=== PATIENT | male | born 1955 | race Caucasian/White ===

== ENCOUNTER 2020-08-26 08:53 | Inpatient (IN) | payer BC, SELFPAY ==
[2020-08-26] VITALS (11 sets, daily range): BP systolic 120–143; BP diastolic 60–92; PULSE 75–94; RESP 13–24; TEMP 36.2–37.6; O2SAT 91–94; BMI 36.7; BMI 35.9
--- NOTE | 2020-08-26 09:22 | RAD_ITS ---
STUDY: X-RAY CHEST REASON FOR EXAM: Male, 64 years old. Cough TECHNIQUE: Single AP portable view of the chest. COMPARISON: 07/11/2016 FINDINGS: EKG leads overlie the chest Lungs are expanded with diffuse interstitial and airspace opacifications in both lung reyes. This pattern of opacification is consistent with Covid pneumonia. Other possibilities include multifocal pneumonitis or drug interactions/toxicity. There is no demonstrated pleural abnormality. Normal size heart. Normal mediastinum and ayah. Normal visualized pulmonary arteries. Normal visualized aortic arch and descending thoracic aorta. Normal visualized thoracic spine. Normal visualized ribs, clavicles, and shoulders. There is no demonstrated abnormality of the visualized soft tissue structures of the upper abdomen. RAD/Chest 1 View (Portable) IMPRESSION: Diffuse interstitial and airspace opacifications in both lung reyes, differential as described above. Electronically Signed: Kti Gale MD at 10:06 EDT , Service support ,
[2020-08-26 09:32] LABS: Absolute Lymphocyte Count 0.88 X10^3/uL (0.83-4.51); Basophil# 0.02 X10^3/uL; Basophil% 0.3 % (0-1); Eosinophil# 0.03 X10^3/uL; Eosinophils% 0.4 % (0-5); Hematocrit 38.3 % (40-54); Hemoglobin 13.1 g/dL (13.0-16.5); Lymphocyte # 0.88 X10^3/ul (4.0); Lymphocyte % 11.2 % (19-41); Mean Corp Hgb Conc 34.2 g/dL (32-36); Mean Corpuscular Volume 93.4 fL (80-94); Mean Platelet Vol. 11.2 fl (6.2-12.0); Monocyte# 0.84 X10^3/uL; Monocyte% 10.7 % (0-10); NRBC Flagged by Analyzer 0 % (0-5); Neutrophil # 6.02 X10^3/uL (2.7-7.7); Neutrophil % 76.8 % (47-70); Platelet Count 164 K/mm3 (150-450); RBC Distribution Width CV 12.5 % (11.6-14.6); RBC Distribution Width SD 42.9 fl (35.1-43.9); White Blood Count 7.8 K/mm3 (4.4-11.0)
[2020-08-26 09:44] LABS: D-Dimer Quantitative (DVT/PE) 0.75 FEU/ug/m (0.27-0.49)
--- NOTE | 2020-08-26 09:44 | ED.RN ---
d dimer 0.75. dr elias
[2020-08-26 09:46] LABS: ALB/GLOB Ratio 0.6 RATIO (0.9-2.4); AST(SGOT) 43 U/L (15-37); Alanine Aminotransfer ALT/SGPT 55 U/L (16-61); Alkaline Phosphatase 65 U/L (45-117); Anion Gap 10 (5-15); BUN 15 mg/dL (7-18); Chloride 101 mmol/L (98-107); Creatinine, Serum 1.25 mg/dL (0.70-1.30); EST Glomerular Filtration Rate 62 mL/min (>60); Est Glom Filt Rate - Afr Amer 74 mL/min (>60); Globulin 4.8 g/dL (2.2-4.2); Glucose 153 mg/dL (74-106); Potassium 3.9 mmol/L (3.5-5.1); Protein, Total 7.8 g/dL (6.4-8.2); Sodium Level 136 mmol/L (136-145)
--- NOTE | 2020-08-26 09:47 | CT_ITS ---
STUDY: CTA CHEST REASON FOR EXAM: Male, 64 years old. PE RADIATION DOSAGE (If Supplied By Facility): CTDIvol = ( 13.85 ) mGy, DLP = ( 464.95 ) mGycm TECHNIQUE: The examination was performed with the intravenous administration of IV 100mL Isovue-370. Post-processing of the angiographic images was performed, with multiplanar reformation and 3D reconstruction. Individualized dose optimization techniques were used for this CT. COMPARISON: None. FINDINGS: Normal enhancement of the main pulmonary artery and right and left pulmonary arteries. Normal enhancement of the bilateral peripheral pulmonary arteries. There is no demonstrated pulmonary embolism. Normal thoracic aorta and visualized great vessels. There is no demonstrated aortic dissection. Normal heart and pericardium. There are calcifications of the coronary arteries. There are visualized mediastinal lymph nodes, which are within normal size limits, and with normal morphology. Normal hilar regions. There is peribronchial thickening. The lungs are well expanded. Diffuse patchy interstitial and airspace opacifications predominantly in the periphery of both lung reyes without evidence of effusion. This pattern of opacification is consistent with Covid pneumonia. Normal pleura. Normal chest wall structures. There are degenerative changes of thoracic spine. Normal visualized upper abdomen. CT/CTA Chest W/WO Contrast IMPRESSION: No demonstrated PE, or thoracic aortic aneurysm or dissection Diffuse interstitial and airspace opacifications in both lung reyes. Pattern consistent with Covid pneumonia Chronic bronchitis Calcified coronary vessels Electronically Signed: Kit Gale MD at 10:31 EDT , Service support ,
--- NOTE | 2020-08-26 09:53 | ED.DCSUM_ITS ---
- ER Visit Summary Date of Service: 08/26/20 Chief Complaint: Cough History of Present Illness: The patient is a [address] Mccauley. He reports that he got his first Covid vaccine on August 09 and has had a cough ever since then. Seems to worsen on August 14. He tested positive for Covid on August 17. Patient reports he has had a fever to 101 degrees at highest. He complains of chills and sweats. He denies any chest pain. Reports that he has mild shortness of breath with exertion.. Reports he has a headache is 7 out of 10 in severity and has been present since August 09 as well. Physical Examination: Vitals: Stable. Afebrile. General: Well-nourished and well-developed. Head: Normocephalic atraumatic. Neck: Supple, no lymphadenopathy. No JVD. Nontender. Cardiovascular: Regular rate and rhythm. No murmurs. Respiratory: No respiratory distress. Clear to auscultation bilaterally. Abdominal: Soft, nontender, nondistended, normal bowel sounds. No guarding, rebound, or peritoneal signs. Back: Nontender. Extremities: Nontender, no edema. Skin: Normal color, no rash. Neurologic: Alert and oriented ?3. Cranial nerves II through XII are intact. Normal strength and sensation. Psych: Normal affect. Test Results: CBC shows hematocrit of 30.3, stable neutrophils 77, lymphocytes of 11, monocytes of 11. Chem-7 shows glucose 153. LFTs show an albumin of 3.0, globulin 4.8, AST 43. D-dimer 0.75. Clinical Impression(s) from Imaging Studies Chest X-Ray 08/26/20 09:22 IMPRESSION: Diffuse interstitial and airspace opacifications in both lung reyes, differential as described above. Electronically Signed: Kit Gale MD at 10:06 EDT , Service support , Chest CTA 08/26/20 09:47 IMPRESSION: No demonstrated PE, or thoracic aortic aneurysm or dissection Diffuse interstitial and airspace opacifications in both lung reyes. Pattern consistent with Covid pneumonia Chronic bronchitis Calcified coronary vessels Electronically Signed: Kit Gale MD at 10:31 EDT , Service support , Emergency Department Course and Treatment: Patient was given dose of dexamethasone IV. Ambulatory pulse ox dropped to 87% after walking. Treatment Plan: I had a prolonged discussion with the patient about treatment options. Initially he was wanting to go home on oxygen. After discussing this with the family he does not feel comfortable this and wants to be admitted to the hospital. He will be discussed with the hospitalist for further admission. Disposition: Admitted in stable condition. Impression: 1. COVID-19 infection. 2. Hypoxia. This note was generated with [employer] dictation software. It may contain incorrect words, spelling, and punctuation that were not noted in review of the chart prior to signing ED Disposition - Plan for ED Patient: Referrals: Frantz Mccauley MD [Primary Care Provider] -
[2020-08-26] MEDS: dexAMETHasone 4 MG/ML Vial 6 MG IV (10:20)
--- NOTE | 2020-08-26 11:57 | NURSING ---
DR CHIRAG HUTCHINSON
--- NOTE | 2020-08-26 12:47 | NURSING ---
MS2 COVID INFECTION, HYPOXIA KORAM
--- NOTE | 2020-08-26 12:48 | NURSING ---
CV ICU 204
--- NOTE | 2020-08-26 12:56 | HP.PCM_ITS ---
History of Present Illness Date of Admission: 08/26/20 Chief Complaint: fever The patient is a 64 year old M with a past medical history as outlined. He was admitted through the ED on 08/26/2020 after he went to an urgent care center with a complaint of fever. Patient was diagnosed with COVID-19 infection on August 17, 2020. He did receive his first dose of the Pfizer Covid vaccine on August 09. He said for 5 days prior to presentation, he had been having fever at home with increasing sweats. He denied any shortness of breath, cough, headache, palpitations, dizziness, nausea or vomiting. He went to the urgent care because he thought he could get some antibiotics and some other medication for fever perform Tylenol as this has not been helping much with his fever at home. On review at the urgent care center, it was recommended that he come to the ED. In the ED, he was noted to be febrile with temperature of 99.6 Fahrenheit, respiratory rate was 22 and pulse rate was 94. Blood pressure was 130/82. He was initially saturating at 94% on room air but with ambulation and mild exertion, his saturation dropped to 88%. Mg was unremarkable and CBC was also unremarkable. D-dimer was elevated at 0.75 so a CTA of the chest was done which was negative for PE but showed diffuse interstitial and airspace opacifications in both lungs with a pattern consistent with Covid pneumonia. He has never been admitted to be managed for acute hypoxic respiratory insufficiency due to COVID-19 infection. [] Past Medical History Allergies No Known Allergies Allergy (Verified 07/11/16 13:32) Home Medications: Ambulatory Orders Medication Instructions Recorded Allopurinol [Zyloprim] 100 mg PO DAILYCM 08/26/20 Allopurinol [Zyloprim] 300 mg PO DAILY 08/26/20 Amlodipine [Norvasc] 5 mg PO DAILY 08/26/20 Atorvastatin Calcium [Lipitor] 10 mg PO QHS 08/26/20 Citalopram [Celexa] 20 mg PO DAILY 08/26/20 Levothyroxine [Synthroid] 137 mcg PO DAILY 08/26/20 Triamcinolone 0.025% Cream 1 applic TOPICAL TID 08/26/20 [Kenalog] buPROPion XL [Wellbutrin Xl] 150 mg PO DAILY 08/26/20 Surgical History: no surgical history Psychiatric History: No pertinent psych hx Lives: With Family Smoking Status: Never smoker Alcohol: Occasional Drugs: None - *Family History Maternal History Items: No pertinent history Review of Systems Constitutional: Reports: Fever, Night Sweats. Denies: Chills, Malaise, Weakness, Weight Change, Fatigue Eyes: Denies: Blurred vision HEENT: Denies: Head Aches, Sinus Congestion, Sinus Drainage Cardiovascular: Denies: Chest Pain, Chest Pressure, Palpitations Respiratory: Denies: Cough, Shortness of breath at rest, Sputum production Gastrointestinal: Denies: Abdominal Pain, Nausea, Vomiting Genitourinary: Denies: Dysuria Musculoskeletal: Denies: Joint Pain, Joint Tenderness Skin: Denies: Rash, Wounds Neurological: Denies: Numbness, Tingling, Focal weakness Psychiatric: Denies: Anxiety, Depression, Homicidal Ideations, Suicidal Ideations Hematologic/ Lymphatic: Denies: Easy Bruising, Easy Bleeding VTE Information - Inpt Only VTE Present on Admission: No VTE Pharm Prophylaxis ordered?: Yes - Physical Exam Vitals/I&O's: Vital Signs Temp Pulse Resp BP Pulse Ox 97.1 F L 84 22 H 127/60 H 92 08/26/20 12:18 08/26/20 12:18 08/26/20 12:18 08/26/20 12:18 08/26/20 12:18 Oxygen Delivery Method Room Air Weight: 241 lb 6.499 oz Body Mass Index (BMI) 36.7 General: Alert, Oriented x3, Cooperative, No apparent distress HEENT: Atraumatic, PERRLA, EOMI, Normocephalic Oral: Moist Mucosa Neck: Supple, No JVD, Negative Carotid Bruits Lungs: - - few crackles bibasally, no wheezes. On room air Cardiovascular: Regular rate, Regular Rhythm, Normal S1, Normal S2, No murmurs Abdomen: Bowel Sounds Present, Soft, Non Tender, Non-Distended, No Hepato- splenomegaly Extremities: No clubbing, No cyanosis, No edema, Capillary Refill Less than 3 Seconds Skin: No rashes, No breakdown Musculoskeletal: No Tenderness to Palpation of Joints or Extremities Lymphatic: No Cervical, Supraclavicular, or Inguinal Adenopathy Neurological: Cranial nerves II-XII grossly intact, Neuro grossly intact, Motor Exam 5/5 strength throughout Psych/Mental Status: Normal Affect, Appropriate, Alert and oriented to time, place, person, mood and affect Laboratory Results 08/26/20 09:14: WBC 7.8, RBC 4.10 L, Hgb 13.1, Hct 38.3 L, MCV 93.4, MCH 32.0, MCHC 34.2, RDW Std Deviation 42.9, RDW Coeff of Bella 12.5, Plt Count 164, MPV 11.2, Immature Gran % (Auto) 0.600, Neut % (Auto) 76.8 H, Lymph % (Auto) 11.2 L, [place] % (Auto) 10.7 H, Eos % (Auto) 0.4, Baso % (Auto) 0.3, Absolute Neuts (auto) 6.0, Absolute Lymphs (auto) 0.88, Nucleated RBC % 0 08/26/20 09:14: D-Dimer Quant (PE/DVT) 0.75 H* 08/26/20 09:14: Sodium 136, Potassium 3.9, Chloride 101, Carbon Dioxide 25.0, Anion Gap 10, BUN 15, Creatinine 1.25, Estim Creat Clear Calc 57.00, Est GFR (MDRD) Af Amer 74, Est GFR (MDRD) Non-Af 62, BUN/Creatinine Ratio 12.0, Glucose 153 H, Calcium 9.0, Total Bilirubin 0.50, AST 43 H, ALT 55, Alkaline Phosphatase 65, Total Protein 7.8, Albumin 3.0 L, Globulin 4.8 H, Albumin/Globulin Ratio 0.6 L Diagnostic Data Chest X-Ray 08/26/20 09:22 IMPRESSION: Diffuse interstitial and airspace opacifications in both lung reyes, differential as described above. Electronically Signed: Kit Gale MD at 10:06 EDT , Service support , Chest CTA 08/26/20 09:47 IMPRESSION: No demonstrated PE, or thoracic aortic aneurysm or dissection Diffuse interstitial and airspace opacifications in both lung reyes. Pattern consistent with Covid pneumonia Chronic bronchitis Calcified coronary vessels Electronically Signed: Kit Gale MD at 10:31 EDT , Service support , Assessment/Plan 64 y/o admitted with a complaint of fever #Acute hypoxic respiratory insufficiency due to COVID 19 infection * Admit to the Covid unit * As patient desaturated to 88% with ambulation, will start on IV remdesivir and Decadron 6 mg daily. * Breathing treatments with bronchodilators. Titrate oxygen to maintain saturation above 90%. * Consult infectious disease. * #COVID 19 infection: As above #Elevated D-dimer: * CTA of the chest done was negative for PE. * Start on Lovenox. * Will need a short course of anticoagulation for about 2 weeks as thromboprophylaxis on discharge. * # History of gout: on allopurinol #Hypertension: on amlodipine 5mg daily #Hyperlipidemia: on statin #Hypothyroidism: on synthroid #Depression: On Wellbutrin and Celexa. However he says he is not really been taking these meds. DVT prophylaxis: Lovenox CODE STATUS: Full code * Patient counseled extensively about different types of CODE STATUS including full code, DNR CCA and DNR CCA. Patient elects to be full code. Total [id number] time 16 minutes. Inpatient E&M: 61226 Init Hosp L3 Procedures: 21674 Advncd Care Plan 30 Min
[2020-08-26 15:25] LABS: Alkaline Phosphatase 65 U/L (45-117)
[2020-08-26 15:33] LABS: BNP,B-Type NATRIURETIC PEPTIDE 18.6 pg/mL (0-100)
[2020-08-26 15:42] LABS: Procalcitonin 0.21 ng/mL (0.00-0.09)
[2020-08-26] MEDS: amLODIPine 5 MG Tablet PO (15:50)
[2020-08-26] MEDS: dexAMETHasone 4 MG Tablet 6 MG PO (15:51)
[2020-08-26] MEDS: Atorvastatin Calcium 10 MG Tablet PO (22:01)
[2020-08-26] MEDS: Enoxaparin 30 MG/0.3 ML Syringe SC (22:01)
[2020-08-27] VITALS (13 sets, daily range): BP systolic 124–134; BP diastolic 81–89; PULSE 61–92; RESP 18–20; TEMP 35.9–36.6; O2SAT 88–96
--- NOTE | 2020-08-27 01:09 | NURSING ---
Pt placed on 2lpm oxygen via NC d/t p.ox. dropping below 90% while trying to sleep. Pt unable to get comfortable while wearing home CPAP unit, so he removed it and agreed to wear the NC.
[2020-08-27] MEDS: Levothyroxine 137 MCG Tablet PO (05:33)
[2020-08-27 05:51] LABS: Absolute Lymphocyte Count 0.86 X10^3/uL (0.83-4.51); Basophil# 0.01 X10^3/uL; Basophil% 0.1 % (0-1); Hematocrit 37.7 % (40-54); Hemoglobin 12.8 g/dL (13.0-16.5); Lymphocyte # 0.86 X10^3/ul (4.0); Lymphocyte % 10.5 % (19-41); Mean Corpuscular Hgb 32.2 pg (27.0-32.0); Mean Corpuscular Volume 94.7 fL (80-94); Mean Platelet Vol. 11.5 fl (6.2-12.0); Monocyte% 3.7 % (0-10); NRBC Flagged by Analyzer 0 % (0-5); Neutrophil # 6.97 X10^3/uL (2.7-7.7); Neutrophil % 85.2 % (47-70); Platelet Count 195 K/mm3 (150-450); RBC Distribution Width CV 12.4 % (11.6-14.6); RBC Distribution Width SD 43.5 fl (35.1-43.9); Red Blood Count 3.98 M/mm3 (4.6-6.2); White Blood Count 8.2 K/mm3 (4.4-11.0)
[2020-08-27 06:07] LABS: ALB/GLOB Ratio 0.6 RATIO (0.9-2.4); AST(SGOT) 59 U/L (15-37); Alanine Aminotransfer ALT/SGPT 84 U/L (16-61); Albumin, Serum 2.8 g/dL (3.2-5.0); Alkaline Phosphatase 72 U/L (45-117); Anion Gap 9 (5-15); BUN 25 mg/dL (7-18); BUN/Creat Ratio 24.3 RATIO (10-20); Chloride 104 mmol/L (98-107); Creatinine, Serum 1.03 mg/dL (0.70-1.30); EST Glomerular Filtration Rate 77 mL/min (>60); Est Glom Filt Rate - Afr Amer 93 mL/min (>60); Estimated Creatinine Clearance 69.17 ml/min; Globulin 4.9 g/dL (2.2-4.2); Glucose 200 mg/dL (74-106); Potassium 3.8 mmol/L (3.5-5.1); Protein, Total 7.7 g/dL (6.4-8.2); Sodium Level 136 mmol/L (136-145)
--- NOTE | 2020-08-27 09:57 | PN_ITS ---
Subjective: Chief complaint: Follow-up after admission for acute bilateral COVID-19 pneumonia and hypoxia. Patient seen and examined. No acute events overnight. Today, he denied any significant shortness of breath. He reported dry cough, no sputum production. He has been afebrile. He is on oxygen at 2 L, other vital signs are stable. - Physical Exam Vitals/I&O's: Vital Signs Temp Pulse Resp BP Pulse Ox 96.6 F L 82 20 H 134/88 H 94 08/27/20 08:00 08/27/20 09:29 08/27/20 08:00 08/27/20 08:00 08/27/20 08:00 Oxygen Flow Rate (L/min) 2 Oxygen Delivery Method Nasal Cannula Weight: 236 lb 4.655 oz Body Mass Index (BMI) 35.9 Intake and Output for Last 24 Hours 08/25/20 08/26/20 08/27/20 22:59 23:59 23:59 Intake Total 250 / 250 Balance 250 / 250 General: Alert, Oriented x3, Cooperative, No apparent distress HEENT: Atraumatic, PERRLA, EOMI, Normocephalic Oral: Moist Mucosa, No Gingival or Mucosal Lesions/ Ulcerations Neck: Supple, No JVD, Negative Carotid Bruits, Trachea Midline, Thyroid Normal Size and Texture Lungs: Clear to auscultation, No rhonchi, No wheeze, No rales, Diminished, - - Decreased breath sounds bilateral, otherwise clear. Cardiovascular: Regular rate, Regular Rhythm, Normal S1, Normal S2 Abdomen: Bowel Sounds Present, Soft, Non Tender, Non-Distended, No Hepato- splenomegaly Extremities: No clubbing, No cyanosis, No edema Skin: No rashes, No breakdown Lymphatic: No Cervical, Supraclavicular, or Inguinal Adenopathy Neurological: Cranial nerves II-XII grossly intact, Motor Exam 5/5 strength throughout Psych/Mental Status: Normal Affect, Appropriate, Alert and oriented to time, place, person, mood and affect Laboratory Results 08/26/20 09:14: B-Natriuretic Peptide 18.6 08/26/20 09:14: Procalcitonin 0.21 H 08/26/20 09:14: Alkaline Phosphatase 65 08/27/20 05:40: WBC 8.2, RBC 3.98 L, Hgb 12.8 L, Hct 37.7 L, MCV 94.7 H, MCH 32.2 H, MCHC 34.0, RDW Std Deviation 43.5, RDW Coeff of Bella 12.4, Plt Count 195, MPV 11.5, Immature Gran % (Auto) 0.500, Neut % (Auto) 85.2 H, Lymph % (Auto) 10.5 L, [place] % (Auto) 3.7, Eos % (Auto) 0.0, Baso % (Auto) 0.1, Absolute Neuts (auto) 7.0, Absolute Lymphs (auto) 0.86, Nucleated RBC % 0 08/27/20 05:40: Sodium 136, Potassium 3.8, Chloride 104, Carbon Dioxide 23.0, Anion Gap 9, BUN 25 H, Creatinine 1.03, Estim Creat Clear Calc 69.17, Est GFR (MDRD) Af Amer 93, Est GFR (MDRD) Non-Af 77, BUN/Creatinine Ratio 24.3 H, Glucose 200 H, Calcium 9.0, Total Bilirubin 0.40, AST 59 H, ALT 84 H, Alkaline Phosphatase 72, Total Protein 7.7, Albumin 2.8 L, Globulin 4.9 H, Albumin/Globulin Ratio 0.6 L Clinical Impression(s) from Imaging Studies Chest X-Ray 08/26/20 09:22 IMPRESSION: Diffuse interstitial and airspace opacifications in both lung reyes, differential as described above. Electronically Signed: Kit Gale MD at 10:06 EDT , Service support , Chest CTA 08/26/20 09:47 IMPRESSION: No demonstrated PE, or thoracic aortic aneurysm or dissection Diffuse interstitial and airspace opacifications in both lung reyes. Pattern consistent with Covid pneumonia Chronic bronchitis Calcified coronary vessels Electronically Signed: Kit Gale MD at 10:31 EDT , Service support , Current Medications Acetaminophen (Acetaminophen 325 Mg Tablet) 650 mg PO Q6H PRN PRN PRN Reason: Pain Score 1-10/Temp > 100.7 F Allopurinol (Allopurinol 100 Mg Tablet) 100 mg PO DAILY [facility] Allopurinol (Allopurinol 300 Mg Tablet) 300 mg PO DAILY [facility] Amlodipine Besylate (Amlodipine 5 Mg Tablet) 5 mg PO DAILY [facility] Last Admin: 08/26/20 15:50 Dose: 5 mg Documented by: Atorvastatin Calcium (Atorvastatin Calcium 10 Mg Tablet) 10 mg PO QHS [facility] Last Admin: 08/26/20 22:01 Dose: 10 mg Documented by: Dexamethasone (Dexamethasone 4 Mg Tablet) 6 mg PO DAILY [facility] Last Admin: 08/26/20 15:51 Dose: 6 mg Documented by: Enoxaparin Sodium (Enoxaparin 30 Mg/0.3 Ml Syringe) 30 mg SC BID [facility] Last Admin: 08/26/20 22:01 Dose: 30 mg Documented by: Remdesivir 100 mg/ Sodium (Chloride) 250 mls @ 125 mls/hr IV DAILY [facility] Stop: 08/30/20 11:59 Levothyroxine Sodium (Levothyroxine 137 Mcg Tablet) 137 mcg PO DAILY [facility] Last Admin: 08/27/20 05:33 Dose: 137 mcg Documented by: Nitroglycerin (Nitroglycerin (Inpatient Use) 0.4 Mg Tab.Subl) 0.4 mg SL Q5M PRN PRN Reason: CARDIAC/CHEST PAIN Ondansetron HCl (Ondansetron 4 Mg/2 Ml Vial) 4 mg IV Q8H PRN PRN PRN Reason: NAUSEA/VOMITING Sodium Chloride (0.9% Saline Lock 10 Ml Syringe) 10 - 40 ml IV UD PRN PRN Reason: SALINE FLUSH Medical Necessity - Tobacco Use Smoking Status: Never smoker Assessment/Plan All Active Problems Hypoxia (Acute) Pneumonia due to COVID-19 virus (Acute) This is a 64 years old male patient presented to the emergency room because of cough and fever, he tested positive for COVID-19 on August 17, 2020 and he was found to have diffuse interstitial and airspace opacification of both lungs consistent with COVID-19 pneumonia and he was hypoxic. #1 acute bilateral COVID-19 pneumonia/hypoxia: Patient is on IV remdesivir and p.o. Decadron as well as Lovenox twice daily. CTA chest reviewed, no PE or dissection, showed diffuse bilateral airspace disease. Currently, patient is on 2 L of oxygen, other vital signs are stable, afebrile. Blood cultures pending. Today CBC and BMP reviewed, remarkable for glucose of 200. Liver transaminases were slightly elevated on LFT. Infectious disease consulted. Plan: Continue same treatment, awaiting infectious disease recommendations, repeat CBC and CMP tomorrow morning. #2 hyperglycemia: Without history of diabetes. Plan to check hemoglobin A1c. Patient is already on p.o. Decadron.. #3 hypertension: Stable, continue Norvasc. #4 hypothyroidism: Continue levothyroxine. #5 gout: Stable, continue allopurinol. #6 depression: Stable, continue Celexa and Wellbutrin. #7 DVT prophylaxis: Subcu Lovenox twice daily. This note was generated with [employer] dictation software. It may contain incorrect words, spelling, and punctuation that were not noted in checking the note before signing. Inpatient E&M: 26098 Subs Hosp L2
[2020-08-27 10:35] LABS: Hemoglobin A1c 6.4 % (3.8-5.6)
[2020-08-27] MEDS: amLODIPine 5 MG Tablet PO (11:00)
[2020-08-27] MEDS: Enoxaparin 30 MG/0.3 ML Syringe SC ×2 (11:00→21:15)
[2020-08-27] MEDS: Allopurinol 300 MG Tablet PO (11:00)
[2020-08-27] MEDS: Allopurinol 100 MG Tablet PO (11:00)
[2020-08-27] MEDS: dexAMETHasone 4 MG Tablet 6 MG PO (11:00)
[2020-08-27] MEDS: 0.9% Saline Lock 10 ML Syringe IV ×2 (11:01→21:19)
--- NOTE | 2020-08-27 12:54 | PCM.HP.ID ---
Problem List (1) Pneumonia due to COVID-19 virus Status: Acute Reason for Consult: covid Consulted by: Dr. Uribe History of Present Illness: The patient is a 64 year old M with first dose Pfizer covid vaccine 08/09/20. Had a few days of increased cough, tested (+) 3. Also with change/loss in taste and smell. Cough got better, had some progressive dyspnea and drenching night sweats, went to urgent care, sent to ED. at home feeling fine, got 1st vaccine dose 08/23. He was admitted, started on remdesivir and dex, no night sweats last night, feeling fine today, still on O2. Full ROS performed and neg except as noted above. - Medical History Past Medical History (Chronic Problems): Chronic Problems Hypothyroidism (Chronic) Hypertension (Chronic) Hyperlipidemia (Chronic) Depression (Chronic) Allergies/Adverse Reactions: Allergies No Known Allergies Allergy (Verified 07/11/16 13:32) Home Medications: Ambulatory Orders Medication Instructions Recorded Allopurinol [Zyloprim] 100 mg PO DAILYCM 08/26/20 Allopurinol [Zyloprim] 300 mg PO DAILY 08/26/20 Amlodipine [Norvasc] 5 mg PO DAILY 08/26/20 Atorvastatin Calcium [Lipitor] 10 mg PO QHS 08/26/20 Citalopram [Celexa] 20 mg PO DAILY 08/26/20 Levothyroxine [Synthroid] 137 mcg PO DAILY 08/26/20 Triamcinolone 0.025% Cream 1 applic TOPICAL TID 08/26/20 [Kenalog] buPROPion XL [Wellbutrin Xl] 150 mg PO DAILY 08/26/20 - Social History Tobacco Use: non-smoker Vital Signs Temp Pulse Resp BP Pulse Ox 96.6 F L 77 20 H 134/88 H 90 08/27/20 08:00 08/27/20 11:42 08/27/20 08:00 08/27/20 08:00 08/27/20 10:02 Oxygen Flow Rate (L/min) 2 Oxygen Delivery Method Nasal Cannula Weight: 107.18 kg Body Mass Index (BMI) 35.9 Laboratory Tests Past 24 Hrs 08/26/20 08/26/20 08/26/20 09:14 09:14 09:14 WBC RBC Hgb Hct MCV MCH MCHC RDW Std Deviation RDW Coeff of Bella Plt Count MPV Immature Gran % (Auto) Neut % (Auto) Lymph % (Auto) [place] % (Auto) Eos % (Auto) Baso % (Auto) Absolute Neuts (auto) Absolute Lymphs (auto) Nucleated RBC % Sodium Potassium Chloride Carbon Dioxide Anion Gap BUN Creatinine Estim Creat Clear Calc Est GFR (MDRD) Af Amer Est GFR (MDRD) Non-Af BUN/Creatinine Ratio Glucose Hemoglobin A1c Calcium Total Bilirubin AST ALT Alkaline Phosphatase 65 B-Natriuretic Peptide 18.6 Total Protein Albumin Globulin Albumin/Globulin Ratio Procalcitonin 0.21 H 08/27/20 08/27/20 08/27/20 05:40 05:40 05:40 WBC 8.2 RBC 3.98 L Hgb 12.8 L Hct 37.7 L MCV 94.7 H MCH 32.2 H MCHC 34.0 RDW Std Deviation 43.5 RDW Coeff of Bella 12.4 Plt Count 195 MPV 11.5 Immature Gran % (Auto) 0.500 Neut % (Auto) 85.2 H Lymph % (Auto) 10.5 L [place] % (Auto) 3.7 Eos % (Auto) 0.0 Baso % (Auto) 0.1 Absolute Neuts (auto) 7.0 Absolute Lymphs (auto) 0.86 Nucleated RBC % 0 Sodium 136 Potassium 3.8 Chloride 104 Carbon Dioxide 23.0 Anion Gap 9 BUN 25 H Creatinine 1.03 Estim Creat Clear Calc 69.17 Est GFR (MDRD) Af Amer 93 Est GFR (MDRD) Non-Af 77 BUN/Creatinine Ratio 24.3 H Glucose 200 H Hemoglobin A1c 6.4 H Calcium 9.0 Total Bilirubin 0.40 AST 59 H ALT 84 H Alkaline Phosphatase 72 B-Natriuretic Peptide Total Protein 7.7 Albumin 2.8 L Globulin 4.9 H Albumin/Globulin Ratio 0.6 L Procalcitonin - Other Studies Radiology: [] reviewed Other Studies: [] Route of nutrition/ use of supplements: [] Nutritional Intake: [] IV Site: [] Balderas Catheter: [] - Physical Exam General: Alert, Oriented x3, Cooperative, No apparent distress HEENT: Atraumatic, PERRLA, EOMI Neck: Supple, No Nodes Lungs: Clear to auscultation, Diminished Cardiovascular: Regular rate, Regular Rhythm Abdomen: Soft, Non Tender, Non-Distended Extremities: No edema Skin: No rashes IV Site: Peripheral, without redness Musculoskeletal: No Tenderness to Palpation of Joints or Extremities Neurological: Cranial nerves II-XII grossly intact - Assessment/Plan Antibiotics: [] Assessment/Plan: [] covid with hypoxia - 1st dose vaccine (Pfizer) on 08/09/20. (+) covid on 08/17/20. Sx started in the few days in between those. Feeling better, still some hypoxia. Cont dex for 10 day total course, on remdesivir while inpatient. On lovenox 30mg bid. Quarantine until 09/03/20. 2nd dose of vaccine will need to be delayed 1-2 weeks. Ok for home on dex once home O2 is arranged. Will follow, thank you
--- NOTE | 2020-08-27 13:43 | CASEMGMT ---
Addendum entered by Pedro Hendricks 08/27/20 14:19: List of DME providers given to patient by nurse. Neena RICHARDS Original Note: RN CM Assessment Note Introduced role of CM to patient via phone to room. Patient states he is independent, no ambulatory DME, anticipates home on discharge. - had first vaccine, does not have COVID symptoms. Is able to assist on dc if needed. -Patient has family to bring groceries, supplies and has area in his home to quarantine. COVID Testing: [facility] day clinic Diagnosis: COVID 19 pneumonia PCP: Dr. Mccauley Insurance: [place] Preferred Pharmacy: [facility], [email or web address] Prescription Benefit: yes LNOK: Living Arrangements: pt lives independently @ home with . Denies care needs. Tranportation: drives, family can assist DME: cpap -Discussed possible need for home oxygen with patient. Reviewed [facility] providers for [place] in the geographic area, which included: [place], [facility], [facility] and [facility] [place]. Patient has worked with [facility] and prefers on dc. Patient DC Goals: Home DC Plan: Home on discharge. Recommend home oxygen testing prior to discharge. CM available for discharge planning coordination. Contact CM for any concerns/needs that may arise. Neena RICHARDS
[2020-08-27] MEDS: Atorvastatin Calcium 10 MG Tablet PO (21:15)
[2020-08-28] VITALS (8 sets, daily range): BP systolic 115–122; BP diastolic 73–84; PULSE 55–77; RESP 16–20; TEMP 35.9–36.4; O2SAT 85–93
[2020-08-28 04:57] LABS: Absolute Lymphocyte Count 0.97 X10^3/uL (0.83-4.51); Basophil# 0.02 X10^3/uL; Basophil% 0.2 % (0-1); Hematocrit 36.2 % (40-54); Hemoglobin 12.1 g/dL (13.0-16.5); Lymphocyte # 0.97 X10^3/ul (4.0); Lymphocyte % 7.6 % (19-41); Mean Corp Hgb Conc 33.4 g/dL (32-36); Mean Corpuscular Hgb 31.5 pg (27.0-32.0); Mean Corpuscular Volume 94.3 fL (80-94); Mean Platelet Vol. 11.7 fl (6.2-12.0); Monocyte# 0.63 X10^3/uL; Monocyte% 4.9 % (0-10); NRBC Flagged by Analyzer 0 % (0-5); Neutrophil # 11.02 X10^3/uL (2.7-7.7); Neutrophil % 86.5 % (47-70); Platelet Count 237 K/mm3 (150-450); RBC Distribution Width CV 12.6 % (11.6-14.6); RBC Distribution Width SD 43.5 fl (35.1-43.9); Red Blood Count 3.84 M/mm3 (4.6-6.2); White Blood Count 12.7 K/mm3 (4.4-11.0)
[2020-08-28 05:13] LABS: ALB/GLOB Ratio 0.6 RATIO (0.9-2.4); AST(SGOT) 41 U/L (15-37); Alanine Aminotransfer ALT/SGPT 96 U/L (16-61); Albumin, Serum 2.6 g/dL (3.2-5.0); Alkaline Phosphatase 69 U/L (45-117); Anion Gap 6 (5-15); BUN 26 mg/dL (7-18); BUN/Creat Ratio 26.3 RATIO (10-20); Calcium,Total 8.9 mg/dL (8.5-10.1); Chloride 106 mmol/L (98-107); Creatinine, Serum 0.99 mg/dL (0.70-1.30); EST Glomerular Filtration Rate 81 mL/min (>60); Est Glom Filt Rate - Afr Amer 98 mL/min (>60); Estimated Creatinine Clearance 71.97 ml/min; Globulin 4.5 g/dL (2.2-4.2); Glucose 231 mg/dL (74-106); Potassium 4.2 mmol/L (3.5-5.1); Protein, Total 7.1 g/dL (6.4-8.2); Sodium Level 137 mmol/L (136-145)
[2020-08-28] MEDS: Levothyroxine 137 MCG Tablet PO (05:35)
[2020-08-28] MEDS: amLODIPine 5 MG Tablet PO (09:00)
[2020-08-28] MEDS: Allopurinol 300 MG Tablet PO (09:00)
[2020-08-28] MEDS: buPROPion (XL) 150 MG TABLET.XL PO (09:00)
[2020-08-28] MEDS: Citalopram 20 MG Tablet PO (09:00)
[2020-08-28] MEDS: dexAMETHasone 4 MG Tablet 6 MG PO (09:00)
[2020-08-28] MEDS: Allopurinol 100 MG Tablet PO (09:00)
[2020-08-28] MEDS: Enoxaparin 30 MG/0.3 ML Syringe SC (09:00)
--- NOTE | 2020-08-28 10:17 | DCINST_ITS ---
- Discharge Diagnoses Current Active Problems: Current Active and Chronic Problems Pneumonia due to COVID-19 virus (Acute) You will use the following diet at home:: Cardiac Discharge Activity: Return to Normal Activity Weight Bearing Status: Weight bearing as tolerated Call your doctor if you observe: Fever of 101 or Higher, Shortness of breath, Dizziness, Fainting spells, Chest pain, Increased palpitations (irregular heartbeat), Uncontrolled pain Instructions: Preventing the Spread of Infection Understanding Isolation Procedures, Coronavirus Disease 2019 (COVID-19): Caring for Yourself or Others, Using Oxygen at Home Allergies/Adverse Reactions: Allergies No Known Allergies Allergy (Verified 07/11/16 13:32) Medications to take at Discharge Allopurinol [Zyloprim] 100 mg PO DAILYCM 08/26/20 Allopurinol [Zyloprim] 300 mg PO DAILY 08/26/20 Amlodipine [Norvasc] 5 mg PO DAILY 08/26/20 Atorvastatin Calcium [Lipitor] 10 mg PO QHS 08/26/20 Citalopram [Celexa] 20 mg PO DAILY 08/26/20 Levothyroxine [Synthroid] 137 mcg PO DAILY 08/26/20 Triamcinolone 0.025% Cream [Kenalog] 1 applic TOPICAL TID 08/26/20 buPROPion XL [Wellbutrin Xl] 150 mg PO DAILY 08/26/20 Dexamethasone [Decadron] 6 mg PO DAILY 7 Days tab 08/28/20 The following prescriptions were given: Dexamethasone [Decadron] 6 mg PO DAILY 7 Days tab Prescription Printed Primary Care Physician: Frantz Mccauley MD [Primary Care Provider] - Please follow up with your Primary Care Physician in: 1 week. Test Results: Test results from this visit will be discussed in further detail at your follow- up appointment, if applicable.
--- NOTE | 2020-08-28 10:27 | CASEMGMT ---
Discussed O2 with pt via phone. Pt plans to go to [place] after quarantine. Pt agreeable to using [facility] since this is a [place]. Pt aware of 2L at rest and 6L on exertion. Denies questions. Discussed where pt could obtain pulse ox. Referral faxed to [facility]. FU tc for receipt of referral made.
--- NOTE | 2020-08-28 11:46 | PCM.DC.SUM ---
Discharge Date and Diagnosis - Problem List Patient Problems: Active and Suspected Problems Pneumonia due to COVID-19 virus (Acute) Date of Admission: 08/26/20 Date of Discharge: 08/28/20 - Primary Discharge Diagnosis Acute Problems: Active Problems #1 acute bilateral COVID-19 pneumonia. #2 acute hypoxic respiratory failure. - Secondary Discharge Diagnosis Chronic Problems: Chronic Problems Hypothyroidism (Chronic) Hypertension (Chronic) Hyperlipidemia (Chronic) Depression (Chronic) Hospital Course and Treatment Imaging Results: Clinical Impression(s) from Imaging Studies Chest X-Ray 08/26/20 09:22 IMPRESSION: Diffuse interstitial and airspace opacifications in both lung reyes, differential as described above. Electronically Signed: Kit Gale MD at 10:06 EDT , Service support , Chest CTA 08/26/20 09:47 IMPRESSION: No demonstrated PE, or thoracic aortic aneurysm or dissection Diffuse interstitial and airspace opacifications in both lung reyes. Pattern consistent with Covid pneumonia Chronic bronchitis Calcified coronary vessels Electronically Signed: Kit Gale MD at 10:31 EDT , Service support , Dr. Ochoa, infectious disease. Operations: None Procedures: None Summary of Care Provided: Patient seen and examined on day of discharge and appeared to be stable to be discharged home. He remained stable, no worsening shortness of breath but he remained on oxygen. Ambulatory pulse ox was done and his pulse ox was 95% on ambulation, required 2 L of oxygen at rest and up to 6 L with ambulation. He was not very short of breath though. Other vital signs were stable. The patient is a 64 year old M presented to the emergency room because of cough, fever, tested positive for COVID-19 on August 17, 2020 and he was found to have diffuse interstitial airspace opacification of both lungs consistent with COVID-19 pneumonia. CTA of the chest showed no PE or dissection, revealed diffuse interstitial and airspace opacification in both lung reyes. His routine blood work was unremarkable apart from leukocytosis due to steroids. LFT was normal. Procalcitonin was slightly elevated. BNP was normal. He was treated with IV remdesivir, p.o. Decadron and subcu Levaquin twice daily. Symptom dietrich, patient remained stable throughout admission without worsening shortness of breath. He remained on 2 L. Ambulatory pulse ox was done and his pulse ox went down to 85% with ambulation and he required up to 6 L to bring it up with ambulation. At rest, he required 2 L. Throughout the hospital stay, patient was not very short of breath, was not tachypneic or dyspneic although he required oxygen. Actually his symptoms improved and he felt better. Patient discharged home in a stable medical condition, discharged on Decadron p.o. to complete total of 10 days of treatment, discharged on oxygen at 2 L at rest and goes up to 6 L ambulation, instructed to continue COVID-19 quarantine requirements until September 03, 2020, wear facemask at all times, wash hands frequently, recommended from PCP in 1 week. Patient Problems: Active and Suspected Problems Pneumonia due to COVID-19 virus (Acute) - Physical Exam Vitals/I&O's: Vital Signs Temp Pulse Resp BP Pulse Ox 97.6 F L 72 20 H 115/84 H 92 08/28/20 11:23 08/28/20 11:23 08/28/20 11:23 08/28/20 11:23 08/28/20 11:23 Oxygen Flow Rate (L/min) [ 6 AMBULATING with Oxygen #3] Oxygen Flow Rate (L/min) [ 4 AMBULATING with Oxygen #2] Oxygen Flow Rate (L/min) [ 2 AMBULATING with Oxygen #1] Oxygen Flow Rate (L/min) [At 2 REST with Oxygen] Oxygen Flow Rate (L/min) 2 Oxygen Delivery Method Nasal Cannula Weight: 236 lb 4.655 oz Body Mass Index (BMI) 35.9 Intake and Output for Last 24 Hours 08/26/20 08/27/20 08/28/20 23:59 23:59 23:59 Intake Total 2800 / 2800 Balance 2800 / 2800 General: Alert, Oriented x3, Cooperative, No apparent distress HEENT: Atraumatic, PERRLA, EOMI, Normocephalic Oral: Moist Mucosa, No Gingival or Mucosal Lesions/ Ulcerations Neck: Supple, No JVD, Negative Carotid Bruits, Trachea Midline, Thyroid Normal Size and Texture Lungs: Clear to auscultation, No rhonchi, No wheeze, No rales, Diminished Cardiovascular: Regular rate, Regular Rhythm, Normal S1, Normal S2, PMI Normal Abdomen: Bowel Sounds Present, Soft, Non Tender, Non-Distended, No Hepato-splenomegaly Extremities: No clubbing, No cyanosis, No edema Skin: No rashes, No breakdown Lymphatic: No Cervical, Supraclavicular, or Inguinal Adenopathy Neurological: Cranial nerves II-XII grossly intact, Neuro grossly intact Psych/Mental Status: Normal Affect, Appropriate Microbiology Past 72 Hours 08/26/20 09:35 Blood Culture (Wb) - Left Hand Blood Culture - Preliminary No growth in 48 hours. 08/26/20 09:30 Blood Culture (Wb) - Anticubital Left Blood Culture - Preliminary No growth in 48 hours. Laboratory Results 08/28/20 04:50: WBC 12.7 H, RBC 3.84 L, Hgb 12.1 L, Hct 36.2 L, MCV 94.3 H, MCH 31.5, MCHC 33.4, RDW Std Deviation 43.5, RDW Coeff of [place] 12.6, Plt Count 237, MPV 11.7, Immature Gran % (Auto) 0.800, Neut % (Auto) 86.5 H, Lymph % (Auto) 7.6 L, [place] % (Auto) 4.9, Eos % (Auto) 0.0, Baso % (Auto) 0.2, Absolute Neuts (auto) 11.0 H, Absolute Lymphs (auto) 0.97, Nucleated RBC % 0 08/28/20 04:50: Sodium 137, Potassium 4.2, Chloride 106, Carbon Dioxide 25.0, Anion Gap 6, BUN 26 H, Creatinine 0.99, Estim Creat Clear Calc 71.97, Est GFR (MDRD) Af Amer 98, Est GFR (MDRD) Non-Af 81, BUN/Creatinine Ratio 26.3 H, Glucose 231 H, Calcium 8.9, Total Bilirubin 0.40, AST 41 H, ALT 96 H, Alkaline Phosphatase 69, Total Protein 7.1, Albumin 2.6 L, Globulin 4.5 H, Albumin/Globulin Ratio 0.6 L Current Medications Acetaminophen (Acetaminophen 325 Mg Tablet) 650 mg PO Q6H PRN PRN PRN Reason: Pain Score 1-10/Temp > 100.7 F Allopurinol (Allopurinol 100 Mg Tablet) 100 mg PO DAILY [facility] Last Admin: 08/28/20 09:00 Dose: 100 mg Documented by: Allopurinol (Allopurinol 300 Mg Tablet) 300 mg PO DAILY [facility] Last Admin: 08/28/20 09:00 Dose: 300 mg Documented by: Amlodipine Besylate (Amlodipine 5 Mg Tablet) 5 mg PO DAILY [facility] Last Admin: 08/28/20 09:00 Dose: 5 mg Documented by: Atorvastatin Calcium (Atorvastatin Calcium 10 Mg Tablet) 10 mg PO QHS [facility] Last Admin: 08/27/20 21:15 Dose: 10 mg Documented by: Bupropion HCl (Bupropion (Xl) 150 Mg Tablet.Xl) 150 mg PO DAILY [facility] Last Admin: 08/28/20 09:00 Dose: 150 mg Documented by: Citalopram Hydrobromide (Citalopram 20 Mg Tablet) 20 mg PO DAILY [facility] Last Admin: 08/28/20 09:00 Dose: 20 mg Documented by: Dexamethasone (Dexamethasone 4 Mg Tablet) 6 mg PO DAILY [facility] Stop: 09/04/20 10:01 Last Admin: 08/28/20 09:00 Dose: 6 mg Documented by: Enoxaparin Sodium (Enoxaparin 30 Mg/0.3 Ml Syringe) 30 mg SC BID [facility] Last Admin: 08/28/20 09:00 Dose: 30 mg Documented by: Remdesivir 100 mg/ Sodium (Chloride) 250 mls @ 125 mls/hr IV DAILY [facility] Stop: 08/30/20 11:59 Last Admin: 08/28/20 11:07 Dose: 125 mls/hr Documented by: Levothyroxine Sodium (Levothyroxine 137 Mcg Tablet) 137 mcg PO DAILY [facility] Last Admin: 08/28/20 05:35 Dose: 137 mcg Documented by: Ondansetron HCl (Ondansetron 4 Mg/2 Ml Vial) 4 mg IV Q8H PRN PRN PRN Reason: NAUSEA/VOMITING Sodium Chloride (0.9% Saline Lock 10 Ml Syringe) 10 - 40 ml IV UD PRN PRN Reason: SALINE FLUSH Last Admin: 08/27/20 21:19 Dose: 10 ml Documented by: Discharge Activity: Return to Normal Activity Weight Bearing Status: Weight bearing as tolerated Call your doctor if you observe: Fever of 101 or Higher, Shortness of breath, Dizziness, Fainting spells, Chest pain, Increased palpitations (irregular heartbeat), Uncontrolled pain Home Medications: Medications to take at Discharge Allopurinol [Zyloprim] 100 mg PO DAILYCM 08/26/20 Allopurinol [Zyloprim] 300 mg PO DAILY 08/26/20 Amlodipine [Norvasc] 5 mg PO DAILY 08/26/20 Atorvastatin Calcium [Lipitor] 10 mg PO QHS 08/26/20 Citalopram [Celexa] 20 mg PO DAILY 08/26/20 Levothyroxine [Synthroid] 137 mcg PO DAILY 08/26/20 Triamcinolone 0.025% Cream [Kenalog] 1 applic TOPICAL TID 08/26/20 buPROPion XL [Wellbutrin Xl] 150 mg PO DAILY 08/26/20 Dexamethasone [Decadron] 6 mg PO DAILY 7 Days tab 08/28/20 Following Prescriptions Were Given to Patient: Dexamethasone [Decadron] 6 mg PO DAILY 7 Days tab Prescription Printed Primary Care Physician: Frantz Mccauley MD [Primary Care Provider] - Please follow up with your Primary Care Physician in: 1 week. Patient Instructions: Coronavirus Disease 2019 (COVID-19): Caring for Yourself or Others, Using Oxygen at Home, Preventing the Spread of Infection Understanding Isolation Procedures Disposition: Home Minutes spent on discharge:: 32 Patient Condition:: Stable Medical Necessity - Tobacco Use Smoking Status: Never smoker Meaningful Use Info Meaningful Use Diagnoses (Choose all that apply): None applicable Inpatient E&M: 46804 Disch Hosp
--- NOTE | 2020-08-29 11:44 | NURSING ---
Addendum entered and electronically signed by Nahed Moses 08/29/20 12:22: Return call from patient, confirmed picked up DC medication- steroid and has been taking. Denies any issues, concerns or questions with medications, aftercare instructions, or f/u. Will call PCP and schedule a F/u appointment. Did receive home O2- states concentrator noisy and informed can call [facility] to switch unit when available or inquire if normal. States pulse ox is arriving today and will check O2 saturation, discussed maintaining goal level above 93% and indication of an accurate reading on pulse ox. Denies any further questions or issues, thanked patient for choosing [facility] for care and ended conversation. JOSELUIS Palmer Original Note: RNEVENS DC F/u call note: Discharge Date: 08.28.2020 Discharge Diagnosis: Pneumonia due to COVID-19 virus (Acute) Discharge Disposition: Home with Home O2-[facility] Lace/Strata: 10/13 Attempted to call patient listed cell phone number, no answer. HERNANDO did verify correct identity, VM left to return call to this proposal manager writer. JOSELUIS Palmer
== END 2020-08-28 15:10 | disposition home or self-care (01) | DRG 177 ==
LOC: ED 09:42 → ICU 12:30
PROVIDERS: Admitting Provider Student in an Organized Health Care Education/Training Program; Emergency Provider Emergency Medicine; PCP Internal Medicine; Visit Provider Hospitalist
DX: U07.1 COVID-19 (principal); J12.82 Pneumonia due to coronavirus disease 2019; J96.01 Acute respiratory failure with hypoxia; M10.9 Gout, unspecified; I10 Essential (primary) hypertension; E78.5 Hyperlipidemia, unspecified; E03.9 Hypothyroidism, unspecified; F32.9 Major depressive disorder, single episode, unspecified; Z79.899 Other long term (current) drug therapy; R73.9 Hyperglycemia, unspecified
CPT/HCPCS: 36415; 71045; 71275; 80053; 83036; 83880; 84075; 84145; 85025; 85379; 87040; 99285; J7050; Q9967; A4216

== ENCOUNTER 2022-03-28 15:28 | Emergency (ER) | payer BC, SELFPAY ==
[2022-03-28 15:31] VITALS: BP 127/86; PULSE 66; RESP 18; TEMP 36.8; O2SAT 100; BMI 38.3
--- NOTE | 2022-03-28 15:45 | EKG12_ITS ---
Test Reason : Blood Pressure : / mmHG Vent. Rate : 066 BPM Atrial Rate : 066 BPM P-R Int : 162 ms QRS Dur : 104 ms QT Int : 448 ms P-R-T Axes : 042 003 021 degrees QTc Int : 469 ms Normal sinus rhythm Normal ECG Confirmed by AUGUSTO BRAND, DICK ([id number]), editor publications CLAY ADWSON ([id number]) on 03/31/2022 9:57:56 A M Referred By: Confirmed By:LESLIE CASAS MD
--- NOTE | 2022-03-28 15:57 | ED.VIS.CHEST ---
HPI <NELLY Gillis - Last Filed: 03/28/22 18:56> History of Present Illness Chief Complaint: Chest Pain Narrative Narrative: 66-year-old male with PMH of HTN, HLD, DM2, hypothyroidism presents with chest pressure. He was in a business meeting this afternoon and was very stressed and around 2:30 PM he developed midsternal chest pressure. He went out to lunch with his coworkers and still felt stressed and was taking deep breaths to try to relax. He went to the bathroom and had a bowel movement and then felt lightheaded and sweaty. He walked back out to a bench where a coworker witnessed this and called EMS. Patient continues to have mild chest pressure but no other symptoms at this time. He states has had history of bad anxiety before but not frequent chest pains. He reports having multiple negative stress tests before but its been several years. He has no history of DVT/PE or risk factors. He smokes an occasional cigar. Denies drug use. No family history of [place]. PFSH <NELLY Gillis - Last Filed: 03/28/22 18:56> PFSH Home Medications allopurinol 100 mg tablet 100 mg PO DAILYCM 08/26/20 [History Last Taken Unknown] allopurinol 300 mg tablet 300 mg PO DAILY 08/26/20 [History Last Taken Unknown] amlodipine 5 mg tablet 5 mg PO DAILY 08/26/20 [History Last Taken Unknown] atorvastatin 10 mg tablet 10 mg PO QHS 08/26/20 [History Last Taken Unknown] bupropion HCl 150 mg 24 hr tablet, extended release 150 mg PO DAILY 08/26/20 [History Last Taken Unknown] citalopram 20 mg tablet 20 mg PO DAILY 08/26/20 [History Last Taken Unknown] levothyroxine 137 mcg tablet 100 mcg PO DAILY 08/26/20 [History Last Taken Unknown] empagliflozin 10 mg tablet (Jardiance) 10 mg PO DAILY 03/28/22 [History Last Taken Unknown] losartan 25 mg tablet 25 mg PO 1XD 03/28/22 [History Last Taken Unknown] Allergy/AdvReac Type Severity Reaction Status Date / Time No Known Allergies Allergy Verified 03/28/22 15:31 Social History Smoking Status: Never smoker ROS <NELLY Gillis - Last Filed: 03/28/22 18:56> ROS ED ROS Narrative Constitutional: Negative for fever, chills, malaise. Eyes: Negative for visual change. ENT: Negative for sore throat, ear pain, rhinorrhea. CVS: Positive for chest pain. Negative for palpitations, syncope. Respiratory: Negative for shortness of breath, cough, orthopnea. GI: Negative for abdominal pain, nausea, vomiting, diarrhea, constipation, melena, hematochezia. : Negative for dysuria, hematuria or frequency. Neuro: Negative for headache, motor/sensory dysfunction. Skin: Negative for rash, abscess, or wound. Musc: Negative for joint pain, swelling, trauma. Heme: Negative for easy bruising, bleeding, lymphadenopathy. EXAM <NELLY Gilils Last Filed: 03/28/22 18:56> Physical Exam Const Vital Signs: 03/28/22 15:31 03/28/22 19:00 Temperature 98.2 F Temperature Source Temporal Pulse Rate 66 70 Respiratory Rate 18 17 Blood Pressure 127/86 H 138/72 H Blood Pressure Mean 99 94 Pulse Ox 100 98 Oxygen Delivery Method Room Air Room Air <Dr. Marcial Wallace DO - Last Filed: 03/28/22 22:42> Physical Exam Const Vital Signs: 03/28/22 15:31 03/28/22 19:00 Temperature 98.2 F Temperature Source Temporal Pulse Rate 66 70 Respiratory Rate 18 17 Blood Pressure 127/86 H 138/72 H Blood Pressure Mean 99 94 Pulse Ox 100 98 Oxygen Delivery Method Room Air Room Air <Dr. Marcial Wallace DO - Last Filed: 03/28/22 22:42> Heart Score History: Slightly/Non-Suspicious ECG: Normal Age: >/= 65 years Risk Factors: 1 or 2 Risk Factors Troponin: </= Normal Limit Score: 3 MDM <NELLY Gillis - Last Filed: 03/28/22 18:56> [facility] Narrative Medical decision making narrative: Patient was stressed at work and developed chest pressure and diaphoresis. He appears well and nontoxic. Vital signs within normal limits. His medical exam is unremarkable. EKG is sinus rhythm with no acute ischemia. Troponin is 5, delta 5. The rest of his labs including D-dimer are unremarkable. CXR shows no acute process. Patient has been symptom-free here and is stable for outpatient follow-up. He has an appointment with his PCP next week. I recommended getting an outpatient stress test but to return to the ER if he has new or worsening symptoms. He was discharged in stable condition. Attending note: Patient seen and evaluated with carpenter mine. I perform my own [id number] evaluation. I agree with the plan of work-up. Epigastric substernal chest pressure after leaving intense meeting 2:30 PM. Was sweaty while he went to work. No radicular symptoms. No cough. Had COVID last year therefore still recovering with chronic dyspnea at times. Smokes a cigar at times. No family history of MIs at young age. History hypertension, diabetes, hyperlipidemia. Stress test 4 years ago, no history of heart caths. Currently symptoms subsided status post aspirin by EMS. No nitro given. EKG nonspecific T wave version leads III. Low risk Wells criteria for PE with dyspnea along with multiple recent travels for work. No leg swelling. D-dimer negative. Chest x-ray 1 view reviewed by myself and read by radiology shows no acute process. Initial labs are stable initial troponin at 5. 2-hour troponin pending. Lab Data Labs: Laboratory Results - last 24 hr 03/28/22 03/28/22 03/28/22 15:54 15:54 15:54 WBC 9.2 RBC 4.51 L Hgb 14.8 Hct 42.8 MCV 94.9 H MCH 32.8 H MCHC 34.6 RDW Std Deviation 46.4 H RDW Coeff of Bella 13.3 Plt Count 146 L MPV 11.4 Immature Gran % (Auto) 0.700 Neut % (Auto) 56.0 Lymph % (Auto) 29.4 Dougherty % (Auto) 9.6 Eos % (Auto) 3.3 Baso % (Auto) 1.0 Absolute Neuts (auto) 5.1 Absolute Lymphs (auto) 2.69 Nucleated RBC % 0 D-Dimer Quant (PE/DVT) 0.28 Sodium 141 Potassium 3.5 Chloride 109 H Carbon Dioxide 23.0 Anion Gap 9 BUN 21 H Creatinine 1.28 Estim Creat Clear Calc 52.36 Est GFR (MDRD) Af Amer 72 Est GFR (MDRD) Non-Af 60 BUN/Creatinine Ratio 16.4 Glucose 105 Calcium 9.3 Troponin I High Sens 5 03/28/22 18:13 WBC RBC Hgb Hct MCV MCH MCHC RDW Std Deviation RDW Coeff of Bella Plt Count MPV Immature Gran % (Auto) Neut % (Auto) Lymph % (Auto) Dougherty % (Auto) Eos % (Auto) Baso % (Auto) Absolute Neuts (auto) Absolute Lymphs (auto) Nucleated RBC % D-Dimer Quant (PE/DVT) Sodium Potassium Chloride Carbon Dioxide Anion Gap BUN Creatinine Estim Creat Clear Calc Est GFR (MDRD) Af Amer Est GFR (MDRD) Non-Af BUN/Creatinine Ratio Glucose Calcium Troponin I High Sens 5 Radiography Diagnostic Testing: Clinical Impression(s) from Imaging Studies Chest X-Ray 03/28/22 16:00 IMPRESSION: There are no acute findings. Electronically Signed: Herbie Wells MD at 16:10 EDT , ED attending interpretation shows normal heart size, no acute infiltrate, edema, or effusion. <Dr. Marcial Wallace, DO - Last Filed: 03/28/22 22:42> [facility] MDM Narrative Medical decision making narrative: Patient was stressed at work and developed chest pressure and diaphoresis. He appears well and nontoxic. Vital signs within normal limits. His medical exam is unremarkable. EKG is sinus rhythm with no acute ischemia. Troponin is 5, delta 5. The rest of his labs including D-dimer are unremarkable. CXR shows no acute process. Patient has been symptom-free here and is stable for outpatient follow-up. He has an appointment with his PCP next week. I recommended getting an outpatient stress test but to return to the ER if he has new or worsening symptoms. He was discharged in stable condition. Attending note: Patient seen and evaluated with carpenter mine. I perform my own [id number] evaluation. I agree with the plan of work-up. Epigastric substernal chest pressure after leaving intense meeting 2:30 PM. Was sweaty while he went to work. No radicular symptoms. No cough. Had COVID last year therefore still recovering with chronic dyspnea at times. Smokes a cigar at times. No family history of MIs at young age. History hypertension, diabetes, hyperlipidemia. Stress test 4 years ago, no history of heart caths. Currently symptoms subsided status post aspirin by EMS. No nitro given. EKG nonspecific T wave version leads III. Low risk Wells criteria for PE with dyspnea along with multiple recent travels for work. No leg swelling. D-dimer negative. Chest x-ray 1 view reviewed by myself and read by radiology shows no acute process. Initial labs are stable initial troponin at 5. 2-hour troponin pending. Repeat troponin negative. Discharged with outpatient follow-up. Return precautions. Lab Data Attestation: I reviewed the patient's lab results. Labs: Laboratory Results - last 24 hr 03/28/22 03/28/22 03/28/22 15:54 15:54 15:54 WBC 9.2 RBC 4.51 L Hgb 14.8 Hct 42.8 MCV 94.9 H MCH 32.8 H MCHC 34.6 RDW Std Deviation 46.4 H RDW Coeff of Bella 13.3 Plt Count 146 L MPV 11.4 Immature Gran % (Auto) 0.700 Neut % (Auto) 56.0 Lymph % (Auto) 29.4 Dougherty % (Auto) 9.6 Eos % (Auto) 3.3 Baso % (Auto) 1.0 Absolute Neuts (auto) 5.1 Absolute Lymphs (auto) 2.69 Nucleated RBC % 0 D-Dimer Quant (PE/DVT) 0.28 Sodium 141 Potassium 3.5 Chloride 109 H Carbon Dioxide 23.0 Anion Gap 9 BUN 21 H Creatinine 1.28 Estim Creat Clear Calc 52.36 Est GFR (MDRD) Af Amer 72 Est GFR (MDRD) Non-Af 60 BUN/Creatinine Ratio 16.4 Glucose 105 Calcium 9.3 Troponin I High Sens 5 03/28/22 18:13 WBC RBC Hgb Hct MCV MCH MCHC RDW Std Deviation RDW Coeff of Bella Plt Count MPV Immature Gran % (Auto) Neut % (Auto) Lymph % (Auto) Dougherty % (Auto) Eos % (Auto) Baso % (Auto) Absolute Neuts (auto) Absolute Lymphs (auto) Nucleated RBC % D-Dimer Quant (PE/DVT) Sodium Potassium Chloride Carbon Dioxide Anion Gap BUN Creatinine Estim Creat Clear Calc Est GFR (MDRD) Af Amer Est GFR (MDRD) Non-Af BUN/Creatinine Ratio Glucose Calcium Troponin I High Sens 5 Radiography Diagnostic Testing: Clinical Impression(s) from Imaging Studies Chest X-Ray 03/28/22 16:00 IMPRESSION: There are no acute findings. Electronically Signed: Herbie Wells MD at 16:10 EDT , EKG Initial EKG: Attestation: I personally reviewed and interpreted this EKG as follows: Comments: Sinus rate of [address] changes isolated T wave version lead III. Nonspecific. Discharge Plan Triage Chief Complaint: Chest Pain ED Midlevel Provider: Dianne Kramer ED Provider: Marcial Wallace Dx/Rx/DC Orders Clinical Impression: Chest pain, Hypertension, Hyperlipidemia Instructions: Chest Pain [facility] Ch Prescriptions: No Action levothyroxine 137 MCG tablet 100 mcg PO DAILY atorvastatin 10 MG tablet 10 mg PO QHS amlodipine 5 MG tablet 5 mg PO DAILY allopurinol 100 MG tablet 100 mg PO DAILYCM citalopram 20 MG tablet 20 mg PO DAILY allopurinol 300 MG tablet 300 mg PO DAILY bupropion HCl 150 MG tablet extended release 24 hr 150 mg PO DAILY losartan 25 mg Tablet 25 mg PO 1XD Jardiance 10 mg Tablet 10 mg PO DAILY Primary Care Provider: Frantz Mccauley Referrals: Frantz Mccauley MD [Primary Care Provider] - Activity Restrictions/Additional Instructions: Today your blood work all look normal with no signs of heart attack or blood clots. Follow-up with your doctor as scheduled for your physical and I recommend you get an outpatient stress test done. If you have chest pain or pressure recur before then come back to the ER. Disposition Disposition: Home, Self Care Discharge Date/Time: 03/28/22 19:01
--- NOTE | 2022-03-28 16:00 | RAD_ITS ---
STUDY: XR Chest 1 View 03/28/2022 4:03 PM REASON FOR EXAM: Male, 66 years old. CHEST PAIN chest pain COMPARISON: 08/26/2020 TECHNIQUE: XR Chest 1 View FINDINGS: There is no demonstrated pleural abnormality. Normal heart size. Normal mediastinum. Normal ayah. Prominent appearing increased interstitial lung markings. Normal visualized pulmonary arteries. There is atherosclerotic calcification of the aortic arch with tortuosity. There are diffuse degenerative changes of the visualized thoracic spine. There is degenerative osteoarthritis of the bilateral shoulders. There is no demonstrated abnormality of the visualized soft tissue structures of the upper abdomen. RAD/Chest 1 View (Portable) IMPRESSION: There are no acute findings. Electronically Signed: Herbie Wells MD at 16:10 EDT ,
[2022-03-28 16:12] LABS: Absolute Lymphocyte Count 2.69 X10^3/uL (0.83-4.51); Absolute Neutrophil Count 5.1 X10^3/uL (2.0-7.7); Basophil# 0.09 X10^3/uL; Eosinophils% 3.3 % (0-5); Hematocrit 42.8 % (40-54); Hemoglobin 14.8 g/dL (13.0-16.5); Lymphocyte # 2.69 X10^3/ul (0.83-4.51); Lymphocyte % 29.4 % (19-41); Mean Corp Hgb Conc 34.6 g/dL (32-36); Mean Corpuscular Hgb 32.8 pg (27.0-32.0); Mean Corpuscular Volume 94.9 fL (80-94); Mean Platelet Vol. 11.4 fl (6.2-12.0); Monocyte# 0.88 X10^3/uL; Monocyte% 9.6 % (0-10); NRBC Flagged by Analyzer 0 % (0-5); Neutrophil # 5.14 X10^3/uL (2.7-7.7); Platelet Count 146 K/mm3 (150-450); RBC Distribution Width CV 13.3 % (11.6-14.6); RBC Distribution Width SD 46.4 fl (35.1-43.9); Red Blood Count 4.51 M/mm3 (4.6-6.2); White Blood Count 9.2 K/mm3 (4.4-11.0)
[2022-03-28 16:25] LABS: D-Dimer Quantitative (DVT/PE) 0.28 FEU/ug/m (0.27-0.49)
[2022-03-28 16:31] LABS: Anion Gap 9 (5-15); BUN 21 mg/dL (7-18); BUN/Creat Ratio 16.4 RATIO (10-20); Calcium,Total 9.3 mg/dL (8.5-10.1); Chloride 109 mmol/L (98-107); Creatinine, Serum 1.28 mg/dL (0.70-1.30); EST Glomerular Filtration Rate 60 mL/min (>60); Est Glom Filt Rate - Afr Amer 72 mL/min (>60); Estimated Creatinine Clearance 52.36 ml/min; Glucose 105 mg/dL (74-106); Potassium 3.5 mmol/L (3.5-5.1); Sodium Level 141 mmol/L (136-145); Troponin-I HS (w/2H Reflex) 5 pg/mL (3.0-78.0)
[2022-03-28 18:03] LABS: Reflex Troponin-HS? (from REC) Y
[2022-03-28 18:40] LABS: Troponin-I HS 5 pg/mL (3.0-78.0)
[2022-03-28 19:00] VITALS: BP 138/72; PULSE 70; RESP 17; O2SAT 98
== END 2022-03-28 19:01 | disposition home or self-care (01) ==
PROVIDERS: Physician Assistant; Emergency Provider Emergency Medicine; PCP Internal Medicine; Visit Provider Emergency Medicine
DX: R07.89 Other chest pain (principal); E11.9 Type 2 diabetes mellitus without complications; I10 Essential (primary) hypertension; E78.5 Hyperlipidemia, unspecified; E03.9 Hypothyroidism, unspecified; F17.290 Nicotine dependence, other tobacco product, uncomplicated; Z79.84 Long term (current) use of oral hypoglycemic drugs; Z79.899 Other long term (current) drug therapy; Z86.16 Personal history of COVID-19
CPT/HCPCS: 71045; 80048; 84484; 85025; 85379; 93005; 99285; A4216

== ENCOUNTER → 2024-01-21 | Outpatient (CLI) | payer BC, SELFPAY ==
--- NOTE | 2024-01-21 15:47 | RAD_ITS ---
HISTORY: CAD. TECHNIQUE: XR Chest 2 Views. COMPARISON: 03/28/2022. FINDINGS: CARDIOMEDIASTINAL BORDERS: Cardiac silhouette within normal limits in size. Mediastinal contour unchanged mild tortuosity of the aorta and calcification of the aortic knob. LUNGS: Very mild linear scarring in the mid lungs. PLEURA: No pleural effusion or pneumothorax seen. OSSEOUS STRUCTURES: Spinal osteophytes seen. RAD/Chest PA and Lateral IMPRESSION: No acute cardiopulmonary process identified. Electronically Signed: Venus Goetz MD at 12:04 EDT ,
== END | disposition home or self-care (01) ==
LOC: RAD 15:44
PROVIDERS: PCP Internal Medicine; Referring Provider Internal Medicine Cardiovascular Disease; Visit Provider Internal Medicine Cardiovascular Disease
DX: R07.9 Chest pain, unspecified (principal)
CPT/HCPCS: 71046

== ENCOUNTER 2024-02-25 07:35 | Day surgery (SDC) | payer BC, SELFPAY ==
--- NOTE | 2024-02-19 08:58 | PCM.HP.BLA ---
History and Physical Date of Admission: 02/25/24 Pleasant 68-year-old man who presents today for a cardiac catheterization. He has no previous documented cardiac history but a history of obesity, hypertension, hyperlipidemia, prediabetes, low HDL who [place] He was concerned about this he thought it was heartburn he was given some antacid and went to the emergency room and blood work was done which was apparently unremarkable with no troponin elevation. You do remember that he has complained of chest discomfort in the past and has undergone stress testing the last of which was in March 2022 where he exercised 9 minutes and 15 seconds with a Ríos treadmill score of 9.2 rate-pressure product of 26,000 and no evidence of ischemia. He has had some discomfort in the past has not taken any nitroglycerin. He previously used to be on antidepressant therapy and this was discontinued. He has had no dizziness or diaphoresis no near-syncope or syncope. He has been trying to get on a better diet program. He does have a previous history of vasovagal syncope. His physical exam today demonstrates clear lung reyes regular rate and rhythm no pedal edema his last lipid profile demonstrated total cholesterol 129 HDL of 37 LDL of 66. A CT scan of his chest in August 2020 demonstrated calcification of his coronary arteries. Intake Vital Signs See EMR Allergies See EMR Medications See EMR [facility] Medical History PVCs (premature ventricular contractions) Orthostatic hypotension RADHA (obstructive sleep apnea) Obesity Gout Goiter Dysmetabolic syndrome X Diverticulosis of colon Abnormal tilt table test Syncope Bradycardia Chest pain Anxiety Depression Hyperlipidemia Hypertension Hypoxia Social History Smoking Status: Never smoker ROS Const Const: Positive for difficulty sleeping (has CPAP); Negative for fatigue, weakness, headache(s) or daytime sleepiness ENT ENT: Negative for headache(s), dizziness or Nosebleed/epistaxis Cardio Chest Pain: Yes Frequency: other (while in [place]) Character: tightness Onset: other (with anxiety and stress) Location: epigastric and mid sternal Exacerbation: other (stress) Relieving: rest Palpitations: No Edema: None Resp Respiratory: Negative for SOB with activity, SOB at rest, SOB orthopnea\SOB lying down or Cough GI GI: Negative nausea, vomiting or heartburn Neuro Neuro: Negative for dizziness, lightheadedness, near syncope, headache(s) or weakness Endo Endo: Negative for fatigue Cardiology Exam Const Appearance: cooperative, healthy appearing, no acute distress, well developed and well groomed Nutritional Appearance: average body habitus and well nourished Orientation: alert, awake and oriented x3 Head Head: normal to inspection, normocephalic and atraumatic Ears: hearing grossly normal bilaterally and external ears normal Nose: external nose normal, nares normal, nasal mucous membranes and turbinates normal, septum normal and no nasal discharge Face and Sinus: face symmetric Mouth: oral mucosae normal, tongue normal, oropharynx normal and moist mucous membranes Teeth and gingiva: dentition normal Throat: posterior oropharynx normal, tonsils normal and uvula midline Eyes General: appearance normal, both eyes and all related structures Eyelids: eyelids normal Conjunctivae: conjunctivae normal Pupils: PERRL, normal by confrontation and accommodation normal EOM: EOM intact bilaterally Neck Neck: normal visual inspection, trachea midline and no JVD JVD: +5 Carotids: normal carotid upstroke and bounding pulses Chest Chest inspection: normal inspection of the chest, symmetric chest movement and normal respiratory effort Auscultation: Bilateral: Clear to Auscultation Cardio Palpation: normal PMI Rate: regular rate Rhythm: regular rhythm Heart sounds: S1 normal, S2 normal and normal, physiologic split S2; Negative rub, gallop or murmur GI GI: normal to inspection, soft, no hepatosplenomegaly and bowel sounds present Neuro General: patient alert, patient awake, patient oriented x3, gait normal, moves all extremities and no focal sensory deficit Skin Skin: no rashes or lesions noted Extremities Pulses: Normal: Right Femoral Pulse, Left Femoral Pulse, Right Dorsalis Pedis Pulse, Left Dorsalis Pedis Pulse, Right Posterior Tibial Pulse, Left Posterior Tibial Pulse, Right Radial Pulse and Left Radial Pulse Lower Extremity Edema: None: Bilateral Musculoskel Musculoskeletal: No joint tenderness Psych Psychological: normal affect Supplemental Info Supplemental Information Chest CTA 08/26/20 FINDINGS: Normal enhancement of the main pulmonary artery and right and left pulmonary arteries. Normal enhancement of the bilateral peripheral pulmonary arteries. There is no demonstrated pulmonary embolism. Normal thoracic aorta and visualized great vessels. There is no demonstrated aortic dissection. Normal heart and pericardium. There are calcifications of the coronary arteries. Assessment and Plan Assessment and Plan (1) Chest pain: Status: Acute Plan: He does have chest discomfort history which is concerning with his risk factors. He has had previous stress test which have been normal. My concern is that this may be an anginal equivalent as it has been recurring. I would therefore recommend that with his coronary calcification noted on the CT and his risk factors we will proceed with a left heart catheterization. The risk benefits alternatives of been explained to him he understands and agrees to proceed. I would recommend aggressive weight loss after this.
[2024-02-25 07:47] VITALS: BMI 37.7
--- NOTE | 2024-02-29 08:38 | CL.D_ITS ---
Patient Name: LAW MAST Study Date: 02/25/2024 Performing: Seb Rodriguez MD Ht: 67 inches 170.18 cm : 1955 Wt: 241.01 lbs 109.32 kg Age: 68 Gender: male BSA: 2.19 PROCEDURE(S) PERFORMED DC01-(22940)LHC/COR/LV CLINICAL PROFILE AND INDICATIONS Indications: Suspected CAD Heart Failure: None Stress/Imaging Stress/Image Study Performed: No CAD Presentations: Stable angina. CONCLUSIONS Moderate coronary artery disease with atherosclerotic plaquing noted in the left anterior descending artery with no areas greater than 50%. RECOMMENDATIONS Medical therapy. Consider GLP-1 agonist. May also consider trial of precedent D enrollment DESCRIPTION OF PROCEDURE The patient arrived to the procedure lab. The risks and benefits of the procedure as well as a full description of our services here and current unavailability of surgical backup were fully explained to the patient and/or their significant other prior to the catheterization. The Timeout was completed, verifying the correct patient and procedure. The patient's procedural site was prepped and draped in the usual fashion. Local anesthetic was given subcutaneously to right radial region with Lidocaine 2%. Using a modified Seldinger technique, arterial access was obtained via the right radial artery, a 6Fr sheath was inserted. Right Coronary Artery selective angiography was performed in multiple views using a 5 Fr. 4.0 Lovely catheter. Left Coronary Artery selective angiography was performed in multiple views using a 5 Fr. JL3.5 catheter. Left Ventriculography was performed in UZÑIGA projection using a 5 Fr. Pigtail catheter. LV to AO pullback pressures were then recorded.The arterial sheath was pulled and a TR Band was applied for hemostasis, 10cc of air was placed in the band. Hemostasis was obtained and site is good. CORONARY ANGIOGRAPHY DOMINANCE: Left Dominant LEFT HEART ASSESSMENT Left Ventricular Ejection Fraction: by LV Gram 60 % Normal LV wall motion Normal Left Ventricular systolic function LEFT MAIN: Mild calcification, No significant disease noted LEFT ANTERIOR DESCENDING ARTERY: Moderate luminal irregularities up to 50% CIRCUMFLEX ARTERY: The left circumflex artery is a dominant vessel. The first obtuse marginal branch has mild to moderate luminal irregularities. The second obtuse marginal branch is small with no significant disease in the third AV groove branch and posterior descending artery has no significant atherosclerotic plaquing present. RIGHT CORONARY ARTERY: Angiographically normal COMPLICATIONS No Complications PROCEDURE MEDICATIONS Versed 1 mg IV Fentanyl 50 mcg IV Versed 1 mg IV Oxygen: 2 L/min via nasal cannula Heparin diluted in 23cc Heparinized saline. Patient given 10cc IA of this solution. 02/25/2024 10:25:44 Verapamil 2.5mg, Ntg 100mcgs, 2000 units of Heparin diluted in 23cc Heparinized saline. Patient given 10cc IA of this solution. 02/25/2024 10:25:44 SUMMARY OF HEMODYNAMIC DATA Time AIR REST ECG 08:05:00 AO 116/66 (89) SA 10:46:54 LV 114/-3, 2 10:59:24 LV 103/-1, 6 10:59:59 LVp 106/-2, 3 11:00:11 AOp 116/62 (87) 11:00:18 Signed By Seb Rodriguez MD On 02/29/2024 08:37:46 Seb Rodriguez MD
== END 2024-02-25 12:50 | disposition home or self-care (01) ==
PROVIDERS: PCP Internal Medicine; Referring Provider Internal Medicine Cardiovascular Disease; Visit Provider Internal Medicine Cardiovascular Disease
DX: I25.118 Atherosclerotic heart disease of native coronary artery with other forms of angina pectoris (principal); I10 Essential (primary) hypertension; E78.5 Hyperlipidemia, unspecified; Z79.899 Other long term (current) drug therapy
CPT/HCPCS: 93005; 93458; 99152; 99153; J7040; Q9967; C1769; C1894

== ENCOUNTER 2024-08-01 13:13 | Emergency (ER) | payer BC, SELFPAY ==
[2024-08-01] VITALS (7 sets, daily range): BP systolic 128–146; BP diastolic 78–90; PULSE 67–78; RESP 16–18; TEMP 35.6–36.8; O2SAT 96–100; BMI 38.4
--- NOTE | 2024-08-01 13:43 | EDS_ITS ---
HPI History of Present Illness Chief Complaint: Dizziness Informant: patient, family and EMS Narrative Narrative: 68-year-old male was at work during the meeting started gradually feeling lightheaded, and a progressively became worse without any other focal symptoms such as chest discomfort, dyspnea, sudden onset severe headache, focal neurologic symptoms such as weakness or numbness, abdominal pain, nausea. He has had no recent vomiting or diarrhea. He is a type II diabetic, he is on Jardiance and Ozempic, he does not have anything to check his blood sugar with but denies any polyuria polydipsia recently. He states he does not drink a lot of water. This occurred somewhere around noon, and he had a couple sips from a bottle of water the entire morning before this and nothing else. He states after feeling this way he drank a bottle of water and ate some cookies, and EMS was called. They checked his blood sugar it was 100 he was starting to feel better as he is now but still little more lightheaded. He developed a mild headache and all of this but states he is very anxious and always considers the worst possible scenarios. No other prodromal symptoms. He felt fine yesterday. [facility] Medical History Atherosclerosis of [place] coronary artery of [place] heart without angina pectoris PVCs (premature ventricular contractions) Orthostatic hypotension RADHA (obstructive sleep apnea) Obesity Gout Goiter Dysmetabolic syndrome X Diverticulosis of colon Abnormal tilt table test Syncope Bradycardia Chest pain Anxiety Depression Hyperlipidemia Hypertension Hypoxia Home Medications ?Medication ?Instructions ?Recorded ?Last Taken ?Type amlodipine 5 mg tablet 5 mg PO DAILY 08/26/20 Unkno wn History empagliflozin 10 mg tablet 10 mg PO DAILY 03/28/22 Unk nown History (Jardiance) allopurinol 100 mg tablet 100 mg PO DAILYCM 05/26/24 U nknown History allopurinol 300 mg tablet 300 mg PO DAILY 05/26/24 Unk nown History atorvastatin 40 mg tablet 40 mg PO QDAY 05/26/24 Unkno wn History levothyroxine 100 mcg tablet 100 mcg PO QDAY 05/26/24 Unknown History losartan 25 mg tablet 25 mg PO QDAY 05/26/24 Unkno wn History semaglutide 0.25 mg or 0.5 mg (2 0.5 mg subcut QWEEK 1 07/27/23 Unknown History mg/3 mL) subcutaneous pen injector (Ozempic) Allergy/AdvReac Type Severity Reaction Status Date / Time No Known Allergies Allergy Verified 05/26/24 08:35 Family History Father Non-Hodgkin lymphoma CVA (cerebral vascular accident) Social History household members: spouse housing: house Smoking Status: Never smoker alcohol intake: current alcohol intake frequency: a few times a week Alcohol type: wine substance use type: does not use caffeine: No ROS ROS ED Constitutional Constitutional ED: Denies chills or fever(s) Eyes Eyes: Denies change in vision or diplopia ENT ENT ED: Denies rhinorrhea or sore throat Cardiovascular Cardiovascular: Reports lightheadedness; Denies chest pain, palpitations or syncope Respiratory/Chest Respiratory/Chest: Denies cough or dyspnea Gastrointestinal Gastrointestinal: Denies abdominal pain, diarrhea, nausea or vomiting Genitourinary Genitourinary ED: Denies dysuria or hematuria Musculoskeletal Musculoskeletal: Denies back pain or neck pain Integumentary Denies abscess or rash Neurologic Neurologic: Reports headache(s); Denies paresthesias or weakness Psychiatric Psychiatric: Reports anxiety; Denies suicidal thoughts EXAM Physical Exam Const Vital Signs: 08/01/24 13:14 08/01/24 13:44 08/01/24 13:51 Temperature 96.1 F L Temperature Source Temporal Pulse Rate 70 Pulse Rate [Lying] 67 Pulse Rate [Sitting (for 1 minute prior to obtaining)] 67 Pulse Rate [Standing (for 1 minute prior to obtaining)] 71 Respiratory Rate 18 Blood Pressure 146/89 H Blood Pressure [Lying] 135/82 H Blood Pressure [Sitting (for 1 minute prior to obtaining)] 134/82 H Blood Pressure [Standing (for 1 minute prior to obtaining)] 141/90 H Blood Pressure Mean 108 Blood Pressure Mean [Lying] 99 Blood Pressure Mean [Sitting (for 1 minute prior to obtaining)] 99 Blood Pressure Mean [Standing (for 1 minute prior to obtaining)] 107 Pulse Ox 100 100 Oxygen Delivery Method Room Air Room Air 08/01/24 14:13 08/01/24 15:00 08/01/24 16:00 Temperature Temperature Source Pulse Rate 67 78 74 Pulse Rate [Lying] Pulse Rate [Sitting (for 1 minute prior to obtaining)] Pulse Rate [Standing (for 1 minute prior to obtaining)] Respiratory Rate Blood Pressure 134/78 H 128/85 H 138/78 H Blood Pressure [Lying] Blood Pressure [Sitting (for 1 minute prior to obtaining)] Blood Pressure [Standing (for 1 minute prior to obtaining)] Blood Pressure Mean 96 99 98 Blood Pressure Mean [Lying] Blood Pressure Mean [Sitting (for 1 minute prior to obtaining)] Blood Pressure Mean [Standing (for 1 minute prior to obtaining)] Pulse Ox 96 98 98 Oxygen Delivery Method Positive well nourished and well developed Constitutional Narrative: Well-appearing no distress General Appearance ED: well developed and NAD HEENT Reports moist mucous membranes normocephalic and atraumatic Eyes PERRL and EOMs intact bilaterally Neck full ROM and supple Resp normal respiratory effort and clear to auscultation bilaterally Cardio regular rate, regular rhythm and no murmurs Rate: Negative for bradycardia or tachycardic GI non-tender and non-distended Auscultation: normoactive bowel sounds Palpation: soft Back/Spine no CVA tenderness General Back: other FROM Extremity normal to inspection General Extremety ED: Negative for edema, pulses abnormal or tenderness General Extremity: Negative for edema or pulses abnormal Neuro oriented x3, CN's II-XII intact bilaterally and no sensory deficits noted Neuro Narrative: Normal speech, no aphasia or dysarthria, conversive without confusion. Normal peripheral neurologic exam and cranial nerve exam. No dysmetria arms or legs. Sensorium / Orientation: awake and alert Motor Exam: strength 5/5 throughout Psych mental status grossly normal Skin no rashes or lesions noted and no wounds MDM MDM MDM Narrative Medical decision making narrative: It is noted that in his old records he has had a positive tilt table test which may make it easier for him to have near-syncope or syncope in context of mild dehydration, which she admittedly has, the latter. Therefore I am doing orthostatics in addition to giving him IV fluids while ruling out anemia, metabolic dysfunction, acute coronary syndrome. I do not think he needs a CT of the head, he did not have a thunderclap or acute onset of a headache and his headache is not severe, he attributes it to his anxiety which all started after the onset of the symptoms. Patient's workup is unremarkable he is not anemic, he has 2 sequential negative troponin measurements in context of normal EKG, his orthostatics are negative and he is feeling better with time and IV fluids, and his vital signs are normal. Stable for discharge, patient is noting that he is quite anxious and thinks of the worst things, and notes that as I am answering his questions about his health issues, he is getting more anxious. Lab Data Attestation: I reviewed the patient's lab results. Labs: Laboratory Results - last 24 hr 08/01/24 08/01/24 08/01/24 13:33 13:36 15:56 WBC 7.7 RBC 4.67 Hgb 15.2 Hct 43.9 MCV 94.0 MCH 32.5 H MCHC 34.6 RDW Std Deviation 44.6 H RDW Coeff of [place] 13.0 Plt Count 122 L MPV 11.3 Immature Gran % (Auto) 0.800 Neut % (Auto) 59.2 Lymph % (Auto) 27.2 [place] % (Auto) 6.9 Eos % (Auto) 5.0 Baso % (Auto) 0.9 Absolute Neuts (auto) 4.5 Absolute Lymphs (auto) 2.08 Nucleated RBC % 0 Sodium 139 Potassium 3.7 Chloride 106 Carbon Dioxide 25.0 Anion Gap 8 BUN 16 Creatinine 1.03 Estim Creat Clear Calc 79.20 Est GFR (MDRD) Af Amer 92 Est GFR (MDRD) Non-Af 76 BUN/Creatinine Ratio 15.5 Glucose 119 H Calcium 9.5 Troponin I High Sens 4 < 3 L POC Glucose 126 H Rhythm Strip Rhythm Strip: Sinus Rhythm Rate: 70 Ectopy: None EKG Initial EKG: Attestation: I personally reviewed and interpreted this EKG as follows: Interpretation: Sinus Rhythm and No Acute Injury Pattern Comments: Nml axis & intervals; nml EKG Discharge Plan Triage Chief Complaint: Dizziness ED Provider: Arnel Feliciano Dx/Rx/DC Orders Clinical Impression: Lightheadedness Instructions: ED Near-Fainting, Uncertain Cause Prescriptions: No Action atorvastatin 40 mg tablet 40 mg PO QDAY levothyroxine 100 mcg tablet 100 mcg PO QDAY Ozempic 0.25 mg or 0.5 mg (2 mg/3 mL) pen injector 0.5 mg subcut QWEEK amlodipine 5 MG tablet 5 mg PO DAILY allopurinol 100 mg tablet 100 mg PO DAILYCM Rx Instructions: Take with 300 mg tab to = 400 mg daily allopurinol 300 mg tablet 300 mg PO DAILY Rx Instructions: Take with 100 mg tab to = 400 mg daily Jardiance 10 mg Tablet 10 mg PO DAILY losartan 25 mg tablet 25 mg PO QDAY Primary Care Provider: Frantz Mccauley Referrals: Frantz Mccauley MD [Primary Care Provider] - 3-5 Days if not improving Activity Restrictions/Additional Instructions: Drink plenty of fluids. Print Language: Bhutanese Disposition Disposition: Home, Self Care
[2024-08-01] MEDS: 0.9% Normal Saline (1000mL) 1,000 ML 999 ML IV (13:46)
[2024-08-01 13:54] LABS: Bedside Glucose 126 mg/dL (74-106)
[2024-08-01 13:59] LABS: Absolute Lymphocyte Count 2.08 X10^3/uL (0.83-4.51); Absolute Neutrophil Count 4.5 X10^3/uL (2.0-7.7); Basophil# 0.07 X10^3/uL; Basophil% 0.9 % (0-1); Eosinophil# 0.38 X10^3/uL; Hematocrit 43.9 % (40-54); Hemoglobin 15.2 g/dL (13.0-16.5); Lymphocyte # 2.08 X10^3/ul (0.83-4.51); Lymphocyte % 27.2 % (19-41); Mean Corp Hgb Conc 34.6 g/dL (32-36); Mean Corpuscular Hgb 32.5 pg (27.0-32.0); Mean Platelet Vol. 11.3 fl (6.2-12.0); Monocyte# 0.53 X10^3/uL; Monocyte% 6.9 % (0-10); NRBC Flagged by Analyzer 0 % (0-5); Neutrophil # 4.53 X10^3/uL (2.7-7.7); Neutrophil % 59.2 % (47-70); Platelet Count 122 K/mm3 (150-450); RBC Distribution Width SD 44.6 fl (35.1-43.9); Red Blood Count 4.67 M/mm3 (4.6-6.2); White Blood Count 7.7 K/mm3 (4.4-11.0)
[2024-08-01 14:18] LABS: Anion Gap 8 (5-15); BUN 16 mg/dL (7-18); BUN/Creat Ratio 15.5 RATIO (10-20); Calcium,Total 9.5 mg/dL (8.5-10.1); Chloride 106 mmol/L (98-107); Creatinine, Serum 1.03 mg/dL (0.70-1.30); EST Glomerular Filtration Rate 76 mL/min (>60); Est Glom Filt Rate - Afr Amer 92 mL/min (>60); Glucose 119 mg/dL (74-106); Potassium 3.7 mmol/L (3.5-5.1); Sodium Level 139 mmol/L (136-145); Troponin-I HS (w/2H Reflex) 4 pg/mL (3.0-78.0)
[2024-08-01 15:51] LABS: Reflex Troponin-HS? (from REC) Y
[2024-08-01 16:28] LABS: Troponin-I HS < 3 pg/mL (3.0-78.0)
== END 2024-08-01 16:45 | disposition home or self-care (01) ==
PROVIDERS: Emergency Provider Emergency Medicine; PCP Internal Medicine; Referring Provider Emergency Medicine; Visit Provider Emergency Medicine
DX: R42 Dizziness and giddiness (principal); E11.9 Type 2 diabetes mellitus without complications; I25.10 Atherosclerotic heart disease of native coronary artery without angina pectoris; I10 Essential (primary) hypertension; E78.5 Hyperlipidemia, unspecified; Z79.84 Long term (current) use of oral hypoglycemic drugs; Z79.85 Long-term (current) use of injectable non-insulin antidiabetic drugs; Z79.899 Other long term (current) drug therapy
CPT/HCPCS: 80048; 82962; 84484; 85025; 93005; 96360; 99285; A4216

== ENCOUNTER → 2025-03-02 | Outpatient (CLI) | payer BC, SELFPAY ==
--- OUTSIDE RECORDS SUMMARY | 2025-03-02 06:50 | XMS RPT_ITS | CCD ---
Author Organization [facility] Care Team Providers Care Customs Import Specialist Name Role Phone PAUL, DEVON E Unavailable Unavailable PAUL, DEVON E Unavailable Unavailable PAUL, DEVON E Unavailable Unavailable PAUL, DEVON Unavailable Unavailable PAUL, DEVON Unavailable Unavailable [facility] Unavailable Unavailable PAUL, DEVON Unavailable Unavailable PAUL, DEVON Unavailable Unavailable [facility] Unavailable Unavailable PAUL DEVON Unavailable Unavailable [facility] Unavailable Unavailable Frantz Mccauley MD Primary Care Provider Frantz Mccauley MD Primary Care Provider [phone] FRANTZ MCCAULEY Referring Unavailable FRANTZ MCCAULEY Primary Care Unavailable FRANTZ MCCAULEY Referring Unavailable FRANTZ MCCAULEY Primary Care Unavailable Frantz Mccauley MD Primary Care Provider Dr. Fidel Dobbins Attending Unavail able Dr. Fidel Dobbins Referring Unavail able UNKNOWN, PCP Primary Care Unavailable Frantz Mccauley MD Primary Care Provider Rodrigo REFRACTORY SPECIALIST.Fatou PRATHER Unavailable [phone] FIDEL DOBBINS Attending Unavailable GENERIC PROVIDER, NO ASSIGNED PCP Primary Care Unavailable FATOU DELUCA Attending Unavailable FRANTZ MCCAULEY Primary Care Unavailable FRANTZ MCCAULEY Primary Care Unavailable FATOU DELUCA Attending Unavailable FRANTZ MCCAULEY Primary Care Unavailable FRANTZ MCCAULEY Referring Unavailable FRANTZ MCCAULEY Primary Care Unavailable FATOU DELUAC Attending Unavailable FRANTZ MCCAULEY Primary Care Unavailable FRANTZ MCCAULEY Attending Unavailable FRANTZ MCCAULEY Primary Care Unavailable MCCAULEY, JORDAN Attending Unavailable MCCAULEY, JORDAN Primary Care Unavailable FATOU DELUCA M Referring Unavailable MCCAULEY, JORDAN Primary Care Unavailable MCCAULEY, JORDAN Referring Unavailable MCCAULEY, JORDAN Primary Care Unavailable MCCAULEY, JORDAN Attending Unavailable MCCAULEY, JORDAN Primary Care Unavailable MCCAULEY, JORDAN Referring Unavailable MCCAULEY, JORDAN Primary Care Unavailable MCCAULEY, JORDAN Referring Unavailable MCCAULEY, JORDAN Primary Care Unavailable FATOU DELUCA Attending Unavailable MCCAULEY, JORDAN Primary Care Unavailable Roof 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, Holland Ledezma Referring Unavailable Roof 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, Holland Ledezma Attending Unavailable Garrick, Frantz Primary Care Unavailable Arnel Feliciano Attending Unavailable Mccauley, Frantz Primary Care Unavailable Arnel Feliciano Referring Unavailable Roof 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, Holland Ledezma Attending Unavailable Mccauley, Frantz Referring Unavailable Mccauley, Frantz Primary Care Unavailable Allergies Allergy Classification Reported Allergen(s) Allergy Type Date of Onset Reaction(s) Facility (19 sources) allopurinol; Translations: [ALLOPURINOL] Drug Allergy 2 Intolerance [facility] Repository (1 source) ALLERGIES NOT ON FILE; Translations: [ALLERGIES NOT ON FILE] Propensity to adverse reactions (disorder) [facility] 3 Repository Medications Current Medications Medication Drug Class(es) Dates Sig (Normalized) Sig (Original) acetaminophen 500 mg oral tablet (2 sources) Start: 08-26-2023 End: 08-29-2023 take 1 tablet by mouth every eight hours as needed for pain acetaminophen (TYLENOL) 500 mg tablet Take one tablet by mouth every 8 hours as needed for pain 50 tablet 1 08/26/2023 08/29/2023 Active Comment on above: Take one tablet by m outh every 8 hours as needed for pain [id number] actuat albuterol 0.09 mg/actuat metered dose inhaler (3 sources) beta2-Adrenergic Agonist Start: 08-26-2023 End: 11-27-2023 take 2 puff(s) by mouth every four hours as needed albuterol HFA (PROVENTIL HFA, VENTOLIN HFA) 90 mcg/actuation inhaler Inhale two puffs by mouth every 4 hours as needed 8 g 1 08/26/2023 11/27/2023 Discontinued (Course of therapy completed) Comment on above: Inhale two puffs by mouth every 4 hours as needed allopurinol 300 mg oral tablet (20 sources) Xanthine Oxidase Inhibitor Start: 08-26-2020 End: 08-08-2024 take 1 tablet by mouth once daily allopurinol (ZYLOPRIM) 300 mg tablet Indications: Idiopathic chronic gout of multiple sites without tophus Take 1 tablet by mouth once daily. 90 tablet 3 08/08/2024 Active Start: 08-26-2020 End: 07-29-2024 take 1 tablet by mouth once daily allopurinol (ZYLOPRIM) 100 mg tablet Indications: Idiopathic chronic gout of multiple sites without tophus Take 1 tablet by mouth once daily. In addition to 300 mg daily for gout. 90 tablet 3 04/25/2023 07/29/2024 Discontinued (Discontinued by Patient) Comment on above: Take 1 tablet by geovanna th once daily. Take 1 tablet by geovanna th once daily. In addition to 300 mg daily for gout. amLODIPine 5 mg oral tablet (20 sources) Dihydropyridine Calcium Channel Jeniffer Start: 2019 End: 2023 take 1 tablet by mouth once daily amLODIPine (NORVASC) 5 mg tablet Take 1 tablet by mouth once daily. 90 tablet 3 02/02/2024 Active Comment on above: Take 1 tablet by geovanna th once daily. amoxicillin 875 mg / clavulanate 125 mg oral tablet (2 sources) Penicillin-class Antibacterial Start: 2023 End: 2023 take 1 tablet by mouth twice daily amoxicillin-clavulan ate potassium (AUGMENTIN) 875-125 mg per tablet Take one tablet by mouth twice daily as directed for infection 20 tablet 1 08/26/2023 08/29/2023 Active Comment on above: Take one tablet by m out twice daily as directed for infection aspirin 325 mg oral tablet (3 sources) Platelet Aggregation Inhibitor, Nonsteroidal Anti-inflammatory Drug Start: 2023 End: 2023 take 1-2 tablets by mouth every eight hours as needed for pain aspirin 325 mg tablet Take one to two tablets by mouth every 8 hours as needed for pain 10 tablet 1 08/26/2023 11/27/2023 Discontinued (Course of therapy completed) Comment on above: Take one to two tabl ets by mouth every 8 hours as needed for pain atorvastatin 40 mg oral tablet (20 sources) HMG-CoA Reductase Inhibitor Start: 2023 take 1 tablet by mouth once daily at bedtime for hyperlipidemia atorvastatin (LIPITOR) 40 mg tablet Indications: Mixed hyperlipidemia Take 1 tablet by mouth daily at bedtime. For cholesterol. 90 tablet 3 03/23/2024 Active Start: 04-04-2022 End: 03-23-2024 take 1 tablet by mouth once daily at bedtime for hyperlipidemia atorvastatin (LIPITOR) 20 mg tablet Indications: Mixed hyperlipidemia Take 1 tablet by mouth daily at bedtime. For cholesterol. 90 tablet 3 06/04/2023 03/23/2024 Discontinued (Dosage adjustment) Start: 08-26-2020 End: 10-28-2021 take 1 tablet by mouth once daily atorvastatin (LIPITO R) 10 mg tablet Indications: Mixed hyperlipidemia Take 1 tablet by mouth once daily. 90 tablet 3 10/28/2021 Active Comment on above: Take 1 tablet by geovanna th once daily. Take 1 tablet by geovanna th daily at bedtime. For cholesterol. azithromycin 250 mg oral tablet (2 sources) Macrolide Antimicrobial Start: 08-26-19 End: 08-29-19 azithromycin (ZITHROMAX) 250 mg tablet Take two tablets by mouth on Day 1, then take one tablet by mouth daily for 4 days. 6 tablet 1 08/26/2023 08/29/2023 Active Comment on above: Take two tablets by mouth on Day 1, then take one tablet by mouth daily for 4 days. bacitracin 0.5 unt/mg topical ointment (2 sources) Start: 08-26-19 End: 08-29-19 bacitracin 500 unit/gram ointment Apply to affected area every 8 hours as directed 14 g 1 08/26/2023 08/29/2023 Active Comment on above: Apply to affected ar ea every 8 hours as directed benzocaine 15 mg / menthol 3.6 mg oral lozenge (2 sources) Standardized Chemical Allergen Start: 08-26-19 End: 08-29-19 benzocaine-menthol (CEPACOL) 15-3.6 mg lozg Allow one lozenge to dissolve slowly in the mouth. May be repeated every 2 hours as directed. 12 Lozenge 1 08/26/2023 08/29/2023 Active Comment on above: Allow one lozenge to dissolve slowly in the mouth. May be repeated every 2 hours as directed. benzonatate 100 mg oral capsule (2 sources) Non-narcotic Antitussive Start: 08-26-19 End: 08-29-19 take 1 capsule by mouth every eight hours as needed benzonatate (TESSALON PERLE) 100 mg capsule Take one to two capsules by mouth every 8 hours as needed for cough 12 capsule 1 08/26/2023 08/29/2023 Active Comment on above: Take one to two caps ules by mouth every 8 hours as needed for cough bisacodyl 5 mg delayed release oral tablet (1 source) Stimulant Laxative Start: 12-16-19 End: 12-17-19 Bisacodyl (DULCOLAX) 5 mg tab Use as directed for Miralax / Gatorade Bowel Prep Kit 4 tablet 0 12/15/2022 12/16/2022 Active Comment on above: Use as directed for Miralax / Gatorade Bowel Prep Kit bismuth subsalicylate 262 mg oral tablet (2 sources) Bismuth Start: 08-26-19 End: 08-29-19 take 2 tablets by mouth every six hours as needed for diarrhea Bismuth Subsalicylate 262 mg tab Chew two tablets by mouth every 6 hours as needed for diarrhea 20 tablet 1 08/26/2023 08/29/2023 Active Comment on above: Chew two tablets by mouth every 6 hours as needed for diarrhea Blood-Glucose Meter monitoring kit (6 sources) Start: 08-08-19 Blood-Glucose Meter monitoring kit Indications: Controlled type 2 diabetes mellitus without complication, without long-term current use of insulin ([facility]) Glucose Meter of Choice - Kit - Dx: Type 2 DM - Controlled E11.9 1 Each 08/08/2024 Active Start: 08-08-2024 End: 08-09-2024 Blood-Glucose Meter monitori ng kit Indications: Controlled type 2 diabetes mellitus without complication, without long-term current use of insulin (HCC) Glucose Meter of Choice - Kit - Dx: Type 2 DM - Controlled E11.9 1 Each 08/08/2024 08/09/2024 Active calcium carbonate 750 mg chewable tablet (3 sources) Start: 08-26-2023 End: 11-27-2023 take 1 tablet by mouth every four hours as needed calcium Carbonate 300 mg, 750mg, (TUMS) 300 mg (750 mg) chewable tablet Chew one tablet by mouth every 4 hours as needed for indigestion 20 tablet 1 08/26/2023 11/27/2023 Discontinued (Course of therapy completed) Comment on above: Chew one tablet by m outh every 4 hours as needed for indigestion clotrimazole 10 mg/ml topical cream (2 sources) Azole Antifungal Start: 08-26-2023 End: 08-29-2023 clotrimazole (LOTRIMIN) 1 % cream Apply to affected area every 8 hours as directed 28 g 1 08/26/2023 08/29/2023 Active Comment on above: Apply to affected ar ea every 8 hours as directed 12 hr dextromethorphan hydrobromide 30 mg / guaiFENesin 600 mg extended release oral tablet (2 sources) Uncompetitive I-aqvmjn-F-aspart ate Receptor Antagonist, Sigma-1 Agonist Start: 08-26-2023 End: 08-29-2023 take 1-2 tablets by mouth every twelve hours as needed for cough dextromethorphan-g uaiFENesin (MUCINEX DM) 30-600 mg per tablet Take one to two tablets by mouth every 12 hours as needed for cough as directed 10 tablet 1 08/26/2023 08/29/2023 Active Comment on above: Take one to two tabl ets by mouth every 12 hours as needed for cough as directed diphenhydrAMINE hydrochloride 25 mg oral capsule (2 sources) Histamine-1 Receptor Antagonist Start: 08-26-2023 End: 08-29-2023 take 1-2 tablets by mouth every six hours as needed diphenhydrAMINE (BENADRYL) 25 mg capsule Take one to two tablets by mouth every 6 hours as needed for allergy symptoms 30 capsule 1 08/26/2023 08/29/2023 Active Comment on above: Take one to two tabl ets by mouth every 6 hours as needed for allergy symptoms docusate sodium 100 mg oral capsule (2 sources) Start: 08-26-2023 End: 08-29-2023 take 1-2 capsules by mouth every twelve hours as needed for constipation docusate sodium (COLACE) 100 mg capsule Take one to two capsules by mouth every 12 hours as needed for constipation 10 capsule 1 08/26/2023 08/29/2023 Active Comment on above: Take one to two caps ules by mouth every 12 hours as needed for constipation doxycycline hyclate 100 mg oral capsule (4 sources) Tetracycline-clas s Drug Start: 08-26-2023 End: 08-29-2023 take 1 capsule by mouth every twelve hours doxycycline hyclate (VIBRAMYCIN) 100 mg capsule Take one capsule by mouth every 12 hours for 10 days or as directed. 20 capsule 1 08/26/2023 08/29/2023 Active Start: 04-23-2023 End: 04-30-2023 take 1 tablet by mouth twice daily doxycycline (VIBRA-TABS) 100 mg tablet Take 1 tablet by mouth two times a day for 7 days. 14 tablet 04/23/2023 04/30/2023 Comment on above: Take 1 tablet by geovanna two times a day for 7 days. Take one capsule by mouth every 12 hours for 10 days or as directed. empagliflozin 10 mg oral tablet (20 sources) Sodium-Glucose Cotransporter 2 Inhibitor Start: 12-18-19 take 1 tablet by mouth once daily, then take 1 tablet by mouth once daily in the morning empagliflozin (JARDIANCE) 10 mg tablet Indications: Controlled type 2 diabetes mellitus without complication, without long-term current use of insulin (HCC) Take 1 tablet by mouth once daily. Take 1 tablet once daily in the morning 90 tablet 3 12/17/2024 Active Start: 12-30-2022 End: 12-14-2024 take 1 tablet by mouth once daily, then take 1 tablet by mouth once daily in the morning empagliflozin (JARDIANCE) 10 mg tablet Indications: Controlled type 2 diabetes mellitus without complication, without long-term current use of insulin (HCC) Take 1 tablet by mouth once daily. Take 1 tablet once daily in the morning 90 tablet 3 01/08/2024 12/14/2024 Discontinued Start: 06-24-2021 End: 12-28-2022 take 1 tablet by mouth once daily, then take 1 tablet by mouth once daily in the morning empagliflozin (JARDIANCE) 10 mg tablet Indications: Controlled type 2 diabetes mellitus without complication, without long-term current use of insulin (HCC) Take 1 tablet by mouth once daily. Take 1 tablet once daily in the morning 90 tablet 3 11/08/2021 12/28/2022 Discontinued Comment on above: Take 1 tablet by geovanna th once daily. Take 1 tablet once daily in the morning erythromycin 0.005 mg/mg ophthalmic ointment (2 sources) Macrolide, Macrolide Antimicrobial Start: 2023 End: 2023 erythromycin (ROMYCIN) 5 mg/gram (0.5 %) ophthalmic ointment Apply approximately 1 cm of ointment in affected eye(s) up to six times daily as directed 3.5 g 1 08/26/2023 08/29/2023 Active Comment on above: Apply approximately 1 cm of ointment in affected eye(s) up to six times daily as directed famotidine 20 mg oral tablet (2 sources) Histamine-2 Receptor Antagonist Start: 2023 End: 2023 take 1 tablet by mouth twice daily as needed for gastroesophageal reflux disease famotidine (PEPCID) 20 mg tablet Take one tablet by mouth twice daily as needed for heartburn 20 tablet 1 08/26/2023 08/29/2023 Active Comment on above: Take one tablet by m outh twice daily as needed for heartburn fluconazole 150 mg oral tablet (2 sources) Azole Antifungal Start: 2023 End: 2023 fluconazole (DIFLUCAN) 150 mg tablet Take one tablet by mouth now; may repeat dose in three days if symptoms persist 2 tablet 1 08/26/2023 08/29/2023 Active Comment on above: Take one tablet by m outh now; may repeat dose in three days if symptoms persist Gatorade Sports Drink (1 source) Start: 2022 End: 2022 Gatorade Sports Drink Use as directed for Miralax / Gatorade Bowel Prep Kit 0 12/15/2022 12/16/2022 Active Comment on above: Use as directed for Miralax / Gatorade Bowel Prep Kit glycerin 2 mg/ml / hypromellose 2 mg/ml / polyethylene glycol 400 10 mg/ml ophthalmic solution (3 sources) Non-Standardized Chemical Allergen Start: 2023 End: 2023 PEG 928-Hyeapwxwdljb-Yr ycerin (DRY EYE RELIEF) 1-0.2-0.2 % drop Shake well before using. Instill 1 or 2 drops in the affected eye(s) as needed for burning or irritation 15 mL 1 08/26/2023 11/27/2023 Discontinued (Course of therapy completed) Comment on above: Shake well before us ing. Instill 1 or 2 drops in the affected eye(s) as needed for burning or irritation glycerin 144 mg/ml / petrolatum 150 mg/ml / phenylephrine hydrochloride 2.5 mg/ml / pramoxine hydrochloride 10 mg/ml rectal cream (3 sources) Non-Standardized Chemical Allergen, alpha-1 Adrenergic Agonist Start: 2023 End: 2023 phenyleph-pramoxine -glycerin-white petrolatum (PREPARATION H) 0.25-1 % crea Apply externally to affected area up to 4 times daily, especially at night, in the morning, or after each bowel movement 26 g 1 08/26/2023 11/27/2023 Discontinued (Course of therapy completed) Comment on above: Apply externally to affected area up to 4 times daily, especially at night, in the morning, or after each bowel movement ibuprofen 600 mg oral tablet (2 sources) Nonsteroidal Anti-inflammatory Drug Start: 2023 End: 2023 take 1 tablet by mouth every eight hours at mealtime as needed for pain ibuprofen (MOTRIN) 600 mg tablet Take one tablet by mouth every 8 hours with food or milk as needed for pain 20 tablet 1 08/26/2023 08/29/2023 Active Comment on above: Take one tablet by m outh every 8 hours with food or milk as needed for pain levoFLOXacin 500 mg oral tablet (2 sources) Quinolone Antimicrobial Start: 2023 End: 2023 take 1 tablet by mouth once daily levoFLOXacin (LEVAQUIN) 500 mg tablet Take one tablet by mouth daily as directed for infection 14 tablet 1 08/26/2023 08/29/2023 Active Comment on above: Take one tablet by m outh daily as directed for infection levothyroxine sodium 0.1 mg oral tablet (20 sources) l-Thyroxine Start: 2021 End: 2024 take 1 tablet by mouth once daily levothyroxine (SYNTHROID) 100 mcg tablet Indications: Hypothyroidism, unspecified type Take 1 tablet by mouth once daily. Take on empty stomach 90 tablet 3 08/08/2024 Active Start: 08-26-2020 take 100 ug by mouth once daily Levothyroxine Active 100 MCG PO DAILY August 26, 2020 1:00am Comment on above: Take 1 tablet by geovanna th once daily. Take on empty stomach loperamide hydrochloride 2 mg oral capsule (3 sources) Opioid Agonist Start: 08-26-19 End: 11-27-19 take 1-2 capsules by mouth every eight hours as needed for diarrhea loperamide (IMODIUM) 2 mg cap(s) Take one to two capsules by mouth every 8 hours as needed for diarrhea 16 capsule 1 08/26/2023 11/27/2023 Discontinued (Course of therapy completed) Comment on above: Take one to two caps ules by mouth every 8 hours as needed for diarrhea loratadine 10 mg oral tablet (2 sources) Start: 08-26-19 End: 08-29-19 take 1 tablet by mouth once daily as needed loratadine (CLARITIN) 10 mg tablet Take one tablet by mouth daily as needed for allergy symptoms 10 tablet 1 08/26/2023 08/29/2023 Active Comment on above: Take one tablet by m outh daily as needed for allergy symptoms losartan potassium 25 mg oral tablet (20 sources) Angiotensin 2 Receptor Jeniffer Start: 08-09-19 End: 04-25-20 take 1 tablet by mouth once daily losartan (COZAAR) 25 mg tablet Indications: Essential hypertension Take 1 tablet by mouth once daily. 90 tablet 3 04/25/2024 Active Start: 10-28-2021 End: 08-07-2022 take 1 tablet by mouth once daily losartan (COZAAR) 25 mg tablet Indications: Essential hypertension Take 1 tablet by mouth once daily. 90 tablet 1 10/28/2021 08/07/2022 Discontinued Comment on above: Take 1 tablet by geovanna th once daily. meclizine hydrochloride 25 mg oral tablet (2 sources) Antiemetic Start: 2023 End: 2023 take 1 tablet by mouth every eight hours as needed meclizine (ANTIVERT) 25 mg tab Take one tablet by mouth every 8 hours as needed for vertigo or motion sickness 10 tablet 1 08/26/2023 08/29/2023 Active Comment on above: Take one tablet by m outh every 8 hours as needed for vertigo or motion sickness melatonin 5 mg oral tablet (3 sources) Start: 2023 End: 2023 take 1 tablet by mouth 1 hour(s) before bedtime as needed for sleep melatonin 5 mg tablet Take one tablet by mouth one hour before bedtime as needed for sleep 20 tablet 1 08/26/2023 11/27/2023 Discontinued (Course of therapy completed) Comment on above: Take one tablet by m outh one hour before bedtime as needed for sleep metroNIDAZOLE 500 mg oral tablet (2 sources) Nitroimidazole Antimicrobial Start: 2023 End: 2023 take 1 tablet by mouth every twelve hours metroNIDAZOLE (FLAGYL) 500 mg tablet Take one tablet by mouth every 12 hours for infection 14 tablet 1 08/26/2023 08/29/2023 Active Comment on above: Take one tablet by m outh every 12 hours for infection ondansetron 4 mg disintegrating oral tablet (2 sources) Serotonin-3 Receptor Antagonist Start: 2023 End: 2023 take 1 tablet by mouth every six hours as needed for nausea ondansetron orally disintegrating (ZOFRAN ODT) 4 mg disintegrating tablet Dissolve one tablet on tongue and swallow every 6 hours as needed for nausea 10 tablet 1 08/26/2023 08/29/2023 Active Comment on above: Dissolve one tablet on tongue and swallow every 6 hours as needed for nausea oxymetazoline hydrochloride 0.5 mg/ml nasal spray (2 sources) Start: 2023 End: 2023 take 1 spray(s) nasal route every twelve hours as needed for congestion Oxymetazoline HCl 0.05 % mist Instill one spray in each nostril every 12 hours as needed for congestion 30 mL 1 08/26/2023 08/29/2023 Active Comment on above: Instill one spray in each nostril every 12 hours as needed for congestion phenazopyridine hydrochloride 95 mg oral tablet (2 sources) Start: 2023 End: 2023 take 2 tablets by mouth every eight hours Phenazopyridine HCl 95 mg tab Take two tablets by mouth every 8 hours as directed for burning urination 12 tablet 1 08/26/2023 08/29/2023 Active Comment on above: Take two tablets by mouth every 8 hours as directed for burning urination phenylephrine hydrochloride 10 mg oral tablet (2 sources) alpha-1 Adrenergic Agonist Start: 2023 End: 2023 take 1 tablet by mouth every four hours as needed for congestion PHENYLephrine (SUDAFED PE) 10 mg tablet Take one tablet by mouth every 4 hours as needed for sinus congestion & pressure as directed 18 tablet 1 08/26/2023 08/29/2023 Active Comment on above: Take one tablet by m outh every 4 hours as needed for sinus congestion & pressure as directed polyethylene glycol 3350 07029 mg powder for oral solution (1 source) Osmotic Laxative Start: 2022 End: 2022 polyethylene glycol 3350 17 gram/dose powder Use as directed for Miralax / Gatorade Bowel Prep Kit 238 g 0 12/15/2022 12/16/2022 Active Comment on above: Use as directed for Miralax / Gatorade Bowel Prep Kit predniSONE 20 mg oral tablet (5 sources) Start: 2023 End: 2023 predniSONE (DELTASONE) 20 mg tablet Take one to two tablets by mouth as directed for allergic reactions 15 tablet 1 08/26/2023 08/29/2023 Active Start: 04-23-2023 End: 06-04-2023 predniSONE (DELTASONE) 10 mg tablet Take 4 tabs daily for 3 days, then 2 tabs daily for 3 days, then 1 tab daily for 3 days with food. 21 tablet 04/23/2023 06/04/2023 Discontinued Comment on above: Take 4 tabs daily fo r 3 days, then 2 tabs daily for 3 days, then 1 tab daily for 3 days with food. Take one to two tabl ets by mouth as directed for allergic reactions semaglutide (OZEMPIC) 0.25 mg or 0.5 mg (2 mg/3 mL) pen (6 sources) Start: 05-11-20 End: 07-29-19 inject 0.5 mg by subcutaneous injection every week semaglutide (OZEMPIC) 0.25 mg or 0.5 mg (2 mg/3 mL) pen Indications: Controlled type 2 diabetes mellitus without complication, without long-term current use of insulin (HCC) , Atherosclerosis of [place] coronary artery of [place] heart without angina pectoris Inject 0.5 mg subcutaneously one time a week. 3 mL 5 05/11/2024 07/29/2024 Discontinued Start: 05-11-2024 inject 0.5 mg by sub cutaneous injection every week semaglutide (OZEMPIC) 0.25 mg or 0.5 mg (2 mg/3 mL) pen Indications: Controlled type 2 diabetes mellitus without complication, without long-term current use of insulin (HCC) , Atherosclerosis of [place] coronary artery of [place] heart without angina pectoris Inject 0.5 mg subcutaneously one time a week. 3 mL 5 05/11/2024 Active Start: 03-23-2024 End: 05-11-2024 semaglutide (OZEMPIC) 0.25 m g or 0.5 mg (2 mg/3 mL) pen Indications: Controlled type 2 diabetes mellitus without complication, without long-term current use of insulin (HCC) , Atherosclerosis of [place] coronary artery of [place] heart without angina pectoris Inject 0.25 mg subcutaneously one time a week. 3 mL 03/23/2024 05/11/2024 Discontinued Start: 03-23-2024 End: 05-18-2024 semaglutide (OZEMPIC) 0.25 m g or 0.5 mg (2 mg/3 mL) pen Indications: Controlled type 2 diabetes mellitus without complication, without long-term current use of insulin (HCC) , Atherosclerosis of [place] coronary artery of [place] heart without angina pectoris Inject 0.25 mg subcutaneously one time a week. 3 mL 03/23/2024 05/18/2024 Active semaglutide (OZEMPIC) 1 mg/dose (4 mg/3 mL) pen (11 sources) Start: 10-27-2024 inject 1 mg by subcutaneous injection every week semaglutide (OZEMPIC) 1 mg/dose (4 mg/3 mL) pen Indications: Controlled type 2 diabetes mellitus without complication, without long-term current use of insulin (HCC) , Atherosclerosis of [place] coronary artery of [place] heart without angina pectoris Inject 1 mg subcutaneously one time a week. 3 mL 5 10/27/2024 Active Start: 07-29-2024 End: 10-27-2024 inject 1 mg by subcutaneous injection every week semaglutide (OZEMPIC) 1 mg/dose (4 mg/3 mL) pen Indications: Controlled type 2 diabetes mellitus without complication, without long-term current use of insulin (HCC) , Atherosclerosis of [place] coronary artery of [place] heart without angina pectoris Inject 1 mg subcutaneously one time a week. 3 mL 5 07/29/2024 10/27/2024 Discontinued Start: 07-29-2024 inject 1 mg by subcu taneous injection every week semaglutide (OZEMPIC) 1 mg/dose (4 mg/3 mL) pen Indications: Controlled type 2 diabetes mellitus without complication, without long-term current use of insulin (HCC) , Atherosclerosis of [place] coronary artery of [place] heart without angina pectoris Inject 1 mg subcutaneously one time a week. 3 mL 5 07/29/2024 Active sulfamethoxazole 800 mg / trimethoprim 160 mg oral tablet (2 sources) Dihydrofolate Reductase Inhibitor Antibacterial, Sulfonamide Antimicrobial Start: 08-26-2023 End: 08-29-2023 take 1 tablet by mouth every twelve hours sulfamethoxazole-trimethoprim (BACTRIM DS) 800-160 mg per tablet Take one tablet by mouth every 12 hours as directed for infection 20 tablet 1 08/26/2023 08/29/2023 Active Comment on above: Take one tablet by m outh every 12 hours as directed for infection triamcinolone acetonide 1 mg/ml topical cream (2 sources) Corticosteroid Start: 08-26-2023 End: 08-29-2023 triamcinolone acetonide (KENALOG) 0.1 % cream Apply to affected area every 8 hours as directed 15 g 1 08/26/2023 08/29/2023 Active Comment on above: Apply to affected ar ea every 8 hours as directed [employer] Kit - Standard Kit (3 sources) End: 11-27-2023 [employer] Kit - Standard Kit This patient has been prescribed a [employer] Medical Kit for upcoming travel. This order is an informational entry for interaction checking and does NOT constitute a valid prescription order. 1 Kit 1 11/27/2023 Discontinued (Course of therapy completed) End: 08-25-2024 [employer] Kit - Standard Kit This patient has been prescribed a [employer] Kit for upcoming travel. This order is an informational entry for interaction checking and does NOT constitute a valid prescription order. 1 Kit 1 08/25/2024 Active Comment on above: This patient has bee n prescribed a [employer] Kit for upcoming travel. This order is an informational entry for interaction checking and does NOT constitute a valid prescription order. Completed/Discontinued Medications Medication Drug Class(es) Dates Sig (Normalized) Sig (Original) 24 hr buPROPion hydrochloride 150 mg extended release oral tablet (20 sources) Aminoketone Start: 08-26-2020 End: 06-04-2023 take 1 tablet by mouth once daily buPROPion XL (WELLBUTRIN XL) 150 mg 24 hr tablet Indications: Adjustment disorder with mixed anxiety and depressed mood Take 1 tablet by mouth once daily. 90 tablet 3 04/25/2023 06/04/2023 Discontinued (Course of therapy completed) Start: 08-01-2019 End: 08-26-2023 take 1 tablet by mouth every twenty-four hours buPROPion XL (WELLBUTRIN XL) 150 mg 24 hr tablet Take 150 mg by mouth. 0 08/01/2019 08/26/2023 Discontinued (Course of therapy completed) Comment on above: Take 1 tablet by geovanna th once daily. Take 150 mg by mouth . citalopram 20 mg oral tablet (20 sources) Serotonin Reuptake Inhibitor Start: 08-01-19 End: 08-26-19 take 1 tablet by mouth once daily citalopram (CELEXA) 20 mg tablet Indications: Adjustment disorder with mixed anxiety and depressed mood Take 1 tablet by mouth once daily. 90 tablet 3 01/18/2023 06/04/2023 Discontinued (Course of therapy completed) Comment on above: Take 1 tablet by geovanna th once daily. Take 20 mg by mouth. dexamethasone 6 mg oral tablet (1 source) Corticosteroid Start: 08-29-19 End: 09-05-19 take 6 mg by mouth once daily Dexamethasone Discontinued 6 MG PO DAILY August 28, 2020 12:00am September 04, 2020 12:03am LORazepam 1 mg oral tablet (10 sources) Benzodiazepine Start: 02-02-20 End: 07-31-19 take 1 tablet by mouth once daily as needed for anxiety LORazepam (ATIVAN) 1 mg tablet Indications: Adjustment disorder with mixed anxiety and depressed mood Take 1 tablet by mouth once daily as needed (anxiety attack) for up to 180 days. 15 tablet 02/02/2024 03/23/2024 Discontinued Start: 04-04-2022 End: 10-01-2022 take 1 tablet by mouth once daily as needed for anxiety LORazepam (ATIVAN) 1 mg tablet Indications: Adjustment disorder with mixed anxiety and depressed mood Take 1 tablet by mouth once daily as needed (anxiety attack) for up to 180 days. 15 tablet 0 04/04/2022 10/01/2022 Active Comment on above: Take 1 tablet by geovanna th once daily as needed (anxiety attack) for up to 180 days. tirzepatide (MOUNJARO) 2.5 mg/0.5 mL pen injector (5 sources) Start: 11-27-19 End: 02-02-20 inject 2.5 mg by subcutaneous injection every week tirzepatide (MOUNJARO) 2.5 mg/0.5 mL pen injector Indications: Controlled type 2 diabetes mellitus without complication, without long-term current use of insulin (HCC) Inject 2.5 mg subcutaneously one time a week. 2 mL 2 11/27/2023 02/02/2024 Discontinued (Not on Formulary) Start: 11-27-2023 inject 2.5 mg by sub cutaneous injection every week tirzepatide (MOUNJARO) 2.5 mg/0.5 mL pen injector Indications: Controlled type 2 diabetes mellitus without complication, without long-term current use of insulin (HCC) Inject 2.5 mg subcutaneously one time a week. 2 mL 2 11/27/2023 Active Problems Active Problems Problem Classification Problem Date Documented Date Episodic/Chronic Adjustment disorders (20 sources) Adjustment disorder with mixed anxiety and depressed mood; Translations: [Adjustment disorder with mixed anxiety and depressed mood] Onset: 03-07-2013 03-07-2013 Chronic Anxiety disorders (1 source) Anxiety; Translations: [Other specified anxiety disorders] 02-02-2024 Chronic Cardiac dysrhythmias (1 source) Ventricular premature depolarization; Translations: [Ventricular premature depolarization] Onset: 02-28-2025 Chronic Coagulation and hemorrhagic disorders (18 sources) Thrombocytopenic disorder; Translations: [Thrombocytopenia, unspecified] Onset: 03-23-2024 08-27-2023 Chronic Coronary atherosclerosis and other heart disease (20 sources) Coronary atherosclerosis; Translations: [Atherosclerotic heart disease of [place] coronary artery without angina pectoris] Onset: 02-25-2024 03-11-2024 Chronic Diabetes mellitus without complication (20 sources) Type 2 diabetes mellitus without complication; Translations: [Type 2 diabetes mellitus without complications] Onset: 05-15-2008 11-26-2020 Chronic Disorders of lipid metabolism (20 sources) Mixed hyperlipidemia; Translations: [Mixed hyperlipidemia] Onset: 11-11-2005 10-02-2015 Chronic Essential hypertension (20 sources) Essential (primary) hypertension; Translations: [Essential hypertension] Onset: 08-03-2017 Chronic Gout and other crystal arthropathies (20 sources) Gout; Translations: [Gout, unspecified] Onset: 11-11-2005 Resolved: 08-08-2024 11-13-2009 Chronic Immunizations and screening for infectious disease (4 sources) Vaccination needed; Translations: [Encounter for immunization] Episodic Nonspecific chest pain (3 sources) Chest pain; Translations: [Chest pain, unspecified] Onset: 05-01-2022 Episodic Other inflammatory condition of skin (20 sources) Psoriasis; Translations: [Psoriasis, unspecified] Onset: 10-02-2015 09-21-2017 Chronic Other lower respiratory disease (1 source) Hypoxia; Translations: [Hypoxemia] Episodic Other nutritional; endocrine; and metabolic disorders (20 sources) Body mass index 30+ - obesity; Translations: [Obesity, unspecified] Onset: 07-25-2016 07-25-2016 Chronic Other nutritional; endocrine; and metabolic disorders (2 sources) Obesity, unspecified; Translations: [Obesity (BMI 35.0-39.9 without comorbidity)] Onset: 07-25-2016 Chronic Other screening for suspected conditions (not mental disorders or infectious disease) (7 sources) Patient encounter status; Translations: [Encounter for screening for malignant neoplasm of prostate] Episodic Other skin disorders (1 source) Skin tag; Translations: [Other hypertrophic disorders of the skin] 08-24-2024 Episodic Other upper respiratory infections (1 source) Chronic sinusitis, unspecified; Translations: [Unspecified sinusitis (chronic)] 04-23-2023 Chronic Other upper respiratory infections (1 source) Acute upper respiratory infection; Translations: [Acute upper respiratory infection, unspecified] 01-25-2024 Episodic Residual codes; unclassified (20 sources) Obstructive sleep apnea syndrome; Translations: [Obstructive sleep apnea (adult) (pediatric)] Onset: 07-29-2010 09-21-2017 Chronic Spondylosis; intervertebral disc disorders; other back problems (1 source) Neck pain; Translations: [Cervicalgia] 06-25-2023 Episodic Thyroid disorders (20 sources) Hypothyroidism; Translations: [Hypothyroidism, unspecified] Onset: 02-11-2006 Resolved: 09-22-2017 07-29-2010 Chronic Unclassified (1 source) Unknown / UNK(Unknown) Onset: 08-03-2017 Past or Other Problems Problem Classification Problem Date Documented Da te Episodic/Chronic Abdominal pain (20 sources) Abdominal discomfort; Translations: [Right lower quadrant pain] Onset: 07-29-2010 Resolved: 09-18-2014 11-27-2023 Episodic Administrative/social admission (20 sources) Marital conflict; Translations: [Problems in relationship with spouse or partner] Onset: 03-07-2013 Resolved: 09-21-2017 09-21-2017 Episodic Cardiac dysrhythmias (20 sources) Palpitations; Translations: [Palpitations] Onset: 08-07-2011 Resolved: 09-21-2017 11-02-2019 Episodic Conditions associated with dizziness or vertigo (20 sources) Dizziness and giddiness; Translations: [Dizziness and giddiness] Onset: 07-29-2010 Resolved: 09-18-2014 09-18-2014 Episodic Diabetes mellitus without complication (20 sources) Prediabetes; Translations: [Prediabetes] Onset: 07-29-2010 Resolved: 02-02-2019 02-02-2019 Episodic Mood disorders (20 sources) Depressive disorder; Translations: [Depression] Onset: 11-11-2005 Resolved: 09-21-2017 09-21-2017 Chronic Other connective tissue disease (20 sources) Pain in limb; Translations: [Pain in unspecified limb] Onset: 10-26-2006 Resolved: 12-18-2006 12-18-2006 Episodic Other lower respiratory disease (20 sources) Cough; Translations: [Acute cough] Onset: 07-29-2010 Resolved: 09-18-2014 04-23-2023 Episodic Other male genital disorders (20 sources) Secondary erectile dysfunction; Translations: [Male erectile dysfunction, unspecified] Onset: 03-14-2005 Resolved: 04-04-2022 03-14-2005 Chronic Other male genital disorders (20 sources) Male erectile dysfunction, unspecified; Translations: [Impotence of organic origin] Onset: 07-29-2010 Resolved: 09-21-2017 09-21-2017 Chronic Other non-traumatic joint disorders (20 sources) Pain in unspecified knee; Translations: [Pain in joint, lower leg] Onset: 02-27-2009 Resolved: 09-18-2014 09-18-2014 Episodic Other nutritional; endocrine; and metabolic disorders (20 sources) Metabolic syndrome X; Translations: [Metabolic syndrome] Onset: 02-13-2007 Resolved: 10-28-2021 11-06-2009 Chronic Respiratory failure; insufficiency; arrest (adult) (20 sources) Acute respiratory failure; Translations: [Acute respiratory failure with hypoxia] Onset: 08-26-2020 Resolved: 11-26-2020 11-26-2020 Episodic Skin and subcutaneous tissue infections (20 sources) Cellulitis and abscess of lower limb; Translations: [Cellulitis of unspecified part of limb] Onset: 10-26-2006 Resolved: 12-18-2006 12-18-2006 Episodic Syncope (1 source) Syncope and collapse; Translations: [Syncope and collapse] Onset: 08-03-2017 Episodic Viral infection (3 sources) COVID-19; Translations: [Pneumonia due to COVID-19 virus] Onset: 11-27-2023 11-27-2023 Episodic Results Test Name Value Interpretation Reference Range Facility Basic metabolic 2000 panelon 10-05-2024 Anion gap [Moles/Vol] 12 mmol/L Normal 8-15 [facility] Comment on above: Order Comment: Speci men Type: BLOOD SPECIMENOrdering Facility: [facility] Address: [address] [place] [address] Performed By: #### 2 4321-2, 3084-1, 3016-3 ####[facility] [id number] [place] [address] [place] Calcium [Mass/Vol] 9.2 mg/dL Normal 8.5-10.2 [facility] Comment on above: Order Comment: Speci men Type: BLOOD SPECIMENOrdering Facility: [facility] Address: [address] [place] [address] Performed By: #### 2 4321-2, 3084-1, 3016-3 ####[facility] [id number] [address] [address] [place] Chloride [Moles/Vol] 107 mmol/L Normal 98-107 [facility] Comment on above: Order Comment: Speci men Type: BLOOD SPECIMENOrdering Facility: [facility] Address: [address] [place] [address] Performed By: #### 2 4321-2, 3084-1, 3016-3 ####[facility] [id number] [place] [id number] [place] CO2 [Moles/Vol] 21 mmol/L Low 22-30 [facility] Comment on above: Order Comment: Speci men Type: BLOOD SPECIMENOrdering Facility: [facility] Address: [address] [place] [address] Performed By: #### 2 4321-2, 3084-1, 3016-3 ####[facility] [id number] [place] [id number] [place] Creatinine [Mass/Vol] 0.98 mg/dL Normal 0.73-1.22 [facility] Comment on above: Order Comment: Speci men Type: BLOOD SPECIMENOrdering Facility: [facility] Address: [address] [place], [place] [id number] Performed By: #### 2 4321-2, 3084-1, 3016-3 ####[facility] [id number] [address] [address] [place] Creatinine and Glomerular filtration rate.predicted panel (S/P/Bld) 83 mL/min/1.73m??? Normal >=60 [facility] Comment on above: Order Comment: Speci men Type: BLOOD SPECIMENOrdering Facility: [facility] Address: [address] [place], [place] [id number] Result Comment: Yesica mated Glomerular Filtration Rate (eGFR) is calculated using the 2020 CKD-EPI creatinine equation. This equation utilizes serum creatinine, sex, and age as parameters. The creatinine assay has traceable calibration to isotope dilution-mass spectrometry. Refer to KDIGO guidelines for clinical interpretation. In patients with unstable renal function, e.g. those with acute kidney injury, the eGFR may not accurately reflect actual GFR. Performed By: #### 2 4321-2, 3084-1, 3015-3 ####[facility] [id number] [address] [address] [place] Glucose [Mass/Vol] 98 mg/dL Normal 74-99 [facility] Comment on above: Order Comment: Vito cheema Type: BLOOD SPECIMENOrdering Facility: [facility] Address: [address] [place], [place] [id number] Result Comment: The [place] [employer] (ADA) provides guidance for cutoff values for fasting glucose and random glucose. The ADA defines fasting as no caloric intake for at least 8 hours. Fasting plasma glucose results between 100 to 125 mg/dL indicate increased risk for diabetes (prediabetes). Fasting plasma glucose results greater than or equal to 126 mg/dL meet the criteria for diagnosis of diabetes. In the absence of unequivocal hyperglycemia, results should be confirmed by repeat testing. In a patient with classic symptoms of hyperglycemia or hyperglycemic crisis, random plasma glucose results greater than or equal to 200 mg/dL meet the criteria for diagnosis of diabetes. Reference: Standards of Medical Care in Diabetes 2016, [place] [employer]. Diabetes Care. 2016.39(Suppl 1). Performed By: #### 2 4321-2, 3083-, 3015-3 ####[facility] [id number] [address] [address] [place] Potassium [Moles/Vol] 4.2 mmol/L Normal 3.7-5.1 [facility] Comment on above: Order Comment: Vito cheema Type: BLOOD SPECIMENOrdering Facility: [facility] Address: [address] [place] [address] Performed By: #### 2 4321-2, 308-1, 3015-3 ####[facility] [id number] [place] [id number] [place] Sodium [Moles/Vol] 140 mmol/L Normal 136-144 [facility] Comment on above: Order Comment: Speci men Type: BLOOD SPECIMENOrdering Facility: [facility] Address: [address] [place] [address] Performed By: #### 2 4321-2, 3084-1, 3016-3 ####[facility] [id number] [place] [id number] [place] Urea nitrogen [Mass/Vol] 15 mg/dL Normal 9-24 [facility] Comment on above: Order Comment: Speci men Type: BLOOD SPECIMENOrdering Facility: [facility] Address: [address] [place] [address] Performed By: #### 2 4321-2, 3084-1, 3016-3 ####[facility] [id number] [place] [id number] [place] CNOVon 10-05-2024 CNOV Office Visit (INTMWS ) LAW OLIVO ([id number]) 1955 Norm Date Time Provider Department 10/05/24 7:40 AM FATOU DELUCA INTMWS During your visit today, we recorded the following information about you: Pulse Respiration Blood pressure Weight 74/minute 14/minute 120/78 104.2 kg Fatou Deluca, REFRACTORY SPECIALIST.ASSEMBLER [employer]ED [employer] 10/05/2024 8:42 AM Signed CC: Patient presents with: Follow Up HPI Recording using Scint-X software for draft documentation of the visit was discussed with the patient/authorized outbound sales representative; all questions welcomed and answered. 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 TSH was elevated in July he was asymptotic and taking levothyroxine consistently on an empty stomach therefore no medication changes were made. 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 He denies experiencing fatigue or weight gain. Law is also taking Ozempic 1 mg for diabetes management and reports a decreased appetite since starting the medication. He notes that he has not experienced significant weight loss and maintains a weight of 229 lbs. He has reduced his alcohol consumption and reports feeling better as a result. His last HbA1c was 5.5% in July. He has no complications associated with diabetes. Review of Systems See HPI PAST MEDICAL HISTORY Diagnosis Date Abnormal tilt table test 08/07/2011 Acute respiratory failure with hypoxia (HCC) 08/26/2020 Adjustment disorder with mixed anxiety and depressed mood 03/07/2013 Bradycardia CAD (coronary atherosclerotic disease) 02/25/2024 elective cardiac cath Depression 07/29/2010 Diverticulosis of colon (without mention of hemorrhage) Dysmetabolic syndrome X 02/13/2007 Goiter 07/29/2010 Gout 11/13/2009 Hypertension Hypothyroid 07/29/2010 Impotence of organic origin 03/14/2005 Irritability and anger 07/05/2014 Mixed hyperlipidemia 11/11/2005 MRSA (methicillin resistant staph aureus) culture positive 06/18/2010 Myalgia 10/13/2006 Obesity (BMI 35.0-39.9 without comorbidity) 07/25/2016 Orthostatic hypotension 06/21/2010 RADHA on CPAP 07/29/2010 Pneumonia due to COVID-19 virus 08/26/2020 Predi[address] P[address] Seeing Dr. Dc PVC's (premature ventricular contractions) Seeing Dr. Green Syncope 06/18/2010 Thrombocytopenia 05/13/2012 Vagal autonomic bradycardia 08/07/2011 PAST SURGICAL HISTORY Procedure Laterality Date COLONOSCOPY 02/11/2023 repeat in 10 years COLONOSCOPY FLX DX W/COLLJ SPEC WHEN PFRMD 05/12/2005 Colonoscopy COLONOSCOPY FLX DX W/COLLJ SPEC WHEN PFRMD 02/09/2013 Colonoscopy FINE NEEDLE ASP DEEP 04/23/2005 U/S FNA right lobe thyroid LEFT HEART CATH,PERCUTANEOUS 02/25/2024 LAD disease, medical management ALLERGIES Patient has no known allergies. MEDICATIONS levothyroxine (SYNTHROID) 100 mcg tablet Take 1 tablet by mouth once daily. Take on empty stomach allopurinol (ZYLOPRIM) 300 mg tablet Take 1 tablet by mouth once daily. blood sugar diagnostic (BLOOD GLUCOSE TEST) test strip Use with blood glucose test once daily semaglutide (OZEMPIC) 1 mg/dose (4 mg/3 mL) pen Inject 1 mg subcutaneously one time a week. losartan (COZAAR) 25 mg tablet Take 1 tablet by mouth once daily. atorvastatin (LIPITOR) 40 mg tablet Take 1 tablet by mouth daily at bedtime. For cholesterol. amLODIPine (NORVASC) 5 mg tablet Take 1 tablet by mouth once daily. empagliflozin (JARDIANCE) 10 mg tablet Take 1 tablet by mouth once daily. Take 1 tablet once daily in the morning Blood-Glucose Meter monitoring kit Glucose Meter of Choice - Kit - Dx: Type 2 DM - Controlled E11.9 FAMILY HISTORY Problem Relation Age of Onset Osteoporosis Mother other (thyroid problems) Mother Dementia Mother Cancer Father 50 non hodgkins Stroke Father Heart disease Father valvular heart disease. None Brother Cancer Maternal Grandmother Cancer Maternal Grandfather Social History Tobacco Use Smoking status: Never Smokeless tobacco: Never Vaping Use Vaping status: Never Used Substance Use Topics Alcohol use: Yes Alcohol/week: 2.0 standard drinks of alcohol Types: 2 Standard drinks or equivalent per week Comment: 2-4x per month Drug use: No BP 120/78 Pulse 74 Resp 14 Wt 104.2 kg (229 lb 11.5 oz) SpO2 98% BMI 35.71 kg/m? Physical Exam Vitals reviewed. Constitutional: Appearance: Normal appearance. Neurological: Mental Status: He is alert. DATA REVIEWED: Most recent labs Latest Ref Rng 07/27/2024 Hemoglobin A1C 4.3 - 5.6 % 5.5 Estimated Average Glucose mg/dL 111 TSH 0.270 - 4.200 mIU/L 9.340 (H) Legend: (H) High Asse (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 Normal [facility] TSH SerPl-aCncon 10-05-2024 TSH Qn 3.770 m[IU]/L Normal 0.270-4.20 0 [facility] Comment on above: Order Comment: Speci men Type: BLOOD SPECIMENOrdering Facility: [facility] Address: [address] [place] [address] Performed By: #### 2 4321-2, 3084-1, 3016-3 ####[facility] [id number] [address] [place] Urate SerPl-mCncon Urate [Mass/Vol] 4.7 mg/dL Normal 4.0-8.1 [facility] Comment on above: Order Comment: Speci deni Type: BLOOD SPECIMENOrdering Facility: [facility] Address: [address] [place] [id number] Performed By: #### 2 4321-2, 3084-1, 3016-3 ####[facility] [id number] [address] OF [facility] 09-29-2024 US CAROTID [facility]ER[facility] Non-Invasive Vascular [facility] Carotid Duplex Bilateral/Complete Date of service/time: 09/29/2024 9:04:54 AM Name: MR. LAW OLIVO Date of : 1955 Age: 68 years Gender: M Medical History Coronary disease: Yes Hypertension: Yes Diabetes: Yes Clinical Indication Dizziness. TECHNIQUE -------- A carotid duplex ultrasound examination was performed, including grayscale imaging and color Doppler and spectral Doppler examination of the below mentioned arteries. FINDINGS -------- RIGHT SIDE Common carotid artery: Origin: PSV: 72 cm/s. EDV: 13 cm/s. Proximal: PSV: 80 cm/s. EDV: 18 cm/s. Mid: PSV: 76 cm/s. EDV: 19 cm/s. Distal: PSV: 51 cm/s. EDV: 17 cm/s. Internal carotid artery: Origin: PSV: 42 cm/s. EDV: 13 cm/s. Proximal: PSV: 43 cm/s. EDV: 17 cm/s. Mid: PSV: 44 cm/s. EDV: 17 cm/s. Distal: PSV: 42 cm/s. EDV: 17 cm/s. ICA/CCA Ratio: 0.8 External carotid artery: Proximal: PSV: 58 cm/s. EDV: 11 cm/s. Subclavian artery: Proximal: PSV: 77 cm/s. EDV: 0 cm/s. Vertebral artery: PSV: 28 cm/s. EDV: 11 cm/s. LEFT SIDE Common carotid artery: Proximal: PSV: 88 cm/s. EDV: 23 cm/s. Mid: PSV: 92 cm/s. EDV: 25 cm/s. Distal: PSV: 73 cm/s. EDV: 21 cm/s. Mild heterogeneous plaque at distal. Internal carotid artery: Origin: PSV: 58 cm/s. EDV: 16 cm/s. Proximal: PSV: 41 cm/s. EDV: 17 cm/s. Mid: PSV: 43 cm/s. EDV: 17 cm/s. Distal: PSV: 50 cm/s. EDV: 22 cm/s. ICA/CCA Ratio: 0.8 External carotid artery: Proximal: PSV: 67 cm/s. EDV: 10 cm/s. Subclavian artery: Proximal: PSV: 155 cm/s. EDV: 0 cm/s. Vertebral artery: PSV: 32 cm/s. EDV: 12 cm/s. IMPRESSION Please note: the new carotid interpretation criteria are used as recommended by [employer]. RIGHT SIDE Common carotid artery: Patent. Internal carotid artery: Normal study. External carotid artery: Patent. Vertebral artery: Patent and antegrade flow noted. Innominate artery: Patent. Subclavian artery: Patent. LEFT SIDE Common carotid artery: Plaque visualized without evidence of hemodynamically significant stenosis. Internal carotid artery: Normal study. External carotid artery: Patent. Vertebral artery: Patent and antegrade flow noted. Subclavian artery: Patent. Technologist: Meera Irvin [facility] Ordering physician: JORDAN MCCAULEY Interpreting physician: Horace Mcclain MD, RPVI Final CC 1SDK Medical Image : [id number] [id number] See Link below for Image Normal [facility] 08-29-2024 CNPN Telephone (4CQ) LAW OLIVO ([id number]) 1955 M Date Time Provider Department 08/29/24 FRANTZ MCCAULEY 4CQ During your visit today, we recorded the following information about you: Rama Nuñez 08/29/2024 4:49 PM Signed Patient was scheduled in Radiology for Carotid US. [facility] does not perform Carotids. Please place Vascular Carotid Order. Patient is rescheduled to [place] because [facility] is out to October. Please advise MELANIE Lazo Victor H, MD 08/29/2024 5:54 PM Signed ASSESSMENT/PLAN: 1. Dizziness - ICD9: 780.4, ICD10: R42 - US [facility]OTID [facility] Frantz Mccauley MD Allergies As of Date: 08/29/2024 (No Known Allergies) Date Reviewed: 08/24/2024 Reviewed by: Libby Santizo LPN - Fully Assessed Primary Visit Diagnosis:Dizziness [R42] Order(s):US CAROTID [facility] [[id number]] Order #: [id number] FUTURE Prescriptions as of 08/30/2024 - levothyroxine (SYNTHROID) 100 mcg tablet Take 1 tablet by mouth once daily. Take on empty stomach - allopurinol (ZYLOPRIM) 300 mg tablet Take 1 tablet by mouth once daily. - Blood-Glucose Meter monitoring kit Glucose Meter of Choice - Kit - Dx: Type 2 DM - Controlled E11.9 - blood sugar diagnostic (BLOOD GLUCOSE TEST) test strip Use with blood glucose test once daily - semaglutide (OZEMPIC) 1 mg/dose (4 mg/3 mL) pen Inject 1 mg subcutaneously one time a week. - losartan (COZAAR) 25 mg tablet Take 1 tablet by mouth once daily. - atorvastatin (LIPITOR) 40 mg tablet Take 1 tablet by mouth daily at bedtime. For cholesterol. - amLODIPine (NORVASC) 5 mg tablet Take 1 tablet by mouth once daily. - empagliflozin (JARDIANCE) 10 mg tablet Take 1 tablet by mouth once daily. Take 1 tablet once daily in the morning Problem List As Of Date 08/29/2024 Noted Resolved Impotence of organic origin [N52.9] 03/14/2005 04/04/2022 Depressive disorder, not elsewhere classified [*11/11/2005 09/21/2017 Mixed hyperlipidemia [E78.2] 11/11/2005 Gouty Arthropathy [274.0] 11/11/2005 11/13/2009 HYPOTHYROIDISM NOS [E03.9] 02/11/2006 09/18/2014 PAIN IN LIMB [M79.609] 10/26/2006 12/18/2006 CELLULITIS OF LEG [L03.119, L02.419] 10/26/2006 12/18/2006 Knee pain [M25.569] 02/27/2009 09/18/2014 Dysmetabolic syndrome X [E88.810] 02/13/2007 10/28/2021 Controlled type 2 diabetes mellitus without com*05/15/2008 Gouty arthropathy [M10.9] 11/13/2009 09/21/2017 Gout [M10.9] 11/13/2009 08/08/2024 Cough [R05.9] 07/29/2010 09/18/2014 Groin pain [R10.30] 07/29/2010 09/18/2014 Dizziness and giddiness [R42] 07/29/2010 09/18/2014 Pre-diabetes [R73.03] 07/29/2010 02/02/2019 Hypothyroid [E03.9] 07/29/2010 Impotence [N52.9] 07/29/2010 09/21/2017 Goiter [E04.9] 07/29/2010 09/22/2017 RADHA on CPAP [G47.33] 07/29/2010 Vagal autonomic bradycardia [R00.1] 08/07/2011 09/21/2017 Adjustment disorder with mixed anxiety and depr*03/07/2013 Marital conflict [Z63.0] 03/07/2013 09/21/2017 Psoriasis [L40.9] 10/02/2015 Obesity (BMI 35.0-39.9 without comorbidity) [E6*07/25/2016 Essential hypertension [I10] 11/02/2019 Palpitations [R00.2] 11/02/2019 Acute respiratory failure with hypoxia (HCC) [J*08/26/2020 11/26/2020 Idiopathic chronic gout of multiple sites witho*12/09/2022 CAD (coronary atherosclerotic disease) [I25.10] 02/25/2024 Thrombocytopenia (HCC) [D69.6] 03/23/2024 Encounter Status:Closed by RUTH HERNADEZ on 08/30/24 [facility] (INTMWS ) LAW OLIVO ([id number]) 1955 M Date Time Provider Department 08/24/24 8:40 AM FRANTZ MCCAULEY INTMWS During your visit today, we recorded the following information about you: Temperature Pulse Blood pressure [facility] Office [facility] (INTMWS ) LAW OLIVO ([id number]) 1955 M Date Time Provider Department 08/08/24 6:40 PM FRANTZ MCCAULEY INTMWS During your visit today, we recorded the following information about you: Temperature Weight 98.4 degrees 105.6 kg Frantz Mccauley MD 08/08/2024 7:21 PM Signed This note was created using FlyCastriter. Subjective Patient presents with: ER F/U Law Olivo is a 68 year old male. He was in the ER 08/01/24 with acute dizziness, lightheadedness. Prior to EMS, he was at work, feeling vaguely ill and tried hydrating, and eating a cookie. He was not checking his glucose. When EMS arrived, his glucose was around 100. He was evaluated in the ER with unremarkable labs including troponins, and EKG. He was assessed to be dehydrated, and he did feel better after IV fluids. He was better but had residual lightheadedness. Review of Systems Constitutional: Negative for appetite change, chills, diaphoresis and fever. HENT: Negative for congestion. Eyes: Negative for visual disturbance. Respiratory: Negative for chest tightness and shortness of breath. Cardiovascular: Negative for chest pain, palpitations and leg swelling. Gastrointestinal: Negative for diarrhea, nausea and vomiting. Genitourinary: Negative for difficulty urinating. Neurological: Negative for syncope, facial asymmetry, speech difficulty, weakness and numbness. ACTIVE PROBLEM LIST Mixed Hyperlipidemia Controlled Type 2 Diabetes Mellitus Without Complication, Without Long-Term Current Use of Insulin (Hcc) Gout Hypothyroid Radha On Cpap Adjustment Disorder With Mixed Anxiety and Depressed Mood Psoriasis Obesity (Bmi 35.0-39.9 Without Comorbidity) Essential Hypertension Palpitations Idiopathic Chronic Gout of Multiple Sites Without Tophus Cad (Coronary Atherosclerotic Disease) Thrombocytopenia (Hcc) Social History Tobacco Use Smoking status: Never Smokeless tobacco: Never Vaping Use Vaping status: Never Used Substance Use Topics Alcohol use: Yes Drug use: No Current Outpatient Medications Medication Sig semaglutide (OZEMPIC) 1 mg/dose (4 mg/3 mL) pen Inject 1 mg subcutaneously one time a week. losartan (COZAAR) 25 mg tablet Take 1 tablet by mouth once daily. atorvastatin (LIPITOR) 40 mg tablet Take 1 tablet by mouth daily at bedtime. For cholesterol. amLODIPine (NORVASC) 5 mg tablet Take 1 tablet by mouth once daily. empagliflozin (JARDIANCE) 10 mg tablet Take 1 tablet by mouth once daily. Take 1 tablet once daily in the morning levothyroxine (SYNTHROID) 100 mcg tablet Take 1 tablet by mouth once daily. Take on empty stomach allopurinol (ZYLOPRIM) 300 mg tablet Take 1 tablet by mouth once daily. No current facility-administered medications for this visit. Objective BP 114/76 (BP Site: Left Arm, BP Position: Sitting, BP Cuff Size: Large Adult) Pulse 72 Temp 36.9 ?C (98.4 ?F) (Temporal) Wt 105.6 kg (232 lb 12.9 oz) BMI 36.46 kg/m? Physical Exam Constitutional: General: He is not in acute distress. Appearance: He is not ill-appearing or diaphoretic. HENT: Head: Normocephalic. Eyes: Extraocular Movements: Extraocular movements intact. Conjunctiva/sclera: Conjunctivae normal. Cardiovascular: Rate and Rhythm: Normal rate and regular rhythm. Heart sounds: No murmur heard. No gallop. Pulmonary: Breath sounds: Normal breath sounds. Musculoskeletal: Right lower leg: No edema. Left lower leg: No edema. Neurological: General: No focal deficit present. Mental Status: He is alert. Cranial Nerves: No cranial nerve deficit. Motor: No weakness. Coordination: Coordination normal. Gait: Gait normal. 08/08/24 1821 08/08/24 1848 08/08/24 1849 08/08/24 1850 Temp: 36.9 ?C (98.4 ?F) TempSrc: Temporal Weight: 105.6 kg (232 lb 12.9 oz) Orthostatic BP: 114/76 118/80 128/85 112/73 BP Position: Sitting Sitting Standing Supine Orthostatic Pulse: 72 6 74 66 Assessment and Plan 1. Dizziness - ICD9: 780.4, ICD10: R42 (primary diagnosis) - Consistent with metabolic cause, particularly hypoglycemia. 2. Hypothyroidism, unspecified type - ICD9: 244.9, ICD10: E03.9 - continue current dose of Synthroid - LEVOTHYROXINE 100 MCG TABLET - Repeat TSH ordered for October. 3. Idiopathic chronic gout of multiple sites without tophus - ICD9: 274.02, ICD10: M1A.09X0 He reduced his dose due to concerns about low platelets found on the internet. - ALLOPURINOL 300 MG TABLET - URIC ACID 4. Thrombocytopenia (HCC) - ICD9: 287.5, ICD10: D69.6 - Chronic, stable. 5. Controlled type 2 diabetes mellitus without complication, without long-term current use of insulin (HCC) - ICD9: 250.00, ICD10: E11.9 Concern for hypoglycemia. - Blood glucose monitoring on a PRN basis for symptoms of concern. - BLOOD-GLUCOSE METER KIT - BLOOD SUGAR DIAGNOSTIC STRIPS (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 Normal [facility] CNCOon 08-02-2024 CNCO Letter Text Normal [facility] Basic Metabolic Profile (BMP )on 08-01-2024 BUN/CRE 15.5 RATIO Normal 10-20 [facility] Comment on above: Performed By: #### L 500.2500, L100.0100, L501.5425 #### [facility] [address] [place], [address] CA,Total 9.5 mg/dL Normal 8.5-10.1 [facility] Comment on above: Performed By: #### L 500.2500, L100.0100, L501.5425 #### [facility] [address] [place], [address] Chloride [Moles/Vol] 106 mmol/L Normal 98-107 [facility] Comment on above: Performed By: #### L 500.2500, L100.0100, L501.5425 #### [facility] [address] [place], [address] CO2 [Moles/Vol] 25.0 mmol/L Normal 21.0-32.0 [facility] Comment on above: Performed By: #### L 500.2500, L100.0100, L501.5425 #### [facility] [address] [place], [address] Creatinine [Mass/Vol] 1.03 mg/dL Normal 0.70-1.30 [facility] Comment on above: Result Comment: The validity of the calculated GFR GFRAA in patients over 70 years has not been determined. Clinical correlation is essential. Performed By: #### L 500.2500, L100.0100, L501.5425 #### [facility] [address] [place], [address] ECRCL 79.20 ml/min Normal [facility] Comment on above: Performed By: #### L 500.2500, L100.0100, L501.5425 #### [facility] [address] [place], [address] EST GFR - AA 92 mL/min Normal >60 [facility] Comment on above: Result Comment: Afri can Albanian GFR Calc Performed By: #### L 500.2500, L100.0100, L501.5425 #### [facility] [address] [place], [address] GAP 8 Normal 5-15 [facility] Comment on above: Performed By: #### L 500.2500, L100.0100, L501.5425 #### [facility] [address] [place], [address] GFR/1.73 sq M.predicted among non-blacks MDRD (S/P/Bld) [Vol rate/Area] 76 mL/min/{1.73_m2} Normal >60 [facility] Comment on above: Result Comment: Non- GFR Calc Performed By: #### L 500.2500, L100.0100, L501.5425 #### [facility] [address] [place], [address] Glucose [Mass/Vol] 119 mg/dL High 74-106 [facility] Comment on above: Result Comment: Fast ing Glucose result from 100 to 125 mg/dL suggests IMPAIRED HOMEOSTASIS per A.D.A. criteria. Performed By: #### L 500.2500, L100.0100, L501.5425 #### [facility] [address] [place], [address] Potassium [Moles/Vol] 3.7 mmol/L Normal 3.5-5.1 [facility] Comment on above: Performed By: #### L 500.2500, L100.0100, L501.5425 #### [facility] [address] [place], [address] Sodium [Moles/Vol] 139 mmol/L Normal 136-145 [facility] Comment on above: Performed By: #### L 500.2500, L100.0100, L501.5425 #### [facility] [address] [place], [address] Urea nitrogen [Mass/Vol] 16 mg/dL Normal 7-18 [facility] Comment on above: Performed By: #### L 500.2500, L100.0100, L501.5425 #### [facility] [address] [place], [address] Bedside Glucoseon 08-01-2024 FINGERSTICK GLU 126 mg/dL High 74-106 [facility] Comment on above: Result Comment: RAUL VILLALOBOS OF PATIENT CARE PER NURSING PROTOCOL Performed By: #### L 501.080 #### [facility] [address] [place], [address] CBC W/Diff, Automatedon - Absolute Lymph 2.08 X10 3/uL Normal 0.83-4.51 [facility] Comment on above: Performed By: #### L 500.2500, L100.0100, L501.5425 #### [facility] [address] [place], [address] Absolute Neut 4.5 X10 3/uL Normal 2.0-7.7 [facility] Comment on above: Performed By: #### L 500.2500, L100.0100, L501.5425 #### [facility] [address] [place], [address] Basophils/100 WBC (Bld) 0.9 % Normal 0-1 [facility] Comment on above: Performed By: #### L 500.2500, L100.0100, L501.5425 #### [facility] [address] [place], [address] Eosinophils/100 WBC (Bld) 5.0 % Normal 0-5 [facility] Comment on above: Performed By: #### L 500.2500, L100.0100, L501.5425 #### [facility] [address] [place], [address] Erythrocyte distribution width (RBC) [Ratio] 13.0 % Normal 11.6-14.6 [facility] Comment on above: Performed By: #### L 500.2500, L100.0100, L501.5425 #### [facility] [address] [place], [address] Hematocrit (Bld) [Volume fraction] 43.9 % Normal 40-54 [facility] Comment on above: Performed By: #### L 500.2500, L100.0100, L501.5425 #### [facility] [address] [place], [address] Hemoglobin (Bld) [Mass/Vol] 15.2 g/dL Normal 13.0-16.5 [facility] Comment on above: Performed By: #### L 500.2500, L100.0100, L501.5425 #### [facility] [address] [place], [address] IG% 0.800 Normal 0.0-0.9 [facility] Comment on above: Result Comment: IG% - Immature Granulocytes (promyelocytes, myelocytes and metamyelocytes) > 1% indicates that a LEFT SHIFT is Present. Performed By: #### L 500.2500, L100.0100, L501.5425 #### [facility] [address] [place], [address] Lymphocytes/100 WBC (Bld) 27.2 % Normal 19-41 [facility] Comment on above: Performed By: #### L 500.2500, L100.0100, L501.5425 #### [facility] [address] [place], [address] MCH (RBC) [Entitic mass] 32.5 pg High 27.0-32.0 [facility] Comment on above: Performed By: #### L 500.2500, L100.0100, L501.5425 #### [facility] [address] [place], [address] MCHC (RBC) [Mass/Vol] 34.6 g/dL Normal 32-36 [facility] Comment on above: Performed By: #### L 500.2500, L100.0100, L501.5425 #### [facility] [address] [place], [address] MCV (RBC) [Entitic vol] 94.0 fL Normal 80-94 [facility] Comment on above: Performed By: #### L 500.2500, L100.0100, L501.5425 #### [facility] [address] [place], [address] Monocytes/100 WBC (Bld) 6.9 % Normal 0-10 [facility] Comment on above: Performed By: #### L 500.2500, L100.0100, L501.5425 #### [facility] [address] [place], [address] Neutrophils/100 WBC (Bld) 59.2 % Normal 47-70 [facility] Comment on above: Performed By: #### L 500.2500, L100.0100, L501.5425 #### [facility] [address] [place], [address] Nucleated RBC (Bld) [#/Vol] 0 10*3/uL Normal 0-5 [facility] Comment on above: Performed By: #### L 500.2500, L100.0100, L501.5425 #### [facility] [address] [place], [address] Platelet mean volume (Bld) [Entitic vol] 11.3 fL Normal 6.2-12.0 [facility] Comment on above: Performed By: #### L 500.2500, L100.0100, L501.5425 #### [facility] [address] [place], [address] Platelets (Bld) [#/Vol] 122 10*3/uL Low 150-450 [facility] Comment on above: Performed By: #### L 500.2500, L100.0100, L501.5425 #### [facility] [address] [place], [address] RBC (Bld) [#/Vol] 4.67 10*6/uL Normal 4.6-6.2 [facility] Comment on above: Performed By: #### L 500.2500, L100.0100, L501.5425 #### [facility] [address] [place], [address] RDW SD 44.6 fl High 35.1-43.9 [facility] Comment on above: Performed By: #### L 500.2500, L100.0100, L501.5425 #### [facility] [address] [place], [address] WBC (Bld) [#/Vol] 7.7 10*3/uL Normal 4.4-11.0 [facility] Comment on above: Performed By: #### L 500.2500, L100.0100, L501.5425 #### [facility] [address] [place], [address] Emergency Department Summary on 08-01-2024 Emergency Department Summary [facility] Medical Records Department [address] [place] [address] Emergency Department Summary 08/01/24 MR#: [id number] Acct: [id number] Name: LAW OLIVO Rep #: [id number] : 1955 68 From: Arnel Feliciano MD PCP: Dr. Frantz Mccauley MD Status:REG ER Location: ED HPI History of Present Illness Chief Complaint: Dizziness Informant: patient, family and EMS Narrative Narrative: 68-year-old male was at work during the meeting started gradually feeling lightheaded, and a progressively became worse without any other focal symptoms such as chest discomfort, dyspnea, sudden onset severe headache, focal neurologic symptoms such as weakness or numbness, abdominal pain, nausea. He has had no recent vomiting or diarrhea. He is a type II diabetic, he is on Jardiance and Ozempic, he does not have anything to check his blood sugar with but denies any polyuria polydipsia recently. He states he does not drink a lot of water. This occurred somewhere around noon, and he had a couple sips from a bottle of water the entire morning before this and nothing else. He states after feeling this way he drank a bottle of water and ate some cookies, and EMS was called. They checked his blood sugar it was 100 he was starting to feel better as he is now but still little more lightheaded. He developed a mild headache and all of this but states he is very anxious and always considers the worst possible scenarios. No other prodromal symptoms. He felt fine yesterday. [facility] Medical History Atherosclerosis of [place] coronary artery of [place] heart without angina pectoris PVCs (premature ventricular contractions) Orthostatic hypotension RADHA (obstructive sleep apnea) Obesity Gout Goiter Dysmetabolic syndrome X Diverticulosis of colon Abnormal tilt table test Syncope Bradycardia Chest pain Anxiety Depression Hyperlipidemia Hypertension Hypoxia Home Medications ???Medication ???Instructions ???Recorded ???Last Taken ???Type amlodipine 5 mg tablet 5 mg PO DAILY 08/26/20 Unknown His tory empagliflozin 10 mg tablet 10 mg PO DAILY 03/28/22 Unknown Hi story (Jardiance) allopurinol 100 mg tablet 100 mg PO DAILYCM 05/26/24 Unknown History allopurinol 300 mg tablet 300 mg PO DAILY 05/26/24 Unknown H istory atorvastatin 40 mg tablet 40 mg PO QDAY 05/26/24 Unknown His tory levothyroxine 100 mcg tablet 100 mcg PO QDAY 05/26/24 Unknown H istory losartan 25 mg tablet 25 mg PO QDAY 05/26/24 Unknown His tory semaglutide 0.25 mg or 0.5 mg (2 0.5 mg subcut QWEEK 05/26/24 Unkno wn History mg/3 mL) subcutaneous pen injector (Ozempic) Allergy/AdvReac Type Severity Reaction Status Date / Time No Known Allergies Allergy Verified 05/26/24 08:35 Family History Father Non-Hodgkin lymphoma CVA (cerebral vascular accident) Social History household members: spouse housing: house Smoking Status: Never smoker alcohol intake: current alcohol intake frequency: a few times a week Alcohol type: wine substance use type: does not use caffeine: No ROS ROS ED Constitutional Constitutional ED: Denies chills or fever(s) Eyes Eyes: Denies change in vision or diplopia ENT ENT ED: Denies rhinorrhea or sore throat Cardiovascular Cardiovascular: Reports lightheadedness; Denies chest pain, palpitations or syncope Respiratory/Chest Respiratory/Chest: Denies cough or dyspnea Gastrointestinal Gastrointestinal: Denies abdominal pain, diarrhea, nausea or vomiting Genitourinary Genitourinary ED: Denies dysuria or hematuria Musculoskeletal Musculoskeletal: Denies back pain or neck pain Integumentary Denies abscess or rash Neurologic Neurologic: Reports headache(s); Denies paresthesias or weakness Psychiatric Psychiatric: Reports anxiety; Denies suicidal thoughts EXAM Physical Exam Const Vital Signs: 08/01/24 13:14 08/01/24 13:44 08/01/24 13:51 Temperature 96.1 F L Temperature Source Temporal Pulse Rate 70 Pulse Rate [Lying] 67 Pulse Rate [Sitting (for 1 minute prior to obtaining)] 67 Pulse Rate [Standing (for 1 minute prior to obtaining)] 71 Respiratory Rate 18 Blood Pressure 146/89 H Blood Pressure [Lying] 135/82 H Blood Pressure [Sitting (for 1 minute prior to obtaining)] 134/82 H Blood Pressure [Standing (for 1 minute prior to obtaining)] 141/90 H Blood Pressure Mean 108 Blood Pressure Mean [Lying] 99 Blood Pressure Mean [Sitting (for 1 minute prior to obtaining)] 99 Blood Pressure Mean [Standing (for 1 minute prior to obtaining)] 107 Pulse Ox 100 100 Oxygen Delivery Method Room Air Room Air (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 Normal [facility] L501.4020on 08-01-2024 TROPONIN-I HS < 3 Low 3.0-78.0 [facility] Comment on above: Result Comment: Brianne lozada Note: New Test Units and Gender Specific Reference Ranges. For more information see Policy Stat Procedure [employer] High Sensitivity Troponin (TNIH) and attachments. Performed By: #### L 501.4020 #### [facility] [address] [place], [place], [address] L501.5425on 08-01-2024 TROPONIN-I HS 4 pg/mL Normal 3.0-78.0 [facility] Comment on above: Order Comment: 1 Y Result Comment: Brianne lozada Note: New Test Units and Gender Specific Reference Ranges. For more information see Policy Stat Procedure [employer] High Sensitivity Troponin (TNIH) and attachments. Performed By: #### L 500.2500, L100.0100, L501.5425 #### [facility] [address] [place], [address] CNOVon 07-29-2024 CNOV Office Visit (INTMWS ) LAW OLIVO ([id number]) 1955 Date Time Provider Department 07/29/24 7:20 AM FATOU DELUCA INTMWS During your visit today, we recorded the following information about you: Pulse Respiration Blood pressure Weight 71/minute 16/minute 132/74 106 kg Fatou Deluca, REFRACTORY SPECIALIST.[employer] 07/29/2024 7:55 AM Signed CC: Patient presents with: Recheck: Lab work questions HPI Law Olivo is a 68 year old male who presents today for above. Hypothyroidism-taking levothyroxine daily on an empty stomach: Yes Denies: malaise, constipation, weight gain, dry skin, cold intolerance, trouble swallowing, and neck pain/pressure. TSH Date Value 07/27/2024 9.340 mIU/L 08/22/2023 2.460 mIU/L 06/18/2021 0.866 uU/mL 05/03/2021 0.226 uU/mL Diabetes: Hypoglycemia: No He is compliant with medication(s) and is tolerating med(s) without any side effects. Increased thirst: No Urinary frequency: No Nocturia: No Fatigue: No Unintentional weight loss: No Blurred vision: No Numbness, tingling or pain in extremities: No Ulcers or sores on feet: No Last Ophthalmology exam: within the past 12 months Patient's last HgA1C : Hemoglobin A1C (%) Date Value 07/27/2024 5.5 11/21/2023 5.9 05/03/2021 6.5 11/23/2020 5.9 Review of Systems See HPI PAST MEDICAL HISTORY Diagnosis Date Abnormal tilt table test 08/07/2011 Acute respiratory failure with hypoxia (HCC) 08/26/2020 Adjustment disorder with mixed anxiety and depressed mood 03/07/2013 Bradycardia CAD (coronary atherosclerotic disease) 02/25/2024 elective cardiac cath Depression 07/29/2010 Diverticulosis of colon (without mention of hemorrhage) Dysmetabolic syndrome X 02/13/2007 Goiter 07/29/2010 Gout 11/13/2009 Hypertension Hypothyroid 07/29/2010 Impotence of organic origin 03/14/2005 Irritability and anger 07/05/2014 Mixed hyperlipidemia 11/11/2005 MRSA (methicillin resistant staph aureus) culture positive 06/18/2010 Myalgia 10/13/2006 Obesity (BMI 35.0-39.9 without comorbidity) 07/25/2016 Orthostatic hypotension 06/21/2010 RADHA on CPAP 07/29/2010 Pneumonia due to COVID-19 virus 08/26/2020 Prediabetes Psoriasis Seeing Dr. Dc PVC's (premature ventricular contractions) Seeing Dr. Green Syncope 06/18/2010 Thrombocytopenia (HCC) 05/13/2012 Vagal autonomic bradycardia 08/07/2011 PAST SURGICAL HISTORY Procedure Laterality Date COLONOSCOPY 02/11/2023 repeat in 10 years COLONOSCOPY FLX DX W/COLLJ SPEC WHEN PFRMD 05/12/2005 Colonoscopy COLONOSCOPY FLX DX W/COLLJ SPEC WHEN PFRMD 02/09/2013 Colonoscopy FINE NEEDLE ASP DEEP 04/23/2005 U/S FNA right lobe thyroid LEFT HEART CATH,PERCUTANEOUS 02/25/2024 LAD disease, medical management ALLERGIES Patient has no known allergies. MEDICATIONS semaglutide (OZEMPIC) 0.25 mg or 0.5 mg (2 mg/3 mL) pen Inject 0.5 mg subcutaneously one time a week. losartan (COZAAR) 25 mg tablet Take 1 tablet by mouth once daily. atorvastatin (LIPITOR) 40 mg tablet Take 1 tablet by mouth daily at bedtime. For cholesterol. amLODIPine (NORVASC) 5 mg tablet Take 1 tablet by mouth once daily. empagliflozin (JARDIANCE) 10 mg tablet Take 1 tablet by mouth once daily. Take 1 tablet once daily in the morning levothyroxine (SYNTHROID) 100 mcg tablet Take 1 tablet by mouth once daily. Take on empty stomach allopurinol (ZYLOPRIM) 300 mg tablet Take 1 tablet by mouth once daily. allopurinol (ZYLOPRIM) 100 mg tablet Take 1 tablet by mouth once daily. In addition to 300 mg daily for gout. FAMILY HISTORY Problem Relation Age of Onset Osteoporosis Mother other (thyroid problems) Mother Dementia Mother Cancer Father 50 non hodgkins Stroke Father Heart disease Father valvular heart disease. None Brother Cancer Maternal Grandmother Cancer Maternal Grandfather Social History Tobacco Use Smoking status: Never Smokeless tobacco: Never Vaping Use Vaping status: Never Used Substance Use Topics Alcohol use: Yes Drug use: No BP 132/74 Pulse 71 Resp 16 Wt 106 kg (233 lb 11 oz) SpO2 98% BMI 36.60 kg/m? Physical Exam Vitals reviewed. Constitutional: Appearance: Normal appearance. Neurological: Mental Status: He is alert. Psychiatric: Mood and Affect: Mood normal. DATA REVIEWED: Most recent labs Latest Ref Rng 07/27/2024 Protein, Total 6.3 - 8.0 g/dL 7.1 Albumin 3.9 - 4.9 g/dL 4.3 Calcium 8.5 - 10.2 mg/dL 9.1 Bilirubin, Total 0.2 - 1.3 mg/dL 0.6 Alkaline Phosphatase 38 - 113 U/L 86 AST 14 - 40 U/L 29 ALT 10 - 54 U/L 44 Glucose 74 - 99 mg/dL 105 (H) BUN 9 - 24 mg/dL 20 Creatinine 0.73 - 1.22 mg/dL 1.02 Sodium 136 - 144 mmol/L 140 Potassium 3.7 - 5.1 mmol/L 4.7 Chloride 98 - 107 mmol/L 103 CO2 22 - 30 mmol/L 23 Anion Gap 8 - 15 mmol/L 14 eGFR >=60 mL/min/1.73m? 80 WBC 3.70 - 11.00 k/uL 7.37 RB (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 Normal [facility] ALBUMIN/CREATININE RATIO, UR INEon 07-27-2024 Albumin Unsp time DL <= 20 mg/L (U) [Mass/Time] 13.6 mg/L Normal [facility] Comment on above: Order Comment: Speci men Type: URINE SPECIMENOrdering Facility: [facility] Address: [address] [place] [address] Performed By: #### U ACR ####[facility] LABORATORYCLIA [id number] [place] [address] [place] [facility] Albumin/Creatinin e (U) [Mass ratio] 16 mg/g Normal <30 [facility] Comment on above: Order Comment: Speci men Type: URINE SPECIMENOrdering Facility: [facility] Address: [address] [place] [address] Result Comment: Adul t Male and Female Nephrotic Criteria: <30 mg/g is considered normal to mildly increased 30-300 mg/g is considered moderately increased >300 mg/g is considered severely increased KDIGO. (2013). KDIGO 2012 Clinical Practice Guideline for the Evaluation and Management of Chronic Kidney Disease. Official Journal of the International Society of Nephrology, 3(1), 1-150. Performed By: #### U ACR ####[facility] LABORATORYCLIA [id number] [place] [address] [place] Creatinine (U) [Mass/Vol] 85.9 mg/dL Normal 46.8-314.5 [facility] Comment on above: Order Comment: Speci men Type: URINE SPECIMENOrdering Facility: [facility] Address: [address] [place] [address] Performed By: #### U ACR ####[facility] LABORATORYCLIA [id number] [place] [id number] [place] CBC panel Auto (Bld)on 07-27 Erythrocyte distribution width (RBC) [Ratio] 12.9 % Normal 11.5-15.0 [facility] Comment on above: Order Comment: Speci men Type: BLOOD SPECIMENOrdering Facility: [facility] Address: [address] [place] [address] Performed By: #### 5 8410-2 ####[facility] LABCLIA [id number] [address] [place] Hematocrit (Bld) [Volume fraction] 42.6 % Normal 39.0-51.0 [facility] Comment on above: Order Comment: Speci men Type: BLOOD SPECIMENOrdering Facility: [facility] Address: [address] [place] [address] Performed By: #### 5 8410-2 ####[facility] LABCLIA [id number] [place] [address] [place] Hemoglobin (Bld) [Mass/Vol] 14.1 g/dL Normal 13.0-17.0 [facility] Comment on above: Order Comment: Speci men Type: BLOOD SPECIMENOrdering Facility: [facility] Address: [address] [place] [address] Performed By: #### 5 8410-2 ####[facility] LABCLIA [id number] [place] [address] [place] MCH (RBC) [Entitic mass] 31.8 pg Normal 26.0-34.0 [facility] Comment on above: Order Comment: Speci men Type: BLOOD SPECIMENOrdering Facility: [facility] Address: [address] [place] [address] Performed By: #### 5 8410-2 ####[facility] LABIA [id number] [place] [address] [place] MCHC (RBC) [Mass/Vol] 33.1 g/dL Normal 30.5-36.0 [facility] Comment on above: Order Comment: Speci men Type: BLOOD SPECIMENOrdering Facility: [facility] Address: [address] [place] [address] Performed By: #### 5 8410-2 ####[facility] LABIA [id number] [place] [address] [place] MCV (RBC) [Entitic vol] 95.9 fL Normal 80.0-100.0 [facility] Comment on above: Order Comment: Speci men Type: BLOOD SPECIMENOrdering Facility: [facility] Address: [address] [place] [address] Performed By: #### 5 8410-2 ####[facility] LABIA [id number] [place] [address] [place] Nucleated RBC (Bld) [#/Vol] 10*3/uL Normal <0.01 [facility] Comment on above: Order Comment: Speci men Type: BLOOD SPECIMENOrdering Facility: [facility] Address: [address] [place] [address] Performed By: #### 5 8410-2 ####[facility] LABIA [id number] [place] [address] [place] Platelet mean volume (Bld) [Entitic vol] 11.4 fL Normal 9.0-12.7 [facility] Comment on above: Order Comment: Speci men Type: BLOOD SPECIMENOrdering Facility: [facility] Address: [address] [place] [address] Performed By: #### 5 8410-2 ####[facility] LABCLIA [id number] [place] [address] [place] Platelets (Bld) [#/Vol] 121 10*3/uL Low 150-400 [facility] Comment on above: Order Comment: Speci men Type: BLOOD SPECIMENOrdering Facility: [facility] Address: [address] [place] [address] Performed By: #### 5 8410-2 ####[facility] LABIA [id number] [address] STATES OF [facility] RBC (Bld) [#/Vol] 4.44 10*6/uL Normal 4.20-6.00 [facility] Comment on above: Order Comment: Speci men Type: BLOOD SPECIMENOrdering Facility: [facility] Address: [address] [place] [address] Performed By: #### 5 8410-2 ####[facility] LABIA [id number] [address] [place] WBC (Bld) [#/Vol] 7.37 10*3/uL Normal 3.70-11.00 [facility] Comment on above: Order Comment: Speci men Type: BLOOD SPECIMENOrdering Facility: [facility] Address: [address] [place] [address] Performed By: #### 5 8410-2 ####[facility] LABIA [id number] [place] [address] [place] [facility] [place] Comprehensive metabolic 2000 panelon 07-27-2024 Albumin [Mass/Vol] 4.3 g/dL Normal 3.9-4.9 [facility] Comment on above: Order Comment: Speci men Type: BLOOD SPECIMENOrdering Facility: [facility] Address: [address] [place] [address] Performed By: #### 2 4331-1 ####[facility]ATORYCLIA [id number] [address] LABCLIA [id number] [place] [address] [place]#### 3016-3, 12101-4 ####[facility]ORATORYCLIA [id number] [place] [address] [place] ALP [Catalytic activity/Vol] 86 U/L Normal 38-113 [facility] Comment on above: Order Comment: Speci men Type: BLOOD SPECIMENOrdering Facility: [facility] Address: [address] [place] [address] Performed By: #### 2 4331-1 ####[facility]ORATORYCLIA [id number] [address] LABCLIA [id number] [place] [address] [place]#### 3016-3, 34979-4 ####[facility]ORATORYCLIA [id number] [place] [address] [place] ALT [Catalytic activity/Vol] 44 U/L Normal 10-54 [facility] Comment on above: Order Comment: Speci men Type: BLOOD SPECIMENOrdering Facility: [facility] Address: [address] [place] [address] Performed By: #### 2 4331-1 ####[facility]ORATORYCLIA [id number] [place] [id number] [facility] LABCLIA [id number] [place] [address] [place]#### 3016-3, 36989-2 ####[facility]ORATORYCLIA [id number] [place] [address] [place] Anion gap [Moles/Vol] 14 mmol/L Normal 8-15 [facility] Comment on above: Order Comment: Speci men Type: BLOOD SPECIMENOrdering Facility: [facility] Address: [address] [place] [address] Performed By: #### 2 4331-1 ####[facility]ORATORYCLIA [id number] [address] LABCLIA [id number] [place] [address] [place]#### 3016-3, 93399-8 ####[facility]ORATORYCLIA [id number] [place] [address] [place] AST [Catalytic activity/Vol] 29 U/L Normal 14-40 [facility] Comment on above: Order Comment: Speci men Type: BLOOD SPECIMENOrdering Facility: [facility] Address: [address] [place] [address] Performed By: #### 2 4331-1 ####[facility]ORATORYCLIA [id number] [address] LABCLIA [id number] [place] [address] [place]#### 3016-3, 78793-4 ####[facility]ATORYCLIA [id number] [place] [address] [place] Bilirubin [Mass/Vol] 0.6 mg/dL Normal 0.2-1.3 [facility] Comment on above: Order Comment: Speci men Type: BLOOD SPECIMENOrdering Facility: [facility] Address: [address] [place] [address] Performed By: #### 2 4331-1 ####[facility]ORATORYCLIA [id number] [place] [address] [facility] LABCLIA [id number] [place] [address] [place]#### 3016-3, 31597-2 ####[facility]ORATORYCLIA [id number] [place] [address] [place] Calcium [Mass/Vol] 9.1 mg/dL Normal 8.5-10.2 [facility] Comment on above: Order Comment: Speci men Type: BLOOD SPECIMENOrdering Facility: [facility] Address: [address] [place] [address] Performed By: #### 2 4331-1 ####[facility]ORATORYCLIA [id number] [address] LABCLIA [id number] [place] [address] [place]#### 3016-3, 96310-1 ####[facility]ATORYCLIA [id number] [place] [address] [place] Chloride [Moles/Vol] 103 mmol/L Normal 98-107 [facility] Comment on above: Order Comment: Speci men Type: BLOOD SPECIMENOrdering Facility: [facility] Address: [address] [place] [address] Performed By: #### 2 4331-1 ####[facility]ATORYCLIA [id number] [address] LABCLIA [id number] [place] [address] [place]#### 3016-3, 99775-8 ####[facility]ORATORYCLIA [id number] [place] [address] [place] CO2 [Moles/Vol] 23 mmol/L Normal 22-30 [facility] Comment on above: Order Comment: Speci men Type: BLOOD SPECIMENOrdering Facility: [facility] Address: [address] [place] [id number] Performed By: #### 2 4331-1 ####[facility]ATORYCLIA [id number] [address] LABCLIA [id number] [place] [address] [place]#### 3016-3, 71794-4 ####[facility]ORATORYCLIA [id number] [place] [address] [place] Creatinine [Mass/Vol] 1.02 mg/dL Normal 0.73-1.22 [facility] Comment on above: Order Comment: Speci men Type: BLOOD SPECIMENOrdering Facility: [facility] Address: [address] [place] [address] Performed By: #### 2 4331-1 ####[facility]ATORYCLIA [id number] [address] LABCLIA [id number] [address] [place]#### 3016-3, 31158-4 ####[facility]ORATORYCLIA [id number] [address] Creatinine and Glomerular filtration rate.predicted panel (S/P/Bld) 80 mL/min/1.73m??? Normal >=60 [facility] Comment on above: Order Comment: Speci men Type: BLOOD SPECIMENOrdering Facility: [facility] Address: [address] [place] [address] Result Comment: Yesica mated Glomerular Filtration Rate (eGFR) is calculated using the 2020 CKD-EPI creatinine equation. This equation utilizes serum creatinine, sex, and age as parameters. The creatinine assay has traceable calibration to isotope dilution-mass spectrometry. Refer to KDIGO guidelines for clinical interpretation. In patients with unstable renal function, e.g. those with acute kidney injury, the eGFR may not accurately reflect actual GFR. Performed By: #### 2 4331-1 ####[facility]ATORYCLIA [id number] [address] LABCLIA [id number] [address] [place]#### 3016-3, 95649-2 ####[facility]ORATORYCLIA [id number] [place] [address] [place] Glucose [Mass/Vol] 105 mg/dL High 74-99 [facility] Comment on above: Order Comment: Vito cheema Type: BLOOD SPECIMENOrdering Facility: [facility] Address: [address] [place] [address] Result Comment: The [place] Diabetes Association (ADA) provides guidance for cutoff values for fasting glucose and random glucose. The ADA defines fasting as no caloric intake for at least 8 hours. Fasting plasma glucose results between 100 to 125 mg/dL indicate increased risk for diabetes (prediabetes). Fasting plasma glucose results greater than or equal to 126 mg/dL meet the criteria for diagnosis of diabetes. In the absence of unequivocal hyperglycemia, results should be confirmed by repeat testing. In a patient with classic symptoms of hyperglycemia or hyperglycemic crisis, random plasma glucose results greater than or equal to 200 mg/dL meet the criteria for diagnosis of diabetes. Reference: Standards of Medical Care in Diabetes 2016, [place] Diabetes Association. Diabetes Care. 2016.39(Suppl 1). Performed By: #### 2 4331-1 ####[facility]ATORYCLIA [id number] [address] LABCLIA [id number] [place] [address] [place]#### 3016-3, 27043-1 ####[facility] LABORATORYCLIA [id number] [place] [address] [place] Potassium [Moles/Vol] 4.7 mmol/L Normal 3.7-5.1 [facility] Comment on above: Order Comment: Vito cheema Type: BLOOD SPECIMENOrdering Facility: [facility] Address: [address] [place] [address] Performed By: #### 2 4331-1 ####[facility]ATORYCLIA [id number] [address] LABCLIA [id number] [place] [address] [place]#### 3016-3, 62763-3 ####[facility]ORATORYCLIA [id number] [place] [address] [place] Protein [Mass/Vol] 7.1 g/dL Normal 6.3-8.0 [facility] Comment on above: Order Comment: Speci men Type: BLOOD SPECIMENOrdering Facility: [facility] Address: [address] [place] [address] Performed By: #### 2 4331-1 ####[facility]ATORYCLIA [id number] [address] LABCLIA [id number] [place] [address] [place]#### 3016-3, 38593-9 ####[facility]ORATORYCLIA [id number] [place] [address] [place] Sodium [Moles/Vol] 140 mmol/L Normal 136-144 [facility] Comment on above: Order Comment: Speci men Type: BLOOD SPECIMENOrdering Facility: [facility] Address: [address] [place] [address] Performed By: #### 2 4331-1 ####[facility]ATORYCLIA [id number] [address] LABCLIA [id number] [place] [address] [place]#### 3016-3, 73292-3 ####[facility]ATORYCLIA [id number] [place] [address] [place] Urea nitrogen [Mass/Vol] 20 mg/dL Normal 9-24 [facility] Comment on above: Order Comment: Speci men Type: BLOOD SPECIMENOrdering Facility: [facility] Address: [address] [place] [address] Performed By: #### 2 4331-1 ####[facility]ATORYCLIA [id number] [address] LABCLIA [id number] [place] [address] [place]#### 3016-3, 48101-1 ####[facility]ATORYCLIA [id number] [address] [place] HbA1c (Bld)on 07-27-2024 Average glucose Estimated from glycated hemoglobin (Bld) [Mass/Vol] 111 mg/dL Normal [facility] Comment on above: Order Comment: Vito cheema Type: BLOOD SPECIMENOrdering Facility: [facility] Address: [address] [place] [address] Result Comment: eAG: (Estimated average glucose) is a calculated value from HgbA1c and is outbound sales representative of the average blood glucose level in the last 2-3 month period. Performed By: #### 5 5454-3 ####[facility] LABCLIA [id number] [address] HbA1c (Bld) [Mass fraction] 5.5 % Normal 4.3-5.6 [facility] Comment on above: Order Comment: Vito cheema Type: BLOOD SPECIMENOrdering Facility: [facility] Address: [address] [place] [address] Result Comment: [place] Diabetes Association guidelines indicate that patients with HgbA1c in the range 5.7-6.4% are at increased risk for development of diabetes, and intervention by lifestyle modification may be beneficial. HgbA1c greater or equal to 6.5% is considered diagnostic of diabetes. Performed By: #### 5 5454-3 ####[facility] LABCLIA [id number] [place] [address] [place] Lipid 1996 panelon 5 Cholesterol [Mass/Vol] 137 mg/dL Normal <200 [facility] Comment on above: Order Comment: Vito cheema Type: BLOOD SPECIMENOrdering Facility: [facility] Address: [address] [place] [address] Result Comment: <200 mg/dL, Desirable 200-239 mg/dL, Borderline high >239 mg/dL, High Performed By: #### 2 4331-1 ####[facility]ORATORYCLIA [id number] [place] [address] [facility] LABCLIA [id number] [place] [address] [place]#### 3016-3, 11315-3 ####[facility]ATORYCLIA [id number] [address] [place] Cholesterol in HDL [Mass/Vol] 40 mg/dL Normal >39 [facility] Comment on above: Order Comment: Speci men Type: BLOOD SPECIMENOrdering Facility: [facility] Address: [address] [place] [address] Result Comment: 40-5 9 mg/dL, Acceptable >59 mg/dL, High: Negative risk factor for coronary heart disease <40 mg/dL, Low: Positive risk factor for coronary heart disease Performed By: #### 2 4331-1 ####[facility]ORYCLIA [id number] [address] LABCLIA [id number] [place] [address] [place]#### 3016-3, 52176-4 ####[facility]ORYCLIA [id number] [address] [place] Cholesterol in LDL [Mass/Vol] 67 mg/dL Normal <100 [facility] Comment on above: Order Comment: Speci men Type: BLOOD SPECIMENOrdering Facility: [facility] Address: [address] [place] [address] Result Comment: <100 mg/dL, Optimal 100-129 mg/dL, Near optimal/above optimal 130-159 mg/dL, Borderline high 160-189 mg/dL, High >189 mg/dL, Very high Secondary prevention optimal LDL Cholesterol levels are recommended to be < 70 mg/dL Performed By: #### 2 4331-1 ####[facility]ORYCLIA [id number] [address] LABCLIA [id number] [place] [address] [place]#### 3016-3, 95712-2 ####[facility]ORYCLIA [id number] [place] [address] [place] Cholesterol in LDL/Cholesterol in HDL [Mass ratio] 1.68 {ratio} Normal <2.54 [facility] Comment on above: Order Comment: Speci men Type: BLOOD SPECIMENOrdering Facility: [facility] Address: [address] [place] [address] Result Comment: Umberto johnson: 1. National Cholesterol Education Program ATP III Guideline At-A-Glance Quick Desk Reference: National Heart, Lung, and Blood [place]. National Institutes of Health. 2001: NIH Publication No. 01-3305. 2. An International Atherosclerosis Society position paper: global recommendations for the management of dyslipidemia: executive summary, Atherosclerosis. 2014: 232(2):410-413. Performed By: #### 2 4331-1 ####[facility]ORYCLIA [id number] [address] LABCLIA [id number] [address] [place]#### 3016-3, 63264-8 ####[facility]ORYCLIA [id number] [place] [address] [place] Cholesterol in VLDL [Mass/Vol] 30 mg/dL High <30 [facility] Comment on above: Order Comment: Speci men Type: BLOOD SPECIMENOrdering Facility: [facility] Address: [address] [place] [address] Performed By: #### 2 4331-1 ####[facility]ORYCLIA [id number] [place] [address] [facility] LABCLIA [id number] [place] [address] [place]#### 3016-3, 87644-6 ####[facility]ORYCLIA [id number] [place] [id number] [place] Cholesterol non HDL [Mass/Vol] 97 mg/dL Normal <130 [facility] Comment on above: Order Comment: Speci men Type: BLOOD SPECIMENOrdering Facility: [facility] Address: [address] [place] [address] Result Comment: <130 mg/dL, Optimal 130-159 mg/dL, Near optimal/above optimal 160-189 mg/dL, Borderline high 190-219 mg/dL, High >219 mg/dL, Very high Secondary prevention optimal non HDL Cholesterol levels are recommended to be <100 mg/dL Performed By: #### 2 4331-1 ####[facility]ORYCLIA [id number] [address] LABCLIA [id number] [place] [address] [place]#### 3016-3, 25964-4 ####[facility]ORYCLIA [id number] [place] [address] [place] Cholesterol.total /Cholesterol in HDL [Mass ratio] 3.43 {ratio} Normal <5.10 [facility] Comment on above: Order Comment: Speci men Type: BLOOD SPECIMENOrdering Facility: [facility] Address: [address] [place] [address] Performed By: #### 2 4331-1 ####[facility]ATORYCLIA [id number] [address] [address] LABCLIA [id number] [place] [address] [place]#### 3016-3, 59334-7 ####JESUS LABORATORYCLIA [id number] [place] [id number] [place] FASTING TIME 12 hrs Normal [facility] Comment on above: Order Comment: Speci men Type: BLOOD SPECIMENOrdering Facility: [facility] Address: [address] [place] [address] Performed By: #### 2 4331-1 ####[facility] LABORATORYCLIA [id number] [address] STATES [facility] LABCLIA [id number] [place] [address] [place]#### 3016-3, 47857-0 ####JESUS LABORATORYCLIA [id number] [place] [address] [place] Triglyceride [Mass/Vol] 152 mg/dL High <150 [facility] Comment on above: Order Comment: Speci men Type: BLOOD SPECIMENOrdering Facility: [facility] Address: [address] [place] [address] Result Comment: <150 mg/dL, Normal 150-199 mg/dL, Borderline high 200-499 mg/dL, High >499 mg/dL, Very high Performed By: #### 2 4331-1 ####JESUS LABORATORYCLIA [id number] [place] [address] [place] [facility] LABCLIA [id number] [place] [address] [place]#### 3016-3, 08693-8 ####JESUS LABORATORYCLIA [id number] [place] [address] [place] TSH SerPl-aCncon 07-27-2024 TSH Qn 9.340 m[IU]/L High 0.270-4.20 0 [facility] Comment on above: Order Comment: Speci men Type: BLOOD SPECIMENOrdering Facility: [facility] Address: [address] [place] [address] Performed By: #### 2 4331-1 ####JESUS LABORATORYCLIA [id number] [place] [address] [place] [facility] LABCLIA [id number] [place] [address] [place]#### 3016-3, 30141-8 ####JESUS LABORATORYCLIA [id number] [place] [address] [place] Cardiology Visit Reporton Cardiology Visit Report [facility] [address] [place] [address] OFFICE VISIT Date of Service: 05/26/24 MR#: [id number] Acct: [id number] Name: LAW OLIVO Rep #: [id number] : 1955 Provider: JS jones Age/Sex: 68/M [place] [facility] Status: Signed HPI HPI History of Present Illness Details: Pleasant 68-year-old man with no previous documented cardiac history but a history of obesity, hypertension, hyperlipidemia, prediabetes, low HDL who [place] chest [place]. He was concerned about this he thought it was heartburn he was given some antacid and went to the emergency room and blood work was done which was apparently unremarkable with no troponin elevation. You do remember that he has complained of chest discomfort in the past and has undergone stress testing the last of which was in March 2022 where he exercised 9 minutes and 15 seconds with a Ríos treadmill score of 9.2 rate-pressure product of 26,000 and no evidence of ischemia. He proceeded with a heart catheterization 02/29/2024 that showed ejection fraction of 60% and moderate coronary artery disease of the LAD with no areas greater than 50% stenosis. Medication optimization was recommended. He denies chest, arm, jaw, or neck discomfort. He denies palpitations. He denies bilateral lower extremity edema. He denies claudication. He denies shortness of breath with activity, shortness of breath at rest, orthopnea, or PND. He denies chronic cough. He denies significant, sudden weight gain. He denies lightheadedness, dizziness, near-syncope, or syncope. He denies blood in urine, blood in stool, or epistaxis. He denies fever with chills. He denies myalgia. He denies fatigue. His exercise level has remained stable. 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 Is patient in pain?: No Allergies No Known Allergies Allergy (Verified 05/26/24 08:35) Medications ???Medication ???Instructions ???Recorded ???Confirmed ???Type amlodipine 5 mg tablet 5 mg PO DAILY 08/26/20 05/26/24 History empagliflozin 10 mg tablet 10 mg PO DAILY 03/28/22 05/26/24 History (Jardiance) allopurinol 100 mg tablet 100 mg PO DAILYCM 05/26/24 05/26/24 History allopurinol 300 mg tablet 300 mg PO DAILY 05/26/24 05/26/24 History atorvastatin 40 mg tablet 40 mg PO QDAY 05/26/24 05/26/24 History levothyroxine 100 mcg tablet 100 mcg PO QDAY 05/26/24 05/26/24 History losartan 25 mg tablet 25 mg PO QDAY 05/26/24 05/26/24 History semaglutide 0.25 mg or 0.5 mg (2 0.5 mg subcut QWEEK 05/26/24 05/26/24 History mg/3 mL) subcutaneous pen injector ([employer]) Have you fallen in the past year?: No PFSH Medical History (Updated 05/26/24 @ 09:14 by Holland Figueroa 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, 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) Atherosclerosis of [place] coronary artery of [place] heart without angina pectoris PVCs (premature ventricular contractions) Orthostatic hypotension RADHA (obstructive sleep apnea) Obesity Gout Goiter Dysmetabolic syndrome X Diverticulosis of colon Abnormal tilt table test Syncope Bradycardia Chest pain Anxiety Depression Hyperlipidemia Hypertension Hypoxia Family History (Updated 05/26/24 @ 08:42 by Bambi Boyce) Father Non-Hodgkin lymphoma CVA (cerebral vascular accident) Social History (Updated 05/26/24 @ 08:42 by Bambi Boyce) Smoking Status: Never smoker alcohol intake: current alcohol intake frequency: a few times a week Alcohol type: wine substance use type: does not use caffeine: No ROS Const Const: Negative for fatigue or weakness Eyes Eyes: Negative for change in vision ENT ENT: Negative for dizziness or balance problems Cardio Chest Pain: No Palpitations: No Edema: None Muscle aches with walking: None Resp Respiratory: Negative for SOB with activity, SOB at rest or SOB orthopnea SOB lying down GI GI: Negative nausea or heartburn : Negative for hematuria or frequent nighttime urination/ nocturia Musc Musc: Negative for balance problems Skin Skin: Negative non-healing lesions or rash Neuro Neuro: Negative for dizziness, lightheadedness, near syncope, syncope or weakness Endo Endo: Negative for fatigue Allergy Allergy/Immunology: Negative for rash Cardiology Exam Const Appearance: cooperative, healthy appearing, comfortable and no acute distress Nutritional Appearance: well nourished and obese Orientation: alert, awake and oriented x3 Head Head: normal to inspection Ears: hearing grossly normal bilaterally 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 Normal [facility] 03-28-2024 [facility] Telephone (INTMWS) LAW OLIVO ([id number]) 1955 M Date Time Provider Department 03/28/24 FRANTZ MCCAULEY INTWS During your visit today, we recorded the following information about you: Gladis Chan LPN 03/28/2024 3:47 PM Signed Prior authorization approved Payer: Raquel Note from payer: NELLY Case: [id number], Status: Approved, Coverage Starts on: 03/28/2024 12:00:00 AM, Coverage Ends on: 03/28/2025 12:00:00 AM. Approval Details Authorization number: [id number] Authorized from March 28, 2024 to March 28, 2025 Electronic appeal: Not supported Prior auth initiated by: seven- [id number] [place] [address] - 1956 [facility] - [phone] [facility] [phone] View History Notes Time User Attachment Attachment received from payer. 03/28/2024 3:44 PM Cchs, Rx Priorauth In Document Allergies As of Date: 03/28/2024 (No Known Allergies) Date Reviewed: 03/23/2024 Reviewed by: Libby Santizo LPN - Fully Assessed Reason for Visit: Insurance Authorization [[id number]] Prescriptions as of 03/28/2024 - atorvastatin (LIPITOR) 40 mg tablet Take 1 tablet by mouth daily at bedtime. For cholesterol. - semaglutide (OZEMPIC) 0.25 mg or 0.5 mg (2 mg/3 mL) pen Inject 0.25 mg subcutaneously one time a week. - amLODIPine (NORVASC) 5 mg tablet Take 1 tablet by mouth once daily. - empagliflozin (JARDIANCE) 10 mg tablet Take 1 tablet by mouth once daily. Take 1 tablet once daily in the morning - levothyroxine (SYNTHROID) 100 mcg tablet Take 1 tablet by mouth once daily. Take on empty stomach - allopurinol (ZYLOPRIM) 300 mg tablet Take 1 tablet by mouth once daily. - allopurinol (ZYLOPRIM) 100 mg tablet Take 1 tablet by mouth once daily. In addition to 300 mg daily for gout. - losartan (COZAAR) 25 mg tablet Take 1 tablet by mouth once daily. Problem List As Of Date 03/28/2024 Noted Resolved Impotence of organic origin [N52.9] 03/14/2005 04/04/2022 Depressive disorder, not elsewhere classified [*11/11/2005 09/21/2017 Mixed hyperlipidemia [E78.2] 11/11/2005 Gouty Arthropathy [274.0] 11/11/2005 11/13/2009 HYPOTHYROIDISM NOS [E03.9] 02/11/2006 09/18/2014 PAIN IN LIMB [M79.609] 10/26/2006 12/18/2006 CELLULITIS OF LEG [L03.119, L02.419] 10/26/2006 12/18/2006 Knee pain [M25.569] 02/27/2009 09/18/2014 Dysmetabolic syndrome X [E88.810] 02/13/2007 10/28/2021 Controlled type 2 diabetes mellitus without com*05/15/2008 Gouty arthropathy [M10.9] 11/13/2009 09/21/2017 Gout [M10.9] 11/13/2009 Cough [R05.9] 07/29/2010 09/18/2014 Groin pain [R10.30] 07/29/2010 09/18/2014 Dizziness and giddiness [R42] 07/29/2010 09/18/2014 Pre-diabetes [R73.03] 07/29/2010 02/02/2019 Hypothyroid [E03.9] 07/29/2010 Impotence [N52.9] 07/29/2010 09/21/2017 Goiter [E04.9] 07/29/2010 09/22/2017 RADHA on CPAP [G47.33] 07/29/2010 Vagal autonomic bradycardia [R00.1] 08/07/2011 09/21/2017 Adjustment disorder with mixed anxiety and depr*03/07/2013 Marital conflict [Z63.0] 03/07/2013 09/21/2017 Psoriasis [L40.9] 10/02/2015 Obesity (BMI 35.0-39.9 without comorbidity) [E6*07/25/2016 Essential hypertension [I10] 11/02/2019 Palpitations [R00.2] 11/02/2019 Acute respiratory failure with hypoxia (HCC) [J*08/26/2020 11/26/2020 Idiopathic chronic gout of multiple sites witho*12/09/2022 CAD (coronary atherosclerotic disease) [I25.10] 02/25/2024 Thrombocytopenia (HCC) [D69.6] 03/23/2024 Encounter Status:Closed by GLADIS CHAN on 03/28/24 [facility] CNOVon 03-23-2024 CNOV Office Visit (INTMWS ) KEZIAORI ([id number]) 1955 M Date Time Provider Department 03/23/24 9:40 AM FRANTZ MCCAULEY INTMWS During your visit today, we recorded the following information about you: Temperature Pulse Respiration Blood pressure 98 degrees 64/minute 16/minute 120/76 Weight 107.5 kg Frantz Mccauley MD 03/23/2024 12:15 PM Signed This note was created using NoteWriter. Subjective Law Olivo is a 68 year old male. He had an episode of chest pain while travelling. He saw Dr. Rodriguez and had a heart cath showing 50% LAD disease. Medical management was recommended. Wegovy was prescribed but denied by plan. His glucose was elevating. He recovered from Covid recently, treated with Paxlovid. His depression and anxiety was well controlled on medication. 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 Review of Systems Constitutional: Negative for fatigue and fever. Respiratory: Negative for cough and shortness of breath. Cardiovascular: Negative for chest pain, palpitations and leg swelling. Gastrointestinal: Negative for diarrhea, nausea and vomiting. Neurological: Negative for dizziness and headaches. Psychiatric/Behavioral: Negative for dysphoric mood, sleep disturbance and suicidal ideas. The patient is not nervous/anxious. 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 amLODIPine (NORVASC) 5 mg tablet Take 1 tablet by mouth once daily. empagliflozin (JARDIANCE) 10 mg tablet Take 1 tablet by mouth once daily. Take 1 tablet once daily in the morning levothyroxine (SYNTHROID) 100 mcg tablet Take 1 tablet by mouth once daily. Take on empty stomach atorvastatin (LIPITOR) 20 mg tablet Take 1 tablet by mouth daily at bedtime. For cholesterol. allopurinol (ZYLOPRIM) 300 mg tablet Take 1 tablet by mouth once daily. allopurinol (ZYLOPRIM) 100 mg tablet Take 1 tablet by mouth once daily. In addition to 300 mg daily for gout. losartan (COZAAR) 25 mg tablet Take 1 tablet by mouth once daily. No current facility-administered medications for this visit. Objective BP 120/76 (BP Site: Left Arm, BP Position: Sitting, BP Cuff Size: Large Adult) Pulse 64 Temp 36.7 ?C (98 ?F) (Temporal) Resp 16 Wt 107.5 kg (236 lb 15.9 oz) BMI 37.12 kg/m? Physical Exam Constitutional: Appearance: Normal appearance. HENT: Nose: Nose normal. Eyes: Conjunctiva/sclera: Conjunctivae normal. Cardiovascular: Rate and Rhythm: Normal rate and regular rhythm. Heart sounds: No murmur heard. No gallop. Pulmonary: Breath sounds: Normal breath sounds. Musculoskeletal: Right lower leg: No edema. Left lower leg: No edema. Neurological: General: No focal deficit present. Mental Status: He is alert. Latest Ref Rng 03/21/2024 WBC 3.70 - 11.00 k/uL 6.72 RBC 4.20 - 6.00 m/uL 4.42 Hemoglobin 13.0 - 17.0 g/dL 14.1 Hematocrit 39.0 - 51.0 % 40.8 MCV 80.0 - 100.0 fL 92.3 MCH 26.0 - 34.0 pg 31.9 MCHC 30.5 - 36.0 g/dL 34.6 RDW-CV 11.5 - 15.0 % 13.4 Platelet Count 150 - 400 k/uL 128 (L) MPV 9.0 - 12.7 fL 11.2 Absolute nRBC <0.01 k/uL <0.01 Glucose 74 - 99 mg/dL 137 (H) BUN 9 - 24 mg/dL 22 Creatinine 0.73 - 1.22 mg/dL 1.02 Sodium 136 - 144 mmol/L 138 Potassium 3.7 - 5.1 mmol/L 3.9 Chloride 98 - 107 mmol/L 104 CO2 22 - 30 mmol/L 22 Anion Gap 8 - 15 mmol/L 12 Calcium 8.5 - 10.2 mg/dL 9.3 eGFR >=60 mL/min/1.73m? 80 Legend: (L) Low (H) High Assessment and Plan 1. Atherosclerosis of [place] coronary artery of [place] heart without angina pectoris - ICD9: 414.01, ICD10: I25.10 (primary diagnosis) - Medical management. GLP1a recommended to reduce risk of CV events. - SEMAGLUTIDE 0.25 MG OR 0.5 MG (2 MG/3 ML) SUBCUTANEOUS PEN INJECTOR 2. Adjustment disorder with mixed anxiety and depressed mood - ICD9: 309.28, ICD10: F43.23 - Stable, well controlled off regular medication. - Letter sent via My Chart. 3. Controlled type 2 diabetes mellitus without complication, without long-term current use of insulin (HCC) - ICD9: 250.00, ICD10: E11.9 - Worsening control - Continue current medications - Start semaglutide (Ozempic) - (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 Normal [facility] Basic metabolic 2000 panelon 03-21-2024 Anion gap [Moles/Vol] 12 mmol/L Normal 8-15 [facility] Comment on above: Order Comment: Speci men Type: BLOOD SPECIMENOrdering Facility: [facility] Address: [address] [place] [address] Performed By: #### 2 4321-2 ####[facility] HOSPITALPETE [id number] [place] [address] [place] Calcium [Mass/Vol] 9.3 mg/dL Normal 8.5-10.2 [facility] Comment on above: Order Comment: Speci men Type: BLOOD SPECIMENOrdering Facility: [facility] Address: [address] [place] [address] Performed By: #### 2 4321-2 ####[facility]ITALPET[facility] [id number] [place] [address] [place] Chloride [Moles/Vol] 104 mmol/L Normal 98-107 [facility] Comment on above: Order Comment: Speci men Type: BLOOD SPECIMENOrdering Facility: [facility] Address: [address] [place] [address] Performed By: #### 2 4321-2 ####[facility] HOSPITALNCLIA [id number] [place] [address] [place] CO2 [Moles/Vol] 22 mmol/L Normal 22-30 [facility] Comment on above: Order Comment: Speci men Type: BLOOD SPECIMENOrdering Facility: [facility] Address: [address] [place] [address] Performed By: #### 2 4321-2 ####[facility]PITALNCLIA [id number] [place] [address] [place] Creatinine [Mass/Vol] 1.02 mg/dL Normal 0.73-1.22 [facility] Comment on above: Order Comment: Vito cheema Type: BLOOD SPECIMENOrdering Facility: [facility] Address: [address] [place] [address] Performed By: #### 2 4321-2 ####[facility] [id number] [address] [place] Creatinine and Glomerular filtration rate.predicted panel (S/P/Bld) 80 mL/min/1.73m??? Normal >=60 [facility] Comment on above: Order Comment: Vito cheema Type: BLOOD SPECIMENOrdering Facility: [facility] Address: [address] [place] [address] Result Comment: Yesica mated Glomerular Filtration Rate (eGFR) is calculated using the 2020 CKD-EPI creatinine equation. This equation utilizes serum creatinine, sex, and age as parameters. The creatinine assay has traceable calibration to isotope dilution-mass spectrometry. Refer to KDIGO guidelines for clinical interpretation. In patients with unstable renal function, e.g. those with acute kidney injury, the eGFR may not accurately reflect actual GFR. Performed By: #### 2 4321-2 ####[facility] HOSPITALLIA [id number] [place] [address] [place] Glucose [Mass/Vol] 137 mg/dL High 74-99 [facility] Comment on above: Order Comment: Vito cheema Type: BLOOD SPECIMENOrdering Facility: [facility] Address: [address] [place] [address] Result Comment: The [place] Diabetes Association (ADA) provides guidance for cutoff values for fasting glucose and random glucose. The ADA defines fasting as no caloric intake for at least 8 hours. Fasting plasma glucose results between 100 to 125 mg/dL indicate increased risk for diabetes (prediabetes). Fasting plasma glucose results greater than or equal to 126 mg/dL meet the criteria for diagnosis of diabetes. In the absence of unequivocal hyperglycemia, results should be confirmed by repeat testing. In a patient with classic symptoms of hyperglycemia or hyperglycemic crisis, random plasma glucose results greater than or equal to 200 mg/dL meet the criteria for diagnosis of diabetes. Reference: Standards of Medical Care in Diabetes 2016, [place] Diabetes Association. Diabetes Care. 2016.39(Suppl 1). Performed By: #### 2 4321-2 ####[facility]ITALEPTE [id number] [place] [address] [place] Potassium [Moles/Vol] 3.9 mmol/L Normal 3.7-5.1 [facility] Comment on above: Order Comment: Vito cheema Type: BLOOD SPECIMENOrdering Facility: [facility] Address: [address] [place] [address] Performed By: #### 2 4321-2 ####[facility] HOSPITALCarol [id number] [place] [address] [place] Sodium [Moles/Vol] 138 mmol/L Normal 136-144 [facility] Comment on above: Order Comment: Vito cheema Type: BLOOD SPECIMENOrdering Facility: [facility] Address: [address] [place] [address] Performed By: #### 2 4321-2 ####[facility] [id number] [place] [address] [place] Urea nitrogen [Mass/Vol] 22 mg/dL Normal 9-24 [facility] Comment on above: Order Comment: Vito cheema Type: BLOOD SPECIMENOrdering Facility: [facility] Address: [address] [place] [address] Performed By: #### 2 4321-2 ####[facility] [id number] [place] [address] [place] CBC panel Auto (Bld)on 03-21 Erythrocyte distribution width (RBC) [Ratio] 13.4 % Normal 11.5-15.0 [facility] Comment on above: Order Comment: Speci men Type: BLOOD SPECIMENOrdering Facility: [facility] Address: [address] [place] [address] Performed By: #### 5 8410-2 ####[facility] TORYSTILLWATERNCLIA [id number] [place] [address] [place] Hematocrit (Bld) [Volume fraction] 40.8 % Normal 39.0-51.0 [facility] Comment on above: Order Comment: Speci men Type: BLOOD SPECIMENOrdering Facility: [facility] Address: [address] [place] [address] Performed By: #### 5 8410-2 ####[facility]PITALNCLIA [id number] [place] [address] [place] Hemoglobin (Bld) [Mass/Vol] 14.1 g/dL Normal 13.0-17.0 [facility] Comment on above: Order Comment: Speci men Type: BLOOD SPECIMENOrdering Facility: [facility] Address: [address] [place] [address] Performed By: #### 5 8410-2 ####[facility]ITALNCLIA [id number] [address] [place] MCH (RBC) [Entitic mass] 31.9 pg Normal 26.0-34.0 [facility] Comment on above: Order Comment: Speci men Type: BLOOD SPECIMENOrdering Facility: [facility] Address: [address] [place] [address] Performed By: #### 5 8410-2 ####[facility]ITALNCLIA [id number] [place] [address] [place] MCHC (RBC) [Mass/Vol] 34.6 g/dL Normal 30.5-36.0 [facility] Comment on above: Order Comment: Speci men Type: BLOOD SPECIMENOrdering Facility: [facility] Address: [address] [place] [address] Performed By: #### 5 8410-2 ####[facility] TORYCHRISSIE [id number] [address] MCV (RBC) [Entitic vol] 92.3 fL Normal 80.0-100.0 [facility] Comment on above: Order Comment: Speci men Type: BLOOD SPECIMENOrdering Facility: [facility] Address: [address] [place] [address] Performed By: #### 5 8410-2 ####[facility]ITALNCOGD[facility] [id number] [place] [address] [place] Nucleated RBC (Bld) [#/Vol] 10*3/uL Normal <0.01 [facility] Comment on above: Order Comment: Speci men Type: BLOOD SPECIMENOrdering Facility: [facility] Address: [address] [place] [address] Performed By: #### 5 8410-2 ####[facility]OSPITALA [id number] [place] [address] [place] Platelet mean volume (Bld) [Entitic vol] 11.2 fL Normal 9.0-12.7 [facility] Comment on above: Order Comment: Speci men Type: BLOOD SPECIMENOrdering Facility: [facility] Address: [address] [place] [address] Performed By: #### 5 8410-2 ####[facility]ITALNCLIA [id number] [place] [address] [place] Platelets (Bld) [#/Vol] 128 10*3/uL Low 150-400 [facility] Comment on above: Order Comment: Speci men Type: BLOOD SPECIMENOrdering Facility: [facility] Address: [address] [place] [address] Result Comment: No c lot detected. Performed By: #### 5 8410-2 ####[facility] SEBRINGWNCLIA [id number] [place] [address] [place] RBC (Bld) [#/Vol] 4.42 10*6/uL Normal 4.20-6.00 [facility] Comment on above: Order Comment: Speci men Type: BLOOD SPECIMENOrdering Facility: [facility] Address: [address] [place] [address] Performed By: #### 5 8410-2 ####[facility]ITALNCLIA [id number] [place] [address] [place] WBC (Bld) [#/Vol] 6.72 10*3/uL Normal 3.70-11.00 [facility] Comment on above: Order Comment: Speci men Type: BLOOD SPECIMENOrdering Facility: [facility] Address: [address] [place] [address] Performed By: #### 5 8410-2 ####[facility]ITALNCLIA [id number] [place] [address] [facility] [place] CNOVon 02-02-2024 CNOV Office Visit (INTMWS ) LAW OLIVO ([id number]) 1955 Norm Date Time Provider Department 02/02/24 8:00 AM FATOU DELUCA INTMWS During your visit today, we recorded the following information about you: Pulse Respiration Blood pressure Weight 67/minute 14/minute 125/83 106.3 kg Fatou Deluca, REFRACTORY SPECIALIST.ASSEMBLER MOLDED FRAMES 02/03/2024 4:44 PM Addendum CC: Patient presents with: Follow Up: Discuss medication for upcoming flight HPI Law Olivo is a 68 year old male who presents today for above. Patient reports increasing anxiety with recent travels out of the country. He has an old prescription for Ativan prescribed a couple years ago for this and would like to refill it before his next trip. He was on Celexa for anxiety and irritability but weaned off last year. Stress levels are increasing making him more anxious and short tempered and he is considering going back on this but wants to hold off for now. Denies depressed mood. Review of Systems See HPI PAST MEDICAL HISTORY 08/07/2011: Abnormal tilt table test 08/26/2020: Acute respiratory failure with hypoxia (HCC) 03/07/2013: Adjustment disorder with mixed anxiety and depressed mood No date: Bradycardia 07/29/2010: Depression No date: Diverticulosis of colon (without mention of hemorrhage) 02/13/2007: Dysmetabolic syndrome X 07/29/2010: Goiter 11/13/2009: Gout No date: Hypertension 07/29/2010: Hypothyroid 03/14/2005: Impotence of organic origin 07/05/2014: Irritability and anger 11/11/2005: Mixed hyperlipidemia 06/18/2010: MRSA (methicillin resistant staph aureus) culture positive 10/13/2006: Myalgia 07/25/2016: Obesity (BMI 35.0-39.9 without comorbidity) 06/21/2010: Orthostatic hypotension 07/29/2010: RADHA on CPAP 08/26/2020: Pneumonia due to COVID-19 virus No date: Prediabetes No date: Psoriasis Comment: Seeing Dr. Dc No date: PVC's (premature ventricular contractions) Comment: Seeing Dr. Green 06/18/2010: Syncope 05/13/2012: Thrombocytopenia (HCC) 08/07/2011: Vagal autonomic bradycardia PAST SURGICAL HISTORY 02/11/2023: COLONOSCOPY Comment: repeat in 10 years 05/12/2005: COLONOSCOPY FLX DX W/COLLJ SPEC WHEN PFRMD Comment: Colonoscopy 02/09/2013: COLONOSCOPY FLX DX W/COLLJ SPEC WHEN PFRMD Comment: Colonoscopy 04/23/2005: FINE NEEDLE ASP DEEP Comment: U/S FNA right lobe thyroid ALLERGIES Patient has no known allergies. MEDICATIONS empagliflozin (JARDIANCE) 10 mg tablet Take 1 tablet by mouth once daily. Take 1 tablet once daily in the morning levothyroxine (SYNTHROID) 100 mcg tablet Take 1 tablet by mouth once daily. Take on empty stomach atorvastatin (LIPITOR) 20 mg tablet Take 1 tablet by mouth daily at bedtime. For cholesterol. allopurinol (ZYLOPRIM) 300 mg tablet Take 1 tablet by mouth once daily. allopurinol (ZYLOPRIM) 100 mg tablet Take 1 tablet by mouth once daily. In addition to 300 mg daily for gout. losartan (COZAAR) 25 mg tablet Take 1 tablet by mouth once daily. amLODIPine (NORVASC) 5 mg tablet Take 1 tablet by mouth once daily. FAMILY HISTORY Problem Relation Age of Onset Osteoporosis Mother other (thyroid problems) Mother Dementia Mother Cancer Father 50 non hodgkins Stroke Father Heart disease Father valvular heart disease. None Brother Cancer Maternal Grandmother Cancer Maternal Grandfather Social History Tobacco Use Smoking status: Never Smokeless tobacco: Never Vaping Use Vaping status: Never Used Substance Use Topics Alcohol use: Yes Drug use: No BP 125/83 Pulse 67 Resp 14 Wt 106.3 kg (234 lb 5.6 oz) BMI 36.70 kg/m? Physical Exam Vitals reviewed. Constitutional: Appearance: Normal appearance. Neurological: Mental Status: He is alert. Psychiatric: Attention and Perception: Attention and perception normal. Mood and Affect: Mood and affect normal. Speech: Speech normal. Behavior: Behavior normal. Behavior is cooperative. Thought Content: Thought content normal. Judgment: Judgment normal. ASSESSMENT/PLAN: 1. Situational anxiety - ICD9: 300.09, ICD10: F41.8 (primary diagnosis) Will refill Ativan 1 mg for as needed use during travels. Limited refills, use sparingly. 2. Adjustment disorder with mixed anxiety and depressed mood - ICD9: 309.28, ICD10: F43.23 Worsening anxiety and irritability, encouraged patient to go back on Celexa. He would like to hold off for now and discuss at follow-up in February. He will let me know if he wants to restart sooner and I will send in the prescription. - LORAZEPAM 1 MG TABLET 3. Screening for depression - ICD9: V79.0, ICD10: Z13.31 - DEPRESSION SCREENING 4. Encounter for screening examination for other mental health and behavioral disorders - ICD9: V79.8, ICD10: Z13.39 - ANXIETY SCREENING Prescription instructions reviewed with patient as applicable. Potential red flag sympt (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 [facility]INTMWS[facility] NIDALAW Medina ([id number]) 1955 M Date Time Provider Department 02/02/24 FRANTZ MCCAULEY INTMWS During your visit today, we recorded the following information about you: Aubrey Ledezma MA 02/02/2024 8:28 AM Signed Patient scheduled for follow up with PCP 03/21. Asking if there are any lab orders he should have placed to be completed prior to this. Please advise. Frantz Mccauley MD 02/03/2024 1:06 PM Signed I will do a fingerstick A1C, so no lab draws needed at this time Encourage completion of diabetic eye exam. Cynthia Aldridge LPN 02/03/2024 1:17 PM Signed Phoned patient and went over notes below from Dr Mccauley with understanding. He will try to get his diabetic eye exam done and have report sent to PCP office. Allergies As of Date: 02/02/2024 (No Known Allergies) Date Reviewed: 02/02/2024 Reviewed by: Fatou Deluca, REFRACTORY SPECIALIST.[facility] - Fully Assessed Reason for Visit: Orders [681] Prescriptions as of 02/03/2024 - LORazepam (ATIVAN) 1 mg tablet Take 1 tablet by mouth once daily as needed (anxiety attack) for up to 180 days. - amLODIPine (NORVASC) 5 mg tablet Take 1 tablet by mouth once daily. - empagliflozin (JARDIANCE) 10 mg tablet Take 1 tablet by mouth once daily. Take 1 tablet once daily in the morning - levothyroxine (SYNTHROID) 100 mcg tablet Take 1 tablet by mouth once daily. Take on empty stomach - atorvastatin (LIPITOR) 20 mg tablet Take 1 tablet by mouth daily at bedtime. For cholesterol. - allopurinol (ZYLOPRIM) 300 mg tablet Take 1 tablet by mouth once daily. - allopurinol (ZYLOPRIM) 100 mg tablet Take 1 tablet by mouth once daily. In addition to 300 mg daily for gout. - losartan (COZAAR) 25 mg tablet Take 1 tablet by mouth once daily. Problem List As Of Date 02/02/2024 Noted Resolved Impotence of organic origin [N52.9] 03/14/2005 04/04/2022 Depressive disorder, not elsewhere classified [*11/11/2005 09/21/2017 Mixed hyperlipidemia [E78.2] 11/11/2005 Gouty Arthropathy [274.0] 11/11/2005 11/13/2009 HYPOTHYROIDISM NOS [E03.9] 02/11/2006 09/18/2014 PAIN IN LIMB [M79.609] 10/26/2006 12/18/2006 CELLULITIS OF LEG [L03.119, L02.419] 10/26/2006 12/18/2006 Knee pain [M25.569] 02/27/2009 09/18/2014 Dysmetabolic syndrome X [E88.810] 02/13/2007 10/28/2021 Controlled type 2 diabetes mellitus without com*05/15/2008 Gouty arthropathy [M10.9] 11/13/2009 09/21/2017 Gout [M10.9] 11/13/2009 Cough [R05.9] 07/29/2010 09/18/2014 Groin pain [R10.30] 07/29/2010 09/18/2014 Dizziness and giddiness [R42] 07/29/2010 09/18/2014 Pre-diabetes [R73.03] 07/29/2010 02/02/2019 Hypothyroid [E03.9] 07/29/2010 Impotence [N52.9] 07/29/2010 09/21/2017 Goiter [E04.9] 07/29/2010 09/22/2017 RADHA on CPAP [G47.33] 07/29/2010 Vagal autonomic bradycardia [R00.1] 08/07/2011 09/21/2017 Adjustment disorder with mixed anxiety and depr*03/07/2013 Marital conflict [Z63.0] 03/07/2013 09/21/2017 Psoriasis [L40.9] 10/02/2015 Obesity (BMI 35.0-39.9 without comorbidity) [E6*07/25/2016 Essential hypertension [I10] 11/02/2019 Palpitations [R00.2] 11/02/2019 Acute respiratory failure with hypoxia (HCC) [J*08/26/2020 11/26/2020 Idiopathic chronic gout of multiple sites witho*12/09/2022 Encounter Status:Closed by AUBREY LEDEZMA on 02/02/24 Normal [facility] CNOVon 01-25-2024 CNOV Office Visit (UCWSTR ) KEZIALAWORI ([id number]) 1955 M Date Time Provider Department 01/25/24 6:30 PM [facility]LE [facility] During your visit today, we recorded the following information about you: Temperature Pulse Respiration Blood pressure 98.1 degrees 92/minute 16/minute 142/80 Weight 109.2 kg Nicole Smith APRN.[employer] 01/25/2024 6:44 PM Signed Subjective The history is provided by the patient. No english language learner teacher was used. HPI Law Olivo is a 68 year old male who presents today for CC of cough and congestion since Thursday. He has used dayquil/nyquil with short term relief. He was traveling recently and at a convention. He is scheduled tomorrow for a heart cath at [facility], was instructed to have a covid test done. BP 142/80 Pulse 92 Temp 36.7 ?C (98.1 ?F) Resp 16 Wt 109.2 kg (240 lb 11.9 oz) SpO2 96% BMI 37.71 kg/m? Social History Tobacco Use Smoking status: Never Smokeless tobacco: Never Vaping Use Vaping Use: Never used Substance Use Topics Alcohol use: Yes Drug use: No PAST MEDICAL HISTORY 08/07/2011: Abnormal tilt table test 08/26/2020: Acute respiratory failure with hypoxia (HCC) 03/07/2013: Adjustment disorder with mixed anxiety and depressed mood No date: Bradycardia 07/29/2010: Depression No date: Diverticulosis of colon (without mention of hemorrhage) 02/13/2007: Dysmetabolic syndrome X 07/29/2010: Goiter 11/13/2009: Gout No date: Hypertension 07/29/2010: Hypothyroid 03/14/2005: Impotence of organic origin 07/05/2014: Irritability and anger 11/11/2005: Mixed hyperlipidemia 06/18/2010: MRSA (methicillin resistant staph aureus) culture positive 10/13/2006: Myalgia 07/25/2016: Obesity (BMI 35.0-39.9 without comorbidity) 06/21/2010: Orthostatic hypotension 07/29/2010: RADHA on CPAP 08/26/2020: Pneumonia due to COVID-19 virus No date: Prediabetes No date: Psoriasis Comment: Seeing Dr. Dc No date: PVC's (premature ventricular contractions) Comment: Seeing Dr. Green 06/18/2010: Syncope 05/13/2012: Thrombocytopenia (HCC) 08/07/2011: Vagal autonomic bradycardia I have confirmed and edited as necessary, the [facility] Review of Systems Constitutional: Negative for chills and fever. HENT: Positive for congestion. Negative for ear pain, sinus pain and sore throat. Respiratory: Positive for cough. Negative for sputum production, shortness of breath and wheezing. Cardiovascular: Negative for chest pain. Musculoskeletal: Negative for myalgias. Neurological: Negative for headaches. Objective Physical Exam Vitals and nursing note reviewed. Constitutional: Appearance: He is not toxic-appearing. HENT: Head: Normocephalic and atraumatic. Right Ear: Tympanic membrane, ear canal and external ear normal. Left Ear: Tympanic membrane, ear canal and external ear normal. Nose: Mucosal edema, congestion and rhinorrhea present. Right Sinus: No maxillary sinus tenderness or frontal sinus tenderness. Left Sinus: No maxillary sinus tenderness or frontal sinus tenderness. Mouth/Throat: Pharynx: Uvula midline. No oropharyngeal exudate or posterior oropharyngeal erythema. Tonsils: No tonsillar abscesses. Cardiovascular: Rate and Rhythm: Normal rate and regular rhythm. Heart sounds: Normal heart sounds. Pulmonary: Effort: Pulmonary effort is normal. Breath sounds: Normal breath sounds. No decreased breath sounds, wheezing, rhonchi or rales. Lymphadenopathy: Head: Right side of head: No submental, submandibular, tonsillar or preauricular adenopathy. Left side of head: No submental, submandibular, tonsillar or preauricular adenopathy. Cervical: No cervical adenopathy. Right cervical: No superficial cervical adenopathy. Left cervical: No superficial cervical adenopathy. Neurological: Mental Status: He is alert. ASSESSMENT/PLAN: 1. URI, acute - ICD9: 465.9, ICD10: J06.9 - Discussed viral etiology and rationale for treatment. - Symptomatic treatment with prn analgesia - Supportive care with fluids and rest Testing ordered Comfort measures discussed - see patient instructions. When to seek higher level of care Notified in 12-24 hours with results, available on [employer]- COVID NAAT, UPPER RESPIRATORY, ROUTINE Diagnosis and treatment plan were discussed and questions were answered to the patient's satisfaction. Pt acknowledged understanding of concepts and follow up plan. Specific signs and symptoms that would indicate the need for higher level of care were discussed in detail warranting prompt ER evaluation. Nicole Smith APRN.Nicole Salazar APRN.CNP 01/25/2024 6:44 PM Signed covid test ordered You will be notified in 12-24 hours, results available on [employer] Rest, increase water intake Motrin or Tylenol as needed for fever or pain. Salt water gargles, chloraseptic spray or l (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 Normal [facility] SARS-CoV-2 RNA Resp Ql JU+p robeon 01-25-2024 SARS-CoV-2 (COVID-19) RNA JU+probe Ql (Resp) COVID 19 RESULT: Detected The method used is RT-PCR or an equivalent NAAT method. Reference Range (the expected result in uninfected individuals): Not detected Normal [facility] Comment on above: Performed By: #### 9 4500-6 ####[facility] LABCLIA [id number] [place] [address] [place] CNOVon 11-27-2023 CNOV Office Visit (INTMWS ) LAW OLIVO ([id number]) 1955 M Date Time Provider Department 11/27/23 7:00 AM FATOU DELUCA INTMWS During your visit today, we recorded the following information about you: Pulse Respiration Blood pressure Weight 67/minute 16/minute 124/82 108 kg Fatou Deluca, REFRACTORY SPECIALIST.[employer] 11/27/2023 8:29 AM Signed CC: Patient presents with: F/U 3 Month HPI Law Olivo is a 67 year old male who presents today for above. He has been eating healthier and losing weight. Diabetes control improving and he feels much better. He would like to discuss starting Mounjaro to help promote further weight loss. Denies personal or family history of thyroid cancer. He has a wart on the right index finger he would like frozen off. Since [place] from [place] vacation he has been experiencing intermittent lower abdominal discomfort that feels like gas pain. Denies fever, chills, nausea, vomiting, diarrhea, constipation, black/bloody stools, poor appetite, heartburn/reflux symptoms, dysuria, urgency or frequency. Review of Systems See HPI PAST MEDICAL HISTORY Diagnosis Date Abnormal tilt table test 08/07/2011 Acute respiratory failure with hypoxia (HCC) 08/26/2020 Adjustment disorder with mixed anxiety and depressed mood 03/07/2013 Bradycardia Depression 07/29/2010 Diverticulosis of colon (without mention of hemorrhage) Dysmetabolic syndrome X 02/13/2007 Goiter 07/29/2010 Gout 11/13/2009 Hypertension Hypothyroid 07/29/2010 Impotence of organic origin 03/14/2005 Irritability and anger 07/05/2014 Mixed hyperlipidemia 11/11/2005 MRSA (methicillin resistant staph aureus) culture positive 06/18/2010 Myalgia 10/13/2006 Obesity (BMI 35.0-39.9 without comorbidity) 07/25/2016 Orthostatic hypotension 06/21/2010 RADHA on CPAP 07/29/2010 Pneumonia due to COVID-19 virus 08/26/[address] Dc PVC's (premature ventricular contractions) Seeing Dr. Green Syncope 06/18/2010 Thrombocytopenia (HCC) 05/13/2012 Vagal autonomic bradycardia 08/07/2011 PAST SURGICAL HISTORY Procedure Laterality Date COLONOSCOPY 02/11/2023 repeat in 10 years COLONOSCOPY FLX DX W/COLLJ SPEC WHEN PFRMD 05/12/2005 Colonoscopy COLONOSCOPY FLX DX W/COLLJ SPEC WHEN PFRMD 02/09/2013 Colonoscopy FINE NEEDLE ASP DEEP 04/23/2005 U/S FNA right lobe thyroid ALLERGIES Patient has no known allergies. MEDICATIONS levothyroxine (SYNTHROID) 100 mcg tablet Take 1 tablet by mouth once daily. Take on empty stomach atorvastatin (LIPITOR) 20 mg tablet Take 1 tablet by mouth daily at bedtime. For cholesterol. allopurinol (ZYLOPRIM) 300 mg tablet Take 1 tablet by mouth once daily. allopurinol (ZYLOPRIM) 100 mg tablet Take 1 tablet by mouth once daily. In addition to 300 mg daily for gout. losartan (COZAAR) 25 mg tablet Take 1 tablet by mouth once daily. empagliflozin (JARDIANCE) 10 mg tablet Take 1 tablet by mouth once daily. Take 1 tablet once daily in the morning amLODIPine (NORVASC) 5 mg tablet Take 1 tablet by mouth once daily. [employer] Medical Kit - Standard Kit This patient has been prescribed a [employer] Medical Kit for upcoming travel. This order is an informational entry for interaction checking and does NOT constitute a valid prescription order. aspirin 325 mg tablet Take one to two tablets by mouth every 8 hours as needed for pain calcium Carbonate 300 mg, 750mg, (TUMS) 300 mg (750 mg) chewable tablet Chew one tablet by mouth every 4 hours as needed for indigestion PEG 800-Obkpgvhuavlz-Maixoeka (DRY EYE RELIEF) 1-0.2-0.2 % drop Shake well before using. Instill 1 or 2 drops in the affected eye(s) as needed for burning or irritation loperamide (IMODIUM) 2 mg cap(s) Take one to two capsules by mouth every 8 hours as needed for diarrhea melatonin 5 mg tablet Take one tablet by mouth one hour before bedtime as needed for sleep bclmaffuc-ejdvgicru-vrdfenbz-whit e petrolatum (PREPARATION H) 0.25-1 % crea Apply externally to affected area up to 4 times daily, especially at night, in the morning, or after each bowel movement albuterol HFA (PROVENTIL HFA, VENTOLIN HFA) 90 mcg/actuation inhaler Inhale two puffs by mouth every 4 hours as needed FAMILY HISTORY Problem Relation Age of Onset Osteoporosis Mother other (thyroid problems) Mother Dementia Mother Cancer Father 50 non hodgkins Stroke Father Heart disease Father valvular heart disease. None Brother Cancer Maternal Grandmother Cancer Maternal Grandfather Social History Tobacco Use Smoking status: Never Smokeless tobacco: Never Vaping Use Vaping Use: Never used Substance Use Topics Alcohol use: Yes Drug use: No BP 124/82 Pulse 67 Resp 16 Wt 108 kg (238 lb) SpO2 96% BMI 37.28 kg/m? Physical Exam Vitals reviewed. Constitutional: Appeara (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 Normal [facility] 11-27-2023 [facility] Telephone (INTMWS) LAW OLIVO ([id number]) 1955 M Date Time Provider Department 11/27/23 FRANTZ MCCAULEY INTWS During your visit today, we recorded the following information about you: Gladis Chan LPN 11/27/2023 8:37 AM Signed Electronic PA rec'd and completed for leroy. Gladis Chan LPN 2023 11:58 AM Signed Called the pharmacy and they note PA is still needed. This is pending on our end from 11/27/23. I have called [facility]quel multiple times and unable to get a person on the line to check with status. Have been disconnected 4 times. Pt can contact his insurance to check with status. My chart message to pt. Kim Grady MA 12/03/2023 9:00 AM Signed PA for Leroy denied insurance will only pay if A1C is a 6.5 or higher. Patient aware of denial. Kim Grady MA Allergies As of Date: 11/27/2023 (No Known Allergies) Date Reviewed: 11/27/2023 Reviewed by: Fatou Deluca APRN.[employer] - Fully Assessed Reason for Visit: Insurance Authorization [[id number]] Prescriptions as of 12/03/2023 - tirzepatide (MOUNJARO) 2.5 mg/0.5 mL pen injector Inject 2.5 mg subcutaneously one time a week. - levothyroxine (SYNTHROID) 100 mcg tablet Take 1 tablet by mouth once daily. Take on empty stomach - atorvastatin (LIPITOR) 20 mg tablet Take 1 tablet by mouth daily at bedtime. For cholesterol. - allopurinol (ZYLOPRIM) 300 mg tablet Take 1 tablet by mouth once daily. - allopurinol (ZYLOPRIM) 100 mg tablet Take 1 tablet by mouth once daily. In addition to 300 mg daily for gout. - losartan (COZAAR) 25 mg tablet Take 1 tablet by mouth once daily. - empagliflozin (JARDIANCE) 10 mg tablet Take 1 tablet by mouth once daily. Take 1 tablet once daily in the morning - amLODIPine (NORVASC) 5 mg tablet Take 1 tablet by mouth once daily. Problem List As Of Date 11/27/2023 Noted Resolved Impotence of organic origin [N52.9] 03/14/2005 04/04/2022 Depressive disorder, not elsewhere classified [*11/11/2005 09/21/2017 Mixed hyperlipidemia [E78.2] 11/11/2005 Gouty Arthropathy [274.0] 11/11/2005 11/13/2009 HYPOTHYROIDISM NOS [E03.9] 02/11/2006 09/18/2014 PAIN IN LIMB [M79.609] 10/26/2006 12/18/2006 CELLULITIS OF LEG [L03.119, L02.419] 10/26/2006 12/18/2006 Knee pain [M25.569] 02/27/2009 09/18/2014 Dysmetabolic syndrome X [E88.810] 02/13/2007 10/28/2021 Controlled type 2 diabetes mellitus without com*05/15/2008 Gouty arthropathy [M10.9] 11/13/2009 09/21/2017 Gout [M10.9] 11/13/2009 Cough [R05.9] 07/29/2010 09/18/2014 Groin pain [R10.30] 07/29/2010 09/18/2014 Dizziness and giddiness [R42] 07/29/2010 09/18/2014 Pre-diabetes [R73.03] 07/29/2010 02/02/2019 Hypothyroid [E03.9] 07/29/2010 Impotence [N52.9] 07/29/2010 09/21/2017 Goiter [E04.9] 07/29/2010 09/22/2017 RADHA on CPAP [G47.33] 07/29/2010 Vagal autonomic bradycardia [R00.1] 08/07/2011 09/21/2017 Adjustment disorder with mixed anxiety and depr*03/07/2013 Marital conflict [Z63.0] 03/07/2013 09/21/2017 Psoriasis [L40.9] 10/02/2015 Obesity (BMI 35.0-39.9 without comorbidity) [E6*07/25/2016 Essential hypertension [I10] 11/02/2019 Palpitations [R00.2] 11/02/2019 Acute respiratory failure with hypoxia (HCC) [J*08/26/2020 11/26/2020 Idiopathic chronic gout of multiple sites witho*12/09/2022 Encounter Status:Closed by KIM GRADY on 12/03/23 Normal [facility] Basic metabolic 2000 panelon 11-21-2023 Anion gap [Moles/Vol] 11 mmol/L Normal 8-15 [facility] Comment on above: Order Comment: Speci men Type: BLOOD SPECIMENOrdering Facility: [facility] Address: [address] [place] [address] Performed By: #### 3 084-1, 22434-3 ####[facility] LABCLIA [id number] [place] [address] [place] Calcium [Mass/Vol] 9.4 mg/dL Normal 8.5-10.2 [facility] Comment on above: Order Comment: Speci men Type: BLOOD SPECIMENOrdering Facility: [facility] Address: [address] [place] [address] Performed By: #### 3 084-1, 18007-2 ####[facility] LABCLIA [id number] [place] [address] [place] Chloride [Moles/Vol] 108 mmol/L High 98-107 [facility] Comment on above: Order Comment: Speci men Type: BLOOD SPECIMENOrdering Facility: [facility] Address: [address] [place] [address] Performed By: #### 3 084-1, 17556-8 ####[facility] LABCLIA [id number] [place] [address] [place] CO2 [Moles/Vol] 20 mmol/L Low 22-30 [facility] Comment on above: Order Comment: Speci men Type: BLOOD SPECIMENOrdering Facility: [facility] Address: [address] [place] [address] Performed By: #### 3 084-1, 84835-1 ####[facility] LABCLIA [id number] [place] [address] [place] Creatinine [Mass/Vol] 0.92 mg/dL Normal 0.73-1.22 [facility] Comment on above: Order Comment: Speci men Type: BLOOD SPECIMENOrdering Facility: [facility] Address: [address] [place] [address] Performed By: #### 3 084-1, 70581-6 ####[facility] LABCLIA [id number] [place] [address] [place] Creatinine and Glomerular filtration rate.predicted panel (S/P/Bld) 91 mL/min/1.73m??? Normal >=60 [facility] Comment on above: Order Comment: Speci men Type: BLOOD SPECIMENOrdering Facility: [facility] Address: [address] [place] [address] Result Comment: Yesica mated Glomerular Filtration Rate (eGFR) is calculated using the 2020 CKD-EPI creatinine equation. This equation utilizes serum creatinine, sex, and age as parameters. The creatinine assay has traceable calibration to isotope dilution-mass spectrometry. Refer to KDIGO guidelines for clinical interpretation. In patients with unstable renal function, e.g. those with acute kidney injury, the eGFR may not accurately reflect actual GFR. Performed By: #### 3 084-1, 41091-5 ####[facility] LABIA [id number] [place] [address] [place] Glucose [Mass/Vol] 111 mg/dL High 74-99 [facility] Comment on above: Order Comment: Vito cehema Type: BLOOD SPECIMENOrdering Facility: [facility] Address: [address] [place] [address] Result Comment: The [place] Diabetes Association (ADA) provides guidance for cutoff values for fasting glucose and random glucose. The ADA defines fasting as no caloric intake for at least 8 hours. Fasting plasma glucose results between 100 to 125 mg/dL indicate increased risk for diabetes (prediabetes). Fasting plasma glucose results greater than or equal to 126 mg/dL meet the criteria for diagnosis of diabetes. In the absence of unequivocal hyperglycemia, results should be confirmed by repeat testing. In a patient with classic symptoms of hyperglycemia or hyperglycemic crisis, random plasma glucose results greater than or equal to 200 mg/dL meet the criteria for diagnosis of diabetes. Reference: Standards of Medical Care in Diabetes 2016, [place] [employer] Association. Diabetes Care. 2016.39(Suppl 1). Performed By: #### 3 084-1, 88420-3 ####[facility] LABIA [id number] [place] [address] [place] Potassium [Moles/Vol] 4.6 mmol/L Normal 3.7-5.1 [facility] Comment on above: Order Comment: Vito cheema Type: BLOOD SPECIMENOrdering Facility: [facility] Address: [address] [place] [address] Performed By: #### 3 084-1, 66137-1 ####[facility]IA [id number] [place] [address] [place] Sodium [Moles/Vol] 139 mmol/L Normal 136-144 [facility] Comment on above: Order Comment: Speci men Type: BLOOD SPECIMENOrdering Facility: [facility] Address: [address] [place] [address] Performed By: #### 3 084-1, 20231-3 ####[facility] LABCLIA [id number] [place] [address] [place] Urea nitrogen [Mass/Vol] 26 mg/dL High 9-24 [facility] Comment on above: Order Comment: Speci men Type: BLOOD SPECIMENOrdering Facility: [facility] Address: [address] [place] [address] Performed By: #### 3 084-1, 71964-7 ####[facility] LABCLIA [id number] [place] [address] [place] CBC panel Auto (Bld)on 11-20 Erythrocyte distribution width (RBC) [Ratio] 13.0 % Normal 11.5-15.0 [facility] Comment on above: Order Comment: Speci men Type: BLOOD SPECIMENOrdering Facility: [facility] Address: [address] [place] [address] Performed By: #### 5 8410-2 ####[facility] LABCLIA [id number] [place] [address] [place] Hematocrit (Bld) [Volume fraction] 44.0 % Normal 39.0-51.0 [facility] Comment on above: Order Comment: Speci men Type: BLOOD SPECIMENOrdering Facility: [facility] Address: [address] [place] [address] Performed By: #### 5 8410-2 ####[facility] LABCLIA [id number] [place] [address] [place] Hemoglobin (Bld) [Mass/Vol] 14.7 g/dL Normal 13.0-17.0 [facility] Comment on above: Order Comment: Speci men Type: BLOOD SPECIMENOrdering Facility: [facility] Address: [address] [place] [address] Performed By: #### 5 8410-2 ####[facility] [id number] [place] [address] [place] MCH (RBC) [Entitic mass] 32.2 pg Normal 26.0-34.0 [facility] Comment on above: Order Comment: Speci men Type: BLOOD SPECIMENOrdering Facility: [facility] Address: [address] [place] [address] Performed By: #### 5 8410-2 ####[facility] [id number] [place] [address] [place] MCHC (RBC) [Mass/Vol] 33.4 g/dL Normal 30.5-36.0 [facility] Comment on above: Order Comment: Speci men Type: BLOOD SPECIMENOrdering Facility: [facility] Address: [address] [place] [address] Performed By: #### 5 8410-2 ####[facility] [id number] [place] [address] [place] MCV (RBC) [Entitic vol] 96.3 fL Normal 80.0-100.0 [facility] Comment on above: Order Comment: Speci men Type: BLOOD SPECIMENOrdering Facility: [facility] Address: [address] [place] [address] Performed By: #### 5 8410-2 ####[facility]IA [id number] [place] [address] [place] Nucleated RBC (Bld) [#/Vol] 10*3/uL Normal <0.01 [facility] Comment on above: Order Comment: Speci men Type: BLOOD SPECIMENOrdering Facility: [facility] Address: [address] [place] [address] Performed By: #### 5 8410-2 ####[facility] LABCLIA [id number] [place] [address] [place] Platelet mean volume (Bld) [Entitic vol] 12.4 fL Normal 9.0-12.7 [facility] Comment on above: Order Comment: Speci men Type: BLOOD SPECIMENOrdering Facility: [facility] Address: [address] [place] [address] Performed By: #### 5 8410-2 ####[facility] LABCLIA [id number] [place] [address] [place] Platelets (Bld) [#/Vol] 115 10*3/uL Low 150-400 [facility] Comment on above: Order Comment: Speci men Type: BLOOD SPECIMENOrdering Facility: [facility] Address: [address] [place] [address] Performed By: #### 5 8410-2 ####[facility]IA [id number] [place] [address] [place] RBC (Bld) [#/Vol] 4.57 10*6/uL Normal 4.20-6.00 [facility] Comment on above: Order Comment: Speci men Type: BLOOD SPECIMENOrdering Facility: [facility] Address: [address] [place] [address] Performed By: #### 5 8410-2 ####[facility]IA [id number] [place] [id number] [place] WBC (Bld) [#/Vol] 6.13 10*3/uL Normal 3.70-11.00 [facility] Comment on above: Order Comment: Speci men Type: BLOOD SPECIMENOrdering Facility: [facility] Address: [address] [place] [address] Performed By: #### 5 8410-2 ####[facility] LABCLIA [id number] [place] [address] [place] HbA1c (Bld)on 11-21-2023 Average glucose Estimated from glycated hemoglobin (Bld) [Mass/Vol] 123 mg/dL Normal [facility] Comment on above: Order Comment: Vito cheema Type: BLOOD SPECIMENOrdering Facility: [facility] Address: [address] [place] [address] Result Comment: eAG: (Estimated average glucose) is a calculated value from HgbA1c and is outbound sales representative of the average blood glucose level in the last 2-3 month period. Performed By: #### 5 5454-3 ####[facility] LABCLIA [id number] [place] [address] [place] HbA1c (Bld) [Mass fraction] 5.9 % High 4.3-5.6 [facility] Comment on above: Order Comment: Vito cheema Type: BLOOD SPECIMENOrdering Facility: [facility] Address: [address] [place] [address] Result Comment: [place] Diabetes Association guidelines indicate that patients with HgbA1c in the range 5.7-6.4% are at increased risk for development of diabetes, and intervention by lifestyle modification may be beneficial. HgbA1c greater or equal to 6.5% is considered diagnostic of diabetes. Performed By: #### 5 5454-3 ####[facility] LABCLIA [id number] [place] [address] [place] Urate SerPl-mCncon 4 Urate [Mass/Vol] 5.5 mg/dL Normal 4.0-8.1 [facility] Comment on above: Order Comment: Vito men Type: BLOOD SPECIMENOrdering Facility: [facility] Address: [address] [place] [address] Performed By: #### 3 084-1, 78809-3 ####[facility] LABCLIA [id number] [place] [address] [place] XR Cervical spine AP and Lat eral and Odontoidon 06-25-2023 IMPRESSION: Cervical spine mild degenerative changes. Clinical Case Manager: CAMILLE Transcribe Date/Time: Jun 25 2023 11:05A Dictated by : RIMA RAMON MD This examination was interpreted and the report reviewed and electronically signed by: RIMA RAMON MD on Jun 25 2023 11:07AM [facility] DIVISION OF RADIOLOGY * * *Final Report* * * DATE OF EXAM: Jun 25 2023 11:05AM WOX 5309 - XR CERVICAL 3V AP/LAT/ODON / PROCEDURE REASON: Neck pain * * * * Physician Interpretation * * * * EXAM TITLE: XR CERVICAL 3V AP/LAT/ODON EXAM DATE/TIME: 06/25/2023 11:05 AM COMPARISON: None. CLINICAL INDICATION/HISTORY: Neck pain. TECHNIQUE: AP, lateral and odontoid views of the cervical spine are presented. FINDINGS: No fractures or subluxations are noted. The disc spaces are well preserved. There is mild osteophyte formation, with focal ossification of the anterior longitudinal ligament. The prevertebral soft tissues are normal. DIVISION OF RADIOLOGY Provider, [facility] - 06/25/2023 * * *Final Report* * * DATE OF EXAM: Jun 25 2023 11:05AM WOX 5309 - XR CERVICAL 3V AP/LAT/ODON / PROCEDURE REASON: Neck pain * * * * Physician Interpretation * * * * EXAM TITLE: XR CERVICAL 3V AP/LAT/ODON EXAM DATE/TIME: 06/25/2023 11:05 AM COMPARISON: None. CLINICAL INDICATION/HISTORY: Neck pain. TECHNIQUE: AP, lateral and odontoid views of the cervical spine are presented. FINDINGS: No fractures or subluxations are noted. The disc spaces are well preserved. There is mild osteophyte formation, with focal ossification of the anterior longitudinal ligament. The prevertebral soft tissues are normal. IMPRESSION IMPRESSION: Cervical spine mild degenerative changes. Clinical Case Manager: CAMILLE Transcribe Date/Time: Jun 25 2023 11:05A Dictated by : IRMA RAMON MD This examination was interpreted and the report reviewed and electronically signed by: RIMA RAMON MD on Jun 25 2023 11:07AM [facility] Radiology Study observation (narrative) [facility] XR Cervical spine AP and Lat eral and OdontoidOrdered By: Ccf Provider on 06-25-2023 [facility] XR CHEST 2V FRONTAL/LATon [facility] XR Chest PA and Lateralon IMPRESSION: No acute radiographic abnormality. Clinical Case Manager: CAMILLE Transcribe Date/Time: Apr 23 2023 2:01P Dictated by : MAUREEN AVILES MD This examination was interpreted and the report reviewed and electronically signed by: MAUREEN AVILES MD on Apr 23 2023 2:03PM [facility] DIVISION OF RADIOLOGY * * *Final Report* * * DATE OF EXAM: Apr 23 2023 2:01PM WOX 5291 - XR CHEST 2V FRONTAL/LAT / PROCEDURE REASON: Acute cough * * * * Physician Interpretation * * * * EXAMINATION: CHEST RADIOGRAPH (2 VIEW FRONTAL & LATERAL) CLINICAL HISTORY: Acute cough MQ: XC2_6 EXAM DATE/TIME: 04/23/2023 2:01 PM COMPARISON: Chest radiograph 06/26/2008 RESULT: Lines, tubes, and devices: None. Lungs and pleura: No consolidation. No lung mass. No pleural effusion. No pneumothorax. Cardiomediastinal silhouette: Normal cardiomediastinal silhouette. Aortic calcifications. Bones and soft tissues: Unremarkable. DIVISION OF RADIOLOGY Provider, [facility] - 04/23/2023 * * *Final Report* * * DATE OF EXAM: Apr 23 2023 2:01PM WOX 5291 - XR CHEST 2V FRONTAL/LAT / PROCEDURE REASON: Acute cough * * * * Physician Interpretation * * * * EXAMINATION: CHEST RADIOGRAPH (2 VIEW FRONTAL & LATERAL) CLINICAL HISTORY: Acute cough MQ: XC2_6 EXAM DATE/TIME: 04/23/2023 2:01 PM COMPARISON: Chest radiograph 06/26/2008 RESULT: Lines, tubes, and devices: None. Lungs and pleura: No consolidation. No lung mass. No pleural effusion. No pneumothorax. Cardiomediastinal silhouette: Normal cardiomediastinal silhouette. Aortic calcifications. Bones and soft tissues: Unremarkable. IMPRESSION IMPRESSION: No acute radiographic abnormality. Clinical Case Manager: CAMILLE Transcribe Date/Time: Apr 23 2023 2:01P Dictated by : MAUREEN AVILES MD This examination was interpreted and the report reviewed and electronically signed by: MAUREEN AVILES MD on Apr 23 2023 2:03PM EST [facility] Radiology Study observation (narrative) [facility] XR Chest PA and LateralOrder ed By: Ccf Provider on 04-23-2023 [facility] COLONOSCOPY SCREENINGon 08-3 [facility] NM CARDIAC PERF STRESS/EXERC ISEon 05-01-2022 NM CARDIAC PERF STRESS/EXERCISE * * *Final Report* * * DATE OF EXAM: May 01 2022 10:40AM ANDREAS 0004 - NM CARDIAC PERF STRESS/EXERCISE / PROCEDURE REASON: R07.9-Chest pain, unspecified type * * * * Physician Interpretation * * * * NM CTAC Report: [facility] Date of service: 05/01/2022 9:20:07 AM CTAC interpreting physician: Kaleb Borden MD PATIENT: Name: MR. LAW OLIVO Age: 66 years Gender: M 1. Incidental Findings from limited non-diagnostic CTAC: - Coronary calcifications visualized. Final PATIENT: Name: MR. LAW OLIVO Age: 66 years Gender: M CONCLUSIONS: 1. SPECT Perfusion Study: Normal. 2. There is no scintigraphic evidence for inducible ischemia. 3. No evidence of scarred myocardium. 4. Left ventricle is normal in size. The left ventricle systolic function is normal. 5. This is a low risk scan. LVEF % 61 Prior Study Comparison Prior nuclear cardiology exam was performed on 07/22/2016. Nuclear Med Report:1-Day [id number] Exercise Stress Gated SPECT: Myocardial perfusion imaging was performed at rest 30 to 60 minutes following the IV injection of Tc-99m tetrofosmin. One minute prior to peak exercise, the patient was injected IV with Tc-99m tetrofosmin. Gated post stress tomographic imaging was performed 10 to 20 minutes later. See administered doses below. [facility] Date of service: 05/01/2022 9:20:07 AM Ordering Physician: FRANTZ MCCAULEY. Requesting Physician: Indication: Chest pain/anginal equiv, high CAD risk, treadmill candidate Interpreting physician: Henok Victoria MD Height: 170.18 cm BSA: 2.29 m? Weight: 111.13 kg BMI: 38.4 kg/m? CT Dose-Length Product(DLP): 81.5 mGy*cm. CT Dose Reduction Employed: Yes. Exam Type: Rest Stress Radiopharm: Tc-99m Tetrofosmin Tc-99m Tetrofosmin Dosage(mCi): 14.9 50.5 Atten Correction: performed performed Stress Agent: Treadmill Resting Blood Press: 142/84 mmHg Image Quality The overall study imaging quality was deemed to be good. FINDINGS: LVEF: 61 % LEFT VENTRICLE The left ventricle is normal in size. Left ventricular systolic function is normal. Stress Test Findings: There is no scintigraphic evidence for inducible ischemia. There is no evidence of scarring. Final Stress ECG Report: [facility] Date of service: 05/01/2022 9:20:07 AM Ordering physician: FRANTZ MCCAULEY commissioning specialist: Julia Adler Interpreting physician: Magnus Avila DO Patient name: MR. LAW OLIVO Age: 66 years Gender: M Height: 170.18 cm BSA: 2.29 m? Weight: 111.13 kg BMI: 38.4 kg/m? Indication: Chest pressure / Chest tightness Stress ECG Conclusion: Conclusion: Normal Stress ECG Summary: The patient's resting heart rate was 62 bpm and blood pressure was 142/84 mmHg. The patient exercised according to the Akira protocol. The estimated end-exercise MET level achieved using the FRIEND equation was 8.5, which is within the 50th to 75th percentile for age and sex. The estimated end-exercise MET level achieved using the previous ACSM equation was 10.4. The test was terminated due to end of protocol and the total exercise time was 9 minutes and 15 seconds. Other symptoms during the test included SOB and leg fatigue. The maximum heart rate was 137 bpm, which is 90% of the predicted heart rate for age. Peak blood pressure was 194/92 mmHg. The double product achieved was [address]. Medications: Last Used LIPITOR SYNTHROID JARDIANCE WELLBUTRIN CELEXA COZAAR NORVASC Resting ECG: Normal Sinus Rhythm Symptoms at rest: No symptoms Exercise Protocol: Akira Stress Exercise Table: +-----+ +--------+----- -----+---+---+---+----+----+ Stage Speed (MPH) Grade(%) Time (min) HR SYS MUKUND RPE METS +-----+ +--------+----- -----+---+---+---+----+----+ 1 1.7 10.0 3.0 104 166 84 12.0 4.2 +-----+ +--------+----- -----+---+---+---+----+----+ 2 2.5 12.0 6.0 118 192 90 13.0 6.1 +-----+ +--------+----- -----+---+---+---+----+----+ +-----+ +---------+---- ------+---+---+---+----+----+ Speed (MPH) Grade (%) Time (min) HR SYS MUKUND RPE METS +-----+ +---------+---- ------+---+---+---+----+----+ Final 3.4 14.0 9.25 137 194 92 15.0 8.5 +-----+ +---------+---- ------+---+---+---+----+----+ Recovery Table: +------+ +---+---+---+ Stage Time (min) HR SYS MUKUND +------+ +---+---+---+ 1 1.0 123 196 86 +------+ +---+---+---+ 2 3.0 87 170 82 +------+-------- (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 [facility] 04-30-2022 [facility] Telephone (CDLBME) LAW OLIVO ([id number]) 1955 M Date Time Provider Department 04/30/22 PAOLA SINGLETARYSeven During your visit today, we recorded the following information about you: Paola Singletary RN 04/30/2022 10:47 AM Signed Spoke with patient regarding reminder for stress test tomorrow and given instructions. Allergies As of Date: 04/30/2022 Noted Allergy Reaction ALLOPURINOL 07/21/2011 5 - Intolerance Comments: ineffective rise in ua on allo Date Reviewed: 04/04/2022 Reviewed by: Mary Pope Ma - Fully Assessed Reason for Visit: Reminder Call [[id number]] Prescriptions as of 04/30/2022 - atorvastatin (LIPITOR) 20 mg tablet Take 1 tablet by mouth daily at bedtime. For cholesterol. - LORazepam (ATIVAN) 1 mg tablet Take 1 tablet by mouth once daily as needed (anxiety attack) for up to 180 days. - levothyroxine (SYNTHROID) 100 mcg tablet Take 1 tablet by mouth once daily. Take on empty stomach - empagliflozin (JARDIANCE) 10 mg tablet Take 1 tablet by mouth once daily. Take 1 tablet once daily in the morning - allopurinol (ZYLOPRIM) 300 mg tablet Take 1 tablet by mouth once daily. - citalopram (CELEXA) 20 mg tablet Take 1 tablet by mouth once daily. - buPROPion XL (WELLBUTRIN XL) 150 mg 24 hr tablet Take 1 tablet by mouth once daily. - allopurinol (ZYLOPRIM) 100 mg tablet Take 1 tablet by mouth once daily. In addition to 300 mg daily for gout. - losartan (COZAAR) 25 mg tablet Take 1 tablet by mouth once daily. - amLODIPine (NORVASC) 5 mg tablet Take 1 tablet by mouth once daily. Problem List As Of Date 04/30/2022 Noted Resolved Impotence of organic origin [N52.9] 03/14/2005 04/04/2022 Depressive disorder, not elsewhere classified [*11/11/2005 09/21/2017 Mixed hyperlipidemia [E78.2] 11/11/2005 Gouty Arthropathy [274.0] 11/11/2005 11/13/2009 HYPOTHYROIDISM NOS [E03.9] 02/11/2006 09/18/2014 PAIN IN LIMB [M79.609] 10/26/2006 12/18/2006 CELLULITIS OF LEG [L03.119, L02.419] 10/26/2006 12/18/2006 Knee pain [M25.569] 02/27/2009 09/18/2014 Dysmetabolic syndrome X [E88.81] 02/13/2007 10/28/2021 Controlled type 2 diabetes mellitus without com*05/15/2008 Gouty arthropathy [M10.9] 11/13/2009 09/21/2017 Gout [M10.9] 11/13/2009 Cough [R05.9] 07/29/2010 09/18/2014 Groin pain [R10.30] 07/29/2010 09/18/2014 Dizziness and giddiness [R42] 07/29/2010 09/18/2014 Pre-diabetes [R73.03] 07/29/2010 02/02/2019 Hypothyroid [E03.9] 07/29/2010 Impotence [N52.9] 07/29/2010 09/21/2017 Goiter [E04.9] 07/29/2010 09/22/2017 RADHA on CPAP [G47.33, Z99.89] 07/29/2010 Vagal autonomic bradycardia [R00.1] 08/07/2011 09/21/2017 Adjustment disorder with mixed anxiety and depr*03/07/2013 Marital conflict [Z63.0] 03/07/2013 09/21/2017 Psoriasis [L40.9] 10/02/2015 Obesity (BMI 35.0-39.9 without comorbidity) [E6*07/25/2016 Essential hypertension [I10] 11/02/2019 Palpitations [R00.2] 11/02/2019 Acute respiratory failure with hypoxia (HCC) [J*08/26/2020 11/26/2020 Encounter Status:Closed by PAOLA SINGLETARY on 04[facility] Absolute lymphocyte counton 03-28-2022 Lymphocytes Auto (Unsp spec) [#/Vol] 2.69 10*3/uL 0.83-4.51 [facility] Work Phone: Basophil percentageon 2021 Basophils/100 WBC (Bld) 1.0 % 0-1 [facility] Work Phone: [phone] Chloride [Moles/Vol] 109 mmol/L 98-107 [facility] Work Phone: Eosinophils/100 WBC (Bld) 3.3 % 0-5 [facility] Work Phone: [phone] Glucose [Mass/Vol] 105 mg/dL 74-106 [facility] Work Phone: [phone] Comment on above: Fasting Glucose resu lt from 100 to 125 mg/dL suggests IMPAIRED HOMEOSTASIS per A.D.A. criteria. Neutrophils (Bld) [#/Vol] 5.1 10*3/uL 2.0-7.7 [facility] Work Phone: Neutrophils/100 WBC (Bld) 56.0 % 47-70 [facility] Work Phone: Potassium [Moles/Vol] 3.5 mmol/L 3.5-5.1 [facility] Work Phone: Sodium [Moles/Vol] 141 mmol/L 136-145 [facility] Work Phone: WBC (Bld) [#/Vol] 9.2 10*3/uL 4.4-11.0 [facility] Work Phone: Blood erythrocytes count (nu mber/volume)on 03-28-2022 RBC (Bld) [#/Vol] 4.51 10*6/uL 4.6-6.2 [facility] Work Phone: Blood hemoglobin measurement (mass/volume)on 03-28-2022 Hemoglobin (Bld) [Mass/Vol] 14.8 g/dL 13.0-16.5 [facility] Work Phone: Blood lymphocytes/100 leukoc yteson 03-28-2022 Lymphocytes/100 WBC (Bld) 29.4 % 19-41 [facility] Work Phone: Blood monocytes/100 leukocyt eson 03-28-2022 Monocytes/100 WBC (Bld) 9.6 % 0-10 [facility] Work Phone: Blood platelet mean volumeon 03-28-2022 Platelet mean volume (Bld) [Entitic vol] 11.4 fL 6.2-12.0 [facility] Work Phone: [phone] Determination of erythrocyte mean corpuscular volume (MCV)on 03-28-2022 MCV (RBC) [Entitic vol] 94.9 fL 80-94 [facility] Work Phone: Hematocrit Auto (Bld) [Volum e fraction]on 03-28-2022 Hematocrit (Bld) [Volume fraction] 42.8 % 40-54 [facility] Work Phone: Laboratory - Chemistry and C hemistry - challengeon 03-28-2022 CO2 [Moles/Vol] 23.0 mmol/L 21.0-32.0 [facility] Work Phone: Urea nitrogen/Creatini ne [Mass ratio] 16.4 mg/mg 10- [facility] Work Phone: Laboratory - Hematology and Cell countson 03-28-2022 Erythrocyte distribution width (RBC) [Entitic vol] 46.4 fL 35.1-43.9 [facility] Work Phone: Erythrocyte distribution width (RBC) [Ratio] 13.3 % 11.6-14.6 [facility] Work Phone: Immature granulocytes/100 WBC (Bld) 0.700 % 0.0-0.9 [facility] Work Phone: Comment on above: IG% - Immature Granu locytes (promyelocytes, myelocytes and metamyelocytes) > 1% indicates that a LEFT SHIFT is Present. MCH (RBC) [Entitic mass] 32.8 pg 27.0-32.0 [facility] Work Phone: Nucleated RBC/100 WBC (Bld) [Ratio] 0 % 0-5 [facility] Work Phone: MCHC Auto (RBC) [Mass/Vol]on 03-28-2022 MCHC (RBC) [Mass/Vol] 34.6 g/dL 32-36 [facility] Work Phone: No Panel Informationon 03-28 Troponin I High Sensitivity 5 pg/mL 3.0-78.0 [facility] Work Phone: Comment on above: Please Note: [place] t Units and Gender Specific Reference Ranges. For more information see Policy Stat Procedure [employer] High Sensitivity Troponin (TNIH) and attachments. D-Dimer Quantitative (PE/DVT) 0.28 FEU/ug/m 0.27-0.49 [facility] Work Phone: Comment on above: NORMAL D-Dimer level (<0.50) indicates no DVT or PE. Estimated Creatinine Clearance Calc 52.36 ml/min [facility] Work Phone: Estimated GFR (MDRD) Amer 72 mL/min >60 [facility] Work Phone: Comment on above: GFR Calc Estimated GFR (MDRD) Non-Af Amer 60 mL/min >60 [facility] Work Phone: Comment on above: Non- GFR Calc Platelets bldon 03-28-2022 Platelets (Bld) [#/Vol] 146 10*3/uL 150-450 [facility] Work Phone: Serum or plasma calcium jessica urement (mass/volume)on 03-28-2022 Calcium [Mass/Vol] 9.3 mg/dL 8.5-10.1 [facility] Work Phone: Serum or plasma creatinine m easurement (mass/volume)on 03-28-2022 Creatinine [Mass/Vol] 1.28 mg/dL 0.70-1.30 [facility] Work Phone: Comment on above: The validity of the calculated GFR & GFRAA in patients over 70 years has not been determined. Clinical correlation is essential. Serum or plasma urea nitroge n measurement (mass/volume)on 03-28-2022 Urea nitrogen [Mass/Vol] 21 mg/dL 7-18 [facility] Work Phone: Thin prep Papanicolaou smear with manual screeningon 03-28-2022 Thin prep Papanicolaou smear with manual screening 9 5-15 [facility] Work Phone: CNNURSEon 08-03-2017 CNNURSE Nurse Visit (AGCARDWST) LAW OLIVO ([id number]) 1955 MDate Time Provider Department08/03/17 2:30 PM NURSE CARD FAUSTO RADHAMES AGCARDWST During your visit today, we recorded the following information about you:Fela Bills MA 08/03/2017 3:28 PM Eyuhdf10 day lifewatch monitor applied and instructions given.Patient verbalized understanding.Zita Mayberry Provider: DEVON MILLER [[id number]]Allergies As of Date: 08/03/2017 Noted Allergy ReactionALLOPURINOL 07/21/2011 5 - Intolerance Comments: ineffective rise in ua on alloDate Reviewed: 08/03/2017Reviewed by: Fela Bills - Fully AssessedReason for Visit: Nurse Visit [792]Primary Visit Diagnosis:Palpitations [R00.2]Prescriptions as of 08/03/2017 Sig: LEVOTHYROXINE 100 MCG TABLET Take 1 tablet by mouth once d* ATORVASTATIN 10 MG TABLET Take 1 tablet by mouth once d* FEBUXOSTAT 80 MG TABLET Take 1 tablet by mouth once d* CITALOPRAM 20 MG TABLET Take 1 tablet by mouth once d* BUPROPION XL 150 MG TAB Take 1 tablet by mouth once d* APREMILAST 30 MG TABLET Take 1 tablet weekly per * COMPOUNDED PRESCRIPTION Absorbica per Dr. Dc. Take*Problem List As Of Date 08/03/2017 Noted Resolved IMPOTENCE, ORGANIC ORIGN [N52.9] INVALID FOR* DEPRESSIVE DISORDER NEC [F32.9] INVALID FOR* Mixed hyperlipidemia [E78.2] INVALID FOR* Gouty Arthropathy [274.0] INVALID FOR*11/13/2009 HYPOTHYROIDISM NOS [E03.9] INVALID FOR*09/18/2014 PAIN IN LIMB [M79.609] INVALID FOR*12/18/2006 CELLULITIS OF LEG [L03.119, L02.419] INVALID FOR*12/18/2006 Knee pain [M25.569] INVALID FOR*09/18/2014 Dysmetabolic Syndrome X [E88.81] INVALID FOR* Diabetes mellitus type II, controlled, with no *INVALID FOR*10/15/2010 Gouty Arthropathy [M10.9] INVALID FOR* Gout [M10.9] INVALID FOR* More... Cough [R05] INVALID FOR*09/18/2014 Groin pain [R10.30] INVALID FOR*09/18/2014 Dizziness and giddiness [R42] INVALID FOR*09/18/2014 Pre-diabetes [R73.03] INVALID FOR* Hypothyroid [E03.9] INVALID FOR* Impotence [N52.9] INVALID FOR* Goiter [E04.9] INVALID FOR* Sleep apnea [G47.30] INVALID FOR* Vagal autonomic bradycardia [I49.9] INVALID FOR* Adjustment disorder with mixed anxiety and depr*INVALID FOR* Marital conflict [Z63.0] INVALID FOR* Psoriasis [L40.9] INVALID FOR* Obesity (BMI 35.0-39.9 without comorbidity) [E6*INVALID FOR* Status:Closed by FELA BILLS MA on 08/03/17 [facility] CNOVon 08-03-2017 [facility] Office Visit (AGCARDWST) [facility]IV[facility] ([id number]) 1955 [facility] Department08/03/17 2:00 PM DEVON MILLERARDWSHenrique During your visit today, we recorded the following information about you: Pulse Blood pressure Weight Height 79/minute 126/80 113.8 kg 1.727 Suyapa Miller MD 08/03/2017 5:13 PM SignedPERTINENT CARDIAC HISTORYPalpitations - VPDs?HTNHLOSA - CPAPSyncope - vasovagalObesityADHERENCE TO GUIDELINESACE-I or ARB for HF with prior LVEFANDlt;40 (NQF 0081) - N/AASA or Plavix for ASHD (NQF 0067) - N/ABeta jeniffer for ASHD with prior MA or prior LVEFANDlt;40 (NQF 0070) - N/ABeta jeniffer for HF with prior LVEFANDlt;40 (NQF 0083) - N/AACE-I or ARB for ASHD with DM or prior LVEFANDlt;40 (NQF 0066) - N/AStatin therapy for ASHD or FHL or DM - N/ABMI documented and plan if ANDgt;25 (NQF 0421) - lifestyle recommendation formTobacco use screening and referral (NQ 0028) - lifestyle recommendation formRecommendation for whole food, plant based diet - lifestyle recommendation formCLINICAL IMPRESSION/PLAN:Law Olivo has palpitations of uncertain etiology. Most likely theseare ventricular ectopics, but we have never correlated them to symptoms. Hewill have a 24-hour Holter with event monitor to follow if necessary.Exercise tolerance is stable. There is no evidence of progressive coronarydisease. Stress test showed no ischemia.He will have TSH and magnesium level.I will see him in 6 months or as needed. He's been advised to try to minimizealcohol intake, decrease caffeine and minimize his stress.Written and verbal health teaching given to patient, patient verbalizesunderstanding and agrees with treatment plan.This note was generated using Corindus voice recognition system, and there may besome incorrect words, spellings, and punctuation that were not noted inchecking the note before saving.DIAGNOSIS FOR VISIT:PalpitationsHISTORY OF PRESENT ILLNESSLaw Olivo is a 61-year-old gentleman with prior history ofpalpitations and vasovagal syncope, who is seen in follow-up. He was previouslya patient of Dr. Green.He reports that over the last few weeks he has been having more palpitations.This is described as a sensation of pounding but not necessarily rapid heartrate. He has been drinking more alcohol and has been under more stress.He's had no chest discomfort. He reports no change in exercise tolerance. He'shad no orthopnea, edema, syncope. He's had no TIAs, amaurosis or claudication.ALLERGIES:ALLERGIESA llergen Reactions- Allopurinol Intolerance ineffective rise in ua on alloCURRENT OUTPATIENT MEDICATIONS:levothyroxine (SYNTHROID) 100 mcg tablet Take 1 tablet by mouth once daily.Take extra tab once a weekatorvastatin (LIPITOR) 10 mg tablet Take 1 tablet by mouth once daily.febuxostat (ULORIC) 80 mg tab Take 1 tablet by mouth once daily.citalopram (CELEXA) 20 mg tablet Take 1 tablet by mouth once daily.buPROPion XL (WELLBUTRIN XL) 150 mg 24 hr tablet Take 1 tablet by mouth oncedaily.apremilast (OTEZLA) 30 mg tablet Take [address] DcCOMPOUNDED PRESCRIPTION Absorbica per Dr. Dc. Take 1 capsule twice weekly.PAST MEDICAL HISTORYDiagnosis Date- Abnormal tilt table test 08/07/2011- Bradycardia- Depression 07/29/2010- Diverticulosis of colon (without mention of hemorrhage)- Goiter, unspecified 03/14/2005- Gout, unspecified- Hypothyroidism- Irritability and anger 07/05/2014- MRSA (methicillin resistant staph aureus) culture positive 06/18/2010- Myalgia 10/13/2006- Obesity- Orthostatic hypotension 06/21/2010- Other and unspecified hyperlipidemia- Other diseases of pharynx, not elsewhere classified(478.29)- Prediabetes- Psoriasis Seeing Dr. Dc- PVC's (premature ventricular contractions) Seeing Dr. Green- Sleep apnea uses CPAP nightly- Syncope 06/18/2010- Thrombocytopenia (HCC) 05/13/2012PAST SURGICAL HISTORYProcedure Laterality Date- COLONOSCOP W/ OR W/O [facility] SPEC Colonoscopy- COLONOSCOP W/ OR W/O [facility] SPEC 02/09/13 Colonoscopy- FINE NEEDLE ASP DEEP 04/23/05 U/S FNA right lobe thyroidFAMILY HISTORYProblem Relation Age of Onset- Cancer Father 50 non hodgkins- Stroke Father- Osteoporosis Mother- thyroid problems [OTHER] Mother- None Brother- Cancer Maternal Grandmother- Cancer Maternal GrandfatherSocial History Marital status: Spouse name: Years of education: Number of children: 0Occupational 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 Cardiac: As noted above. GI: No melena.: No dysuria. Musculoskeletal: No myalgias.PHYSICAL EXAMINATION: S/he is alert and in no distress.VITAL SIGNS: BP 126/80 Pulse 79 Ht 5' 8ANDquot; (1.73m) Wt 250 lb 14.4 oz(113.8kg) BMI 38.16 kg/(m2).SHEENT: Skin is warm and dry. No xanthelasmas appreciated. Pharynx isbenign. There is no oral cyanosis. Neck: supple. No adenopathy or thyroidenlargement. Chest: Clear to percussion and auscultation. Trachea is midline. Air entry is equal. There is no chest wall tenderness. Cardiac: Regularrhythm. S1 and S2 are normal. PMI is nondisplaced. There are no murmurs,rubs or gallops. No click is heard. Carotids are brisk without bruits. JVPis less than 10 cm. Abdomen: Soft and nontender. Obesity limits theexamination. There are no pulsatile masses or bruits. No liver enlargement.Bowel sounds are active. Extremities: No edema. Pulses are intact andsymmetrical. No clubbing or cyanosis. No femoral bruits. Neurologic: Grosslynormal motor and sensory. S/he is alert and oriented x4.Prior records were reviewed. He has not had Holter monitoring. Occasionalventricular ectopy was reportedly seen on EKGs.Tilt study was consistent with vasovagal response.Echocardiogram shows normal ejection fraction. There is no evidence of previousinfarct.Stress test demonstrated no evidence of ischemia or infarct.EKG shows sinus rhythm. There are inferior Q waves, unchanged.Recent labs were reviewed. LDL was 79. TSH is slightly elevated, but dose hasbeen adjustedElectronically Signed:Devon Miller MDFebruary 2017 2:29 [facility]:Reina Francisco MD 08/03/2017 2:29 PM SignedLIFESTYLE CHANGEA healthy lifestyle is the most important component of your overall treatmentplan. Please give serious thought to the following areas and commit to makinglong term changes.EAT A WHOLE FOOD, PLANT BASED DIETThe nutrition your body gets is more important than the medicine you take.What matters most is the overall way you eat. We encourage you to minimize theuse of animal products (which include dairy and all meats except fatty fish)and use whole, unprocessed plant foods to provide your protein, vitamins andother nutrients. We have a lot of information to share with you on this topic. We also hold Shared Medical Appointments, where you can come visit with in the company of other patients and spend over an hour talking aboutthe challenges of changing the way you eat. This is not a ANDquot;dietANDquot;.It is a way of life that you will keep with you.EXERCISE REGULARLYIt is not important to spend hours in the gym, lifting weights and perspiringheavily. A total of 2-3 hours per week of aerobic (causing you to bemoderately short of breath) exercise is sufficient to improve your health.Talk to us before you begin a new exercise program, if you have heart diseaseor experience shortness of breath or chest pain.REDUCE STRESSChronic emotional and physical stress leads to disease. Ways of reducingstress include meditation, visualization, prayer, yoga and other forms ofrelaxation therapy. Consistency is the mercado. Find a technique that works foryou and do it every day.CULTIVATE RELATIONSHIPSLoneliness and isolation have a major negative impact on health. Seek outothers who can love, care for and nurture you. Avoid hurtful relationships.MAINTAIN IDEAL BODY WEIGHTThe best way to do this is to do all the things above. Our bodies naturallyfind the right weight if we keep moving and feed ourselves the right food. Ifyour BMI is greater than 25, we strongly recommend a referral to a weightmanagement program. Please speak to us or your family physician aboutavailable programs.AVOID NICOTINE IN ALL FORMSThis includes all tobacco products, whether chewed, smoked, vaped, or rubbed onthe skin. Smoking cessation programs, which can make use of tobaccosubstitutes, medications to suppress cravings and behavior management, areavailable. Please contact your family physician about programs in your area.Referring Provider: DEVON MILLER [[id number]]Allergies As of Date: 08/03/2017 Noted Allergy ReactionALLOPURINOL 07/21/2011 5 - Intolerance Comments: ineffective rise in ua on alloDate Reviewed: 08/03/2017Reviewed by: Fela Bills - Fully AssessedReason for Visit: Follow Up [171]Primary Visit Diagnosis:Palpitations [R00.2] Other Visit Diagnoses:Hypertension, essential [I10] Cardiac syncope [R55]Order(s):ECG B/O W INTERP (MED OFFICE) [ECG06] Order #: [id number] TSH BLD [SQTSH] Order #: [id number] FUTURE MAGNESIUM BLD [SQMG1] Order #: [id number] FUTURE EVENT MONITOR [8682223] Order #: [id number]: 1Prescriptions as of 08/03/2017 Sig: LEVOTHYROXINE 100 MCG TABLET Take 1 tablet by mouth once d* ATORVASTATIN 10 MG TABLET Take 1 tablet by mouth once d* FEBUXOSTAT 80 MG TABLET Take 1 tablet by mouth once d* CITALOPRAM 20 MG TABLET Take 1 tablet by mouth once d* BUPROPION XL 150 MG TAB Take 1 tablet by mouth once d* APREMILAST 30 MG TABLET Take 1 tablet weekly per * COMPOUNDED PRESCRIPTION Absorbica per Dr. Dc. Take*Problem List As Of Date 08/03/2017 Noted Resolved IMPOTENCE, ORGANIC ORIGN [N52.9] INVALID FOR* DEPRESSIVE DISORDER NEC [F32.9] INVALID FOR* Mixed hyperlipidemia [E78.2] INVALID FOR* Gouty Arthropathy [274.0] INVALID FOR*11/13/2009 HYPOTHYROIDISM NOS [E03.9] INVALID FOR*09/18/2014 PAIN IN LIMB [M79.609] INVALID FOR*12/18/2006 CELLULITIS OF LEG [L03.119, L02.419] INVALID FOR*12/18/2006 Knee pain [M25.569] INVALID FOR*09/18/2014 Dysmetabolic Syndrome X [E88.81] INVALID FOR* Diabetes mellitus type II, controlled, with no *INVALID FOR*10/15/2010 Gouty Arthropathy [M10.9] INVALID FOR* Gout [M10.9] INVALID FOR* More... 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 Please give serious thought to the following areas and commit to making chcf changes. EAT A WHOLE FOOD, PLANT BASED DIET The nutrition your body gets is more important than the medicine you take. What matters most is the overall way you eat. We encourage you to minimize the use of animal products (which include dairy and all meats except fatty fish) and use whole, unprocessed plant foods to provide your protein, vitamins and other nutrients. We have a lot of information to share with you on this topic. We also hold Shared Medical Appointments, where you can come visit with Dr. Miller in the company of other patients and spend over an hour talking about the challenges of changing the way you eat. This is not a diet. It is a way of life that you will keep with you. EXERCISE REGULARLY It is not important to spend hours in the gym, lifting weights and perspiring heavily. A total of 2-3 hours per week of aerobic (causing you to be moderately short of breath) exercise is sufficient to improve your health. Talk to us before you begin a new exercise program, if you have heart disease or experience shortness of breath or chest pain. REDUCE STRESS Chronic emotional and physical stress leads to disease. Ways of reducing stress include meditation, visualization, prayer, yoga and other forms of relaxation therapy. Consistency is the mercado. Find a technique that works for you and do it every day. CULTIVATE RELATIONSHIPS Loneliness and isolation have a major negative impact on health. Seek out others who can love, care for and nurture you. Avoid hurtful relationships. MAINTAIN IDEAL BODY WEIGHT The best way to do this is to do all the things above. Our bodies naturally find the right weight if we keep moving and feed ourselves the right food. If your BMI is greater than 25, we strongly recommend a referral to a weight management program. Please speak to us or your family physician about available programs. AVOID NICOTINE IN ALL FORMS This includes all tobacco products, whether chewed, smoked, vaped, or rubbed on the skin. Smoking cessation programs, which can make use of tobacco substitutes, medications to suppress cravings and behavior management, are available. Please contact your family physician about programs in your area. Status:Closed by DEVON MILLER MD on 08/03/17 [facility] PROGRESSon 08-03-2017 PROGRESS HNO ID: [id number] thor: Fela Gates) TerrykeyService: (none)Author Type: Medical AssistantType: Progress NotesFiled: 08/03/2017 3:28 PMNote Text:30 day lifewatch monitor applied and instructions given.Patient verbalized understanding.Fela Bills MA [facility] PROGRESS HNO ID: [id number] thor: Devon Wei: (none)Author Type: PhysicianType: Progress NotesFiled: 08/03/2017 5:13 PMNote Text:PERTINENT CARDIAC HISTORYPalpitations - VPDs?HTNHLOSA - CPAPSyncope - vasovagalObesityADHERENCE TO GUIDELINESACE-I or ARB for HF with prior LVEF<40 (NQF 0081) - N/AASA or Plavix for ASHD (NQF 0067) - N/ABeta jeniffer for ASHD with prior MA or prior LVEF<40 (NQF 0070) - N/ABeta jeniffer for HF with prior LVEF<40 (NQF 0083) - N/AACE-I or ARB for ASHD with DM or prior LVEF<40 (NQF 0066) - N/AStatin therapy for ASHD or FHL or DM - N/ABMI documented and plan if >25 (NQF 0421) - lifestyle recommendation formTobacco use screening and referral (NQF 0028) - lifestyle recommendationformRecommendation for whole food, plant based diet - lifestyle recommendationformCLINICAL IMPRESSION/PLAN:Law Olivo has palpitations of uncertain etiology. Most likelythese are ventricular ectopics, but we have never correlated them tosymptoms. He will have a 24-hour Holter with event monitor to follow ifnecessary.Exercise tolerance is stable. There is no evidence of progressive coronarydisease. Stress test showed no ischemia.He will have TSH and magnesium level.I will see him in 6 months or as needed. He's been advised to try tominimize alcohol intake, decrease caffeine and minimize his stress.Written and verbal health teaching given to patient, patient verbalizesunderstanding and agrees with treatment plan.This note was generated using Corind[employer] voice recognition system, and theremay be some incorrect words, spellings, and punctuation that were notnoted in checking the note before saving.DIAGNOSIS FOR VISIT:PalpitationsHISTORY OF PRESENT ILLNESSLaw Olivo is a 61-year-old gentleman with prior history ofpalpitations and vasovagal syncope, who is seen in follow-up. He waspreviously a patient of Dr. Green.He reports that over the last few weeks he has been having morepalpitations. This is described as a sensation of pounding but notnecessarily rapid heart rate. He has been drinking more alcohol and hasbeen under more stress.He's had no chest discomfort. He reports no change in exercise tolerance.He's had no orthopnea, edema, syncope. He's had no TIAs, amaurosis orclaudication.ALLERGIES:ALLERGIE SAllergen Reactions- Allopurinol Intolerance ineffective rise in ua on alloCURRENT OUTPATIENT MEDICATIONS:levothyroxine (SYNTHROID) 100 mcg tablet Take 1 tablet by mouth oncedaily. Take extra tab once a weekatorvastatin (LIPITOR) 10 mg tablet Take 1 tablet by mouth once daily.febuxostat (ULORIC) 80 mg tab Take 1 tablet by mouth once daily.citalopram (CELEXA) 20 mg tablet Take 1 tablet by mouth once daily.buPROPion XL (WELLBUTRIN XL) 150 mg 24 hr tablet Take 1 tablet by mouthonce daily.apremilast (OTEZLA) 30 mg tablet Take [address] DcCOMPOUNDED PRESCRIPTION Absorbica per Dr. Dc. Take 1 capsule twiceweekly.PAST MEDICAL HISTORYDiagnosis Date- Abnormal tilt table test 08/07/2011- Bradycardia- Depression 07/29/2010- Diverticulosis of colon (without mention of hemorrhage)- Goiter, unspecified 03/14/2005- Gout, unspecified- Hypothyroidism- Irritability and anger 07/05/2014- MRSA (methicillin resistant staph aureus) culture positive 06/18/2010- Myalgia 10/13/2006- Obesity- Orthostatic hypotension 06/21/2010- Other and unspecified hyperlipidemia- Other diseases of pharynx, not elsewhere classified(478.29)- Prediabetes- Psoriasis Seeing Dr. Dc- PVC's (premature ventricular contractions) Seeing Dr. Green- Sleep apnea uses CPAP nightly- Syncope 06/18/2010- Thrombocytopenia (HCC) 05/13/2012PAST SURGICAL HISTORYProcedure Laterality Date- COLONOSCOP W/ OR W/O [facility] SPEC Colonoscopy- COLONOSCOP W/ OR W/O [facility] SPEC 02/09/13 Colonoscopy- FINE NEEDLE ASP DEEP 04/23/05 U/S FNA right lobe thyroidFAMILY HISTORYProblem Relation Age of Onset- Cancer Father 50 non hodgkins- Stroke Father- Osteoporosis Mother- thyroid problems [OTHER] Mother- None Brother- Cancer Maternal Grandmother- Cancer Maternal GrandfatherSocial History Marital status: Spouse name: Years of education: Number of children: 0Occupational 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 Respiratory: No productive cough. Cardiac: As noted above. GI: Nomelena. : No dysuria. Musculoskeletal: No myalgias.PHYSICAL EXAMINATION: S/he is alert and in no distress.VITAL SIGNS: BP 126/80 Pulse 79 Ht 5' 8 (1.73m) Wt 250 lb 14.4 oz(113.8kg) BMI 38.16 kg/(m2).SHEENT: Skin is warm and dry. No xanthelasmas appreciated. Pharynx isbenign. There is no oral cyanosis. Neck: supple. No adenopathy orthyroid enlargement. Chest: Clear to percussion and auscultation.Trachea is midline. Air entry is equal. There is no chest walltenderness. Cardiac: Regular rhythm. S1 and S2 are normal. PMI isnondisplaced. There are no murmurs, rubs or gallops. No click is heard.Carotids are brisk without bruits. JVP is less than 10 cm. Abdomen: Softand nontender. Obesity limits the examination. There are no pulsatilemasses or bruits. No liver enlargement. Bowel sounds are active.Extremities: No edema. Pulses are intact and symmetrical. No clubbing orcyanosis. No femoral bruits. Neurologic: Grossly normal motor andsensory. S/he is alert and oriented x4.Prior records were reviewed. He has not had Holter monitoring. Occasionalventricular ectopy was reportedly seen on EKGs.Tilt study was consistent with vasovagal response.Echocardiogram shows normal ejection fraction. There is no evidence ofprevious infarct.Stress test demonstrated no evidence of ischemia or infarct.EKG shows sinus rhythm. There are inferior Q waves, unchanged.Recent labs were reviewed. LDL was 79. TSH is slightly elevated, but dosehas been adjustedElectronically Signed:Devon Miller MDFebruary 2017 2:29 PMCC:Fatou Orozco CNP Normal [facility] Vital Signs Date Time Vital Sign Value Performing Clinician Jesus alejandro 10-05-2024 07:29-0400 Body mass index (BMI) [Ratio] 35.71 kg/m2 Fatou Deluca APRN.CNP Work Phone: [facility] 10-05-2024 07:29-0400 Body weight 104.2 kg Fatou Deluca APRN.CNP Work Phone: [facility] 10-05-2024 07:29-0400 Diastolic blood pressure 78 mm[Hg] Fatou Deluca APRN.CNP Work Phone: [facility] 10-05-2024 07:29-0400 Heart rate 74 /min Fatou Deluca APRN.CNP Work Phone: [facility] 10-05-2024 07:29-0400 Respiratory rate 14 /min Fatou Deluca APRN.CNP Work Phone: [facility] 10-05-2024 07:29-0400 SaO2% (BldA) [Mass fraction] 98 % Fatou Deluca APRN.ASSEMBLER [employer] Work Phone: [facility] 10-05-2024 07:29-0400 Systolic blood pressure 120 mm[Hg] Fatou Deluca APRN.CNP Work Phone: [facility] 08-24-2024 08:33-0400 Body height 170.8 cm Frantz Mccauley MD Work Phone: [facility] 08-24-2024 08:33-0400 Body mass index (BMI) [Ratio] 35.61 kg/m2 Frantz Mccauley MD Work Phone: [facility] 08-24-2024 08:33-0400 Body temperature 97 [degF] Frantz Mccauley MD Work Phone: [facility] 08-24-2024 08:33-0400 Body weight 103.9 kg Frantz Mccauley MD Work Phone: [facility] 08-24-2024 08:33-0400 Diastolic blood pressure 68 mm[Hg] Frantz Mccauley MD Work Phone: [facility] 08-24-2024 08:33-0400 Heart rate 60 /min Frantz Mccauley MD Work Phone: [facility] 08-24-2024 08:33-0400 Systolic blood pressure 116 mm[Hg] Frantz Mccauley MD Work Phone: [facility] 08-08-2024 18:21-0500 Body mass index (BMI) [Ratio] 36.46 kg/m2 Frantz Mccauley MD Work Phone: [facility] 08-08-2024 18:21-0500 Body temperature 98.4 [degF] Frantz Mccauley MD Work Phone: [facility] 08-08-2024 18:21-0500 Body weight 105.6 kg Frantz Mccauley MD Work Phone: [facility] 07-29-2024 07:13-0500 Body mass index (BMI) [Ratio] 36.6 kg/m2 Fatou Rodrigo REFRACTORY SPECIALIST.[employer] Work Phone: [facility] 07-29-2024 07:13-0500 Body weight 106 kg Fatou Deluca REFRACTORY SPECIALIST.ASSEM[employer] Work Phone: [facility] 07-29-2024 07:13-0500 Diastolic blood pressure 74 mm[Hg] Fatou CalderaRodrigo REFRACTORY SPECIALIST.[employer] Work Phone: [facility] 07-29-2024 07:13-0500 Heart rate 71 /min Fatou Rodrigo REFRACTORY SPECIALIST.[employer]SEM[employer] Work Phone: [facility] 07-29-2024 07:13-0500 Respiratory rate 16 /min Fatou Rodrigo REFRACTORY SPECIALIST.ASSEM[employer] Work Phone: [facility] 07-29-2024 07:13-0500 SaO2% (BldA) [Mass fraction] 98 % Fatou Deluca REFRACTORY SPECIALIST.ASSEM[employer]ER [employer] Work Phone: [facility] 07-29-2024 07:13-0500 Systolic blood pressure 132 mm[Hg] Fatou CalderaRodrigo REFRACTORY SPECIALIST.ASSEMBLER MOLDED FRAMES Work Phone: [facility] 03-23-2024 09:44-0400 Body mass index (BMI) [Ratio] 37.12 kg/m2 Frantz Mccauley MD Work Phone: [facility] 03-23-2024 09:44-0400 Body temperature 98.01 [degF] Frantz Mccauley MD Work Phone: [facility] 03-23-2024 09:44-0400 Body weight 107.5 kg Frantz Mccauley MD Work Phone: [facility] 03-23-2024 09:44-0400 Diastolic blood pressure 76 mm[Hg] Frantz Mccauley MD Work Phone: [facility] 03-23-2024 09:44-0400 Heart rate 64 /min Frantz Mccauley MD Work Phone: [facility] 03-23-2024 09:44-0400 Respiratory rate 16 /min Frantz Mccauley MD Work Phone: [facility] 03-23-2024 09:44-0400 Systolic blood pressure 120 mm[Hg] Frantz Mccauley MD Work Phone: [facility] 02-02-2024 07:53-0400 Body mass index (BMI) [Ratio] 36.7 kg/m2 Fatou Rodrigo REFRACTORY SPECIALIST.ASSEMBLER MOLD[employer] FRAMES Work Phone: [facility] 02-02-2024 07:53-0400 Body weight 106.3 kg Fatou Rodrigo REFRACTORY SPECIALIST.ASSEMBLER M[employer]AMES Work Phone: [facility] 02-02-2024 07:53-0400 Diastolic blood pressure 83 mm[Hg] Fatou Rodrigo REFRACTORY SPECIALIST.ASSEMBLER M[employer]AMES Work Phone: [facility] 02-02-2024 07:53-0400 Heart rate 67 /min Fatou Rodrigo REFRACTORY SPECIALIST.ASSEMBLER M[employer]AMES Work Phone: [facility] 02-02-2024 07:53-0400 Respiratory rate 14 /min Fatou Rodrigo REFRACTORY SPECIALIST.ASSEMBLER M[employer]AMES Work Phone: [facility] 02-02-2024 07:53-0400 Systolic blood pressure 125 mm[Hg] Fatou Rodrigo REFRACTORY SPECIALIST.ASSEMBLER MOLD[employer]AMES Work Phone: [facility] 01-25-2024 18:27-0400 Body mass index (BMI) [Ratio] 37.71 kg/m2 Nicole Luis REFRACTORY SPECIALIST.ASSEMBLER M[employer] FRAMES Work Phone: [facility] 01-25-2024 18:27-0400 Body temperature 98.1 [degF] Nicole Luis REFRACTORY SPECIALIST.ASSEMBLER MOLD[employer]AMES Work Phone: [facility] 01-25-2024 18:27-0400 Body weight 109.2 kg Nicole Luis REFRACTORY SPECIALIST.ASSEMBLER MOLD[employer]AMES Work Phone: [facility] 01-25-2024 18:27-0400 Diastolic blood pressure 80 mm[Hg] Nicole Luis REFRACTORY SPECIALIST.ASSEMBLER M[employer]AMES Work Phone: [facility] 01-25-2024 18:27-0400 Heart rate 92 /min Nicole Luis REFRACTORY SPECIALIST.ASSEMBLER M[employer]AMES Work Phone: [facility] 01-25-2024 18:27-0400 Respiratory rate 16 /min Nicole Luis REFRACTORY SPECIALIST.ASSEMBLER M[employer] FRAMES Work Phone: [facility] 01-25-2024 18:27-0400 SaO2% (BldA) [Mass fraction] 96 % Nicole Luis REFRACTORY SPECIALIST.ASSEMBLER MOLD[employer] FRAMES Work Phone: [facility] 01-25-2024 18:27-0400 Systolic blood pressure 142 mm[Hg] Nicole Luis REFRACTORY SPECIALIST.ASSEMBLER M[employer]AMES Work Phone: [facility] 11-27-2023 07:06-0400 Body mass index (BMI) [Ratio] 37.28 kg/m2 Fatou CalderaRodrigo REFRACTORY SPECIALIST.ASSEMBLER [employer]AMES Work Phone: [facility] 11-27-2023 07:06-0400 Body weight 107.96 kg Fatou Deluca REFRACTORY SPECIALIST.ASSEMBLER [employer]AMES Work Phone: [facility] 11-27-2023 07:06-0400 Diastolic blood pressure 82 mm[Hg] Fatou CalderaRodrigo REFRACTORY SPECIALIST.ASSEMBLER [employer]AMES Work Phone: [facility] 11-27-2023 07:06-0400 Heart rate 67 /min Fatou CalderaRodrigo REFRACTORY SPECIALIST.ASSEMBLER [employer]AMES Work Phone: [facility] 11-27-2023 07:06-0400 Respiratory rate 16 /min Fatou NinaRodrigo REFRACTORY SPECIALIST.ASSEMBLER M[employer]AMES Work Phone: [facility] 11-27-2023 07:06-0400 SaO2% (BldA) [Mass fraction] 96 % Fatou CalderaRodrigo REFRACTORY SPECIALIST.ASSEMBLER [employer]AMES Work Phone: [facility] 11-27-2023 07:06-0400 Systolic blood pressure 124 mm[Hg] Fatou NinaRodrigo REFRACTORY SPECIALIST.ASSEMBLER [employer]AMES Work Phone: [facility] 08-27-2023 08:12-0400 Body height 170.2 cm Frantz Mccauley MD Work Phone: [facility] 08-27-2023 08:12-0400 Body temperature 98.2 [degF] Frantz Mccauley MD Work Phone: [facility] 08-27-2023 08:12-0400 Body weight 111.04 kg Frantz Mccauley MD Work Phone: [facility] 08-27-2023 08:12-0400 Diastolic blood pressure 78 mm[Hg] Frantz Mccauley MD Work Phone: [facility] 08-27-2023 08:12-0400 Heart rate 65 /min Frantz Mccauley MD Work Phone: [facility] 08-27-2023 08:12-0400 Respiratory rate 16 /min Frantz Mccauley MD Work Phone: [facility] 08-27-2023 08:12-0400 Systolic blood pressure 128 mm[Hg] Frantz Mccauley MD Work Phone: [facility] 06-04-2023 08:48-0500 Body temperature 97.59 [degF] Frantz Mccauley MD Work Phone: [facility] 06-04-2023 08:48-0500 Body weight 114.76 kg Frantz Mccauley MD Work Phone: [facility] 06-04-2023 08:48-0500 Diastolic blood pressure 82 mm[Hg] Frantz Mccauley MD Work Phone: [facility] 06-04-2023 08:48-0500 Heart rate 84 /min Frantz Mccauley MD Work Phone: [facility] 06-04-2023 08:48-0500 Respiratory rate 16 /min Frantz Mccauley MD Work Phone: [facility] 06-04-2023 08:48-0500 Systolic blood pressure 130 mm[Hg] Frantz Mccauley MD Work Phone: [facility] 04-23-2023 13:39-0500 Body temperature 98.2 [degF] Rama Mondragon REFRACTORY SPECIALIST.ASSEMBLER M[employer]ED [employer]AMES Work Phone: [facility] 04-23-2023 13:39-0500 Body weight 114.03 kg Raam Mondragon REFRACTORY SPECIALIST.ASSEMBLER MOLD[employer]AMES Work Phone: [facility] 04-23-2023 13:39-0500 Diastolic blood pressure 78 mm[Hg] Rama Mondragon REFRACTORY SPECIALIST.ASSEMBLER M[employer]AMES Work Phone: [facility] 04-23-2023 13:39-0500 Heart rate 66 /min Rama Mondragon REFRACTORY SPECIALIST.ASSEMBLER M[employer]AMES Work Phone: [facility] 04-23-2023 13:39-0500 Respiratory rate 16 /min Rama Mondragon REFRACTORY SPECIALIST.ASSEMBLER MOLDED FRAMES Work Phone: [facility] 04-23-2023 13:39-0500 SaO2% (BldA) [Mass fraction] 97 % Rama Mondragon REFRACTORY SPECIALIST.ASSEMBLER M[employer]AMES Work Phone: [facility] 04-23-2023 13:39-0500 Systolic blood pressure 136 mm[Hg] Rama Mondragon REFRACTORY SPECIALIST.ASSEMBLER M[employer]AMES Work Phone: [facility] 02-11-2023 08:41-0400 Diastolic blood pressure 65 mm[Hg] Criss Hoff MD Work Phone: [facility] 02-11-2023 08:41-0400 Heart rate 74 /min Criss Hoff MD Work Phone: [facility] 02-11-2023 08:41-0400 Respiratory rate 16 /min Criss Hoff MD Work Phone: [facility] 02-11-2023 08:41-0400 SaO2% (BldA) [Mass fraction] 98 % Criss Hoff MD Work Phone: [facility] 02-11-2023 08:41-0400 Systolic blood pressure 96 mm[Hg] Criss Hoff MD Work Phone: [facility] 02-11-2023 07:11-0400 Body temperature 97.81 [degF] Criss Hoff MD Work Phone: [facility] 02-11-2023 07:11-0400 Body weight 112.5 kg Criss Hoff MD Work Phone: [facility] 12-15-2022 08:14-0400 Body weight 112.49 kg Fatou Older REFRACTORY SPECIALIST.ASSEMBLER M[employer]AMES Work Phone: [facility] 12-15-2022 08:14-0400 Diastolic blood pressure 72 mm[Hg] Fatou Older REFRACTORY SPECIALIST.ASSEMBLER [employer]AMES Work Phone: [facility] 12-15-2022 08:14-0400 Heart rate 76 /min Fatou Older REFRACTORY SPECIALIST.ASSEMBLER [employer]AMES Work Phone: [facility] 12-15-2022 08:14-0400 Respiratory rate 16 /min Fatou Older REFRACTORY SPECIALIST.ASSEMBLER [employer]AMES Work Phone: [facility] 12-15-2022 08:14-0400 Systolic blood pressure 124 mm[Hg] Fatou Older REFRACTORY SPECIALIST.ASSEMBLER [employer]AMES Work Phone: [facility] 03-28-2022 19:00-0400 Diastolic blood pressure 72 mm[Hg] [facility] Work Phone: 03-28-2022 19:00-0400 Heart rate 70 /min [facility] Work Phone: 03-28-2022 19:00-0400 Respiratory rate 17 /min [facility] Work Phone: 03-28-2022 19:00-0400 SaO2% (BldA) [Mass fraction] 98 % [facility] Work Phone: 03-28-2022 19:00-0400 Systolic blood pressure 138 mm[Hg] [facility] Work Phone: 03-28-2022 15:31-0400 Body height 170.18 cm [facility] Work Phone: 03-28-2022 15:31-0400 Body mass index (BMI) [Ratio] 38.3 kg/m2 [facility] Work Phone: 03-28-2022 15:31-0400 Body temperature 98.2 [degF] [facility] Work Phone: 03-28-2022 15:31-0400 Body weight 111.13 kg [facility] Work Phone: 12-05-2021 11:37-0400 Diastolic blood pressure 78 mm[Hg] Mi Nurse Work Phone: [facility] 12-05-2021 11:37-0400 Heart rate 69 /min Mi Nurse Work Phone: [facility] 12-05-2021 11:37-0400 Systolic blood pressure 125 mm[Hg] Mi Nurse Work Phone: [facility] 10-28-2021 16:37-0400 Body temperature 97.7 [degF] Frantz Mccauley MD Work Phone: [facility] 10-28-2021 16:37-0400 Body weight 109.32 kg Frantz Mccauley MD Work Phone: [facility] 10-28-2021 16:37-0400 Diastolic blood pressure 82 mm[Hg] Frantz Mccauley MD Work Phone: [facility] 10-28-2021 16:37-0400 Heart rate 72 /min Frantz Mccauley MD Work Phone: [facility] 10-28-2021 16:37-0400 Respiratory rate 16 /min Frantz Mccauley MD Work Phone: [facility] 10-28-2021 16:37-0400 Systolic blood pressure 136 mm[Hg] Frantz Mccauley MD Work Phone: [facility] Encounters Encounter Date Encounter Type Care Provider Facility Start: 03-02-2025 ambulatory Holland Figueroa NP Facility :[facility] Start: 12-14-2024 End: 12-17-2024 Refill Frantz Mccauley MD Work Phone: [address] [place] [address] Comment on above: Refill Request Start: 10-07-2024 End: 10-27-2024 Follow-up encounter Fatou Deluca APRN.ASSEMBLER [employer]AMES Work Phone: [facility] Start: 10-05-2024 End: 10-05-2024 Office outpatient visit 15 minutes Fatou Deluca APRN.ASSEMBLER [employer]AMES Work Phone: [facility] Comment on above: Controlled type 2 di abetes mellitus without complication, without long-term current use of insulin (HCC) (Primary Dx); Hypothyroidism, unspecified type; Obesity (BMI 35.0-39.9 without comorbidity) Start: 10-05-2024 End: 10-05-2024 ambulatory FATOU DELUCA Facility:[facility] Start: 10-04-2024 End: 10-05-2024 ambulatory Fatou Deluca APRN.ASSEMBLER [employer] Work Phone: [facility] Comment on above: Labs Start: 09-30-2024 End: 09-30-2024 Follow-up encounter Frantz Mccauley MD Work Phone: [facility] Start: 09-29-2024 End: 09-29-2024 ambulatory FRANTZ MCCAULEY Facility:[facility] Start: 08-29-2024 End: 08-30-2024 Telephone encounter Frantz Mccauley MD Work Phone: [address] [place] [address] Start: 08-24-2024 End: 08-24-2024 ambulatory FRANTZ MCCAULEY Facility:[facility] Start: 08-24-2024 End: 08-24-2024 Patient encounter procedure Frantz Mccauley MD Work Phone: [facility] Comment on above: Routine medical exam (Primary Dx); Dizziness; Controlled type 2 diabetes mellitus without complication, without long-term current use of insulin (HCC); Mixed hyperlipidemia; Hypothyroidism, unspecified type; Essential hypertension; Adjustment disorder with mixed anxiety and depressed mood; RADHA on CPAP; Skin tag, acquired Start: 08-24-2024 End: 08-24-2024 Patient encounter status Frantz Mccauley MD Work Phone: [facility] Start: 08-08-2024 End: 08-08-2024 ambulatory FRANTZ MCCAULEY Facility:[facility] Start: 08-08-2024 End: 08-08-2024 Office outpatient visit 25 minutes Frantz Mccauley MD Work Phone: [facility] Comment on above: Dizziness (Primary D x); Hypothyroidism, unspecified type; Idiopathic chronic gout of multiple sites without tophus; Thrombocytopenia (HCC); Controlled type 2 diabetes mellitus without complication, without long-term current use of insulin (HCC); Essential hypertension Start: 08-01-2024 End: 08-01-2024 Emergency department patient visit Arneljulius Feliciano Facility:[facility] Start: 07-29-2024 End: 09-28-2024 Follow-up encounter Frantz Mccauley MD Work Phone: [facility] Start: 07-29-2024 End: 07-29-2024 ambulatory FATOU DELUCA Facility:[facility] Start: 07-29-2024 End: 07-29-2024 Patient encounter procedure Ftaou Deluca REFRACTORY SPECIALIST.ASSEMBLER M[employer]AMES Work Phone: [facility] Comment on above: Hypothyroidism, unsp ecified type (Primary Dx); Controlled type 2 diabetes mellitus without complication, without long-term current use of insulin (HCC); Atherosclerosis of [place] coronary artery of [place] heart without angina pectoris; Mixed hyperlipidemia Start: 07-27-2024 End: 07-27-2024 ambulatory FRANTZ MCCAULEY Facility:[facility] Start: 05-26-2024 End: 05-26-2024 ambulatory Holland Figueroa NP [place] Start: 05-11-2024 End: 05-11-2024 Refill Frantz Mccauley MD Work Phone: [facility] Comment on above: Refill Request Start: 04-25-2024 End: 04-25-2024 Refill Frantz Mccauley MD Work Phone: [facility] Comment on above: Refill Request Start: 03-28-2024 End: 03-28-2024 Telephone encounter Frantz Mccauley MD Work Phone: [facility] Comment on above: Insurance Authorizat ion Start: 03-23-2024 End: 03-23-2024 ambulatory FRANTZ MCCAULEY Facility:[facility] Start: 03-23-2024 End: 03-23-2024 Patient encounter procedure Frantz Mccauley MD Work Phone: [facility] Comment on above: Atherosclerosis of n ative coronary artery of [place] heart without angina pectoris (Primary Dx); Adjustment disorder with mixed anxiety and depressed mood; Controlled type 2 diabetes mellitus without complication, without long-term current use of insulin (HCC); Mixed hyperlipidemia; Need for influenza vaccination; Essential hypertension; Hypothyroidism, unspecified type; Thrombocytopenia (HCC) Start: 03-21-2024 ambulatory FRANTZ MCCAULEY Faci lity:[facility] Start: 03-10-2024 End: 03-11-2024 ambulatory Frantz Mccauley MD Work Phone: [facility] Comment on above: blood work Start: 02-02-2024 End: 02-02-2024 Telephone encounter Frantz Mccauley MD Work Phone: [facility] Comment on above: Orders Start: 02-02-2024 End: 02-02-2024 ambulatory FATOU DELUCA Facility:[facility] Start: 02-02-2024 End: 02-02-2024 Patient encounter procedure Fatou Deluca REFRACTORY SPECIALIST.ASSEMBLER M[employer]AMES Work Phone: [facility] Comment on above: Situational anxiety (Primary Dx); Adjustment disorder with mixed anxiety and depressed mood; Screening for depression; Encounter for screening examination for other mental health and behavioral disorders Start: 01-25-2024 End: 01-25-2024 ambulatory FRANTZ MCCAULEY Facility:[facility] Start: 01-25-2024 End: 01-25-2024 Patient encounter procedure Nicole Smith REFRACTORY SPECIALIST.ASSEMBLER MOLDED FRAMES Work Phone: [facility] Comment on above: URI, acute (Primary Dx) Start: 01-08-2024 Refill Fatou bronson REFRACTORY SPECIALIST.ASSEMBLER M[employer]AMES Work Phone: [facility] Comment on above: Refill Request Start: 11-27-2023 Telephone encounter Frantz van MD Work Phone: [facility] Comment on above: Insurance Authorizat ion Start: 11-27-2023 End: 11-27-2023 Patient encounter procedure Fatou Norm Rodrigo REFRACTORY SPECIALIST.ASSEMBLER M[employer]AMES Work Phone: [facility] Comment on above: Obesity (BMI 35.0-39 .9 without comorbidity) (Primary Dx); Wart common; Controlled type 2 diabetes mellitus without complication, without long-term current use of insulin (HCC); Bilateral lower abdominal discomfort Start: 11-27-2023 End: 11-27-2023 ambulatory FATOU DELUCA Facility:[facility] Start: 11-21-2023 End: 11-21-2023 ambulatory FRANTZ MCCAULEY Facility:[facility] Start: 08-27-2023 End: 08-27-2023 Patient encounter procedure Frantz Mccauley MD Work Phone: [facility] Comment on above: Routine medical exam (Primary Dx); Essential hypertension; Controlled type 2 diabetes mellitus without complication, without long-term current use of insulin (HCC); Hypothyroidism, unspecified type; Mixed hyperlipidemia; RADHA on CPAP; Idiopathic chronic gout of multiple sites without tophus; Adjustment disorder with mixed anxiety and depressed mood; Need for vaccination; Thrombocytopenia (HCC) Start: 08-27-2023 End: 08-27-2023 Patient encounter status Frantz Mccauley MD Work Phone: [facility] Work Phone: Start: 08-18-2023 End: 08-18-2023 Patient encounter procedure Maico Keller MD Work Phone: [facility] Comment on above: Counseling about tra dougie (Primary Dx) Start: 06-25-2023 End: 06-25-2023 Subsequent hospital visit by physician Yvonne [facility] Work Phone: Radiology Comment on above: Neck pain [M54.2] Start: 06-04-2023 End: 06-04-2023 Patient encounter procedure Frantz Mccauley MD Work Phone: [facility] Comment on above: Adjustment disorder with mixed anxiety and depressed mood (Primary Dx); Hypothyroidism, unspecified type; Mixed hyperlipidemia; Need for influenza vaccination; Controlled type 2 diabetes mellitus without complication, without long-term current use of insulin (HCC); Essential hypertension; RADHA on CPAP Start: 04-23-2023 End: 04-23-2023 Patient encounter procedure Rama Mondragon HUBERT.ASSEMBLER MOLDED FRAMES Work Phone: [facility] Comment on above: Acute cough (Primary Dx); Rhinosinusitis Start: 04-23-2023 End: 04-23-2023 Subsequent hospital visit by physician Yvonne [facility] Work Phone: Radiology Comment on above: Acute cough [R05.1] Start: 04-02-2023 ambulatory Frantz ferreira MD Work Phone: [facility] Comment on above: Citalopram / Bupropi on Start: 02-11-2023 End: 02-11-2023 Subsequent hospital visit by physician Criss Hoff MD Work Phone: [facility] Comment on above: Special screening fo r malignant neoplasms, colon [Z12.11] Start: 01-16-2023 Refill Frantz ferreira MD Work Phone: [facility] Comment on above: Refill Request Start: 12-28-2022 Refill Fatou Orozco APRN .[employer]SEM[employer] Work Phone: [facility] Comment on above: Refill Request Start: 12-15-2022 End: 12-15-2022 Patient encounter procedure Fatou Orozco APRN.ASSEMBLER [employer]AMES Work Phone: [facility] Comment on above: Essential hypertensi on (Primary Dx); Controlled type 2 diabetes mellitus without complication, without long-term current use of insulin (HCC); Hypothyroidism, unspecified type; Mixed hyperlipidemia; Idiopathic chronic gout of multiple sites without tophus; RADHA on CPAP; Obesity (BMI 35.0-39.9 without comorbidity); Special screening for malignant neoplasms, colon Start: 12-09-2022 ambulatory Fatou Older REFRACTORY SPECIALIST .ASSEMBLER [employer] Work Phone: [facility] Comment on above: Labs Start: 08-07-2022 Refill Frantz ferreira MD Work Phone: [facility] Comment on above: Refill Request Start: 07-17-2022 ambulatory Fatou Older REFRACTORY SPECIALIST .ASSEM[employer] Work Phone: [facility] Comment on above: Otr Truck Driver 3rd class [facility] questions Start: 07-03-[address] Fidel Dobbins Facility:[id number] Start: 06-29-2022 Refill Fatou Older REFRACTORY SPECIALIST .ASSEMBLER [employer]AMES Work Phone: [facility] Comment on above: Refill Request Start: 05-01-2022 ambulatory FRANTZ MCCAULEY Faci lity:[facility] Start: 05-01-2022 End: 05-01-2022 Subsequent hospital visit by physician [facility] Work Phone: Cardiology Lab Comment on above: Chest pain, unspecif ied type [R07.9] Start: 04-30-2022 Telephone encounter Paola graves service technician Lab Comment on above: Reminder Call Start: 03-28-2022 End: 03-28-2022 Emergency department patient visit [facility] Start: 12-20-2021 Refill Frantz ferreira MD Work Phone: [facility] Comment on above: Refill Request Start: 12-05-2021 Telephone encounter Frantz van MD Work Phone: [facility] Comment on above: Blood Pressure Check Start: 12-05-2021 End: 12-05-2021 Nursing evaluation of patient and report Mi Nurse Work Phone: [facility] Comment on above: Essential hypertensi on (Primary Dx) Start: 11-08-2021 Refill Frantz ferreira MD Work Phone: [facility] Comment on above: Refill Request Start: 10-28-2021 End: 10-28-2021 Patient encounter procedure Frantz Mccauley MD Work Phone: [facility] Comment on above: Essential hypertensi on (Primary Dx); Idiopathic chronic gout of multiple sites without tophus; Mixed hyperlipidemia; Adjustment disorder with mixed anxiety and depressed mood; Controlled type 2 diabetes mellitus without complication, without long-term current use of insulin (HCC); Screening for prostate cancer; Need for COVID-19 vaccine Start: 10-22-2021 Refill Fatou Older REFRACTORY SPECIALIST .[employer]SEMBLER [employer] Work Phone: [facility] Comment on above: Refill Request Start: 02-05-2018 Ambulatory DEVON FRANKFER Facility :[facility] Start: 08-03-2017 End: 08-03-2017 [facility] Start: 08-03-2017 End: 08-03-2017 [facility] Procedures Date Procedure Procedure Detail Performing Clinician Start: 02-02-2024 Adult depression scr eening shonna Deluca REFRACTORY SPECIALIST.ASSEMBL[employer] Work Phone: Start: 08-27-2023 RSV VACCINE, BIVALEN T (ABRYSVO) Frantz Mccauley MD Work Phone: Start: 06-25-2023 Radex spine cervical 2 or 3 views Hermann Oconnor MD Work Phone: Start: 06-04-2023 INFLUENZA VACCINE, P RSV FREE, AGE 65+ YR, HIGH DOSE, QUADRIVALENT (FLUZONE HIGH-DOSE) Frantz Mccauley MD Work Phone: Start: 04-23-2023 Radiologic exam ches t 2 views Rama Mondragon REFRACTORY SPECIALIST.ASSEMBLER [employer] Work Phone: Start: 02-11-2023 Colonoscopy flx dx w /collj spec when pfrmd Fatou Older REFRACTORY SPECIALIST.ASSEMBLER [employer] Work Phone: Start: 02-11-2023 Colonoscopy Frantz Prieto MD Work Phone: Start: 05-01-2022 Myocardial spect mul tiple studies Frantz Mccauley MD Work Phone: Start: 03-28-2022 Plain chest X-ray Start: 10-28-2021 [employer] COVI D-19 VACCINE, AGE 12+ YR (RUSSELL TOP) Frantz Mccauley MD Work Phone: Start: 08-07-2020 Adult depression scr eening assessment Fatou Older REFRACTORY SPECIALIST.ASSEMBLER [employer] Work Phone: Start: 02-09-2013 Colonoscopy Fatou Older REFRACTORY SPECIALIST.ASSEM[employer] Work Phone: Plan of Treatment Date Care Activity Detail Author Start: 02-11-2033 Colonoscopy Colonoscopy [facility] Start: 02-11-2033 Colorectal Cancer Screening Colorectal Cancer Screening [facility] Start: 02-11-2033 Screening for malign ant neoplasm of colon [facility] Start: 11-26-2030 Urine microalbumin profile [facility] Start: 03-27-2027 PROSTATE CANCER SCREENING DISCUSSION PROSTATE CANCER SCREENING DISCUSSION [facility] Start: 03-27-2027 Prostate specific antigen measurement Prostate Cancer Screening Discussion [facility] Start: 10-05-[address] Roller Operator kisha Disease Visit Annual PCP Team Chronic Disease Visit [facility] Start: 10-05-2025 BP Controlled (<130/80) BP Controlle d (<130/80) [facility] Start: 08-24-[address] Operator kisha Disease Visit Annual PCP Team Chronic Disease Visit [facility] Start: 08-24-2025 BP Controlled (<130/80) BP Controlle d (<130/80) [facility] Start: 08-24-2025 Covid-19 Vaccine () Covid-19 Vaccine () [facility] Comment on above: Postponed from 02/13 (Declined at this time) Start: 08-11-2025 Glaucoma screening Dilated Retinal E xam [facility] Start: 08-08-[address] Roller Operator kisha Disease Visit Annual PCP Team Chronic Disease Visit [facility] Start: 07-29-[address] Team [address] Roller Operator kisha Disease Visit Annual PCP Team Chronic Disease Visit [facility] Start: 07-27-2025 Hepatitis B screening Urine Al bumin:Creatinine Ratio [facility] Start: 07-27-2025 Hepatitis B surface antibody level LDL Cholesterol [facility] Start: 03-23-[address] Roller Operator kisha Disease Visit Annual PCP Team Chronic Disease Visit [facility] Start: 03-23-2025 BP Controlled (<130/80) BP Controlle d (<130/80) [facility] Start: 02-28-2025 End: 02-28-2025 Patient encounter procedure [facility] Comment on above: 6 month follow-up *2nd attempt- lm - Start: 02-13-2025 Influenza vaccination Influenza Vacc ine (#1) [facility] Start: 02-01-[address] Roller Operator kisha Disease Visit Annual PCP Team Chronic Disease Visit [facility] Start: 02-01-2025 Anxiety Screening Anxiety Screening [facility] Start: 02-01-2025 Depression Screening Depression Scre ening [facility] Start: 01-24-2025 Hemoglobin A1c measurement HbA1C [facility] Start: 11-26-[address] Team [address] Roller Operator kisha Disease Visit Annual PCP Team Chronic Disease Visit [facility] Start: 10-26-2024 End: 01-25-2025 Basic metabolic 2000 panel - Serum or Plasma BASIC METABOLIC PANEL Lab Routine Controlled type 2 diabetes mellitus without complication, without long-term current use of insulin (HCC) Expected: 10/26/2024, Expires: 01/25/2025 [facility] Work Phone: Comment on above: Expected: 10/26/2024 , Expires: 01/25/2025 Start: 10-26-2024 End: 03-28-2025 Thyrotropin [Units/volume] in Serum or Plasma THYROID STIMULATING HORMONE Lab Routine Hypothyroidism, unspecified type Expected: 10/26/2024 (Approximate), Expires: 03/28/2025 [facility] Work Phone: Comment on above: Expected: 10/26/2024 (Approximate), Expires: 03/28/2025 Start: 10-26-2024 End: 01-25-2025 Urate [Mass/volume] in Serum or Plasma URIC ACID Lab Routine Idiopathic chronic gout of multiple sites without tophus Expected: 10/26/2024, Expires: 01/25/2025 [facility] Comment on above: Expected: 10/26/2024 , Expires: 01/25/2025 Start: 10-26-2024 End: 10-26-2024 ambulatory [facility] Start: 09-29-2024 End: 09-29-2024 Patient encounter procedure 09/29/2024 9:00 AM EDT Office Visit Vascular Surgery [address] [address] Dizziness [R42] -as ordered by Dr. Mccauley, this date per patient [facility] Comment on above: Dizziness [R42] -as ordered by Dr. Mccauley, this date per patient Start: 09-05-2024 End: 09-05-2024 Patient encounter procedure 09/05/2024 7:00 AM EDT Appointment Radiology [address] [place] [address] Dizziness [R42] -as ordered by Dr. Mccauley, this date per patient Radiology Comment on above: Dizziness [R42] -as ordered by Dr. Mccauley, this date per patient Start: 08-26-[address] Team [address] Roller Operator kisha Disease Visit Annual PCP Team Chronic Disease Visit [facility] Start: 08-26-2024 BP Controlled (<130/80) BP Controlle d (<130/80) [facility] Start: 08-26-2024 Covid-19 Vaccine () Covid-19 Vaccine () [facility] Comment on above: Postponed from 02/13 (Declined at this time) Start: 08-26-2024 Diabetic foot examination Diabetic Foot Exam [facility] Start: 08-24-2024 End: 08-24-2024 Patient encounter procedure 08/24/2024 8:40 AM EDT Office Visit [facility] [address] [facility] [place] [address] Frantz Mccauley MD [address] [place] [address] Yearly w/5 month follow-up [facility] Comment on above: Yearly w/5 month fol low-up Start: 08-21-2024 End: 11-20-2024 CBC panel - Blood by Automated count COMPLETE BLOOD COUNT Lab Routine Essential hypertension Expected: 08/21/2024, Expires: 11/20/2024 [facility] Comment on above: Expected: 08/21/2024 , Expires: 11/20/2024 Start: 08-21-2024 End: 11-20-2024 Comprehensive metabolic 2000 panel - Serum or Plasma COMPREHENSIVE METABOLIC PANEL Lab Routine Mixed hyperlipidemia Expected: 08/21/2024, Expires: 11/20/2024 [facility] Comment on above: Expected: 08/21/2024 , Expires: 11/20/2024 Start: 08-21-2024 End: 11-20-2024 Hemoglobin A1c in Blood HEMOGLOBIN A1C Lab Routine Controlled type 2 diabetes mellitus without complication, without long-term current use of insulin (HCC) Expected: 08/21/2024, Expires: 11/20/2024 [facility] Comment on above: Expected: 08/21/2024 , Expires: 11/20/2024 Start: 08-21-2024 Hepatitis B surface antibody level LDL Cholesterol [facility] Start: 08-21-2024 End: 11-20-2024 Lipid 1996 panel - Serum or Plasma LIPID PANEL BASIC Lab Routine Mixed hyperlipidemia Expected: 08/21/2024, Expires: 11/20/2024 [facility] Comment on above: Expected: 08/21/2024 , Expires: 11/20/2024 Start: 08-21-2024 End: 11-20-2024 Microalbumin/Creatinine [Mass Ratio] in Urine ALBUMIN/CREATININE RATIO, URINE Lab Routine Controlled type 2 diabetes mellitus without complication, without long-term current use of insulin (HCC) Expected: 08/21/2024, Expires: 11/20/2024 [facility] Comment on above: Expected: 08/21/2024 , Expires: 11/20/2024 Start: 08-21-2024 End: 11-20-2024 Thyrotropin [Units/volume] in Serum or Plasma THYROID STIMULATING HORMONE Lab Routine Hypothyroidism, unspecified type Expected: 08/21/2024, Expires: 11/20/2024 [facility] Comment on above: Expected: 08/21/2024 , Expires: 11/20/2024 Start: 06-15-2024 Advance Directive Discussion Advance Directive Discussion [facility] Start: 06-04-[address] Roller Operator kisha Disease Visit Annual PCP Team Chronic Disease Visit [facility] Start: 06-04-2024 Diabetic foot examination Diabetic Foot Exam [facility] Start: 06-03-2024 Hepatitis B screening Urine Al bumin:Creatinine Ratio [facility] Start: 05-22-2024 Hemoglobin A1c measurement HbA1C [facility] Start: 03-21-2024 End: 03-21-2024 Patient encounter procedure 03/21/2024 12:40 PM EDT Office Visit [facility] [address] [place] [address] Frantz Mccauley MD [address] [place] [address] 3 month follow up [facility] Comment on above: 3 month follow up Start: 03-15-2024 End: 06-14-2024 Basic metabolic 2000 panel - Serum or Plasma BASIC METABOLIC PANEL Lab Routine Controlled type 2 diabetes mellitus without complication, without long-term current use of insulin ([facility]) Expected: 03/15/2024, Expires: 06/14/2024 [facility] Comment on above: Expected: 03/15/2024 , Expires: 06/14/2024 Start: 03-15-2024 End: 06-14-2024 CBC panel - Blood by Automated count COMPLETE BLOOD COUNT Lab Routine Thrombocytopenia (HCC) Expected: 03/15/2024, Expires: 06/14/2024 [facility] Work Phone: Comment on above: Expected: 03/15/2024 , Expires: 06/14/2024 Start: 03-08-2024 End: 03-08-2024 Patient encounter procedure 03/08/2024 9:20 AM EDT Office Visit [facility] [address] [place] [address] Frantz Mccauley MD [address] [place] [address] 3 month follow up Internal [facility] Comment on above: 3 month follow up Start: 03-04-2024 End: 03-04-2024 Patient encounter procedure 03/04/2024 7:20 AM EDT Office Visit [facility] [address] [place] [address] Fatou Deluca, REFRACTORY SPECIALIST.ASSEMBLER MOLD[employer]AMES [address] [place] [address] 3 month follow up [facility] Comment on above: 3 month follow up Start: 02-22-2024 Hemoglobin A1c measurement HbA1C [facility] Start: 02-14-2024 Covid-19 Vaccine () Covid-19 Vaccine () [facility] Start: 02-14-2024 Covid-19 Vaccine () Covid-19 Vaccine () [facility] Start: 02-14-2024 Influenza vaccination Influenza Vacc ine (#1) [facility] Start: 01-25-2024 End: 02-08-2024 SARS-CoV-2 (COVID-19) RNA [Presence] in Respiratory specimen by JU with probe detection COVID NAAT, UPPER RESPIRATORY, ROUTINE Microbiology Routine URI, acute Expected: 01/25/2024, Expires: 02/08/2024 [facility] Work Phone: Comment on above: Expected: 01/25/2024 , Expires: 02/08/2024 Start: 12-16-2023 ANNUAL PCP TEAM GAS COMPRESSOR OPERATOR KISHA DISEASE VISIT ANNUAL PCP TEAM CHRONIC DISEASE VISIT [facility] Start: 12-16-2023 BP CONTROLLED (<130/80) BP CONTROLLE D (<130/80) [facility] Start: 12-13-2023 Hepatitis B surface antibody level LDL CHOLESTEROL [facility] Start: 12-03-2023 Hemoglobin A1c measurement HbA1C [facility] Start: 11-27-2023 End: 02-26-2024 Basic metabolic 2000 panel - Serum or Plasma BASIC METABOLIC PNL Lab Routine Controlled type 2 diabetes mellitus without complication, without long-term current use of insulin (HCC) Expected: 11/27/2023, Expires: 02/26/2024 [facility] Work Phone: Comment on above: Expected: 11/27/2023 , Expires: 02/26/2024 Start: 11-27-2023 End: 02-26-2024 CBC panel - Blood by Automated count CBC Lab Routine Essential hypertension Expected: 11/27/2023, Expires: 02/26/2024 [facility] Work Phone: Comment on above: Expected: 11/27/2023 , Expires: 02/26/2024 Start: 11-27-2023 End: 02-26-2024 Hemoglobin A1c in Blood HGB A1C Lab Routine Controlled type 2 diabetes mellitus without complication, without long-term current use of insulin (HCC) Expected: 11/27/2023, Expires: 02/26/2024 [facility] Work Phone: Comment on above: Expected: 11/27/2023 , Expires: 02/26/2024 Start: 11-27-2023 End: 02-26-2024 Urate [Mass/volume] in Serum or Plasma URIC ACID BLOOD Lab Routine Idiopathic chronic gout of multiple sites without tophus Expected: 11/27/2023, Expires: 02/26/2024 [facility] Work Phone: Comment on above: Expected: 11/27/2023 , Expires: 02/26/2024 Start: 11-06-2023 BP CONTROLLED (<130/80) BP CONTROLLE D (<130/80) [facility] Start: 10-04-2023 Glaucoma screening Dilated Retinal E xam [facility] Start: 10-04-2023 Hepatitis C antibody , confirmatory test DILATED RETINAL EXAM [facility] Start: 09-03-2023 End: 12-03-2023 CBC panel - Blood by Automated count CBC Lab Routine Essential hypertension Expected: 09/03/2023, Expires: 12/03/2023 [facility] Work Phone: Comment on above: Expected: 09/03/2023 , Expires: 12/03/2023 Start: 09-03-2023 End: 12-03-2023 Comprehensive metabolic 2000 panel - Serum or Plasma COMP METABOLIC PANEL Lab Routine Mixed hyperlipidemia Expected: 09/03/2023, Expires: 12/03/2023 [facility] Work Phone: Comment on above: Expected: 09/03/2023 , Expires: 12/03/2023 Start: 09-03-2023 End: 12-03-2023 Hemoglobin A1c in Blood HGB A1C Lab Routine Controlled type 2 diabetes mellitus without complication, without long-term current use of insulin (HCC) Expected: 09/03/2023, Expires: 12/03/2023 [facility] Work Phone: Comment on above: Expected: 09/03/2023 , Expires: 12/03/2023 Start: 09-03-2023 End: 12-03-2023 Lipid 1996 panel - Serum or Plasma LIPID PANEL BASIC Lab Routine Mixed hyperlipidemia Expected: 09/03/2023, Expires: 12/03/2023 [facility] Work Phone: Comment on above: Expected: 09/03/2023 , Expires: 12/03/2023 Start: 09-03-2023 End: 12-03-2023 Thyrotropin [Units/volume] in Serum or Plasma TSH BLD Lab Routine Hypothyroidism, unspecified type Expected: 09/03/2023, Expires: 12/03/2023 [facility] Work Phone: Comment on above: Expected: 09/03/2023 , Expires: 12/03/2023 Start: 06-15-2023 Advance Directive Discussion Advance Directive Discussion [facility] Start: 06-15-2023 Behavioral Health Screening Behavioral Health Screening [facility] Start: 06-15-2023 Depression Assessment Depression Ass essment [facility] Start: 06-13-2023 Hemoglobin A1c/Hemoglobin.total in Blood HBA1C [facility] Start: 04-04-2023 3 comp foot exam completed DIABETIC FOOT EXAM [facility] Start: 04-04-2023 ANNUAL PCP TEAM GAS COMPRESSOR OPERATOR KISHA DISEASE VISIT ANNUAL PCP TEAM CHRONIC DISEASE VISIT [facility] Start: 04-04-2023 BP CONTROLLED (<130/80) BP CONTROLLE D (<130/80) [facility] Start: 03-27-2023 Hepatitis B screening URINE AL BUMIN:CREATININE RATIO [facility] Start: 03-27-2023 Hepatitis B surface antibody level LDL CHOLESTEROL [facility] Start: 02-13-2023 Covid-19 Vaccine () Covid-19 Vaccine () [facility] Start: 02-13-2023 Influenza vaccination [facility] Start: 02-09-2023 Colonoscopy COLONOSCOPY [facility] Start: 02-09-2023 COLORECTAL CANCER SCREENING COLORECTAL CANCER SCREENING [facility] Start: 02-04-2023 PROSTATE CANCER SCREENING DISCUSSION PROSTATE CANCER SCREENING DISCUSSION [facility] Start: 12-05-2022 BP CONTROLLED (<130/80) BP CONTROLLE D (<130/80) [facility] Start: 10-28-2022 ANNUAL PCP TEAM GAS COMPRESSOR OPERATOR KISHA DISEASE VISIT ANNUAL PCP TEAM CHRONIC DISEASE VISIT [facility] Start: 10-24-2022 Hepatitis B surface antibody level LDL CHOLESTEROL [facility] Start: 09-25-2022 Hemoglobin A1c/Hemoglobin.total in Blood HBA1C [facility] Start: 08-05-2022 COVID-19 VACCINE (6 - Pfizer series) COVID-19 VACCINE (6 - Pfizer series) [facility] Start: 06-15-2022 ADVANCE DIRECTIVE DISCUSSION ADVANCE DIRECTIVE DISCUSSION [facility] Start: 06-15-2022 DEPRESSION ASSESSMENT DEPRESSION ASS ESSMENT [facility] Start: 05-08-2022 3 comp foot exam completed DIABETIC FOOT EXAM [facility] Start: 05-08-2022 ANNUAL PCP TEAM GAS COMPRESSOR OPERATOR KISHA DISEASE VISIT ANNUAL PCP TEAM CHRONIC DISEASE VISIT [facility] Start: 05-03-2022 Hepatitis B screening URINE AL BUMIN:CREATININE RATIO [facility] Start: 04-26-2022 Hemoglobin A1c/Hemoglobin.total in Blood HBA1C [facility] Start: 03-30-2022 End: 05-30-2022 ALBUMIN/CREAT RATIO RND UR ALBUMIN/CREAT RATIO RND UR Lab Routine Controlled type 2 diabetes mellitus without complication, without long-term current use of insulin (HCC) Expected: 03/30/2022 (Approximate), Expires: 05/30/2022 [facility] Work Phone: Comment on above: Expected: 03/30/2022 (Approximate), Expires: 05/30/2022 Start: 03-30-2022 End: 05-30-2022 Basic metabolic 2000 panel - Serum or Plasma BASIC METABOLIC PNL Lab Routine Controlled type 2 diabetes mellitus without complication, without long-term current use of insulin (HCC) Expected: 03/30/2022 (Approximate), Expires: 05/30/2022 [facility] Work Phone: Comment on above: Expected: 03/30/2022 (Approximate), Expires: 05/30/2022 Start: 03-30-2022 End: 05-30-2022 Hemoglobin A1c/Hemoglobin.total in Blood HGB A1C Lab Routine Controlled type 2 diabetes mellitus without complication, without long-term current use of insulin (HCC) Expected: 03/30/2022 (Approximate), Expires: 05/30/2022 [facility] Work Phone: Comment on above: Expected: 03/30/2022 (Approximate), Expires: 05/30/2022 Start: 03-30-2022 End: 05-30-2022 LIPID PANEL BASIC LIPID PANEL BASIC Lab Routine Mixed hyperlipidemia Expected: 03/30/2022 (Approximate), Expires: 05/30/2022 [facility] Work Phone: Comment on above: Expected: 03/30/2022 (Approximate), Expires: 05/30/2022 Start: 03-30-2022 End: 05-30-2022 PSA/PROSTSPECAG SCRN PSA/PROSTSPECAG SCRN Lab Routine Screening for prostate cancer Expected: 03/30/2022 (Approximate), Expires: 05/30/2022 [facility] Work Phone: Comment on above: Expected: 03/30/2022 (Approximate), Expires: 05/30/2022 Start: 03-28-2022 [facility] Work Phone: Start: 02-13-2022 Influenza vaccination INFLUENZA (#1) [facility] Start: 10-31-2021 Hemoglobin A1c/Hemoglobin.total in Blood HBA1C [facility] Start: 08-07-2021 Adult depression screening assessment DEPRESSION SCREENING [facility] Start: 08-02-2021 COVID-19 VACCINE (4 - Booster for Pfizer series) COVID-19 VACCINE (4 - Booster for Pfizer series) [facility] Start: 08-02-2021 Hepatitis B surface antibody level LDL CHOLESTEROL [facility] Start: 06-15-2021 ADVANCE DIRECTIVE DISCUSSION ADVANCE DIRECTIVE DISCUSSION [facility] Start: 02-05-2021 BP CONTROLLED (<130/80) BP CONTROLLE D (<130/80) [facility] Start: 02-05-2021 Pneumococcal Vaccine : 65+ (2 - PCV) Pneumococcal Vaccine: 65+ (2 - PCV) [facility] Start: 02-05-2021 Pneumococcal Vaccine : 65+ (2 of 2 - PCV) Pneumococcal Vaccine: 65+ (2 of 2 - PCV) [facility] Start: 02-05-2021 PNEUMOCOCCAL: 65+ (2 - PCV) PNEUMOCOCCAL: 65+ (2 - PCV) [facility] Start: 2014 Hepatitis B Vaccine (1 of 3 - Risk 3-dose series) Hepatitis B Vaccine (1 of 3 - Risk 3-dose series) [facility] Start: 2014 RSV Vaccine (1 - 1-d ose 60+ series) RSV Vaccine (1 - 1-dose 60+ series) [facility] Start: 12-03-1999 COLOGUARD (FIT-DNA) COLOGUARD (FIT-D NA) [facility] Start: 12-03-[address] COLONOGRAPHY [facility] Start: 12-03-1999 FECAL OCCULT BLOOD FECAL OCCULT BLOO D [facility] Start: 12-03-1999 Screening for malign ant neoplasm of colon [facility] Start: 12-03-1999 SIGMOIDOSCOPY SIGMOIDOSCOPY [facility] Start: 1972 Anxiety Screening Anxiety Screening [facility] Start: 1972 Depression Screening Depression Scre ening [facility] Start: 1964 Hepatitis C antibody , confirmatory test DILATED RETINAL EXAM [facility] Hemoglobin A1c/Hemoglobin.total in Blood HEMOGLOBIN A1C (POC) Lab Routine Controlled type 2 diabetes mellitus without complication, without long-term current use of insulin (HCC) Ordered: 03/23/2024 [facility] Work Phone: Comment on above: Ordered: 03/23/2024 NM CARDIAC PERF STRESS/EXERCISE NM CARDIAC PERF STRESS/EXERCISE Radiology Routine Chest pain, unspecified type 05/01/2022 10:52 AM EST [facility] Work Phone: Patient Education Chest Pain [facility] [facility] Work Phone: End: 12-16-2023 Screening colonoscopy COLONOSCOPY SCREENING Endoscopy Routine Special screening for malignant neoplasms, colon 1 Occurrences starting 12/15/2022 until 12/16/2023 [facility] Work Phone: Comment on above: 1 Occurrences starti ng 12/15/2022 until 12/16/2023 End: 09-23-2025 US Carotid arteries - bilateral US CAROTID BILATERAL Radiology Routine Dizziness 1 Occurrences starting 08/24/2024 until 09/23/2025 [facility] Work Phone: Comment on above: 1 Occurrences starti ng 08/24/2024 until 09/23/2025 End: 08-29-2025 US Carotid arteries - bilateral US CAROTID ARTERIES [facility] Routine Dizziness 1 Occurrences starting 08/29/2024 until 08/29/2025 [facility] Work Phone: Comment on above: 1 Occurrences starti ng 08/29/2024 until 08/29/2025 [facility] Immunizations Immunization Date Immunization Notes Care Provider [facility] 03-23-2024 influenza, high dose seasonal, preservative-free Frantz Mccauley MD Work Phone: [facility] 03-23-2024 influenza virus vaccine, unspecified formulation Frantz Mccauley MD Work Phone: [facility] 08-27-2023 pneumococcal conjuga te (PCV20) vaccine, 20 valent (PREVNAR 20) Frantz Mccauley MD Work Phone: [facility] 08-27-2023 respiratory syncytia l virus (RSV) vaccine, bivalent (ABRYSVO) Frantz Mccauley MD Work Phone: [facility] 08-27-2023 pneumococcal Conjuga te, unspecified formulation Frantz Mccauley MD Work Phone: [facility] Work Phone: 06-04-2023 influenza (HD-IIV4) vaccine, age 65+ yr, high dose, quadrivalent, PF (FLUZONE HIGH-DOSE) Frantz Mccauley MD Work Phone: [facility] 06-04-2023 influenza virus vaccine, unspecified formulation Fatou Rodrigo REFRACTORY SPECIALIST.ASSEMBLER [employer] Work Phone: [facility] 04-04-2022 COVID-19 booster vaccine, age 12+ yr, bivalent (PFIZER-BIONTECH) Paola Singletary RN [facility] 04-04-2022 influenza, high-dose , quadrivalent vaccine (FLUZONE HIGH DOSE QUADRIVALENT) Paola Singletary RN [facility] 04-04-2022 influenza virus vaccine, unspecified formulation Frantz Mccauley MD Work Phone: [facility] 10-28-2021 COVID-19 vaccine, ag e 12+ yr (PFIZER-BIONTECH - RUSSELL TOP) Frantz Mccauley MD Work Phone: [facility] Work Phone: 05-08-2021 influenza, high-dose , quadrivalent vaccine (FLUZONE HIGH DOSE QUADRIVALENT) Fatou Older REFRACTORY SPECIALIST.ASSEMBLER [employer]AMES Work Phone: [facility] Work Phone: 04-01-2021 COVID-19 vaccine, ag e 12+ yr (PFIZER-BIONTECH - PURPLE TOP) Fatou Older REFRACTORY SPECIALIST.ASSEMBLER [employer]AMES Work Phone: [facility] Work Phone: 11-26-2020 tetanus and diphther ia toxoids, adsorbed, preservative free, for adult use (5 Lf of tetanus toxoid and 2 Lf of diphtheria toxoid) Fatou Older REFRACTORY SPECIALIST.ASSEMBLER [employer] Work Phone: [facility] Work Phone: 09-19-2020 COVID-19 vaccine, ag e 12+ yr (PFIZER-BIONTECH - PURPLE TOP) Fatou Older REFRACTORY SPECIALIST.ASSEMBLER [employer]AMES Work Phone: [facility] Work Phone: 08-09-2020 COVID-19 vaccine, ag e 12+ yr (PFIZER-BIONTECH - PURPLE TOP) Fatou Older REFRACTORY SPECIALIST.ASSEMBLER [employer] Work Phone: [facility] Work Phone: 06-13-2020 zoster vaccine recombinant Fatou Older REFRACTORY SPECIALIST.ASSEMBLER [employer] Work Phone: [facility] Work Phone: 03-22-2020 influenza, high dose seasonal, preservative-free Fatou Older REFRACTORY SPECIALIST.ASSEMBLER [employer] Work Phone: [facility] Work Phone: 02-06-2020 pneumococcal polysaccharide vaccine, 23 valent Fatou Older REFRACTORY SPECIALIST.ASSEMBLER [employer] Work Phone: [facility] 02-06-2020 zoster vaccine recombinant Fatou Older REFRACTORY SPECIALIST.ASSEMBLER [employer] Work Phone: [facility] 03-31-2019 influenza, injectabl e, quadrivalent, contains preservative Fatou Older REFRACTORY SPECIALIST.ASSEMBLER [employer] Work Phone: [facility] Work Phone: 06-22-2017 influenza, injectabl e, quadrivalent, contains preservative Fatou Older REFRACTORY SPECIALIST.ASSEMBLER [employer] Work Phone: [facility] 02-23-2017 zoster vaccine, live Fatou Old er REFRACTORY SPECIALIST.ASSEMBLER [employer] Work Phone: [facility] 05-07-2016 influenza, injectabl e, quadrivalent, contains preservative Fatou Older REFRACTORY SPECIALIST.ASSEMBLER [employer] Work Phone: [facility] 05-02-2014 influenza, seasonal, injectable Fatou Older REFRACTORY SPECIALIST.ASSEMBLER [employer] Work Phone: [facility] 06-28-2013 influenza virus vaccine, unspecified formulation Fatou Older REFRACTORY SPECIALIST.ASSEMBLER MOLDED FRAMES Work Phone: [facility] 05-13-2012 influenza virus vaccine, unspecified formulation Fatou Older REFRACTORY SPECIALIST.ASSEMBLER MOLDED FRAMES Work Phone: [facility] 04-17-2010 influenza virus vaccine, unspecified formulation Fatou Older REFRACTORY SPECIALIST.ASSEMBLER MOLDED FRAMES Work Phone: [facility] 07-30-2009 tetanus toxoid, redu onur diphtheria toxoid, and acellular pertussis vaccine, adsorbed Fatou Older REFRACTORY SPECIALIST.ASSEMBLER MOLDED FRAMES Work Phone: [facility] Work Phone: 03-09-2009 influenza virus vaccine, unspecified formulation Fatou Older REFRACTORY SPECIALIST.ASSEMBLER MOLDED FRAMES Work Phone: [facility] Work Phone: 06-12-1998 diphtheria and tetan us toxoids, adsorbed for pediatric use Fatou Older REFRACTORY SPECIALIST.ASSEMBLER MOLDED FRAMES Work Phone: [facility] Work Phone: Payers Date Payer Category Payer Self-pay [id number] 2012 [employer] Blue [employer] BLUE ACCE PPO [id number] 2012 Unknown RAQUEL BLUE ACCE [facility] [id number] 2012-Present [phone] [id number] 2012 Unknown ANTHMARTHA BLUE ACCE [facility] [id number] 2012-Present [phone] [id number] 2012 Unknown [id number] 1955 Unknown [id number] 1955 Unknown [id number] Self-pay 123 Unknown [id number] Unknown [id number] Unknown [id number] Unknown [id number] Social History Date Type Detail Facility Start: 07-25-2016 End: 11-05-2022 Tobacco smoking status NHIS Never smoked tobacco [facility] Start: 11-26-2020 End: 10-05-2024 Alcohol intake Current drinker of alcohol (finding) [facility] Start: 11-26-2020 End: 11-05-2022 Alcohol intake [facility] Start: 02-06-2020 End: 12-09-2022 History SDOH Alcohol Frequency 5 [facility] Start: 02-06-2020 End: 12-09-2022 History SDOH Alcohol Std Drinks 2 [facility] Start: 02-06-2020 End: 05-03-2021 History SDOH Alcohol Binge 1 [facility] Start: 02-06-2020 End: 12-09-2022 History SDOH Social Connections Phone 3 [facility] Start: 02-06-2020 End: 12-09-2022 History SDOH Physical Activity DPW 0 [facility] Start: 02-05-2020 Education 17 [facility] Start: 1955 Sex Assigned At Male [facility] Start: 10-18-2021 End: 05-01-2022 Exposure to SARS-CoV-2 (event) Not sure [facility] Work Phone: Start: 03-28-2022 Tobacco smoking status NHIS Unknown if ever smoked [facility] Work Phone: Start: 08-26-2020 Occasional [facility] Work Phone: Start: 08-26-2020 None [facility] Work Phone: Start: 08-26-2020 With Family [facility] Work Phone: Start: 07-25-2016 End: 11-05-2022 Tobacco use and exposure Smokeless tobacco non-user [facility] Start: 12-09-2022 History SDOH Alcohol Frequency 4 [facility] Start: 12-09-2022 History SDOH Social Connections Phone 98 [facility] Start: 11-05-2022 End: 12-09-2022 Social connection and isolation panel [facility] In a typical week, h ow many times do you talk on the telephone with family, friends, or neighbors? Patient refused [facility] Do you belong to any clubs or organizations such as oriental orthodox groups, unions, fraternal or athletic groups, or school groups? No [facility] Are you now , , , , never or living with a partner? [facility] How often to you hav e a drink containing alcohol? 2-3 time sa week [facility] How many standard dr inks containing alcohol do you have on a typical day? 1 or 2 [facility] How often do you hav e 6 or more drinks on 1 occasion? Less than monthly [facility] Do you feel stress - tense, restless, nervous, or anxious, or unable to sleep at night because your mind is troubled all the time - these days [OSQ] Not at all [facility] (I/We) worried wheth er (my/our) food would run out before (I/we) got money to buy more. Never true [facility] Start: 03-20-2019 Gender identity Identifies as male gender (finding) [facility] Start: 03-20-2019 Sexual orientation Heterosexual (finding) [facility] How often to you hav e a drink containing alcohol? 2-4 times a month [facility] Work Phone: How often do you hav e 6 or more drinks on 1 occasion? Never [facility] Work Phone: Do you feel stress - tense, restless, nervous, or anxious, or unable to sleep at night because your mind is troubled all the time - these days [OSQ] To some extent [facility] Start: 08-24-2024 Alcohol Comment 2-4x per month [facility] Medical Equipment Procedure Code Equipment Code Equipment Origin al Text Equipment Identifier Dates Use with blood glucose test once daily [id number] Start: 08-08-2024 Functional Status Date Assessment Result Facility 09-18-2014 Are you deaf, or do you have serious difficulty hearing No 09/18/2014 7:59 AM Yessy Garcia RN No [facility] 09-18-2014 Are you blind, or do you have serious difficulty seeing, even when wearing glasses No 09/18/2014 7:59 AM Yessy Garcia, RN No [facility] 09-18-2014 Do you have serious difficulty walking or climbing stairs No 09/18/2014 7:59 AM Yessy Garcia RN No [facility] 09-18-2014 Do you have difficul ty dressing or bathing No 09/18/2014 7:59 AM Yessy Garcia, NUBIA No [facility] 09-18-2014 Because of a physica l, mental, or emotional condition, do you have difficulty doing errands alone such as visiting a physician's office or shopping No 09/18/2014 7:59 AM RAISSAT Yessy Caraballo RN No [facility] Mental Status Date Assessment Result Facility 03-28-2022 Cognitive function Level Of Cons ciousness Awake;Alert;Appropriate [facility] Work Phone: 09-18-2014 Because of a physica l, mental, or emotional condition, do you have serious difficulty concentrating, remembering, or making decisions No 09/18/2014 7:59 AM EDT Yessy Caraballo RN No [facility] Clinical Notes 08-26-2020 to 12-14-2024 Telephone Encounter - Kim Grady MA - 12/14/2024 2:25 PM EDTTelephone Encounter - Kim Grady MA - 12/14/2024 2:25 PM EDTTelephone Encounter - Isabel Cruz - 12/14/2024 12:49 PM EDT Note Date & Type Note Facility 12-14-2024 Telephone encounter Note Patient has been identified by name and date of : Patient phones for refill(s): Requested Prescriptions Pending Prescriptions Disp Refills empagliflozin (JARDIANCE) 10 mg tablet 90 tablet 3 Sig: Take 1 tablet by mouth once daily. Take 1 tablet once daily in the morning Date of last office visit in primary care:10/05/24 Date of next office visit in primary care: 02/28/25 Please advise. Thank you. Kim Grady MA. [facility] 12-14-2024 Miscellaneous Notes Patient has been identified by name and date of : Patient phones for refill(s): Requested Prescriptions Pending Prescriptions Disp Refills empagliflozin (JARDIANCE) 10 mg tablet 90 tablet 3 Sig: Take 1 tablet by mouth once daily. Take 1 tablet once daily in the morning Date of last office visit in primary care:10/05/24 Date of next office visit in primary care: 02/28/25 Please advise. Thank you. Kim Grady MA. Prescription Refill Information Pt states he is switching to [facility] and is leaving for vacation Sat asking for refill now The patient has been identified by name and date of : Yes Caregiver verified no other encounters exist for this prescription request: Yes Caregiver confirmed with patient/requestor that no other refills are due, in the near future, with this provider at this time: Yes The last office visit in the department: 10/05/24 Does the patient have a future office visit with this provider/department: Yes Requested Prescriptions Pending Prescriptions Disp Refills empagliflozin (JARDIANCE) 10 mg tablet 90 tablet 3 Sig: Take 1 tablet by mouth once daily. Take 1 tablet once daily in the morning Isabel Cruz December 14, 2024 12:50 PM documented in this encounter [facility] 12-14-2024 Telephone encounter Note Prescription Refill Information Pt states he is switching to [facility] and is leaving for vacation Sat asking for refill now The patient has been identified by name and date of : Yes Caregiver verified no other encounters exist for this prescription request: Yes Caregiver confirmed with patient/requestor that no other refills are due, in the near future, with this provider at this time: Yes The last office visit in the department: 10/05/24 Does the patient have a future office visit with this provider/department: Yes Requested Prescriptions Pending Prescriptions Disp Refills empagliflozin (JARDIANCE) 10 mg tablet 90 tablet 3 Sig: Take 1 tablet by mouth once daily. Take 1 tablet once daily in the morning Isabel Cruz December 14, 2024 12:50 PM [facility] 10-05-2024 Instructions Fatou Deluca APRN.CNP - 10/05/2024 7:56 AM EDT We discussed your diabetes and weight management: - Your last A1c was 5.5, which is well-controlled. - You are currently on Ozempic 1 mg weekly, which is effectively managing your diabetes. However, this dose is not typically used for weight loss. If weight loss is a primary goal, we could consider increasing the dose, but this may increase side effects. Let me know if you would like to discuss this further. - You mentioned using Noom in the past to track your food intake. I encourage you to resume tracking your meals and making healthier choices, as this can support weight management. Avoid overly restrictive diets, as they are difficult to maintain long-term. Focus on balanced nutrition, including healthy sources of carbohydrates. documented in this encounter [facility] 10-05-2024 Note HNO ID: [id number] Author: FATOU DELUCA APRN.CNP Service: ? Author Type: Nurse Practitioner Type: Progress Notes Filed: 10/05/2024 08:42 Note Text: CC: Patient presents with: Follow Up HPI Recording using ambient BoostUp software for draft documentation of the visit was discussed with the patient/authorized outbound sales representative; all questions welcomed and answered. 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 TSH was elevated in July he was asymptotic and taking levothyroxine consistently on an empty stomach therefore no medication changes were made. 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 He denies experiencing fatigue or weight gain. Law is also taking Ozempic 1 mg for diabetes management and reports a decreased appetite since starting the medication. He notes that he has not experienced significant weight loss and maintains a weight of 229 lbs. He has reduced his alcohol consumption and reports feeling better as a result. His last HbA1c was 5.5% in July. He has no complications associated with diabetes. Review of Systems See HPI PAST MEDICAL HISTORY Diagnosis Date Abnormal tilt table test 08/07/2011 Acute respiratory failure with hypoxia (HCC) 08/26/2020 Adjustment disorder with mixed anxiety and depressed mood 03/07/2013 Bradycardia CAD (coronary atherosclerotic disease) 02/25/2024 elective cardiac cath Depression 07/29/2010 Diverticulosis of colon (without mention of hemorrhage) Dysmetabolic syndrome X 02/13/2007 Goiter 07/29/2010 Gout 11/13/2009 Hypertension Hypothyroid 07/29/2010 Impotence of organic origin 03/14/2005 Irritability and anger 07/05/2014 Mixed hyperlipidemia 11/11/2005 MRSA (methicillin resistant staph aureus) culture positive 06/18/2010 Myalgia 10/13/2006 Obesity (BMI 35.0-39.9 without comorbidity) 07/25/2016 Orthostatic hypotension 06/21/2010 RADHA on CPAP 07/29/2010 Pneumonia due to COVID-19 virus 08/26/[address] Dr[address] Dc PVC's (premature ventricular contractions) Seeing Dr. Green Syncope 06/18/2010 Thrombocytopenia 05/13/2012 Vagal autonomic bradycardia 08/07/2011 PAST SURGICAL HISTORY Procedure Laterality Date COLONOSCOPY 02/11/2023 repeat in 10 years COLONOSCOPY FLX DX W/COLLJ SPEC WHEN PFRMD 05/12/2005 Colonoscopy COLONOSCOPY FLX DX W/COLLJ SPEC WHEN PFRMD 02/09/2013 Colonoscopy FINE NEEDLE ASP DEEP 04/23/2005 U/S FNA right lobe thyroid LEFT HEART CATH,PERCUTANEOUS 02/25/2024 LAD disease, medical management ALLERGIES Patient has no known allergies. MEDICATIONS levothyroxine (SYNTHROID) 100 mcg tablet Take 1 tablet by mouth once daily. Take on empty stomach allopurinol (ZYLOPRIM) 300 mg tablet Take 1 tablet by mouth once daily. blood sugar diagnostic (BLOOD GLUCOSE TEST) test strip Use with blood glucose test once daily semaglutide (OZEMPIC) 1 mg/dose (4 mg/3 mL) pen Inject 1 mg subcutaneously one time a week. losartan (COZAAR) 25 mg tablet Take 1 tablet by mouth once daily. atorvastatin (LIPITOR) 40 mg tablet Take 1 tablet by mouth daily at bedtime. For cholesterol. amLODIPine (NORVASC) 5 mg tablet Take 1 tablet by mouth once daily. empagliflozin (JARDIANCE) 10 mg tablet Take 1 tablet by mouth once daily. Take 1 tablet once daily in the morning Blood-Glucose Meter monitoring kit Glucose Meter of Choice - Kit - Dx: Type 2 DM - Controlled E11.9 FAMILY HISTORY Problem Relation Age of Onset Osteoporosis Mother other (thyroid problems) Mother Dementia Mother Cancer Father 50 non hodgkins Stroke Father Heart disease Father valvular heart disease. None Brother Cancer Maternal Grandmother Cancer Maternal Grandfather Social History Tobacco Use Smoking status: Never Smokeless tobacco: Never Vaping Use Vaping status: Never Used Substance Use Topics Alcohol use: Yes Alcohol/week: 2.0 standard drinks of alcohol Types: 2 Standard drinks or equivalent per week Comment: 2-4x per month Drug use: No BP 120/78 Pulse 74 Resp 14 Wt 104.2 kg (229 lb 11.5 oz) SpO2 98% BMI 35.71 kg/m? Physical Exam Vitals reviewed. Constitutional: Appearance: Normal appearance. Neurological: Mental Status: He is alert. DATA REVIEWED: Most recent labs Latest Ref Rng 07/27/2024 Hemoglobin A1C 4.3 - 5.6 % 5.5 Estimated Average Glucose mg/dL 111 TSH 0.270 - 4.200 mIU/L 9.340 (H) Legend: (H) High Assessment/Plan 1. Controlled type 2 diabetes mellitus without complication, without long-term current use of insulin (HCC) (E11.9) Well controlled HbA1c was 5.5% a couple of months ago. Currently managed with Ozempic 1 mg, which is effective for glycemic control but (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 [facility] 10-05-2024 History of Presen t illness Narrative CC: Patient presents with: Follow Up HPI Recording using Scint-X software for draft documentation of the visit was discussed with the patient/authorized outbound sales representative; all questions welcomed and answered. 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 TSH was elevated in July he was asymptotic and taking levothyroxine consistently on an empty stomach therefore no medication changes were made. 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 He denies experiencing fatigue or weight gain. Law is also taking Ozempic 1 mg for diabetes management and reports a decreased appetite since starting the medication. He notes that he has not experienced significant weight loss and maintains a weight of 229 lbs. He has reduced his alcohol consumption and reports feeling better as a result. His last HbA1c was 5.5% in July. He has no complications associated with diabetes. Review of Systems See HPI PAST MEDICAL HISTORY Diagnosis Date Abnormal tilt table test 08/07/2011 Acute respiratory failure with hypoxia (HCC) 08/26/2020 Adjustment disorder with mixed anxiety and depressed mood 03/07/2013 Bradycardia CAD (coronary atherosclerotic disease) 02/25/2024 elective cardiac cath Depression 07/29/2010 Diverticulosis of colon (without mention of hemorrhage) Dysmetabolic syndrome X 02/13/2007 Goiter 07/29/2010 Gout 11/13/2009 Hypertension Hypothyroid 07/29/2010 Impotence of organic origin 03/14/2005 Irritability and anger 07/05/2014 Mixed hyperlipidemia 11/11/2005 MRSA (methicillin resistant staph aureus) culture positive 06/18/2010 Myalgia 10/13/2006 Obesity (BMI 35.0-39.9 without comorbidity) 07/25/2016 Orthostatic hypotension 06/21/2010 RADHA on CPAP 07/29/2010 Pneumonia due to COVID-19 virus 08/26/[address] Dr. Dc PVC's (premature ventricular contractions) Seeing Dr. Green Syncope 06/18/2010 Thrombocytopenia 05/13/2012 Vagal autonomic bradycardia 08/07/2011 PAST SURGICAL HISTORY Procedure Laterality Date COLONOSCOPY 02/11/2023 repeat in 10 years COLONOSCOPY FLX DX W/COLLJ SPEC WHEN PFRMD 05/12/2005 Colonoscopy COLONOSCOPY FLX DX W/COLLJ SPEC WHEN PFRMD 02/09/2013 Colonoscopy FINE NEEDLE ASP DEEP 04/23/2005 U/S FNA right lobe thyroid LEFT HEART CATH,PERCUTANEOUS 02/25/2024 LAD disease, medical management ALLERGIES Patient has no known allergies. MEDICATIONS levothyroxine (SYNTHROID) 100 mcg tablet Take 1 tablet by mouth once daily. Take on empty stomach allopurinol (ZYLOPRIM) 300 mg tablet Take 1 tablet by mouth once daily. blood sugar diagnostic (BLOOD GLUCOSE TEST) test strip Use with blood glucose test once daily semaglutide (OZEMPIC) 1 mg/dose (4 mg/3 mL) pen Inject 1 mg subcutaneously one time a week. losartan (COZAAR) 25 mg tablet Take 1 tablet by mouth once daily. atorvastatin (LIPITOR) 40 mg tablet Take 1 tablet by mouth daily at bedtime. For cholesterol. amLODIPine (NORVASC) 5 mg tablet Take 1 tablet by mouth once daily. empagliflozin (JARDIANCE) 10 mg tablet Take 1 tablet by mouth once daily. Take 1 tablet once daily in the morning Blood-Glucose Meter monitoring kit Glucose Meter of Choice - Kit - Dx: Type 2 DM - Controlled E11.9 FAMILY HISTORY Problem Relation Age of Onset Osteoporosis Mother other (thyroid problems) Mother Dementia Mother Cancer Father 50 non hodgkins Stroke Father Heart disease Father valvular heart disease. None Brother Cancer Maternal Grandmother Cancer Maternal Grandfather Social History Tobacco Use Smoking status: Never Smokeless tobacco: Never Vaping Use Vaping status: Never Used Substance Use Topics Alcohol use: Yes Alcohol/week: 2.0 standard drinks of alcohol Types: 2 Standard drinks or equivalent per week Comment: 2-4x per month Drug use: No BP 120/78 Pulse 74 Resp 14 Wt 104.2 kg (229 lb 11.5 oz) SpO2 98% BMI 35.71 kg/m Physical Exam Vitals reviewed. Constitutional: Appearance: Normal appearance. Neurological: Mental Status: He is alert. DATA REVIEWED: Most recent labs Latest Ref Rng 07/27/2024 Hemoglobin A1C 4.3 - 5.6 % 5.5 Estimated Average Glucose mg/dL 111 TSH 0.270 - 4.200 mIU/L 9.340 (H) Legend: (H) High Assessment/Plan 1. Controlled type 2 diabetes mellitus without complication, without long-term current use of insulin (HCC) (E11.9) Well controlled HbA1c was 5.5% a couple of months ago. Currently managed with Ozempic 1 mg, which is effective for glycemic control but not at a weight loss dose. - Continue Ozempic 1 mg. - Discussed potential for increasing Ozempic dose for weight loss, but patient is experiencing side effects. 2. Hypothyroidism, unspecified type (E03.9) TSH levels previously elevated at 9. Patient is taking levothyroxine 100 mcg daily on an empty stomach - Ordered TSH lab to be done today. - Reinforced the importance of waiting at least one hour before eating after taking levothyroxine. 3. Obesity (BMI 35.0-39.9 without comorbidity) (E66.9) Patient's weight remains stable at 229 lbs. Current Ozempic dose is not optimal for weight loss. - Discussed dietary modifications and the importance of tracking food intake. - Recommended resuming use of Noom for dietary tracking. Prescription instructions reviewed with patient as applicable. Potential red flag symptoms discussed with the patient. Reviewed appropriate action plan to take if red flag symptoms occur. Patient agreeable to treatment plan. Fatou Deluca APRN.ASSEMBLER MOLDED FRAMES documented in this encounter [facility] 08-29-2024 Telephone encounter Note ASSESSMENT/PLAN: 1. Dizziness - ICD9: 780.4, ICD10: R42 - US CAROTID [facility] Frantz Mccauley MD [facility] 08-29-2024 Miscellaneous Notes ASSESSMENT/PLAN: 1. Dizziness - ICD9: 780.4, ICD10: R42 - US CAROTID [facility] Frantz Mccauley MD Patient was scheduled in Radiology for Carotid US. [facility] does not perform Carotids. Please place Vascular Carotid Order. Patient is rescheduled to [place] because [facility] is out to October. Please advise MELANIE Lazo documented in this encounter [facility] 08-29-2024 Telephone encounter Note Patient was scheduled in Radiology for Carotid US. [facility] does not perform Carotids. Please place Vascular Carotid Order. Patient is rescheduled to [place] because [facility] is out to October. Please advise MELANIE Lazo [facility] 08-24-2024 Note HNO ID: [id number] Author: FRANTZ MCCAULEY MD Service: ? Author Type: Physician Type: Progress Notes Filed: 08/24/2024 10:35 Note Text: This note was created using [employer] Operating System[employer]. Subjective Patient presents with: Yearly Exam 5 month follow-up Law Olivo is a 68 year old male. He was in the ER for acute dizziness and near syncope 3 weeks ago. He was assessed to be dehydrated, and improved with IV hydration. Labs and EKG were unremarkable. He had residual symptoms for several days after and this was still concerning him for his risk of stroke. He followed regularly with cardiology. His diabetes mellitus, hypertension, and lipids were controlled. He was using his CPAP nightly with good result. We revisited an abnormal tilt table test he had done back in 2010. He had chronic low grade anxiety for which he stopped medication 2 years ago with no progression. He had a skin tag on his right proximal medial thigh that was getting caught in his clothing. He sees Dr. Rodriguez for cardiology and Dr. Hope for optometry. He had a dilated eye exam last month, and was being referred to [facility] for a more thorough evaluation. He gets CPAP supplies locally from [facility]. He wears hearing aids. Review of Systems Constitutional: Negative for diaphoresis, fatigue, fever and unexpected weight change. HENT: Negative for congestion. Eyes: Negative for visual disturbance. Respiratory: Negative for cough, shortness of breath and wheezing. Cardiovascular: Negative for chest pain, palpitations and leg swelling. Gastrointestinal: Negative for abdominal pain, diarrhea, nausea and vomiting. Genitourinary: Negative for difficulty urinating and dysuria. Musculoskeletal: Negative for arthralgias. Neurological: Negative for dizziness, syncope, facial asymmetry, weakness, light-headedness, numbness and headaches. Psychiatric/Behavioral: Negative for sleep disturbance. The patient is nervous/anxious. PAST MEDICAL HISTORY Diagnosis Date Abnormal tilt table test 08/07/2011 Acute respiratory failure with hypoxia (HCC) 08/26/2020 Adjustment disorder with mixed anxiety and depressed mood 03/07/2013 Bradycardia CAD (coronary atherosclerotic disease) 02/25/2024 elective cardiac cath Depression 07/29/2010 Diverticulosis of colon (without mention of hemorrhage) Dysmetabolic syndrome X 02/13/2007 Goiter 07/29/2010 Gout 11/13/2009 Hypertension Hypothyroid 07/29/2010 Impotence of organic origin 03/14/2005 Irritability and anger 07/05/2014 Mixed hyperlipidemia 11/11/2005 MRSA (methicillin resistant staph aureus) culture positive 06/18/2010 Myalgia 10/13/2006 Obesity (BMI 35.0-39.9 without comorbidity) 07/25/2016 Orthostatic hypotension 06/21/2010 RADHA on CPAP 07/29/2010 Pneumonia due to COVID-19 virus 08/26/[address] Dc PVC's (premature ventricular contractions) Seeing Dr. Green Syncope 06/18/2010 Thrombocytopenia (HCC) 05/13/2012 Vagal autonomic bradycardia 08/07/2011 PAST SURGICAL HISTORY Procedure Laterality Date COLONOSCOPY 02/11/2023 repeat in 10 years COLONOSCOPY FLX DX W/COLLJ SPEC WHEN PFRMD 05/12/2005 Colonoscopy COLONOSCOPY FLX DX W/COLLJ SPEC WHEN PFRMD 02/09/2013 Colonoscopy FINE NEEDLE ASP DEEP 04/23/2005 U/S FNA right lobe thyroid LEFT HEART CATH,PERCUTANEOUS 02/25/2024 LAD disease, medical management FAMILY HISTORY Problem Relation Age of Onset Osteoporosis Mother other (thyroid problems) Mother Dementia Mother Cancer Father 50 non hodgkins Stroke Father Heart disease Father valvular heart disease. None Brother Cancer Maternal Grandmother Cancer Maternal Grandfather Social History Tobacco Use Smoking status: Never Smokeless tobacco: Never Vaping Use Vaping status: Never Used Substance Use Topics Alcohol use: Yes Alcohol/week: 2.0 standard drinks of alcohol Types: 2 Standard drinks or equivalent per week Comment: 2-4x per month Drug use: No Current Outpatient Medications Medication Sig levothyroxine (SYNTHROID) 100 mcg tablet Take 1 tablet by mouth once daily. Take on empty stomach allopurinol (ZYLOPRIM) 300 mg tablet Take 1 tablet by mouth once daily. Blood-Glucose Meter monitoring kit Glucose Meter of Choice - Kit - Dx: Type 2 DM - Controlled E11.9 blood sugar diagnostic (BLOOD GLUCOSE TEST) test strip Use with blood glucose test once daily semaglutide (OZEMPIC) 1 mg/dose (4 mg/3 mL) pen Inject 1 mg subcutaneously one time a week. losartan (COZAAR) 25 mg tablet Take 1 tablet by mouth once daily. atorvastatin (LIPITOR) 40 mg tablet Take 1 tablet by mouth daily at bedtime. For cholesterol. amLODIPine (NORVASC) 5 mg tablet Take 1 tablet by mouth once daily. empagliflozin (JARDIANCE) 10 mg tablet Take 1 tablet by mouth once daily. Take 1 tablet once daily in the morning No current facility-administered medications for this visit. Objec (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 [facility] 08-24-2024 History of Presen t illness Narrative This note was created using Pruffi. Subjective Patient presents with: Yearly Exam 5 month follow-up Law Olivo is a 68 year old male. He was in the ER for acute dizziness and near syncope 3 weeks ago. He was assessed to be dehydrated, and improved with IV hydration. Labs and EKG were unremarkable. He had residual symptoms for several days after and this was still concerning him for his risk of stroke. He followed regularly with cardiology. His diabetes mellitus, hypertension, and lipids were controlled. He was using his CPAP nightly with good result. We revisited an abnormal tilt table test he had done back in 2010. He had chronic low grade anxiety for which he stopped medication 2 years ago with no progression. He had a skin tag on his right proximal medial thigh that was getting caught in his clothing. He sees Dr. Rodriguez for cardiology and Dr. Hope for optometry. He had a dilated eye exam last month, and was being referred to [facility] for a more thorough evaluation. He gets CPAP supplies locally from [employer]. He wears hearing aids. Review of Systems Constitutional: Negative for diaphoresis, fatigue, fever and unexpected weight change. HENT: Negative for congestion. Eyes: Negative for visual disturbance. Respiratory: Negative for cough, shortness of breath and wheezing. Cardiovascular: Negative for chest pain, palpitations and leg swelling. Gastrointestinal: Negative for abdominal pain, diarrhea, nausea and vomiting. Genitourinary: Negative for difficulty urinating and dysuria. Musculoskeletal: Negative for arthralgias. Neurological: Negative for dizziness, syncope, facial asymmetry, weakness, light-headedness, numbness and headaches. Psychiatric/Behavioral: Negative for sleep disturbance. The patient is nervous/anxious. PAST MEDICAL HISTORY Diagnosis Date Abnormal tilt table test 08/07/2011 Acute respiratory failure with hypoxia (HCC) 08/26/2020 Adjustment disorder with mixed anxiety and depressed mood 03/07/2013 Bradycardia CAD (coronary atherosclerotic disease) 02/25/2024 elective cardiac cath Depression 07/29/2010 Diverticulosis of colon (without mention of hemorrhage) Dysmetabolic syndrome X 02/13/2007 Goiter 07/29/2010 Gout 11/13/2009 Hypertension Hypothyroid 07/29/2010 Impotence of organic origin 03/14/2005 Irritability and anger 07/05/2014 Mixed hyperlipidemia 11/11/2005 MRSA (methicillin resistant staph aureus) culture positive 06/18/2010 Myalgia 10/13/2006 Obesity (BMI 35.0-39.9 without comorbidity) 07/25/2016 Orthostatic hypotension 06/21/2010 RADHA on CPAP 07/29/2010 Pneumonia due to COVID-19 virus 08/26/[address] Dr. Dc PVC's (premature ventricular contractions) Seeing Dr. Green Syncope 06/18/2010 Thrombocytopenia (HCC) 05/13/2012 Vagal autonomic bradycardia 08/07/2011 PAST SURGICAL HISTORY Procedure Laterality Date COLONOSCOPY 02/11/2023 repeat in 10 years COLONOSCOPY FLX DX W/COLLJ SPEC WHEN PFRMD 05/12/2005 Colonoscopy COLONOSCOPY FLX DX W/COLLJ SPEC WHEN PFRMD 02/09/2013 Colonoscopy FINE NEEDLE ASP DEEP 04/23/2005 U/S FNA right lobe thyroid LEFT HEART CATH,PERCUTANEOUS 02/25/2024 LAD disease, medical management FAMILY HISTORY Problem Relation Age of Onset Osteoporosis Mother other (thyroid problems) Mother Dementia Mother Cancer Father 50 non hodgkins Stroke Father Heart disease Father valvular heart disease. None Brother Cancer Maternal Grandmother Cancer Maternal Grandfather Social History Tobacco Use Smoking status: Never Smokeless tobacco: Never Vaping Use Vaping status: Never Used Substance Use Topics Alcohol use: Yes Alcohol/week: 2.0 standard drinks of alcohol Types: 2 Standard drinks or equivalent per week Comment: 2-4x per month Drug use: No Current Outpatient Medications Medication Sig levothyroxine (SYNTHROID) 100 mcg tablet Take 1 tablet by mouth once daily. Take on empty stomach allopurinol (ZYLOPRIM) 300 mg tablet Take 1 tablet by mouth once daily. Blood-Glucose Meter monitoring kit Glucose Meter of Choice - Kit - Dx: Type 2 DM - Controlled E11.9 blood sugar diagnostic (BLOOD GLUCOSE TEST) test strip Use with blood glucose test once daily semaglutide (OZEMPIC) 1 mg/dose (4 mg/3 mL) pen Inject 1 mg subcutaneously one time a week. losartan (COZAAR) 25 mg tablet Take 1 tablet by mouth once daily. atorvastatin (LIPITOR) 40 mg tablet Take 1 tablet by mouth daily at bedtime. For cholesterol. amLODIPine (NORVASC) 5 mg tablet Take 1 tablet by mouth once daily. empagliflozin (JARDIANCE) 10 mg tablet Take 1 tablet by mouth once daily. Take 1 tablet once daily in the morning No current facility-administered medications for this visit. Objective BP 116/68 (BP Site: Left Arm, BP Position: Sitting, BP Cuff Size: Large Adult) Pulse 60 Temp 36.1 C (97 F) (Temporal) Ht 170.8 cm (5' 7.25) Wt 103.9 kg (229 lb 0.9 oz) BMI 35.61 kg/m Physical Exam Constitutional: Appearance: Normal appearance. HENT: Head: Normocephalic. Right Ear: Tympanic membrane and ear canal normal. Left Ear: Tympanic membrane and ear canal normal. Nose: No congestion or rhinorrhea. Eyes: Extraocular Movements: Extraocular movements intact. Conjunctiva/sclera: Conjunctivae normal. Pupils: Pupils are equal, round, and reactive to light. Neck: Vascular: No carotid bruit. Cardiovascular: Rate and Rhythm: Normal rate and regular rhythm. Heart sounds: No murmur heard. No gallop. Pulmonary: Breath sounds: Normal breath sounds. Abdominal: Palpations: Abdomen is soft. There is no mass. Tenderness: There is no abdominal tenderness. Musculoskeletal: General: Normal range of motion. Right lower leg: No edema. Left lower leg: No edema. Lymphadenopathy: Cervical: No cervical adenopathy. Skin: Comments: 5 mm polypoid skin tag right medial thigh. Neurological: Mental Status: He is alert. Psychiatric: Mood and Affect: Mood normal. Thought Content: Thought content normal. 08/24/2024 CP PHQ9 Little interest or pleasure 0 - Not at all Feeling down, depressed, hopeless 1 - Several days Trouble falling or staying asleep, sleeping too much 1 - Several days Feeling tired, having little energy 1 - Several days Poor appetite or overeating 0 - Not at all Feeling bad about yourself, failure or you have let yourself/family down 0 - Not at all Trouble concentrating on things 0 - Not at all Moving or speaking so slowly, or fidgety or restless 0 - Not at all Thoughts that you would be better off , or of hurting yourself in some way 0 - Not at all How difficult have these problems made things Not difficult at all Interpretation of Total Score 1-4 Minimal depression ZORA-7 ANXIETY SCALE Feeling nervous, anxious, or on edge 1 Several days Not being able to stop or control worrying 1 Several days Worrying too much about different things 1 Several days Trouble relaxing 0 Not at all sure Being so restless that it's hard to sit still 0 Not at all sure Being easily annoyed or irritable 1 Several days Feeling afraid as if something awful might happen 0 Not at all sure ZORA-7 Anxiety Score 4 If you checked off any problems, how difficult have these problems made it for you to do your work, take care of things at home, or get along with other people? Not difficult at all Assessment and Plan 1. Routine medical exam - ICD9: V70.0, ICD10: Z00.00 (primary diagnosis) - Counseled on healthy diet and regular exercise - Discussed need for and benefit of weight loss. BMI 35.61 kg/(m^2) 2. Dizziness - ICD9: 780.4, ICD10: R42 Shared medical decision making was done. This is more for risk assessment and not for procedural intervention. - US CAROTID BILATERAL - If symptoms recur, we can reach out to his local fur comber for tilt table testing. 3. Controlled type 2 diabetes mellitus without complication, without long-term current use of insulin (HCC) - ICD9: 250.00, ICD10: E11.9 - Controlled - Continue current medications 4. Mixed hyperlipidemia - ICD9: 272.2, ICD10: E78.2 - Controlled - Continue current medications - Counseled on healthy diet and regular exercise 5. Hypothyroidism, unspecified type - ICD9: 244.9, ICD10: E03.9 - continue current dose of Synthroid. - Repeat test in October. 6. Essential hypertension - ICD9: 401.9, ICD10: I10 - Controlled - Continue current medications 7. Adjustment disorder with mixed anxiety and depressed mood - ICD9: 309.28, ICD10: F43.23 - Shared medical decision making was done. We discussed option of restarting a low dose SSRI. He will consider this for now. 8. RADHA on CPAP - ICD9: 327.23, ICD10: G47.33 - He was using and benefiting from regular CPAP use. 9. Skin tag, acquired - ICD9: 701.9, ICD10: L91.8 UNIVERSAL PROTOCOL / SAFETY CHECKLIST Procedure to be Performed: liquid nitrogen Sign In: A Moment of CARE was completed. Verbal consent obtained. Special equipment not required. Patient/Surrogate Stated/Verified: Patient name, Date of , and The intended procedure Time Out: Relevant labs, photos, and/or imaging studies are not applicable. Intended patient and procedure match the source document(s) (e.g. consent, H&P, associated studies [imaging, pathology]) are not applicable. Consent obtained and matches the intended procedure. Yes. Correct side/site is not applicable. Medications required for this procedure are verified. are not applicable. Fire risk assessed and is not applicable. Implants: are not applicable. Sign Out: Specimens not collected. All instruments, equipment, possible retained foreign bodies are accounted for. The post-procedure plan of care has been communicated yes . Liquid nitrogen applied for 3 minutes. Patient tolerated this well. Care reviewed. Frantz Mccauley MD documented in this encounter [facility] 08-08-2024 Note HNO ID: [id number] Author: FRANTZ MCCAULEY MD Service: ? Author Type: Physician Type: Progress Notes Filed: 08/08/2024 19:21 Note Text: This note was created using NoteWriter. Subjective Patient presents with: ER F/U Law Olivo is a 68 year old male. He was in the ER 08/01/24 with acute dizziness, lightheadedness. Prior to EMS, he was at work, feeling vaguely ill and tried hydrating, and eating a cookie. He was not checking his glucose. When EMS arrived, his glucose was around 100. He was evaluated in the ER with unremarkable labs including troponins, and EKG. He was assessed to be dehydrated, and he did feel better after IV fluids. He was better but had residual lightheadedness. Review of Systems Constitutional: Negative for appetite change, chills, diaphoresis and fever. HENT: Negative for congestion. Eyes: Negative for visual disturbance. Respiratory: Negative for chest tightness and shortness of breath. Cardiovascular: Negative for chest pain, palpitations and leg swelling. Gastrointestinal: Negative for diarrhea, nausea and vomiting. Genitourinary: Negative for difficulty urinating. Neurological: Negative for syncope, facial asymmetry, speech difficulty, weakness and numbness. ACTIVE PROBLEM LIST Mixed Hyperlipidemia Controlled Type 2 Diabetes Mellitus Without Complication, Without Long-Term Current Use of Insulin (Hcc) Gout Hypothyroid Radha On Cpap Adjustment Disorder With Mixed Anxiety and Depressed Mood Psoriasis Obesity (Bmi 35.0-39.9 Without Comorbidity) Essential Hypertension Palpitations Idiopathic Chronic Gout of Multiple Sites Without Tophus Cad (Coronary Atherosclerotic Disease) Thrombocytopenia (Hcc) Social History Tobacco Use Smoking status: Never Smokeless tobacco: Never Vaping Use Vaping status: Never Used Substance Use Topics Alcohol use: Yes Drug use: No Current Outpatient Medications Medication Sig semaglutide (OZEMPIC) 1 mg/dose (4 mg/3 mL) pen Inject 1 mg subcutaneously one time a week. losartan (COZAAR) 25 mg tablet Take 1 tablet by mouth once daily. atorvastatin (LIPITOR) 40 mg tablet Take 1 tablet by mouth daily at bedtime. For cholesterol. amLODIPine (NORVASC) 5 mg tablet Take 1 tablet by mouth once daily. empagliflozin (JARDIANCE) 10 mg tablet Take 1 tablet by mouth once daily. Take 1 tablet once daily in the morning levothyroxine (SYNTHROID) 100 mcg tablet Take 1 tablet by mouth once daily. Take on empty stomach allopurinol (ZYLOPRIM) 300 mg tablet Take 1 tablet by mouth once daily. No current facility-administered medications for this visit. Objective BP 114/76 (BP Site: Left Arm, BP Position: Sitting, BP Cuff Size: Large Adult) Pulse 72 Temp 36.9 ?C (98.4 ?F) (Temporal) Wt 105.6 kg (232 lb 12.9 oz) BMI 36.46 kg/m? Physical Exam Constitutional: General: He is not in acute distress. Appearance: He is not ill-appearing or diaphoretic. HENT: Head: Normocephalic. Eyes: Extraocular Movements: Extraocular movements intact. Conjunctiva/sclera: Conjunctivae normal. Cardiovascular: Rate and Rhythm: Normal rate and regular rhythm. Heart sounds: No murmur heard. No gallop. Pulmonary: Breath sounds: Normal breath sounds. Musculoskeletal: Right lower leg: No edema. Left lower leg: No edema. Neurological: General: No focal deficit present. Mental Status: He is alert. Cranial Nerves: No cranial nerve deficit. Motor: No weakness. Coordination: Coordination normal. Gait: Gait normal. 08/08/24 1821 08/08/24 1848 08/08/24 1849 08/08/24 1850 Temp: 36.9 ?C (98.4 ?F) TempSrc: Temporal Weight: 105.6 kg (232 lb 12.9 oz) Orthostatic BP: 114/76 118/80 128/85 112/73 BP Position: Sitting Sitting Standing Supine Orthostatic Pulse: 72 6 74 66 Assessment and Plan 1. Dizziness - ICD9: 780.4, ICD10: R42 (primary diagnosis) - Consistent with metabolic cause, particularly hypoglycemia. 2. Hypothyroidism, unspecified type - ICD9: 244.9, ICD10: E03.9 - continue current dose of Synthroid - LEVOTHYROXINE 100 MCG TABLET - Repeat TSH ordered for October. 3. Idiopathic chronic gout of multiple sites without tophus - ICD9: 274.02, ICD10: M1A.09X0 He reduced his dose due to concerns about low platelets found on the internet. - ALLOPURINOL 300 MG TABLET - URIC ACID 4. Thrombocytopenia (HCC) - ICD9: 287.5, ICD10: D69.6 - Chronic, stable. 5. Controlled type 2 diabetes mellitus without complication, without long-term current use of insulin (HCC) - ICD9: 250.00, ICD10: E11.9 Concern for hypoglycemia. - Blood glucose monitoring on a PRN basis for symptoms of concern. - BLOOD-GLUCOSE METER KIT - BLOOD SUGAR DIAGNOSTIC STRIPS - BASIC METABOLIC PANEL 6. Essential hypertension - ICD9: 401.9, ICD10: I10 - Controlled - Continue current medications Frantz Mccauley MD [facility] 08-08-2024 History of Presen t illness Narrative This note was created using Pruffi. Subjective Patient presents with: ER F/U Law Olivo is a 68 year old male. He was in the ER 08/01/24 with acute dizziness, lightheadedness. Prior to EMS, he was at work, feeling vaguely ill and tried hydrating, and eating a cookie. He was not checking his glucose. When EMS arrived, his glucose was around 100. He was evaluated in the ER with unremarkable labs including troponins, and EKG. He was assessed to be dehydrated, and he did feel better after IV fluids. He was better but had residual lightheadedness. Review of Systems Constitutional: Negative for appetite change, chills, diaphoresis and fever. HENT: Negative for congestion. Eyes: Negative for visual disturbance. Respiratory: Negative for chest tightness and shortness of breath. Cardiovascular: Negative for chest pain, palpitations and leg swelling. Gastrointestinal: Negative for diarrhea, nausea and vomiting. Genitourinary: Negative for difficulty urinating. Neurological: Negative for syncope, facial asymmetry, speech difficulty, weakness and numbness. ACTIVE PROBLEM LIST Mixed Hyperlipidemia Controlled Type 2 Diabetes Mellitus Without Complication, Without Long-Term Current Use of Insulin (Hcc) Gout Hypothyroid Radha On Cpap Adjustment Disorder With Mixed Anxiety and Depressed Mood Psoriasis Obesity (Bmi 35.0-39.9 Without Comorbidity) Essential Hypertension Palpitations Idiopathic Chronic Gout of Multiple Sites Without Tophus Cad (Coronary Atherosclerotic Disease) Thrombocytopenia (Hcc) Social History Tobacco Use Smoking status: Never Smokeless tobacco: Never Vaping Use Vaping status: Never Used Substance Use Topics Alcohol use: Yes Drug use: No Current Outpatient Medications Medication Sig semaglutide (OZEMPIC) 1 mg/dose (4 mg/3 mL) pen Inject 1 mg subcutaneously one time a week. losartan (COZAAR) 25 mg tablet Take 1 tablet by mouth once daily. atorvastatin (LIPITOR) 40 mg tablet Take 1 tablet by mouth daily at bedtime. For cholesterol. amLODIPine (NORVASC) 5 mg tablet Take 1 tablet by mouth once daily. empagliflozin (JARDIANCE) 10 mg tablet Take 1 tablet by mouth once daily. Take 1 tablet once daily in the morning levothyroxine (SYNTHROID) 100 mcg tablet Take 1 tablet by mouth once daily. Take on empty stomach allopurinol (ZYLOPRIM) 300 mg tablet Take 1 tablet by mouth once daily. No current facility-administered medications for this visit. Objective BP 114/76 (BP Site: Left Arm, BP Position: Sitting, BP Cuff Size: Large Adult) Pulse 72 Temp 36.9 C (98.4 F) (Temporal) Wt 105.6 kg (232 lb 12.9 oz) BMI 36.46 kg/m Physical Exam Constitutional: General: He is not in acute distress. Appearance: He is not ill-appearing or diaphoretic. HENT: Head: Normocephalic. Eyes: Extraocular Movements: Extraocular movements intact. Conjunctiva/sclera: Conjunctivae normal. Cardiovascular: Rate and Rhythm: Normal rate and regular rhythm. Heart sounds: No murmur heard. No gallop. Pulmonary: Breath sounds: Normal breath sounds. Musculoskeletal: Right lower leg: No edema. Left lower leg: No edema. Neurological: General: No focal deficit present. Mental Status: He is alert. Cranial Nerves: No cranial nerve deficit. Motor: No weakness. Coordination: Coordination normal. Gait: Gait normal. 08/08/24 1821 08/08/24 1848 08/08/24 1849 08/08/24 1850 Temp: 36.9 C (98.4 F) TempSrc: Temporal Weight: 105.6 kg (232 lb 12.9 oz) Orthostatic BP: 114/76 118/80 128/85 112/73 BP Position: Sitting Sitting Standing Supine Orthostatic Pulse: 72 6 74 66 Assessment and Plan 1. Dizziness - ICD9: 780.4, ICD10: R42 (primary diagnosis) - Consistent with metabolic cause, particularly hypoglycemia. 2. Hypothyroidism, unspecified type - ICD9: 244.9, ICD10: E03.9 - continue current dose of Synthroid - LEVOTHYROXINE 100 MCG TABLET - Repeat TSH ordered for October. 3. Idiopathic chronic gout of multiple sites without tophus - ICD9: 274.02, ICD10: M1A.09X0 He reduced his dose due to concerns about low platelets found on the internet. - ALLOPURINOL 300 MG TABLET - URIC ACID 4. Thrombocytopenia (HCC) - ICD9: 287.5, ICD10: D69.6 - Chronic, stable. 5. Controlled type 2 diabetes mellitus without complication, without long-term current use of insulin (HCC) - ICD9: 250.00, ICD10: E11.9 Concern for hypoglycemia. - Blood glucose monitoring on a PRN basis for symptoms of concern. - BLOOD-GLUCOSE METER KIT - BLOOD SUGAR DIAGNOSTIC STRIPS - BASIC METABOLIC PANEL 6. Essential hypertension - ICD9: 401.9, ICD10: I10 - Controlled - Continue current medications Frantz Mccauley MD documented in this encounter [facility] 07-29-2024 Note HNO ID: [id number] Author: FATOU DELUCA APRN.[employer] Service: ? Author Type: Nurse Practitioner Type: Progress Notes Filed: 07/29/2024 07:55 Note Text: CC: Patient presents with: Recheck: Lab work questions HPI Law Olivo is a 68 year old male who presents today for above. Hypothyroidism-taking levothyroxine daily on an empty stomach: Yes Denies: malaise, constipation, weight gain, dry skin, cold intolerance, trouble swallowing, and neck pain/pressure. TSH Date Value 07/27/2024 9.340 mIU/L 08/22/2023 2.460 mIU/L 06/18/2021 0.866 uU/mL 05/03/2021 0.226 uU/mL Diabetes: Hypoglycemia: No He is compliant with medication(s) and is tolerating med(s) without any side effects. Increased thirst: No Urinary frequency: No Nocturia: No Fatigue: No Unintentional weight loss: No Blurred vision: No Numbness, tingling or pain in extremities: No Ulcers or sores on feet: No Last Ophthalmology exam: within the past 12 months Patient's last HgA1C : Hemoglobin A1C (%) Date Value 07/27/2024 5.5 11/21/2023 5.9 05/03/2021 6.5 11/23/2020 5.9 Review of Systems See HPI PAST MEDICAL HISTORY Diagnosis Date Abnormal tilt table test 08/07/2011 Acute respiratory failure with hypoxia (HCC) 08/26/2020 Adjustment disorder with mixed anxiety and depressed mood 03/07/2013 Bradycardia CAD (coronary atherosclerotic disease) 02/25/2024 elective cardiac cath Depression 07/29/2010 Diverticulosis of colon (without mention of hemorrhage) Dysmetabolic syndrome X 02/13/2007 Goiter 07/29/2010 Gout 11/13/2009 Hypertension Hypothyroid 07/29/2010 Impotence of organic origin 03/14/2005 Irritability and anger 07/05/2014 Mixed hyperlipidemia 11/11/2005 MRSA (methicillin resistant staph aureus) culture positive 06/18/2010 Myalgia 10/13/2006 Obesity (BMI 35.0-39.9 without comorbidity) 07/25/2016 Orthostatic hypotension 06/21/2010 RADHA on CPAP 07/29/2010 Pneumonia due to COVID-19 virus 08/26/[address] Dr[address] Dc PVC's (premature ventricular contractions) Seeing Dr. Green Syncope 06/18/2010 Thrombocytopenia (HCC) 05/13/2012 Vagal autonomic bradycardia 08/07/2011 PAST SURGICAL HISTORY Procedure Laterality Date COLONOSCOPY 02/11/2023 repeat in 10 years COLONOSCOPY FLX DX W/COLLJ SPEC WHEN PFRMD 05/12/2005 Colonoscopy COLONOSCOPY FLX DX W/COLLJ SPEC WHEN PFRMD 02/09/2013 Colonoscopy FINE NEEDLE ASP DEEP 04/23/2005 U/S FNA right lobe thyroid LEFT HEART CATH,PERCUTANEOUS 02/25/2024 LAD disease, medical management ALLERGIES Patient has no known allergies. MEDICATIONS semaglutide (OZEMPIC) 0.25 mg or 0.5 mg (2 mg/3 mL) pen Inject 0.5 mg subcutaneously one time a week. losartan (COZAAR) 25 mg tablet Take 1 tablet by mouth once daily. atorvastatin (LIPITOR) 40 mg tablet Take 1 tablet by mouth daily at bedtime. For cholesterol. amLODIPine (NORVASC) 5 mg tablet Take 1 tablet by mouth once daily. empagliflozin (JARDIANCE) 10 mg tablet Take 1 tablet by mouth once daily. Take 1 tablet once daily in the morning levothyroxine (SYNTHROID) 100 mcg tablet Take 1 tablet by mouth once daily. Take on empty stomach allopurinol (ZYLOPRIM) 300 mg tablet Take 1 tablet by mouth once daily. allopurinol (ZYLOPRIM) 100 mg tablet Take 1 tablet by mouth once daily. In addition to 300 mg daily for gout. FAMILY HISTORY Problem Relation Age of Onset Osteoporosis Mother other (thyroid problems) Mother Dementia Mother Cancer Father 50 non hodgkins Stroke Father Heart disease Father valvular heart disease. None Brother Cancer Maternal Grandmother Cancer Maternal Grandfather Social History Tobacco Use Smoking status: Never Smokeless tobacco: Never Vaping Use Vaping status: Never Used Substance Use Topics Alcohol use: Yes Drug use: No BP 132/74 Pulse 71 Resp 16 Wt 106 kg (233 lb 11 oz) SpO2 98% BMI 36.60 kg/m? Physical Exam Vitals reviewed. Constitutional: Appearance: Normal appearance. Neurological: Mental Status: He is alert. Psychiatric: Mood and Affect: Mood normal. DATA REVIEWED: Most recent labs Latest Ref Rng 07/27/2024 Protein, Total 6.3 - 8.0 g/dL 7.1 Albumin 3.9 - 4.9 g/dL 4.3 Calcium 8.5 - 10.2 mg/dL 9.1 Bilirubin, Total 0.2 - 1.3 mg/dL 0.6 Alkaline Phosphatase 38 - 113 U/L 86 AST 14 - 40 U/L 29 ALT 10 - 54 U/L 44 Glucose 74 - 99 mg/dL 105 (H) BUN 9 - 24 mg/dL 20 Creatinine 0.73 - 1.22 mg/dL 1.02 Sodium 136 - 144 mmol/L 140 Potassium 3.7 - 5.1 mmol/L 4.7 Chloride 98 - 107 mmol/L 103 CO2 22 - 30 mmol/L 23 Anion Gap 8 - 15 mmol/L 14 eGFR >=60 mL/min/1.73m? 80 WBC 3.70 - 11.00 k/uL 7.37 RBC 4.20 - 6.00 m/uL 4.44 Hemoglobin 13.0 - 17.0 g/dL 14.1 Hematocrit 39.0 - 51.0 % 42.6 MCV 80.0 - 100.0 fL 95.9 MCH 26.0 - 34.0 pg 31.8 MCHC 30.5 - 36.0 g/dL 33.1 RDW-CV 11.5 - 15.0 % 12.9 Platelet Count 150 - 400 k/uL 121 (L) MPV 9.0 - 12.7 fL 11.4 Ab (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 [facility] 07-29-2024 History of Presen t illness Narrative CC: Patient presents with: Recheck: Lab work questions HPI Law Olivo is a 68 year old male who presents today for above. Hypothyroidism-taking levothyroxine daily on an empty stomach: Yes Denies: malaise, constipation, weight gain, dry skin, cold intolerance, trouble swallowing, and neck pain/pressure. TSH Date Value 07/27/2024 9.340 mIU/L 08/22/2023 2.460 mIU/L 06/18/2021 0.866 uU/mL 05/03/2021 0.226 uU/mL Diabetes: Hypoglycemia: No He is compliant with medication(s) and is tolerating med(s) without any side effects. Increased thirst: No Urinary frequency: No Nocturia: No Fatigue: No Unintentional weight loss: No Blurred vision: No Numbness, tingling or pain in extremities: No Ulcers or sores on feet: No Last Ophthalmology exam: within the past 12 months Patient's last HgA1C : Hemoglobin A1C (%) Date Value 07/27/2024 5.5 11/21/2023 5.9 05/03/2021 6.5 11/23/2020 5.9 Review of Systems See HPI PAST MEDICAL HISTORY Diagnosis Date Abnormal tilt table test 08/07/2011 Acute respiratory failure with hypoxia (HCC) 08/26/2020 Adjustment disorder with mixed anxiety and depressed mood 03/07/2013 Bradycardia CAD (coronary atherosclerotic disease) 02/25/2024 elective cardiac cath Depression 07/29/2010 Diverticulosis of colon (without mention of hemorrhage) Dysmetabolic syndrome X 02/13/2007 Goiter 07/29/2010 Gout 11/13/2009 Hypertension Hypothyroid 07/29/2010 Impotence of organic origin 03/14/2005 Irritability and anger 07/05/2014 Mixed hyperlipidemia 11/11/2005 MRSA (methicillin resistant staph aureus) culture positive 06/18/2010 Myalgia 10/13/2006 Obesity (BMI 35.0-39.9 without comorbidity) 07/25/2016 Orthostatic hypotension 06/21/2010 RADHA on CPAP 07/29/2010 Pneumonia due to COVID-19 virus 08/26/2020 Prediabetes P[address] Seeing Dr. Dc PVC's (premature ventricular contractions) Seeing Dr. Green Syncope 06/18/2010 Thrombocytopenia (HCC) 05/13/2012 Vagal autonomic bradycardia 08/07/2011 PAST SURGICAL HISTORY Procedure Laterality Date COLONOSCOPY 02/11/2023 repeat in 10 years COLONOSCOPY FLX DX W/COLLJ SPEC WHEN PFRMD 05/12/2005 Colonoscopy COLONOSCOPY FLX DX W/COLLJ SPEC WHEN PFRMD 02/09/2013 Colonoscopy FINE NEEDLE ASP DEEP 04/23/2005 U/S FNA right lobe thyroid LEFT HEART CATH,PERCUTANEOUS 02/25/2024 LAD disease, medical management ALLERGIES Patient has no known allergies. MEDICATIONS semaglutide (OZEMPIC) 0.25 mg or 0.5 mg (2 mg/3 mL) pen Inject 0.5 mg subcutaneously one time a week. losartan (COZAAR) 25 mg tablet Take 1 tablet by mouth once daily. atorvastatin (LIPITOR) 40 mg tablet Take 1 tablet by mouth daily at bedtime. For cholesterol. amLODIPine (NORVASC) 5 mg tablet Take 1 tablet by mouth once daily. empagliflozin (JARDIANCE) 10 mg tablet Take 1 tablet by mouth once daily. Take 1 tablet once daily in the morning levothyroxine (SYNTHROID) 100 mcg tablet Take 1 tablet by mouth once daily. Take on empty stomach allopurinol (ZYLOPRIM) 300 mg tablet Take 1 tablet by mouth once daily. allopurinol (ZYLOPRIM) 100 mg tablet Take 1 tablet by mouth once daily. In addition to 300 mg daily for gout. FAMILY HISTORY Problem Relation Age of Onset Osteoporosis Mother other (thyroid problems) Mother Dementia Mother Cancer Father 50 non hodgkins Stroke Father Heart disease Father valvular heart disease. None Brother Cancer Maternal Grandmother Cancer Maternal Grandfather Social History Tobacco Use Smoking status: Never Smokeless tobacco: Never Vaping Use Vaping status: Never Used Substance Use Topics Alcohol use: Yes Drug use: No BP 132/74 Pulse 71 Resp 16 Wt 106 kg (233 lb 11 oz) SpO2 98% BMI 36.60 kg/m Physical Exam Vitals reviewed. Constitutional: Appearance: Normal appearance. Neurological: Mental Status: He is alert. Psychiatric: Mood and Affect: Mood normal. DATA REVIEWED: Most recent labs Latest Ref Rng 07/27/2024 Protein, Total 6.3 - 8.0 g/dL 7.1 Albumin 3.9 - 4.9 g/dL 4.3 Calcium 8.5 - 10.2 mg/dL 9.1 Bilirubin, Total 0.2 - 1.3 mg/dL 0.6 Alkaline Phosphatase 38 - 113 U/L 86 AST 14 - 40 U/L 29 ALT 10 - 54 U/L 44 Glucose 74 - 99 mg/dL 105 (H) BUN 9 - 24 mg/dL 20 Creatinine 0.73 - 1.22 mg/dL 1.02 Sodium 136 - 144 mmol/L 140 Potassium 3.7 - 5.1 mmol/L 4.7 Chloride 98 - 107 mmol/L 103 CO2 22 - 30 mmol/L 23 Anion Gap 8 - 15 mmol/L 14 eGFR >=60 mL/min/1.73m 80 WBC 3.70 - 11.00 k/uL 7.37 RBC 4.20 - 6.00 m/uL 4.44 Hemoglobin 13.0 - 17.0 g/dL 14.1 Hematocrit 39.0 - 51.0 % 42.6 MCV 80.0 - 100.0 fL 95.9 MCH 26.0 - 34.0 pg 31.8 MCHC 30.5 - 36.0 g/dL 33.1 RDW-CV 11.5 - 15.0 % 12.9 Platelet Count 150 - 400 k/uL 121 (L) MPV 9.0 - 12.7 fL 11.4 Absolute nRBC <0.01 k/uL <0.01 Cholesterol, Total <200 mg/dL 137 Triglyceride <150 mg/dL 152 (H) HDL Cholesterol >39 mg/dL 40 Non HDL Cholesterol <130 mg/dL 97 Fasting Time hrs 12 VLDL Cholesterol <30 mg/dL 30 (H) TC:HDL Ratio <5.10 3.43 LDL Cholesterol <100 mg/dL 67 LDL:HDL Ratio <2.54 1.68 Creatinine, Ur Random (UCRR) 46.8 - 314.5 mg/dL 85.9 Albumin, Urine Random mg/L 13.6 Albumin/Creat Ratio <30 mg/g 16 Hemoglobin A1C 4.3 - 5.6 % 5.5 Estimated Average Glucose mg/dL 111 TSH 0.270 - 4.200 mIU/L 9.340 (H) Legend: (H) High (L) Low ASSESSMENT/PLAN: 1. Hypothyroidism, unspecified type - ICD9: 244.9, ICD10: E03.9 (primary diagnosis) - Instructed patient on importance of taking on an empty stomach either first thing in the morning or at bedtime. - continue current dose of Synthroid for now - recheck THYROID STIMULATING HORMONE in 3 months 2. Controlled type 2 diabetes mellitus without complication, without long-term current use of insulin (HCC) - ICD9: 250.00, ICD10: E11.9 - Controlled, HgbA1c in the normal range - no significant changes in weight loss at current dose of Ozempic - Increase Ozempic to 1 mg weekly - SEMAGLUTIDE 1 MG/DOSE (4 MG/3 ML) SUBCUTANEOUS PEN INJECTOR 3. Atherosclerosis of [place] coronary artery of [place] heart without angina pectoris - ICD9: 414.01, ICD10: I25.10 - SEMAGLUTIDE 1 MG/DOSE (4 MG/3 ML) SUBCUTANEOUS PEN INJECTOR 4. Mixed hyperlipidemia - ICD9: 272.2, ICD10: E78.2 - Controlled - Continue current medications Prescription instructions reviewed with patient as applicable. Potential red flag symptoms discussed with the patient. Reviewed appropriate action plan to take if red flag symptoms occur. Patient agreeable to treatment plan. Fatou Deluca APRN.CRESCENCIO Medical Decision Making: Problems: Moderate: 2+ stable chronic illnesses Data: Unique test result(s) reviewed: 1 Unique test(s) ordered: 1 Risk: Low: Low risk from testing/treatment Moderate: Drug management Medical Decision Making Level: 4 - Moderate documented in this encounter [facility] 05-11-2024 Telephone encounter Note The following approved medication requests have been transmitted electronically. Requested Prescriptions Signed Prescriptions Disp Refills semaglutide (OZEMPIC) 0.25 mg or 0.5 mg (2 mg/3 mL) pen 3 mL 5 Sig: Inject 0.5 mg subcutaneously one time a week. Authorizing Provider: FRANTZ MCCAULEY MD [facility] 05-11-2024 Miscellaneous Notes The following approved medication requests have been transmitted electronically. Requested Prescriptions Signed Prescriptions Disp Refills semaglutide (OZEMPIC) 0.25 mg or 0.5 mg (2 mg/3 mL) pen 3 mL 5 Sig: Inject 0.5 mg subcutaneously one time a week. Authorizing Provider: FRANTZ MCCAULEY MD Patient has been identified by name and date of : Yes Patient phones for refill(s): Requested Prescriptions Pending Prescriptions Disp Refills semaglutide (OZEMPIC) 0.25 mg or 0.5 mg (2 mg/3 mL) pen 3 mL 0 Sig: Inject 0.25 mg subcutaneously one time a week. Date of last office visit in primary care: 03/23/2024 Date of next office visit in primary care: 08/24/2024 Please advise. Thank you. Libby Santizo LPN. documented in this encounter [facility] 05-11-2024 Telephone encounter Note Patient has been identified by name and date of : Yes Patient phones for refill(s): Requested Prescriptions Pending Prescriptions Disp Refills semaglutide (OZEMPIC) 0.25 mg or 0.5 mg (2 mg/3 mL) pen 3 mL 0 Sig: Inject 0.25 mg subcutaneously one time a week. Date of last office visit in primary care: 03/23/2024 Date of next office visit in primary care: 08/24/2024 Please advise. Thank you. Libby Santizo LPN. [facility] 04-25-2024 Telephone encounter Note Prescription Refill Information The patient has been identified by name and date of : Yes Caregiver verified no other encounters exist for this prescription request: Yes Caregiver confirmed with patient/requestor that no other refills are due, in the near future, with this provider at this time: Yes The last office visit in the department: 03/23/2024 Does the patient have a future office visit with this provider/department: Yes Requested Prescriptions Pending Prescriptions Disp Refills losartan (COZAAR) 25 mg tablet 90 tablet 3 Sig: Take 1 tablet by mouth once daily. Aubrey Ledezma MA April 25, 2024 12:54 PM [facility] 04-25-2024 Miscellaneous Notes Prescription Refill Information The patient has been identified by name and date of : Yes Caregiver verified no other encounters exist for this prescription request: Yes Caregiver confirmed with patient/requestor that no other refills are due, in the near future, with this provider at this time: Yes The last office visit in the department: 03/23/2024 Does the patient have a future office visit with this provider/department: Yes Requested Prescriptions Pending Prescriptions Disp Refills losartan (COZAAR) 25 mg tablet 90 tablet 3 Sig: Take 1 tablet by mouth once daily. Aubrey Ledezma MA April 25, 2024 12:54 PM documented in this encounter [facility] 03-28-2024 Telephone encounter Note Images from the original note were not included. Prior authorization approved Payer: Raquel Note from payer: NELLY Case: [id number], Status: Approved, Coverage Starts on: 03/28/2024 12:00:00 AM, Coverage Ends on: 03/28/2025 12:00:00 AM. Approval Details Authorization number: [id number] Authorized from March 28, 2024 to March 28, 2025 Electronic appeal: Not supported Prior auth initiated by: [facility]- [facility] [id number] [place] [address] - [address] [facility] [phone] [facility] [phone] View History Notes Time User Attachment Attachment received from payer. 03/28/2024 3:44 PM Cchs, Rx Priorauth In Document [facility] 03-28-2024 Miscellaneous Notes Images from the original note were not included. Prior authorization approved Payer: Raquel Note from payer: NELLY Case: [id number], Status: Approved, Coverage Starts on: 03/28/2024 12:00:00 AM, Coverage Ends on: 03/28/2025 12:00:00 AM. Approval Details Authorization number: [id number] Authorized from March 28, 2024 to March 28, 2025 Electronic appeal: Not supported Prior auth initiated by: [employer] [facility] #[id number] [place] [address] - [address] [place] [phone] [place] [address] View History Notes Time User Attachment Attachment received from payer. 03/28/2024 3:44 PM Cchs, Rx Priorauth In Document documented in this encounter [facility] 03-23-2024 Instructions Frantz Mccauley MD - 03/23/2024 10:33 AM EDT EYE EXAM DUE. documented in this encounter [facility] 03-23-2024 Note HNO ID: [id number] Author: FRANTZ MCCAULEY MD Service: ? Author Type: Physician Type: Progress Notes Filed: 03/23/2024 12:15 Note Text: This note was created using FlyCastriter. Subjective Law Olivo is a 68 year old male. He had an episode of chest pain while travelling. He saw Dr. Rodriguez and had a heart cath showing 50% LAD disease. Medical management was recommended. Wegovy was prescribed but denied by plan. His glucose was elevating. He recovered from Covid recently, treated with Paxlovid. His depression and anxiety was well controlled on medication. 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 Review of Systems Constitutional: Negative for fatigue and fever. Respiratory: Negative for cough and shortness of breath. Cardiovascular: Negative for chest pain, palpitations and leg swelling. Gastrointestinal: Negative for diarrhea, nausea and vomiting. Neurological: Negative for dizziness and headaches. Psychiatric/Behavioral: Negative for dysphoric mood, sleep disturbance and suicidal ideas. The patient is not nervous/anxious. 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 amLODIPine (NORVASC) 5 mg tablet Take 1 tablet by mouth once daily. empagliflozin (JARDIANCE) 10 mg tablet Take 1 tablet by mouth once daily. Take 1 tablet once daily in the morning levothyroxine (SYNTHROID) 100 mcg tablet Take 1 tablet by mouth once daily. Take on empty stomach atorvastatin (LIPITOR) 20 mg tablet Take 1 tablet by mouth daily at bedtime. For cholesterol. allopurinol (ZYLOPRIM) 300 mg tablet Take 1 tablet by mouth once daily. allopurinol (ZYLOPRIM) 100 mg tablet Take 1 tablet by mouth once daily. In addition to 300 mg daily for gout. losartan (COZAAR) 25 mg tablet Take 1 tablet by mouth once daily. No current facility-administered medications for this visit. Objective BP 120/76 (BP Site: Left Arm, BP Position: Sitting, BP Cuff Size: Large Adult) Pulse 64 Temp 36.7 ?C (98 ?F) (Temporal) Resp 16 Wt 107.5 kg (236 lb 15.9 oz) BMI 37.12 kg/m? Physical Exam Constitutional: Appearance: Normal appearance. HENT: Nose: Nose normal. Eyes: Conjunctiva/sclera: Conjunctivae normal. Cardiovascular: Rate and Rhythm: Normal rate and regular rhythm. Heart sounds: No murmur heard. No gallop. Pulmonary: Breath sounds: Normal breath sounds. Musculoskeletal: Right lower leg: No edema. Left lower leg: No edema. Neurological: General: No focal deficit present. Mental Status: He is alert. Latest Ref Rng 03/21/2024 WBC 3.70 - 11.00 k/uL 6.72 RBC 4.20 - 6.00 m/uL 4.42 Hemoglobin 13.0 - 17.0 g/dL 14.1 Hematocrit 39.0 - 51.0 % 40.8 MCV 80.0 - 100.0 fL 92.3 MCH 26.0 - 34.0 pg 31.9 MCHC 30.5 - 36.0 g/dL 34.6 RDW-CV 11.5 - 15.0 % 13.4 Platelet Count 150 - 400 k/uL 128 (L) MPV 9.0 - 12.7 fL 11.2 Absolute nRBC <0.01 k/uL <0.01 Glucose 74 - 99 mg/dL 137 (H) BUN 9 - 24 mg/dL 22 Creatinine 0.73 - 1.22 mg/dL 1.02 Sodium 136 - 144 mmol/L 138 Potassium 3.7 - 5.1 mmol/L 3.9 Chloride 98 - 107 mmol/L 104 CO2 22 - 30 mmol/L 22 Anion Gap 8 - 15 mmol/L 12 Calcium 8.5 - 10.2 mg/dL 9.3 eGFR >=60 mL/min/1.73m? 80 Legend: (L) Low (H) High Assessment and Plan 1. Atherosclerosis of [place] coronary artery of [place] heart without angina pectoris - ICD9: 414.01, ICD10: I25.10 (primary diagnosis) - Medical management. GLP1a recommended to reduce risk of CV events. - SEMAGLUTIDE 0.25 MG OR 0.5 MG (2 MG/3 ML) SUBCUTANEOUS PEN INJECTOR 2. Adjustment disorder with mixed anxiety and depressed mood - ICD9: 309.28, ICD10: F43.23 - Stable, well controlled off regular medication. - Letter sent via My Chart. 3. Controlled type 2 diabetes mellitus without complication, without long-term current use of insulin (HCC) - ICD9: 250.00, ICD10: E11.9 - Worsening control - Continue current medications - Start semaglutide (Ozempic) - HEMOGLOBIN A1C (POC) - SEMAGLUTIDE 0.25 MG OR 0.5 MG (2 MG/3 ML) SUBCUTANEOUS PEN INJECTOR - HEMOGLOBIN A1C - ALBUMIN/CREATININE RATIO, URINE Shared Medical Decision Making was done: Medication: semaglutide. 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 Risks: (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 [facility] 03-23-2024 History of Presen t illness Narrative This note was created using Pruffi. Subjective Law Olivo is a 68 year old male. He had an episode of chest pain while travelling. He saw Dr. Rodriguez and had a heart cath showing 50% LAD disease. Medical management was recommended. Wegovy was prescribed but denied by plan. His glucose was elevating. He recovered from Covid recently, treated with Paxlovid. His depression and anxiety was well controlled on medication. 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 Review of Systems Constitutional: Negative for fatigue and fever. Respiratory: Negative for cough and shortness of breath. Cardiovascular: Negative for chest pain, palpitations and leg swelling. Gastrointestinal: Negative for diarrhea, nausea and vomiting. Neurological: Negative for dizziness and headaches. Psychiatric/Behavioral: Negative for dysphoric mood, sleep disturbance and suicidal ideas. The patient is not nervous/anxious. 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 amLODIPine (NORVASC) 5 mg tablet Take 1 tablet by mouth once daily. empagliflozin (JARDIANCE) 10 mg tablet Take 1 tablet by mouth once daily. Take 1 tablet once daily in the morning levothyroxine (SYNTHROID) 100 mcg tablet Take 1 tablet by mouth once daily. Take on empty stomach atorvastatin (LIPITOR) 20 mg tablet Take 1 tablet by mouth daily at bedtime. For cholesterol. allopurinol (ZYLOPRIM) 300 mg tablet Take 1 tablet by mouth once daily. allopurinol (ZYLOPRIM) 100 mg tablet Take 1 tablet by mouth once daily. In addition to 300 mg daily for gout. losartan (COZAAR) 25 mg tablet Take 1 tablet by mouth once daily. No current facility-administered medications for this visit. Objective BP 120/76 (BP Site: Left Arm, BP Position: Sitting, BP Cuff Size: Large Adult) Pulse 64 Temp 36.7 C (98 F) (Temporal) Resp 16 Wt 107.5 kg (236 lb 15.9 oz) BMI 37.12 kg/m Physical Exam Constitutional: Appearance: Normal appearance. HENT: Nose: Nose normal. Eyes: Conjunctiva/sclera: Conjunctivae normal. Cardiovascular: Rate and Rhythm: Normal rate and regular rhythm. Heart sounds: No murmur heard. No gallop. Pulmonary: Breath sounds: Normal breath sounds. Musculoskeletal: Right lower leg: No edema. Left lower leg: No edema. Neurological: General: No focal deficit present. Mental Status: He is alert. Latest Ref [facility] 03/21/2024 WBC 3.70 - 11.00 k/uL 6.72 RBC 4.20 - 6.00 m/uL 4.42 Hemoglobin 13.0 - 17.0 g/dL 14.1 Hematocrit 39.0 - 51.0 % 40.8 MCV 80.0 - 100.0 fL 92.3 MCH 26.0 - 34.0 pg 31.9 MCHC 30.5 - 36.0 g/dL 34.6 RDW-CV 11.5 - 15.0 % 13.4 Platelet Count 150 - 400 k/uL 128 (L) MPV 9.0 - 12.7 fL 11.2 Absolute nRBC <0.01 k/uL <0.01 Glucose 74 - 99 mg/dL 137 (H) BUN 9 - 24 mg/dL 22 Creatinine 0.73 - 1.22 mg/dL 1.02 Sodium 136 - 144 mmol/L 138 Potassium 3.7 - 5.1 mmol/L 3.9 Chloride 98 - 107 mmol/L 104 CO2 22 - 30 mmol/L 22 Anion Gap 8 - 15 mmol/L 12 Calcium 8.5 - 10.2 mg/dL 9.3 eGFR >=60 mL/min/1.73m 80 Legend: (L) Low (H) High Assessment and Plan 1. Atherosclerosis of [place] coronary artery of [place] heart without angina pectoris - ICD9: 414.01, ICD10: I25.10 (primary diagnosis) - Medical management. GLP1a recommended to reduce risk of CV events. - SEMAGLUTIDE 0.25 MG OR 0.5 MG (2 MG/3 ML) SUBCUTANEOUS PEN INJECTOR 2. Adjustment disorder with mixed anxiety and depressed mood - ICD9: 309.28, ICD10: F43.23 - Stable, well controlled off regular medication. - Letter sent via My Chart. 3. Controlled type 2 diabetes mellitus without complication, without long-term current use of insulin (HCC) - ICD9: 250.00, ICD10: E11.9 - Worsening control - Continue current medications - Start semaglutide (Ozempic) - HEMOGLOBIN A1C (POC) - SEMAGLUTIDE 0.25 MG OR 0.5 MG (2 MG/3 ML) SUBCUTANEOUS PEN INJECTOR - HEMOGLOBIN A1C - ALBUMIN/CREATININE RATIO, URINE Shared Medical Decision Making was done: Medication: semaglutide. 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 Risks: Possible side effects were discussed including nausea, vomiting.. Possible interactions: n/a. Warnings: pancreatitis. Approved use or off label use: yes. Options: n/a. Cost: high Yes. Prior approval may be needed. Duration: chcf if approved.. 4. Mixed hyperlipidemia - ICD9: 272.2, ICD10: E78.2 - More aggressive LDL lowering recommended. - ATORVASTATIN 40 MG TABLET. Dose increased. - COMPREHENSIVE METABOLIC PANEL - LIPID PANEL BASIC 5. Need for influenza vaccination - ICD9: V04.81, ICD10: Z23 - INFLUENZA VACCINE, PRSV FREE, AGE 65+ YR, HIGH DOSE, TRIVALENT (FLUZONE HIGH-DOSE) 6. Essential hypertension - ICD9: 401.9, ICD10: I10 - Controlled - Continue current medications - COMPLETE BLOOD COUNT 7. Hypothyroidism, unspecified type - ICD9: 244.9, ICD10: E03.9 - continue current dose of Synthroid - THYROID STIMULATING HORMONE 8. Thrombocytopenia (HCC) - ICD9: 287.5, ICD10: D69.6 - Reviewed previous CBC's and he has low grade of this, chronic. Monitor only. Frantz Mccauley MD documented in this encounter [facility] 02-02-2024 Telephone encounter Note Patient scheduled for follow up with PCP 03/21. Asking if there are any lab orders he should have placed to be completed prior to this. Please advise. [facility] 02-02-2024 Miscellaneous Notes Patient scheduled for follow up with PCP 03/21. Asking if there are any lab orders he should have placed to be completed prior to this. Please advise. documented in this encounter [facility] 02-02-2024 Note HNO ID: [id number] Author: FATOU DELUCA APRN.[employer] Service: ? Author Type: Nurse Practitioner Type: Progress Notes Filed: 02/03/2024 16:44 Note Text: CC: Patient presents with: Follow Up: Discuss medication for upcoming flight HPI Law Olivo is a 68 year old male who presents today for above. Patient reports increasing anxiety with recent travels out of the country. He has an old prescription for Ativan prescribed a couple years ago for this and would like to refill it before his next trip. He was on Celexa for anxiety and irritability but weaned off last year. Stress levels are increasing making him more anxious and short tempered and he is considering going back on this but wants to hold off for now. Denies depressed mood. Review of Systems See HPI PAST MEDICAL HISTORY 08/07/2011: Abnormal tilt table test 08/26/2020: Acute respiratory failure with hypoxia (HCC) 03/07/2013: Adjustment disorder with mixed anxiety and depressed mood No date: Bradycardia 07/29/2010: Depression No date: Diverticulosis of colon (without mention of hemorrhage) 02/13/2007: Dysmetabolic syndrome X 07/29/2010: Goiter 11/13/2009: Gout No date: Hypertension 07/29/2010: Hypothyroid 03/14/2005: Impotence of organic origin 07/05/2014: Irritability and anger 11/11/2005: Mixed hyperlipidemia 06/18/2010: MRSA (methicillin resistant staph aureus) culture positive 10/13/2006: Myalgia 07/25/2016: Obesity (BMI 35.0-39.9 without comorbidity) 06/21/2010: Orthostatic hypotension 07/29/2010: RADHA on CPAP 08/26/2020: Pneumonia due to COVID-19 virus No date: Prediabetes No date: Psoriasis Comment: Seeing Dr. Dc No date: PVC's (premature ventricular contractions) Comment: Seeing Dr. Green 06/18/2010: Syncope 05/13/2012: Thrombocytopenia (HCC) 08/07/2011: Vagal autonomic bradycardia PAST SURGICAL HISTORY 02/11/2023: COLONOSCOPY Comment: repeat in 10 years 05/12/2005: COLONOSCOPY FLX DX W/COLLJ SPEC WHEN PFRMD Comment: Colonoscopy 02/09/2013: COLONOSCOPY FLX DX W/COLLJ SPEC WHEN PFRMD Comment: Colonoscopy 04/23/2005: FINE NEEDLE ASP DEEP Comment: U/S FNA right lobe thyroid ALLERGIES Patient has no known allergies. MEDICATIONS empagliflozin (JARDIANCE) 10 mg tablet Take 1 tablet by mouth once daily. Take 1 tablet once daily in the morning levothyroxine (SYNTHROID) 100 mcg tablet Take 1 tablet by mouth once daily. Take on empty stomach atorvastatin (LIPITOR) 20 mg tablet Take 1 tablet by mouth daily at bedtime. For cholesterol. allopurinol (ZYLOPRIM) 300 mg tablet Take 1 tablet by mouth once daily. allopurinol (ZYLOPRIM) 100 mg tablet Take 1 tablet by mouth once daily. In addition to 300 mg daily for gout. losartan (COZAAR) 25 mg tablet Take 1 tablet by mouth once daily. amLODIPine (NORVASC) 5 mg tablet Take 1 tablet by mouth once daily. FAMILY HISTORY Problem Relation Age of Onset Osteoporosis Mother other (thyroid problems) Mother Dementia Mother Cancer Father 50 non hodgkins Stroke Father Heart disease Father valvular heart disease. None Brother Cancer Maternal Grandmother Cancer Maternal Grandfather Social History Tobacco Use Smoking status: Never Smokeless tobacco: Never Vaping Use Vaping status: Never Used Substance Use Topics Alcohol use: Yes Drug use: No BP 125/83 Pulse 67 Resp 14 Wt 106.3 kg (234 lb 5.6 oz) BMI 36.70 kg/m? Physical Exam Vitals reviewed. Constitutional: Appearance: Normal appearance. Neurological: Mental Status: He is alert. Psychiatric: Attention and Perception: Attention and perception normal. Mood and Affect: Mood and affect normal. Speech: Speech normal. Behavior: Behavior normal. Behavior is cooperative. Thought Content: Thought content normal. Judgment: Judgment normal. ASSESSMENT/PLAN: 1. Situational anxiety - ICD9: 300.09, ICD10: F41.8 (primary diagnosis) Will refill Ativan 1 mg for as needed use during travels. Limited refills, use sparingly. 2. Adjustment disorder with mixed anxiety and depressed mood - ICD9: 309.28, ICD10: F43.23 Worsening anxiety and irritability, encouraged patient to go back on Celexa. He would like to hold off for now and discuss at follow-up in February. He will let me know if he wants to restart sooner and I will send in the prescription. - LORAZEPAM 1 MG TABLET 3. Screening for depression - ICD9: V79.0, ICD10: Z13.31 - DEPRESSION SCREENING 4. Encounter for screening examination for other mental health and behavioral disorders - ICD9: V79.8, ICD10: Z13.39 - ANXIETY SCREENING Prescription instructions reviewed with patient as applicable. Potential red flag symptoms discussed with the patient. Reviewed appropriate action plan to take if red flag symptoms occur. Patient agreeable to treatment plan. During this patient visit I have spent approximately 30 minutes in counseling regarding treatment options, medications, and coordi (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 [facility] 02-02-2024 History of Presen t illness Narrative CC: Patient presents with: Follow Up: Discuss medication for upcoming flight HPI Law Olivo is a 68 year old male who presents today for above. Patient reports increasing anxiety with recent travels out of the country, especially during the flights causing panic attacks. He has an old prescription for Ativan prescribed a couple years ago for this and would like to refill it before his next trip. He was on Celexa for anxiety and irritability but weaned off last year. Stress levels are increasing making him more anxious and short tempered and he is considering going back on this but wants to hold off for now. Denies depressed mood. Review of Systems See HPI PAST MEDICAL HISTORY 08/07/2011: Abnormal tilt table test 08/26/2020: Acute respiratory failure with hypoxia (HCC) 03/07/2013: Adjustment disorder with mixed anxiety and depressed mood No date: Bradycardia 07/29/2010: Depression No date: Diverticulosis of colon (without mention of hemorrhage) 02/13/2007: Dysmetabolic syndrome X 07/29/2010: Goiter 11/13/2009: Gout No date: Hypertension 07/29/2010: Hypothyroid 03/14/2005: Impotence of organic origin 07/05/2014: Irritability and anger 11/11/2005: Mixed hyperlipidemia 06/18/2010: MRSA (methicillin resistant staph aureus) culture positive 10/13/2006: Myalgia 07/25/2016: Obesity (BMI 35.0-39.9 without comorbidity) 06/21/2010: Orthostatic hypotension 07/29/2010: RADHA on CPAP 08/26/2020: Pneumonia due to COVID-19 virus No date: Prediabetes No date: Psoriasis Comment: Seeing Dr. Dc No date: PVC's (premature ventricular contractions) Comment: Seeing Dr. Green 06/18/2010: Syncope 05/13/2012: Thrombocytopenia (HCC) 08/07/2011: Vagal autonomic bradycardia PAST SURGICAL HISTORY 02/11/2023: COLONOSCOPY Comment: repeat in 10 years 05/12/2005: COLONOSCOPY FLX DX W/COLLJ SPEC WHEN PFRMD Comment: Colonoscopy 02/09/2013: COLONOSCOPY FLX DX W/COLLJ SPEC WHEN PFRMD Comment: Colonoscopy 04/23/2005: FINE NEEDLE ASP DEEP Comment: U/S FNA right lobe thyroid ALLERGIES Patient has no known allergies. MEDICATIONS empagliflozin (JARDIANCE) 10 mg tablet Take 1 tablet by mouth once daily. Take 1 tablet once daily in the morning levothyroxine (SYNTHROID) 100 mcg tablet Take 1 tablet by mouth once daily. Take on empty stomach atorvastatin (LIPITOR) 20 mg tablet Take 1 tablet by mouth daily at bedtime. For cholesterol. allopurinol (ZYLOPRIM) 300 mg tablet Take 1 tablet by mouth once daily. allopurinol (ZYLOPRIM) 100 mg tablet Take 1 tablet by mouth once daily. In addition to 300 mg daily for gout. losartan (COZAAR) 25 mg tablet Take 1 tablet by mouth once daily. amLODIPine (NORVASC) 5 mg tablet Take 1 tablet by mouth once daily. FAMILY HISTORY Problem Relation Age of Onset Osteoporosis Mother other (thyroid problems) Mother Dementia Mother Cancer Father 50 non hodgkins Stroke Father Heart disease Father valvular heart disease. None Brother Cancer Maternal Grandmother Cancer Maternal Grandfather Social History Tobacco Use Smoking status: Never Smokeless tobacco: Never Vaping Use Vaping status: Never Used Substance Use Topics Alcohol use: Yes Drug use: No BP 125/83 Pulse 67 Resp 14 Wt 106.3 kg (234 lb 5.6 oz) BMI 36.70 kg/m Physical Exam Vitals reviewed. Constitutional: Appearance: Normal appearance. Neurological: Mental Status: He is alert. Psychiatric: Attention and Perception: Attention and perception normal. Mood and Affect: Mood and affect normal. Speech: Speech normal. Behavior: Behavior normal. Behavior is cooperative. Thought Content: Thought content normal. Judgment: Judgment normal. ASSESSMENT/PLAN: 1. Situational anxiety - ICD9: 300.09, ICD10: F41.8 (primary diagnosis) Will refill Ativan 1 mg for as needed use during travels. Limited refills, use sparingly. 2. Adjustment disorder with mixed anxiety and depressed mood - ICD9: 309.28, ICD10: F43.23 Worsening anxiety and irritability, encouraged patient to go back on Celexa. He would like to hold off for now and discuss at follow-up in February. He will let me know if he wants to restart sooner and I will send in the prescription. - LORAZEPAM 1 MG TABLET 3. Screening for depression - ICD9: V79.0, ICD10: Z13.31 - DEPRESSION SCREENING 4. Encounter for screening examination for other mental health and behavioral disorders - ICD9: V79.8, ICD10: Z13.39 - ANXIETY SCREENING Prescription instructions reviewed with patient as applicable. Potential red flag symptoms discussed with the patient. Reviewed appropriate action plan to take if red flag symptoms occur. Patient agreeable to treatment plan. During this patient visit I have spent approximately 30 minutes in counseling regarding treatment options, medications, and coordinating care. Fatou Deluca APRN.[employer] documented in this encounter [facility] 01-25-2024 Instructions Nicole Smith APRN.CNP - 01/25/2024 6:44 PM EDT covid test ordered You will be notified in 12-24 hours, results available on MyChart Rest, increase water intake Motrin or Tylenol as needed for fever or pain. Salt water gargles, chloraseptic spray or lozenges as needed for sore throat. Warm beverages, honey. Nasal saline spray as needed Cool mist humidifier at night Tylenol (generic acetaminophen) 500 mg-2 tabs every 8 hrs. as needed for fever and aches Ibuprofen 600 mg (3-200mg tablets) every 6 hours -Mucinex (generic is fine) Guaifenesin 1200 mg twice daily to help with cough and to thin out mucus * Seek medical care immediately, call 911, go to ER if you have chest pain, difficulty breathing, shortness of breath, inability to swallow. documented in this encounter [facility] 01-25-2024 Note HNO ID: [id number] Author: NICOLE SMITH APRN.CNP Service: ? Author Type: Nurse Practitioner Type: Progress Notes Filed: 01/25/2024 18:44 Note Text: Subjective The history is provided by the patient. No english language learner teacher was used. HPI Law Olivo is a 68 year old male who presents today for CC of cough and congestion since Thursday. He has used dayquil/nyquil with short term relief. He was traveling recently and at a convention. He is scheduled tomorrow for a heart cath at [facility], was instructed to have a covid test done. BP 142/80 Pulse 92 Temp 36.7 ?C (98.1 ?F) Resp 16 Wt 109.2 kg (240 lb 11.9 oz) SpO2 96% BMI 37.71 kg/m? Social History Tobacco Use Smoking status: Never Smokeless tobacco: Never Vaping Use Vaping Use: Never used Substance Use Topics Alcohol use: Yes Drug use: No PAST MEDICAL HISTORY 08/07/2011: Abnormal tilt table test 08/26/2020: Acute respiratory failure with hypoxia (HCC) 03/07/2013: Adjustment disorder with mixed anxiety and depressed mood No date: Bradycardia 07/29/2010: Depression No date: Diverticulosis of colon (without mention of hemorrhage) 02/13/2007: Dysmetabolic syndrome X 07/29/2010: Goiter 11/13/2009: Gout No date: Hypertension 07/29/2010: Hypothyroid 03/14/2005: Impotence of organic origin 07/05/2014: Irritability and anger 11/11/2005: Mixed hyperlipidemia 06/18/2010: MRSA (methicillin resistant staph aureus) culture positive 10/13/2006: Myalgia 07/25/2016: Obesity (BMI 35.0-39.9 without comorbidity) 06/21/2010: Orthostatic hypotension 07/29/2010: RADHA on CPAP 08/26/2020: Pneumonia due to COVID-19 virus No date: Prediabetes No date: Psoriasis Comment: Seeing Dr. Dc No date: PVC's (premature ventricular contractions) Comment: Seeing Dr. Green 06/18/2010: Syncope 05/13/2012: Thrombocytopenia (HCC) 08/07/2011: Vagal autonomic bradycardia I have confirmed and edited as necessary, the [facility] Review of Systems Constitutional: Negative for chills and fever. HENT: Positive for congestion. Negative for ear pain, sinus pain and sore throat. Respiratory: Positive for cough. Negative for sputum production, shortness of breath and wheezing. Cardiovascular: Negative for chest pain. Musculoskeletal: Negative for myalgias. Neurological: Negative for headaches. Objective Physical Exam Vitals and nursing note reviewed. Constitutional: Appearance: He is not toxic-appearing. HENT: Head: Normocephalic and atraumatic. Right Ear: Tympanic membrane, ear canal and external ear normal. Left Ear: Tympanic membrane, ear canal and external ear normal. Nose: Mucosal edema, congestion and rhinorrhea present. Right Sinus: No maxillary sinus tenderness or frontal sinus tenderness. Left Sinus: No maxillary sinus tenderness or frontal sinus tenderness. Mouth/Throat: Pharynx: Uvula midline. No oropharyngeal exudate or posterior oropharyngeal erythema. Tonsils: No tonsillar abscesses. Cardiovascular: Rate and Rhythm: Normal rate and regular rhythm. Heart sounds: Normal heart sounds. Pulmonary: Effort: Pulmonary effort is normal. Breath sounds: Normal breath sounds. No decreased breath sounds, wheezing, rhonchi or rales. Lymphadenopathy: Head: Right side of head: No submental, submandibular, tonsillar or preauricular adenopathy. Left side of head: No submental, submandibular, tonsillar or preauricular adenopathy. Cervical: No cervical adenopathy. Right cervical: No superficial cervical adenopathy. Left cervical: No superficial cervical adenopathy. Neurological: Mental Status: He is alert. ASSESSMENT/PLAN: 1. URI, acute - ICD9: 465.9, ICD10: J06.9 - Discussed viral etiology and rationale for treatment. - Symptomatic treatment with prn analgesia - Supportive care with fluids and rest Testing ordered Comfort measures discussed - see patient instructions. When to seek higher level of care Notified in 12-24 hours with results, available on [employer]- COVID NAAT, UPPER RESPIRATORY, ROUTINE Diagnosis and treatment plan were discussed and questions were answered to the patient's satisfaction. Pt acknowledged understanding of concepts and follow up plan. Specific signs and symptoms that would indicate the need for higher level of care were discussed in detail warranting prompt ER evaluation. Nicole Smith APRN.[facility] 01-25-2024 History of Presen t illness Narrative Subjective The history is provided by the patient. No english language learner teacher was used. HPI Law Olivo is a 68 year old male who presents today for CC of cough and congestion since Thursday. He has used dayquil/nyquil with short term relief. He was traveling recently and at a convention. He is scheduled tomorrow for a heart cath at [facility], was instructed to have a covid test done. BP 142/80 Pulse 92 Temp 36.7 C (98.1 F) Resp 16 Wt 109.2 kg (240 lb 11.9 oz) SpO2 96% BMI 37.71 kg/m Social History Tobacco Use Smoking status: Never Smokeless tobacco: Never Vaping Use Vaping Use: Never used Substance Use Topics Alcohol use: Yes Drug use: No PAST MEDICAL HISTORY 08/07/2011: Abnormal tilt table test 08/26/2020: Acute respiratory failure with hypoxia (HCC) 03/07/2013: Adjustment disorder with mixed anxiety and depressed mood No date: Bradycardia 07/29/2010: Depression No date: Diverticulosis of colon (without mention of hemorrhage) 02/13/2007: Dysmetabolic syndrome X 07/29/2010: Goiter 11/13/2009: Gout No date: Hypertension 07/29/2010: Hypothyroid 03/14/2005: Impotence of organic origin 07/05/2014: Irritability and anger 11/11/2005: Mixed hyperlipidemia 06/18/2010: MRSA (methicillin resistant staph aureus) culture positive 10/13/2006: Myalgia 07/25/2016: Obesity (BMI 35.0-39.9 without comorbidity) 06/21/2010: Orthostatic hypotension 07/29/2010: RADHA on CPAP 08/26/2020: Pneumonia due to COVID-19 virus No date: Prediabetes No date: Psoriasis Comment: Seeing Dr. Dc No date: PVC's (premature ventricular contractions) Comment: Seeing Dr. Green 06/18/2010: Syncope 05/13/2012: Thrombocytopenia (HCC) 08/07/2011: Vagal autonomic bradycardia I have confirmed and edited as necessary, the [facility] Review of Systems Constitutional: Negative for chills and fever. HENT: Positive for congestion. Negative for ear pain, sinus pain and sore throat. Respiratory: Positive for cough. Negative for sputum production, shortness of breath and wheezing. Cardiovascular: Negative for chest pain. Musculoskeletal: Negative for myalgias. Neurological: Negative for headaches. Objective Physical Exam Vitals and nursing note reviewed. Constitutional: Appearance: He is not toxic-appearing. HENT: Head: Normocephalic and atraumatic. Right Ear: Tympanic membrane, ear canal and external ear normal. Left Ear: Tympanic membrane, ear canal and external ear normal. Nose: Mucosal edema, congestion and rhinorrhea present. Right Sinus: No maxillary sinus tenderness or frontal sinus tenderness. Left Sinus: No maxillary sinus tenderness or frontal sinus tenderness. Mouth/Throat: Pharynx: Uvula midline. No oropharyngeal exudate or posterior oropharyngeal erythema. Tonsils: No tonsillar abscesses. Cardiovascular: Rate and Rhythm: Normal rate and regular rhythm. Heart sounds: Normal heart sounds. Pulmonary: Effort: Pulmonary effort is normal. Breath sounds: Normal breath sounds. No decreased breath sounds, wheezing, rhonchi or rales. Lymphadenopathy: Head: Right side of head: No submental, submandibular, tonsillar or preauricular adenopathy. Left side of head: No submental, submandibular, tonsillar or preauricular adenopathy. Cervical: No cervical adenopathy. Right cervical: No superficial cervical adenopathy. Left cervical: No superficial cervical adenopathy. Neurological: Mental Status: He is alert. ASSESSMENT/PLAN: 1. URI, acute - ICD9: 465.9, ICD10: J06.9 - Discussed viral etiology and rationale for treatment. - Symptomatic treatment with prn analgesia - Supportive care with fluids and rest Testing ordered Comfort measures discussed - see patient instructions. When to seek higher level of care Notified in 12-24 hours with results, available on [employer]- [place] NAAT, UPPER RESPIRATORY, ROUTINE Diagnosis and treatment plan were discussed and questions were answered to the patient's satisfaction. Pt acknowledged understanding of concepts and follow up plan. Specific signs and symptoms that would indicate the need for higher level of care were discussed in detail warranting prompt ER evaluation. Nicole Smith APRN.[employer] documented in this encounter [facility] 01-08-2024 Telephone encounter Note Prescription Refill Information The patient has been identified by name and date of : Yes Caregiver verified no other encounters exist for this prescription request: Yes Caregiver confirmed with patient/requestor that no other refills are due, in the near future, with this provider at this time: Yes The last office visit in the department: 11/27/2023 Does the patient have a future office visit with this provider/department: Yes Requested Prescriptions Pending Prescriptions Disp Refills empagliflozin (JARDIANCE) 10 mg tablet 90 tablet 3 Sig: Take 1 tablet by mouth once daily. Take 1 tablet once daily in the morning Aubrey Ledezma MA January 08, 2024 9:20 AM [facility] 01-08-2024 Miscellaneous Notes Prescription Refill Information The patient has been identified by name and date of : Yes Caregiver verified no other encounters exist for this prescription request: Yes Caregiver confirmed with patient/requestor that no other refills are due, in the near future, with this provider at this time: Yes The last office visit in the department: 11/27/2023 Does the patient have a future office visit with this provider/department: Yes Requested Prescriptions Pending Prescriptions Disp Refills empagliflozin (JARDIANCE) 10 mg tablet 90 tablet 3 Sig: Take 1 tablet by mouth once daily. Take 1 tablet once daily in the morning Aubrey Ledezma MA January 08, 2024 9:20 AM documented in this encounter [facility] 12-03-2023 Telephone encounter Note PA for Leroy denied insurance will only pay if A1C is a 6.5 or higher. Patient aware of denial. Kim Grady MA [facility] 12-03-2023 Miscellaneous Notes PA for Leroy denied insurance will only pay if A1C is a 6.5 or higher. Patient aware of denial. Kim Grady MA Called the pharmacy and they note PA is still needed. This is pending on our end from 11/27/23. I have called [facility] multiple times and unable to get a person on the line to check with status. Have been disconnected 4 times. Pt can contact his insurance to check with status. My chart message to pt. Electronic PA rec'd and completed for leroy. documented in this encounter [facility] 2023 Telephone encounter Note Called the pharmacy and they note PA is still needed. This is pending on our end from 11/27/23. I have called [facility] multiple times and unable to get a person on the line to check with status. Have been disconnected 4 times. Pt can contact his insurance to check with status. My chart message to pt. [facility] 11-27-2023 Telephone encounter Note Electronic PA rec'd and completed for leroy. [facility] 11-27-2023 Instructions Fatou Deluca APRN.CRESCENCIO - 11/27/2023 7:42 AM EDT Anticipate redness, with itching or burning pain initially. Tylenol (if you are able to take Tylenol) or cold compresses can help with any significant discomfort. Pain from cryotherapy can last up to 3 days. Complete healing is generally quick (7 to 14 days) with little or no scarring. Within hours after treatment, a blister may form. If the blister breaks, clean the area to prevent the spread of the virus. Avoid contact with the fluid, which may contain the wart virus. May apply antibiotic ointment and cover with bandage if needed The blister will dry up over the next days Multiple treatments may be needed. If lesion is persistent 3 to 4 weeks after treatment, please return to clinic for additional treatment Call office if you develop: Increased pain, swelling, redness, tenderness, or heat. Red streaks extending from the area. Discharge of pus. Fever. documented in this encounter [facility] 11-27-2023 Note HNO ID: [id number] Author: FATOU DELUCA APRN.CRESCENCIO Service: ? Author Type: Nurse Practitioner Type: Progress Notes Filed: 11/27/2023 08:29 Note Text: CC: Patient presents with: F/U 3 Month HPI Law Olivo is a 67 year old male who presents today for above. He has been eating healthier and losing weight. Diabetes control improving and he feels much better. He would like to discuss starting Mounjaro to help promote further weight loss. Denies personal or family history of thyroid cancer. He has a wart on the right index finger he would like frozen off. [place] he has been experiencing intermittent lower abdominal discomfort that feels like gas pain. Denies fever, chills, nausea, vomiting, diarrhea, constipation, black/bloody stools, poor appetite, heartburn/reflux symptoms, dysuria, urgency or frequency. Review of Systems See HPI PAST MEDICAL HISTORY Diagnosis Date Abnormal tilt table test 08/07/2011 Acute respiratory failure with hypoxia (HCC) 08/26/2020 Adjustment disorder with mixed anxiety and depressed mood 03/07/2013 Bradycardia Depression 07/29/2010 Diverticulosis of colon (without mention of hemorrhage) Dysmetabolic syndrome X 02/13/2007 Goiter 07/29/2010 Gout 11/13/2009 Hypertension Hypothyroid 07/29/2010 Impotence of organic origin 03/14/2005 Irritability and anger 07/05/2014 Mixed hyperlipidemia 11/11/2005 MRSA (methicillin resistant staph aureus) culture positive 06/18/2010 Myalgia 10/13/2006 Obesity (BMI 35.0-39.9 without comorbidity) 07/25/2016 Orthostatic hypotension 06/21/2010 RADHA on CPAP 07/29/2010 Pneumonia due to COVID-19 virus 08/26/[address] Dr[address] Dc PVC's (premature ventricular contractions) Seeing Dr. Green Syncope 06/18/2010 Thrombocytopenia (HCC) 05/13/2012 Vagal autonomic bradycardia 08/07/2011 PAST SURGICAL HISTORY Procedure Laterality Date COLONOSCOPY 02/11/2023 repeat in 10 years COLONOSCOPY FLX DX W/COLLJ SPEC WHEN PFRMD 05/12/2005 Colonoscopy COLONOSCOPY FLX DX W/COLLJ SPEC WHEN PFRMD 02/09/2013 Colonoscopy FINE NEEDLE ASP DEEP 04/23/2005 U/S FNA right lobe thyroid ALLERGIES Patient has no known allergies. MEDICATIONS levothyroxine (SYNTHROID) 100 mcg tablet Take 1 tablet by mouth once daily. Take on empty stomach atorvastatin (LIPITOR) 20 mg tablet Take 1 tablet by mouth daily at bedtime. For cholesterol. allopurinol (ZYLOPRIM) 300 mg tablet Take 1 tablet by mouth once daily. allopurinol (ZYLOPRIM) 100 mg tablet Take 1 tablet by mouth once daily. In addition to 300 mg daily for gout. losartan (COZAAR) 25 mg tablet Take 1 tablet by mouth once daily. empagliflozin (JARDIANCE) 10 mg tablet Take 1 tablet by mouth once daily. Take 1 tablet once daily in the morning amLODIPine (NORVASC) 5 mg tablet Take 1 tablet by mouth once daily. [employer] Medical Kit - Standard Kit This patient has been prescribed a [employer] Medical Kit for upcoming travel. This order is an informational entry for interaction checking and does NOT constitute a valid prescription order. aspirin 325 mg tablet Take one to two tablets by mouth every 8 hours as needed for pain calcium Carbonate 300 mg, 750mg, (TUMS) 300 mg (750 mg) chewable tablet Chew one tablet by mouth every 4 hours as needed for indigestion PEG 598-Turqnoyjeelo-Kwtbzfjr (DRY EYE RELIEF) 1-0.2-0.2 % drop Shake well before using. Instill 1 or 2 drops in the affected eye(s) as needed for burning or irritation loperamide (IMODIUM) 2 mg cap(s) Take one to two capsules by mouth every 8 hours as needed for diarrhea melatonin 5 mg tablet Take one tablet by mouth one hour before bedtime as needed for sleep bkrpnlduh-zbhikywag-iaueklwz-whi te petrolatum (PREPARATION H) 0.25-1 % crea Apply externally to affected area up to 4 times daily, especially at night, in the morning, or after each bowel movement albuterol HFA (PROVENTIL HFA, VENTOLIN HFA) 90 mcg/actuation inhaler Inhale two puffs by mouth every 4 hours as needed FAMILY HISTORY Problem Relation Age of Onset Osteoporosis Mother other (thyroid problems) Mother Dementia Mother Cancer Father 50 non hodgkins Stroke Father Heart disease Father valvular heart disease. None Brother Cancer Maternal Grandmother Cancer Maternal Grandfather Social History Tobacco Use Smoking status: Never Smokeless tobacco: Never Vaping Use Vaping Use: Never used Substance Use Topics Alcohol use: Yes Drug use: No BP 124/82 Pulse 67 Resp 16 Wt 108 kg (238 lb) SpO2 96% BMI 37.28 kg/m? Physical Exam Vitals reviewed. Constitutional: Appearance: Normal appearance. Cardiovascular: Rate and Rhythm: Normal rate and regular rhythm. Pulmonary: Effort: Pulmonary effort is normal. Breath sounds: Normal breath sounds. Abdominal: General: Bowel sounds are normal. There is no distension. Tenderness: (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 [facility] 11-27-2023 History of Presen t illness Narrative CC: Patient presents with: F/U 3 Month HPI Law Olivo is a 67 year old male who presents today for above. He has been eating healthier and losing weight. Diabetes control improving and he feels much better. He would like to discuss starting Mounjaro to help promote further weight loss. Denies personal or family history of thyroid cancer. He has a wart on the right index finger he would like frozen off. [place] he has been experiencing intermittent lower abdominal discomfort that feels like gas pain. Denies fever, chills, nausea, vomiting, diarrhea, constipation, black/bloody stools, poor appetite, heartburn/reflux symptoms, dysuria, urgency or frequency. Review of Systems See HPI PAST MEDICAL HISTORY Diagnosis Date Abnormal tilt table test 08/07/2011 Acute respiratory failure with hypoxia (HCC) 08/26/2020 Adjustment disorder with mixed anxiety and depressed mood 03/07/2013 Bradycardia Depression 07/29/2010 Diverticulosis of colon (without mention of hemorrhage) Dysmetabolic syndrome X 02/13/2007 Goiter 07/29/2010 Gout 11/13/2009 Hypertension Hypothyroid 07/29/2010 Impotence of organic origin 03/14/2005 Irritability and anger 07/05/2014 Mixed hyperlipidemia 11/11/2005 MRSA (methicillin resistant staph aureus) culture positive 06/18/2010 Myalgia 10/13/2006 Obesity (BMI 35.0-39.9 without comorbidity) 07/25/2016 Orthostatic hypotension 06/21/2010 RADHA on CPAP 07/29/2010 Pneumonia due to COVID-19 virus 08/26/[address] Psor[address] Seeing Dr. Dc PVC's (premature ventricular contractions) Seeing Dr. Green Syncope 06/18/2010 Thrombocytopenia (HCC) 05/13/2012 Vagal autonomic bradycardia 08/07/2011 PAST SURGICAL HISTORY Procedure Laterality Date COLONOSCOPY 02/11/2023 repeat in 10 years COLONOSCOPY FLX DX W/COLLJ SPEC WHEN PFRMD 05/12/2005 Colonoscopy COLONOSCOPY FLX DX W/COLLJ SPEC WHEN PFRMD 02/09/2013 Colonoscopy FINE NEEDLE ASP DEEP 04/23/2005 U/S FNA right lobe thyroid ALLERGIES Patient has no known allergies. MEDICATIONS levothyroxine (SYNTHROID) 100 mcg tablet Take 1 tablet by mouth once daily. Take on empty stomach atorvastatin (LIPITOR) 20 mg tablet Take 1 tablet by mouth daily at bedtime. For cholesterol. allopurinol (ZYLOPRIM) 300 mg tablet Take 1 tablet by mouth once daily. allopurinol (ZYLOPRIM) 100 mg tablet Take 1 tablet by mouth once daily. In addition to 300 mg daily for gout. losartan (COZAAR) 25 mg tablet Take 1 tablet by mouth once daily. empagliflozin (JARDIANCE) 10 mg tablet Take 1 tablet by mouth once daily. Take 1 tablet once daily in the morning amLODIPine (NORVASC) 5 mg tablet Take 1 tablet by mouth once daily. [employer] Medical Kit - Standard Kit This patient has been prescribed a [employer] Medical Kit for upcoming travel. This order is an informational entry for interaction checking and does NOT constitute a valid prescription order. aspirin 325 mg tablet Take one to two tablets by mouth every 8 hours as needed for pain calcium Carbonate 300 mg, 750mg, (TUMS) 300 mg (750 mg) chewable tablet Chew one tablet by mouth every 4 hours as needed for indigestion PEG 185-Qrlbzmdxybpg-Ihqjsztx (DRY EYE RELIEF) 1-0.2-0.2 % drop Shake well before using. Instill 1 or 2 drops in the affected eye(s) as needed for burning or irritation loperamide (IMODIUM) 2 mg cap(s) Take one to two capsules by mouth every 8 hours as needed for diarrhea melatonin 5 mg tablet Take one tablet by mouth one hour before bedtime as needed for sleep eyvtcanbp-qyyfvwwbs-jdwnmkhx-whi te petrolatum (PREPARATION H) 0.25-1 % crea Apply externally to affected area up to 4 times daily, especially at night, in the morning, or after each bowel movement albuterol HFA (PROVENTIL HFA, VENTOLIN HFA) 90 mcg/actuation inhaler Inhale two puffs by mouth every 4 hours as needed FAMILY HISTORY Problem Relation Age of Onset Osteoporosis Mother other (thyroid problems) Mother Dementia Mother Cancer Father 50 non hodgkins Stroke Father Heart disease Father valvular heart disease. None Brother Cancer Maternal Grandmother Cancer Maternal Grandfather Social History Tobacco Use Smoking status: Never Smokeless tobacco: Never Vaping Use Vaping Use: Never used Substance Use Topics Alcohol use: Yes Drug use: No BP 124/82 Pulse 67 Resp 16 Wt 108 kg (238 lb) SpO2 96% BMI 37.28 kg/m Physical Exam Vitals reviewed. Constitutional: Appearance: Normal appearance. Cardiovascular: Rate and Rhythm: Normal rate and regular rhythm. Pulmonary: Effort: Pulmonary effort is normal. Breath sounds: Normal breath sounds. Abdominal: General: Bowel sounds are normal. There is no distension. Tenderness: There is no abdominal tenderness. Skin: General: Skin is warm and dry. Comments: Right, medial index finger small common wart. We discussed risks and benefits of cryotherapy as well as other options for wart treament: agreed to proceed. 4 sec freeze twice to each area. Neurological: Mental Status: He is alert. Psychiatric: Mood and Affect: Mood normal. Health maintenance reviewed with patient: Behavioral Health Screening Never done Dilated Retinal Exam due on 10/04/2023 Covid-19 Vaccine(2022- season) due on 08/26/2024 HbA1C due on 05/22/2024 Urine Albumin:Creatinine Ratio due on 06/03/2024 LDL Cholesterol due on 08/21/2024 Diabetic Foot Exam due on 08/26/2024 BP Controlled (<130/80) due on 08/26/2024 Annual PCP Team Chronic Disease Visit due on 11/26/2024 Prostate Cancer Screening Discussion due on 03/27/2027 DTaP,Tdap,Td Vaccine(4 - Td or Tdap) due on 11/26/2030 Colorectal Cancer Screening due on 02/11/2033 Influenza Vaccine Completed Advance Directive Discussion Completed RSV Vaccine Completed Hepatitis C Screening Completed Shingrix Vaccine Completed Pneumococcal Vaccine: 65+ Completed DATA REVIEWED: Most recent labs Latest Ref Rng 11/21/2023 WBC 3.70 - 11.00 k/uL 6.13 RBC 4.20 - 6.00 m/uL 4.57 Hemoglobin 13.0 - 17.0 g/dL 14.7 Hematocrit 39.0 - 51.0 % 44.0 MCV 80.0 - 100.0 fL 96.3 MCH 26.0 - 34.0 pg 32.2 MCHC 30.5 - 36.0 g/dL 33.4 RDW-CV 11.5 - 15.0 % 13.0 Platelet Count 150 - 400 k/uL 115 (L) MPV 9.0 - 12.7 fL 12.4 Absolute nRBC <0.01 k/uL <0.01 Glucose 74 - 99 mg/dL 111 (H) BUN 9 - 24 mg/dL 26 (H) Creatinine 0.73 - 1.22 mg/dL 0.92 Sodium 136 - 144 mmol/L 139 Potassium 3.7 - 5.1 mmol/L 4.6 Chloride 98 - 107 mmol/L 108 (H) CO2 22 - 30 mmol/L 20 (L) Anion Gap 8 - 15 mmol/L 11 Calcium 8.5 - 10.2 mg/dL 9.4 eGFR >=60 mL/min/1.73m 91 Hemoglobin A1C 4.3 - 5.6 % 5.9 (H) Estimated Average Glucose mg/dL 123 Uric Acid 4.0 - 8.1 mg/dL 5.5 ASSESSMENT/PLAN: 1. Obesity (BMI 35.0-39.9 without comorbidity) - ICD9: 278.00, ICD10: E66.9 (primary diagnosis) Start Mounjaro, see orders - Continue healthy diet consisting of fruits, vegetables and lean proteins. Reduce sugary drinks of artificial juices and sodas and replace with water and low calorie Crystal Light. Healthy Snack alternatives have been discussed - Begin exercise or meaningful activity for 20 minutes at lest 3 times a day - Reviewed SE, medication expectations, required weight loss - Follow-up in 3 month(s) or as needed 2. Wart common - ICD9: 078.19, ICD10: B07.8 Post cryo instructions reviewed 3. Controlled type 2 diabetes mellitus without complication, without long-term current use of insulin (HCC) - ICD9: 250.00, ICD10: E11.9 - Improving control - Continue current medications - Start tirzepatide (Mounjaro) - TIRZEPATIDE 2.5 MG/0.5 ML SUBCUTANEOUS PEN INJECTOR 4. Bilateral lower abdominal discomfort - ICD9: 789.03, 789.04, ICD10: R10.31, R10.32 Etiology unclear, suspect secondary to dietary indiscretions and eating different foods than normal [place]. Recommend Gas-X and follow-up in one week if symptoms don't improve. Advised patient to hold off on starting Mounjaro until these symptoms have resolved Prescription instructions reviewed with patient as applicable. Potential red flag symptoms discussed with the patient. Reviewed appropriate action plan to take if red flag symptoms occur. Patient agreeable to treatment plan. During this patient visit I have spent approximately 30 minutes in counseling regarding treatment options, medications, test results, and coordinating care. Fatou Deluca APRN.[employer] documented in this encounter [facility] 08-27-2023 History of Presen t illness Narrative This note was created using [employer]. Subjective Patient presents with: Physical F/U 3 Month Law Olivo is a 67 year old male. He was doing well. He was eating more fiber and fish. 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 Weight was going down. His hypertension, diabetes mellitus, hyperlipidemia, and gout were controlled. He was sleeping well, with regular CPAP use. He went off citalopram last fall, and his mood continues to be good. He contracted with a medical consulting company for travel overseas, and was prescribed various medications for international travel later this month. These are all incorporated in his medication list. Review of Systems Constitutional: Negative for appetite change, chills, fatigue and fever. HENT: Negative for congestion and sore throat. Eyes: Negative for visual disturbance. Respiratory: Negative for cough, shortness of breath and wheezing. Cardiovascular: Negative for chest pain, palpitations and leg swelling. Gastrointestinal: Positive for constipation. Negative for abdominal pain, blood in stool, diarrhea, nausea and vomiting. Genitourinary: Negative for difficulty urinating and dysuria. Musculoskeletal: Negative for arthralgias. Skin: Negative for rash. Neurological: Negative for dizziness, numbness and headaches. Psychiatric/Behavioral: Negative for dysphoric mood, self-injury, sleep disturbance and suicidal ideas. The patient is not nervous/anxious. PAST MEDICAL HISTORY Diagnosis Date Abnormal tilt table test 08/07/2011 Acute respiratory failure with hypoxia (HCC) 08/26/2020 Adjustment disorder with mixed anxiety and depressed mood 03/07/2013 Bradycardia Depression 07/29/2010 Diverticulosis of colon (without mention of hemorrhage) Dysmetabolic syndrome X 02/13/2007 Goiter 07/29/2010 Gout 11/13/2009 Hypertension Hypothyroid 07/29/2010 Impotence of organic origin 03/14/2005 Irritability and anger 07/05/2014 Mixed hyperlipidemia 11/11/2005 MRSA (methicillin resistant staph aureus) culture positive 06/18/2010 Myalgia 10/13/2006 Obesity (BMI 35.0-39.9 without comorbidity) 07/25/2016 Orthostatic hypotension 06/21/2010 RADHA on CPAP 07/29/2010 Pneumonia due to COVID-19 virus 08/26/[address] Dr. Dc PVC's (premature ventricular contractions) Seeing Dr. Green Syncope 06/18/2010 Thrombocytopenia (HCC) 05/13/2012 Vagal autonomic bradycardia 08/07/2011 PAST SURGICAL HISTORY Procedure Laterality Date COLONOSCOPY 02/11/2023 repeat in 10 years COLONOSCOPY FLX DX W/COLLJ SPEC WHEN PFRMD 05/12/2005 Colonoscopy COLONOSCOPY FLX DX W/COLLJ SPEC WHEN PFRMD 02/09/2013 Colonoscopy FINE NEEDLE ASP DEEP 04/23/2005 U/S FNA right lobe thyroid FAMILY HISTORY Problem Relation Age of Onset Osteoporosis Mother other (thyroid problems) Mother Dementia Mother Cancer Father 50 non hodgkins Stroke Father Heart disease Father valvular heart disease. None Brother Cancer Maternal Grandmother Cancer Maternal Grandfather Social History Tobacco Use Smoking status: Never Smokeless tobacco: Never Vaping Use Vaping Use: Never used Substance Use Topics Alcohol use: Yes Drug use: No ALLERGIES No Known Allergies Current Outpatient Medications Medication Sig [employer] Kit - Standard Kit This patient has been prescribed a [employer] Kit for upcoming travel. This order is an informational entry for interaction checking and does NOT constitute a valid prescription order. acetaminophen (TYLENOL) 500 mg tablet Take one tablet by mouth every 8 hours as needed for pain amoxicillin-clavulanate potassium (AUGMENTIN) 875-125 mg per tablet Take one tablet by mouth twice daily as directed for infection azithromycin (ZITHROMAX) 250 mg tablet Take two tablets by mouth on Day 1, then take one tablet by mouth daily for 4 days. bacitracin 500 unit/gram ointment Apply to affected area every 8 hours as directed benzonatate (TESSALON PERLE) 100 mg capsule Take one to two capsules by mouth every 8 hours as needed for cough calcium Carbonate 300 mg, 750mg, (TUMS) 300 mg (750 mg) chewable tablet Chew one tablet by mouth every 4 hours as needed for indigestion clotrimazole (LOTRIMIN) 1 % cream Apply to affected area every 8 hours as directed diphenhydrAMINE (BENADRYL) 25 mg capsule Take one to two tablets by mouth every 6 hours as needed for allergy symptoms docusate sodium (COLACE) 100 mg capsule Take one to two capsules by mouth every 12 hours as needed for constipation doxycycline hyclate (VIBRAMYCIN) 100 mg capsule Take one capsule by mouth every 12 hours for 10 days or as directed. PEG 748-Thaxqfcznkfm-Mjimyhzh (DRY EYE RELIEF) 1-0.2-0.2 % drop Shake well before using. Instill 1 or 2 drops in the affected eye(s) as needed for burning or irritation erythromycin (ROMYCIN) 5 mg/gram (0.5 %) ophthalmic ointment Apply approximately 1 cm of ointment in affected eye(s) up to six times daily as directed famotidine (PEPCID) 20 mg tablet Take one tablet by mouth twice daily as needed for heartburn fluconazole (DIFLUCAN) 150 mg tablet Take one tablet by mouth now; may repeat dose in three days if symptoms persist ibuprofen (MOTRIN) 600 mg tablet Take one tablet by mouth every 8 hours with food or milk as needed for pain levoFLOXacin (LEVAQUIN) 500 mg tablet Take one tablet by mouth daily as directed for infection loperamide (IMODIUM) 2 mg cap(s) Take one to two capsules by mouth every 8 hours as needed for diarrhea loratadine (CLARITIN) 10 mg tablet Take one tablet by mouth daily as needed for allergy symptoms meclizine (ANTIVERT) 25 mg tab Take one tablet by mouth every 8 hours as needed for vertigo or motion sickness melatonin 5 mg tablet Take one tablet by mouth one hour before bedtime as needed for sleep metroNIDAZOLE (FLAGYL) 500 mg tablet Take one tablet by mouth every 12 hours for infection dextromethorphan-guaiFENesin (MUCINEX DM) 30-600 mg per tablet Take one to two tablets by mouth every 12 hours as needed for cough as directed ondansetron orally disintegrating (ZOFRAN ODT) 4 mg disintegrating tablet Dissolve one tablet on tongue and swallow every 6 hours as needed for nausea Oxymetazoline HCl 0.05 % mist Instill one spray in each nostril every 12 hours as needed for congestion Phenazopyridine HCl 95 mg tab Take two tablets by mouth every 8 hours as directed for burning urination PHENYLephrine (SUDAFED PE) 10 mg tablet Take one tablet by mouth every 4 hours as needed for sinus congestion & pressure as directed predniSONE (DELTASONE) 20 mg tablet Take one to two tablets by mouth as directed for allergic reactions cofpudxut-svohpkygt-tcamrbuz-whi te petrolatum (PREPARATION H) 0.25-1 % crea Apply externally to affected area up to 4 times daily, especially at night, in the morning, or after each bowel movement benzocaine-menthol (CEPACOL) 15-3.6 mg lozg Allow one lozenge to dissolve slowly in the mouth. May be repeated every 2 hours as directed. sulfamethoxazole-trimethoprim (BACTRIM DS) 800-160 mg per tablet Take one tablet by mouth every 12 hours as directed for infection triamcinolone acetonide (KENALOG) 0.1 % cream Apply to affected area every 8 hours as directed albuterol HFA (PROVENTIL HFA, VENTOLIN HFA) 90 mcg/actuation inhaler Inhale two puffs by mouth every 4 hours as needed levothyroxine (SYNTHROID) 100 mcg tablet Take 1 tablet by mouth once daily. Take on empty stomach atorvastatin (LIPITOR) 20 mg tablet Take 1 tablet by mouth daily at bedtime. For cholesterol. allopurinol (ZYLOPRIM) 300 mg tablet Take 1 tablet by mouth once daily. allopurinol (ZYLOPRIM) 100 mg tablet Take 1 tablet by mouth once daily. In addition to 300 mg daily for gout. losartan (COZAAR) 25 mg tablet Take 1 tablet by mouth once daily. empagliflozin (JARDIANCE) 10 mg tablet Take 1 tablet by mouth once daily. Take 1 tablet once daily in the morning amLODIPine (NORVASC) 5 mg tablet Take 1 tablet by mouth once daily. aspirin 325 mg tablet Take one to two tablets by mouth every 8 hours as needed for pain Bismuth Subsalicylate 262 mg tab Chew two tablets by mouth every 6 hours as needed for diarrhea No current facility-administered medications for this visit. Objective BP 128/78 Pulse 65 Temp 36.8 C (98.2 F) Resp 16 Ht 170.2 cm (5' 7) Wt 111 kg (244 lb 12.8 oz) BMI 38.34 kg/m Physical Exam Constitutional: General: He is not in acute distress. Appearance: He is not ill-appearing. HENT: Head: Normocephalic. Nose: Nose normal. Mouth/Throat: Mouth: Mucous membranes are moist. Pharynx: Oropharynx is clear. Eyes: General: No scleral icterus. Extraocular Movements: Extraocular movements intact. Conjunctiva/sclera: Conjunctivae normal. Cardiovascular: Rate and Rhythm: Normal rate and regular rhythm. Heart sounds: No murmur heard. No gallop. Pulmonary: Effort: No respiratory distress. Breath sounds: No wheezing or rales. Abdominal: Palpations: Abdomen is soft. There is no mass. Tenderness: There is no abdominal tenderness. Musculoskeletal: General: No tenderness. Normal range of motion. Cervical back: Neck supple. Right lower leg: No edema. Left lower leg: No edema. Lymphadenopathy: Cervical: No cervical adenopathy. Neurological: General: No focal deficit present. Mental Status: He is alert. Gait: Gait normal. Psychiatric: Mood and Affect: Mood normal. Feet:Shoes and socks removed, No deformities, ulcers, normal distal pulses, sensitive to 10 gm monofilament, and plantar calluses in both 1st MTP joints. Depression Screening PHQ-2 Score 08/27/2023 0 Depression screening tool completed and reviewed. Based on score and interview, patient is not at risk for depression. Screening tool discussed with patient, and I recommended no further intervention at this time. Latest Ref Rng 08/22/2023 Protein, Total 6.3 - 8.0 g/dL 7.1 Albumin 3.9 - 4.9 g/dL 4.6 Calcium 8.5 - 10.2 mg/dL 9.1 Bilirubin, Total 0.2 - 1.3 mg/dL 0.4 Alkaline Phosphatase 38 - 113 U/L 72 AST 14 - 40 U/L 24 ALT 10 - 54 U/L 30 Glucose 74 - 99 mg/dL 118 (H) BUN 9 - 24 mg/dL 18 Creatinine 0.73 - 1.22 mg/dL 1.04 Sodium 136 - 144 mmol/L 138 Potassium 3.7 - 5.1 mmol/L 4.6 Chloride 97 - 105 mmol/L 106 (H) CO2 22 - 30 mmol/L 23 Anion Gap 9 - 18 mmol/L 9 eGFR >=60 mL/min/1.73m 78 WBC 3.70 - 11.00 k/uL 7.12 RBC 4.20 - 6.00 m/uL 4.63 Hemoglobin 13.0 - 17.0 g/dL 14.7 Hematocrit 39.0 - 51.0 % 45.3 MCV 80.0 - 100.0 fL 97.8 MCH 26.0 - 34.0 pg 31.7 MCHC 30.5 - 36.0 g/dL 32.5 RDW-CV 11.5 - 15.0 % 12.6 Platelet Count 150 - 400 k/uL 109 (L) MPV 9.0 - 12.7 fL 11.8 Absolute nRBC <0.01 k/uL <0.01 Cholesterol, Total <200 mg/dL 129 Triglyceride <150 mg/dL 130 HDL Cholesterol >39 mg/dL 37 (L) Non HDL Cholesterol <130 mg/dL 92 Fasting Time hrs 12 VLDL Cholesterol <30 mg/dL 26 TC:HDL Ratio <5.10 3.49 LDL Cholesterol <100 mg/dL 66 LDL:HDL Ratio <2.54 1.78 Hemoglobin A1C 4.3 - 5.6 % 6.0 (H) Estimated Average Glucose mg/dL 126 TSH 0.270 - 4.200 mIU/L 2.460 Legend: (H) High (L) Low Assessment and Plan 1. Routine medical exam - ICD9: V70.0, ICD10: Z00.00 (primary diagnosis) - Counseled on healthy diet and regular exercise - Discussed need for and benefit of weight loss. BMI 38.34 kg/(m^2) - Counseled on limiting alcohol intake to 2 drinks per day - Patient was counseled [id number] by myself (the billing provider) for the following immunizations and vaccine components, including side effects: RSV. Patient consents for immunization and understands risks and benefits. A VIS sheet on each immunization was given to the patient. 2. Essential hypertension - ICD9: 401.9, ICD10: I10 - Controlled - Continue current medications - CBC 3. Controlled type 2 diabetes mellitus without complication, without long-term current use of insulin (HCC) - ICD9: 250.00, ICD10: E11.9 - Controlled - Continue current medications - Shared medical decision making was done about the option of increasing Jardiance dose. We agreed to no changes at this time. - BASIC METABOLIC PNL - HGB A1C 4. Hypothyroidism, unspecified type - ICD9: 244.9, ICD10: E03.9 - Instructed patient on importance of taking on an empty stomach either first thing in the morning or at bedtime. - continue current dose of Synthroid. 5. Mixed hyperlipidemia - ICD9: 272.2, ICD10: E78.2 - Controlled - Continue current medications - Counseled on healthy diet and regular exercise 6. RADHA on CPAP - ICD9: 327.23, ICD10: G47.33 - He was using and benefiting from regular CPAP use. 7. Idiopathic chronic gout of multiple sites without tophus - ICD9: 274.02, ICD10: M1A.09X0 Asymptomatic. - URIC ACID BLOOD 8. Adjustment disorder with mixed anxiety and depressed mood - ICD9: 309.28, ICD10: F43.23 - Controlled, resolved off medication for over 3 months. 9. Need for vaccination - ICD9: V05.9, ICD10: Z23 - RSV VACCINE, BIVALENT (ABRYSVO) - PNEUMOCOCCAL VACCINE, 20 VALENT (PREVNAR 20) 10. Thrombocytopenia (HCC) - ICD9: 287.5, ICD10: D69.6 - Chronic and stable. Frantz Mccauley MD documented in this encounter [facility] 08-26-2023 History of Presen t illness Narrative TMK Initial Intake SUBJECTIVE: Law Olivo August 26, 2023 11:17 AM Initial patient intake via video conference. Member has no acute complaints. Past medical, surgical, family and social history were all reviewed and are noted below. PAST MEDICAL HISTORY Diagnosis Date Abnormal tilt table test 08/07/2011 Acute respiratory failure with hypoxia (HCC) 08/26/2020 Adjustment disorder with mixed anxiety and depressed mood 03/07/2013 Bradycardia Depression 07/29/2010 Diverticulosis of colon (without mention of hemorrhage) Dysmetabolic syndrome X 02/13/2007 Goiter 07/29/2010 Gout 11/13/2009 Hypertension Hypothyroid 07/29/2010 Impotence of organic origin 03/14/2005 Irritability and anger 07/05/2014 Mixed hyperlipidemia 11/11/2005 MRSA (methicillin resistant staph aureus) culture positive 06/18/2010 Myalgia 10/13/2006 Obesity (BMI 35.0-39.9 without comorbidity) 07/25/2016 Orthostatic hypotension 06/21/2010 RADHA on CPAP 07/29/2010 Pneumonia due to COVID-19 virus 08/26/[address] Dc PVC's (premature ventricular contractions) Seeing Dr. Green Syncope 06/18/2010 Thrombocytopenia (HCC) 05/13/2012 Vagal autonomic bradycardia 08/07/2011 PAST SURGICAL HISTORY Procedure Laterality Date COLONOSCOPY 02/11/2023 repeat in 10 years COLONOSCOPY FLX DX W/COLLJ SPEC WHEN PFRMD 05/12/2005 Colonoscopy COLONOSCOPY FLX DX W/COLLJ SPEC WHEN PFRMD 02/09/2013 Colonoscopy FINE NEEDLE ASP DEEP 04/23/2005 U/S FNA right lobe thyroid FAMILY HISTORY Problem Relation Age of Onset Cancer Father 50 non hodgkins Stroke Father Heart disease Father valvular heart disease. Osteoporosis Mother other (thyroid problems) Mother None Brother Cancer Maternal Grandmother Cancer Maternal Grandfather Social History Tobacco Use Smoking status: Never Smokeless tobacco: Never Vaping Use Vaping Use: Never used Substance Use Topics Alcohol use: Yes Alcohol/week: 14.0 standard drinks of alcohol Types: 14 Glasses of Wine (5oz) per week Drug use: No ALLERGIES No Known Allergies CURRENT MEDICATIONS: allopurinol amLODIPine atorvastatin empagliflozin levothyroxine losartan OBJECTIVE: Law Olivo appeared well-developed/well-nourished during video conference call. Member appeared to be in no distress and demonstrated normal speech and cognition with appropriate affect. ASSESSMENT: [employer] initial intake for Law Olivo via video conference. Are there contraindications to any TMK medications? None PLAN: Law Olivo was educated on the TMK program and all questions have been answered. The problem, allergy and medication lists have been updated and aTMK e-prescription has been sent to the [facility] pharmacy. Law Olivo has the [employer] telephone number and agrees to contact [facility] with any questions. he was instructed to contact [employer] and speak with a [employer] physician for medical direction prior to removing prescription medications from the TMK. he was also instructed to notify [employer] staff upon removal of any OTC medication from the kit. This intake with Law Olivo occurred via [employer] HIPAA-Compliant conferencing platform. Prior to the consultation, he was presented with a notice of privacy practices and agreed to a telemedicine visit. Maico Keller MD documented in this encounter [facility] 06-25-2023 History of Presen t illness Narrative Radiology Service Progress Note PATIENT NAME: Law Olivo DATE OF SERVICE: June 25, 2023 TIME: 10:55 AM PATIENT IDENTITY VERIFICATION COMPLETED USING TWO (2) IDENTIFIERS: Name and Date of confirmed by patient verbally. FALL SCREENING: Has the patient had 2 falls in the last year or 1 fall with injury or currently using an Ambulatory Assistive Device (Walker, Cane, Wheelchair, Crutches, etc.)? No PATIENT GENDER DATA: Male PATIENT RELEVANT IMPLANT DATA REVIEWED: Yes RADIOLOGY DEPARTMENT: General X-ray: Exam(s) Completed: Spine X-Ray(s): Cervical AP / LAT / odontoid PERIPHERAL IV DATA: Not applicable SIGNED BY: RT Isabel(R) June 25, 2023 10:55 AM documented in this encounter [facility] 06-04-2023 History of Presen t illness Narrative This note was created using Pruffi. Subjective Law Olivo is a 67 year old male. He weaned off citalopram and then bupropion and had been off since . His mood had been stable off the medications. 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 His obstructive sleep apnea had not been reevaluated for decades, and he had been using a Resmed Airsense 10 autoPAP with a nasal pillow from an online supplier. He now felt more dry mouth, and somnolence later in the morning. He was interested in having this reevaluated. We reviewed his lab results. He went on a trip without his medications, including his thyroid medication for several days. Review of Systems Constitutional: Positive for fatigue. Negative for appetite change, fever and unexpected weight change. HENT: Negative. Eyes: Negative for visual disturbance. Respiratory: Negative for cough, shortness of breath and wheezing. Cardiovascular: Negative for chest pain, palpitations and leg swelling. Gastrointestinal: Negative. Psychiatric/Behavioral: Negative for dysphoric mood, self-injury and suicidal ideas. The patient is not nervous/anxious. ACTIVE PROBLEM LIST Mixed Hyperlipidemia Controlled Type 2 Diabetes Mellitus Without Complication, Without Long-Term Current Use of Insulin (Hcc) Gout Hypothyroid Radha On Cpap Adjustment Disorder With Mixed Anxiety and Depressed Mood Psoriasis Obesity (Bmi 35.0-39.9 Without Comorbidity) Essential Hypertension Palpitations Idiopathic Chronic Gout of Multiple Sites Without Tophus Social History Tobacco Use Smoking status: Never Smokeless tobacco: Never Vaping Use Vaping Use: Never used Substance Use Topics Alcohol use: Yes Alcohol/week: 14.0 standard drinks of alcohol Types: 14 Glasses of Wine (5oz) per week Drug use: No Objective BP 130/82 (BP Site: Left Arm, BP Position: Sitting, BP Cuff Size: Large Adult) Pulse 84 Temp 36.4 C (97.6 F) (Temporal) Resp 16 Wt 114.8 kg (253 lb) BMI 37.91 kg/m Physical Exam Constitutional: Appearance: Normal appearance. HENT: Head: Normocephalic. Cardiovascular: Rate and Rhythm: Normal rate and regular rhythm. Heart sounds: No murmur heard. No gallop. Pulmonary: Breath sounds: Normal breath sounds. Musculoskeletal: Right lower leg: No edema. Left lower leg: No edema. Neurological: General: No focal deficit present. Mental Status: He is alert. Psychiatric: Mood and Affect: Mood normal. Behavior: Behavior normal. Thought Content: Thought content normal. Feet:Shoes and socks removed, No deformities, ulcers, normal distal pulses, sensitive to 10 gm monofilament, and minor callouses of both big toes. ZORA-7 ANXIETY SCALE 06/04/2023 FEELING NERVOUS,ANXIOUS,OR ON EDGE 0 Not at all sure NOT BEING ABLE TO STOP OR CONTROL WORRYING 0 Not at all sure WORRYING TOO MUCH ABOUT DIFFERENT THINGS 0 Not at all sure TROUBLE RELAXING 0 Not at all sure BEING SO RESTLESS THAT IT'S HARD TO SIT STILL 0 Not at all sure BEING EASILY ANNOYED OR IRRITABLE 0 Not at all sure FEELING AFRAID IF SOMETHING AWFUL MIGHT HAPPEN 0 Not at all sure GAD7 SCORE 0 IF YOU CHECKED OFF ANY PROBLEMS Not difficult at all CP PHQ9 06/04/2023 Little interest or pleasure 0 - Not at all Feeling down, depressed, hopeless 0 - Not at all Trouble falling or staying asleep, sleeping too much 0 - Not at all Feeling tired, having little energy 0 - Not at all Poor appetite or overeating 0 - Not at all Feeling bad about yourself, failure or you have let yourself/family down 0 - Not at all Trouble concentrating on things 0 - Not at all Moving or speaking so slowly, or fidgety or restless 0 - Not at all Thoughts that you would be better off , or of hurting yourself in some way 0 - Not at all How difficult have these problems made things Not difficult at all Interpretation of Total Score 0-No Depression Component Latest Ref Rng & Units 06/03/2023 Creatinine, Ur Random (UCRR) 20.0 - 300.0 mg/dL 117.4 Albumin, Urine Random mg/L 23.3 Albumin/Creat Ratio <30 mg/g 20 Hemoglobin A1C 4.3 - 5.6 % 6.8 (H) Estimated Average Glucose mg/dL 148 TSH 0.270 - 4.200 mIU/L 8.240 (H) Assessment and Plan 1. Adjustment disorder with mixed anxiety and depressed mood - ICD9: 309.28, ICD10: F43.23 (primary diagnosis) - Controlled, and stable off medications. Continue with behavioral measures. Letter written to this effect. 2. Hypothyroidism, unspecified type - ICD9: 244.9, ICD10: E03.9 - Instructed patient on importance of taking on an empty stomach either first thing in the morning or at bedtime. - continue current dose of Synthroid for now, and recheck in 3 months. - LEVOTHYROXINE 100 MCG TABLET - TSH BLD 3. Mixed hyperlipidemia - ICD9: 272.2, ICD10: E78.2 - Control undetermined, due for labs - Continue current medications - Counseled on healthy diet and regular exercise - ATORVASTATIN 20 MG TABLET - COMP METABOLIC PANEL - LIPID PANEL BASIC 4. Need for influenza vaccination - ICD9: V04.81, ICD10: Z23 - INFLUENZA VACCINE, PRSV FREE, AGE 65+ YR, HIGH DOSE, QUADRIVALENT (FLUZONE HIGH-DOSE) 5. Controlled type 2 diabetes mellitus without complication, without long-term current use of insulin (HCC) - ICD9: 250.00, ICD10: E11.9 - Controlled - Continue current medications - We discussed options for weight loss, including GLP1a. We discussed option of coming off medications with extreme weight loss or bariatric surgery. - HGB A1C 6. Essential hypertension - ICD9: 401.9, ICD10: I10 - Controlled - Continue current medications - CBC 7. RADHA on CPAP - ICD9: 327.23, ICD10: G47.33 We agreed to set up CPAP titration at the local hospital. - CONSULT TO NON-[facility] FACILITY Frantz Mccauley MD documented in this encounter [facility] 04-23-2023 History of Presen t illness Narrative Radiology Service Progress Note PATIENT NAME: Law Olivo DATE OF SERVICE: April 23, 2023 TIME: 1:55 PM PATIENT IDENTITY VERIFICATION COMPLETED USING TWO (2) IDENTIFIERS: Name and Date of confirmed by patient verbally. FALL SCREENING: Has the patient had 2 falls in the last year or 1 fall with injury or currently using an Ambulatory Assistive Device (Walker, Cane, Wheelchair, Crutches, etc.)? No PATIENT GENDER DATA: Male PATIENT RELEVANT IMPLANT DATA REVIEWED: Yes RADIOLOGY DEPARTMENT: General X-ray: Exam(s) Completed: Chest X-Ray PERIPHERAL IV DATA: Not applicable SIGNED BY: RT Isabel(R) April 23, 2023 1:55 PM documented in this encounter [facility] 04-23-2023 History of Presen t illness Narrative This note was created using NoteWriter. Subjective Law Olivo is a 67 year old male. 67 year old male with PMH HTN, hyperlipidemia, DM, gout and obesity presents for illness. Acute onset 2 weeks ago Started as cold + cough +chest congestion +sinus pressure States he thought symptoms were improving, but then they returned. Denies CP. Denies hemoptysis Denies dyspnea. States that cough is worsened with laughing. Denies history of tobacco usage The history is provided by the patient. No english language learner teacher was used. Cough This is a new problem. The current episode started more than 1 week ago. The problem occurs constantly. The problem has not changed since onset.The cough is Non-productive. There has been no fever. Associated symptoms include ear congestion, headaches and rhinorrhea. Pertinent negatives include no chest pain, no chills, no sweats, no weight loss, no ear pain, no sore throat, no myalgias, no shortness of breath, no wheezing and no eye redness. He has tried nothing for the symptoms. The treatment provided no relief. He is not a smoker. His past medical history does not include bronchitis, pneumonia, bronchiectasis, COPD, emphysema or asthma. PAST MEDICAL HISTORY Diagnosis Date Abnormal tilt table test 08/07/2011 Acute respiratory failure with hypoxia (HCC) 08/26/2020 Adjustment disorder with mixed anxiety and depressed mood 03/07/2013 Bradycardia Depression 07/29/2010 Diverticulosis of colon (without mention of hemorrhage) Dysmetabolic syndrome X 02/13/2007 Goiter 07/29/2010 Gout 11/13/2009 Hypertension Hypothyroid 07/29/2010 Impotence of organic origin 03/14/2005 Irritability and anger 07/05/2014 Mixed hyperlipidemia 11/11/2005 MRSA (methicillin resistant staph aureus) culture positive 06/18/2010 Myalgia 10/13/2006 Obesity (BMI 35.0-39.9 without comorbidity) 07/25/2016 Orthostatic hypotension 06/21/2010 RADHA on CPAP 07/29/2010 Pneumonia due to COVID-19 virus 08/26/[address] Dr. Dc PVC's (premature ventricular contractions) Seeing Dr. Green Syncope 06/18/2010 Thrombocytopenia (HCC) 05/13/2012 Vagal autonomic bradycardia 08/07/2011 PAST SURGICAL HISTORY Procedure Laterality Date COLONOSCOPY 02/11/2023 repeat in 10 years COLONOSCOPY FLX DX W/COLLJ SPEC WHEN PFRMD 05/12/2005 Colonoscopy COLONOSCOPY FLX DX W/COLLJ SPEC WHEN PFRMD 02/09/2013 Colonoscopy FINE NEEDLE ASP DEEP 04/23/2005 U/S FNA right lobe thyroid ALLERGIES Patient has no known allergies. MEDICATIONS citalopram (CELEXA) 20 mg tablet Take 1 tablet by mouth once daily. empagliflozin (JARDIANCE) 10 mg tablet Take 1 tablet by mouth once daily. Take 1 tablet once daily in the morning amLODIPine (NORVASC) 5 mg tablet Take 1 tablet by mouth once daily. losartan (COZAAR) 25 mg tablet Take 1 tablet by mouth once daily. levothyroxine (SYNTHROID) 100 mcg tablet Take 1 tablet by mouth once daily. Take on empty stomach atorvastatin (LIPITOR) 20 mg tablet Take 1 tablet by mouth daily at bedtime. For cholesterol. allopurinol (ZYLOPRIM) 300 mg tablet Take 1 tablet by mouth once daily. buPROPion XL (WELLBUTRIN XL) 150 mg 24 hr tablet Take 1 tablet by mouth once daily. allopurinol (ZYLOPRIM) 100 mg tablet Take 1 tablet by mouth once daily. In addition to 300 mg daily for gout. doxycycline (VIBRA-TABS) 100 mg tablet Take 1 tablet by mouth two times a day for 7 days. predniSONE (DELTASONE) 10 mg tablet Take 4 tabs daily for 3 days, then 2 tabs daily for 3 days, then 1 tab daily for 3 days with food. FAMILY HISTORY Problem Relation Age of Onset Cancer Father 50 non hodgkins Stroke Father Heart disease Father valvular heart disease. Osteoporosis Mother other (thyroid problems) Mother None Brother Cancer Maternal Grandmother Cancer Maternal Grandfather Social History Tobacco Use Smoking status: Never Smokeless tobacco: Never Vaping Use Vaping Use: Never used Substance Use Topics Alcohol use: Yes Alcohol/week: 35.0 standard drinks of alcohol Types: 14 Glasses of Wine (5oz) per week Drug use: No Review of Systems Constitutional: Positive for fever. Negative for chills and weight loss. HENT: Positive for rhinorrhea. Negative for congestion, ear pain and sore throat. Eyes: Negative for discharge, redness and itching. Respiratory: Positive for cough. Negative for shortness of breath and wheezing. Cardiovascular: Negative for chest pain, palpitations and leg swelling. Gastrointestinal: Negative for abdominal pain, diarrhea, nausea and vomiting. Musculoskeletal: Negative for back pain and myalgias. Skin: Negative for color change, pallor, rash and wound. Allergic/Immunologic: Negative for environmental allergies, food allergies and immunocompromised state. Neurological: Positive for headaches. Negative for dizziness and facial asymmetry. Hematological: Negative for adenopathy. Does not bruise/bleed easily. Psychiatric/Behavioral: Negative for agitation and behavioral problems. Objective BP 136/78 Pulse 66 Temp 36.8 C (98.2 F) Resp 16 Wt 114 kg (251 lb 6.4 oz) SpO2 97% BMI 37.67 kg/m Physical Exam Vitals and nursing note reviewed. Constitutional: General: He is not in acute distress. Appearance: Normal appearance. He is not ill-appearing, toxic-appearing or diaphoretic. HENT: Head: Normocephalic and atraumatic. Right Ear: External ear normal. Left Ear: External ear normal. Ears: Comments: +frontal sinus pressure +maxillary sinus pressure Nose: Nose normal. No congestion or rhinorrhea. Mouth/Throat: Mouth: Mucous membranes are moist. Pharynx: Oropharynx is clear. Posterior oropharyngeal erythema present. No oropharyngeal exudate. Eyes: General: Right eye: No discharge. Left eye: No discharge. Extraocular Movements: Extraocular movements intact. Conjunctiva/sclera: Conjunctivae normal. Pupils: Pupils are equal, round, and reactive to light. Cardiovascular: Rate and Rhythm: Normal rate and regular rhythm. Pulses: Normal pulses. Heart sounds: Normal heart sounds. No murmur heard. No friction rub. No gallop. Pulmonary: Effort: Pulmonary effort is normal. No respiratory distress. Breath sounds: Normal breath sounds. No stridor. No wheezing, rhonchi or rales. Chest: Chest wall: No tenderness. Abdominal: General: Abdomen is flat. There is no distension. Palpations: Abdomen is soft. There is no mass. Tenderness: There is no abdominal tenderness. There is no guarding or rebound. Hernia: No hernia is present. Musculoskeletal: General: No swelling, tenderness, deformity or signs of injury. Normal range of motion. Cervical back: Normal range of motion and neck supple. No rigidity or tenderness. Right lower leg: No edema. Left lower leg: No edema. Lymphadenopathy: Cervical: Cervical adenopathy present. Skin: General: Skin is warm and dry. Capillary Refill: Capillary refill takes less than 2 seconds. Coloration: Skin is not jaundiced or pale. Findings: No bruising, lesion or rash. Neurological: General: No focal deficit present. Mental Status: He is alert and oriented to person, place, and time. Cranial Nerves: No cranial nerve deficit. Sensory: No sensory deficit. Motor: No weakness. Coordination: Coordination normal. Gait: Gait normal. Deep Tendon Reflexes: Reflexes normal. Psychiatric: Mood and Affect: Mood normal. Behavior: Behavior normal. Thought Content: Thought content normal. Assessment and Plan ASSESSMENT/PLAN: 1. Acute cough - ICD9: 786.2, ICD10: R05.1 (primary diagnosis) X 2 weeks Lungs CTA - XR CHEST 2V FRONTAL/LAT-negative for acute process 2. Rhinosinusitis - ICD9: 473.9, ICD10: J32.9 - Will begin treatment with as per antibiotic as written, see orders - The patient should also be given OTC cough and cold meds as needed, warm salt water gargles, throat lozenges and/or OTC throat spray as needed, and nasal saline gtts and suction prn for the first 5-7 days of treatment. - Supportive care with plenty of fluids, rest, and analgesia prn. - Follow up in 3-5 days if symptoms persist or worsen. Rama Mondragon APRN.[employer] documented in this encounter [facility] 02-11-2023 Nurse Note Abdomen soft non-distended. Will continue to monitor. documented in this encounter [facility] 02-11-2023 History and physical note UPDATED PROCEDURAL SEDATION HISTORY AND PHYSICAL EXAMINATION SERVICE DATE: 02/11/2023 SERVICE TIME: 7:14 PHYSICAL EXAM MUST BE COMPLETED ON ADMISSION PROCEDURE: colonoscopy, possible biopsies Procedure Indications: screening for colon cancer The History and Physical (completed in the past 30 days) has been reviewed and the patient has been examined. The contents accurately reflect the patient's condition with the following additions or revisions since the H&P was completed. ASA Class: ASA Class:: Patient with severe systemic disease Examination indicates no changes. AIRWAY: Airway Visualization of Uvula: Yes Mouth opening greater than 2 fingerbreadths: Yes Neck Full Range of Motion: Yes LUNGS: Lungs clear to auscultation CARDIAC: Regular rhythm,Regular rate Provisional Diagnosis/Treatment Plan: colonoscopy, possible biposies SEDATION GOAL: Moderate This H&P can be found in the Electronic Medical Record. SIGNATURE: Criss Hoff MD PATIENT NAME: Law Olivo DATE: February 11, 2023 TIME: 7:37 AM Source Note - Criss Hoff MD - 02/11/2023 7:30 AM EDT HISTORY AND PHYSICAL Law Olivo 1955 REFERRING PHYSICIAN: Fatou Orozco APRN.CNP CHIEF COMPLAINT: No chief complaint on file. HPI: The patient is a 67 year old male presents for screening for colon cancer via colonoscopy The patient denies blood in stools, denies abdominal pain, and denies changes in bowel habits. The patient notes no colon cancer in immediate family. The patient has had previous colonoscopy in 2012 PAST MEDICAL HISTORY Diagnosis Date Abnormal tilt table test 08/07/2011 Acute respiratory failure with hypoxia (HCC) 08/26/2020 Adjustment disorder with mixed anxiety and depressed mood 03/07/2013 Bradycardia Depression 07/29/2010 Diverticulosis of colon (without mention of hemorrhage) Dysmetabolic syndrome X 02/13/2007 Goiter 07/29/2010 Gout 11/13/2009 Hypertension Hypothyroid 07/29/2010 Impotence of organic origin 03/14/2005 Irritability and anger 07/05/2014 Mixed hyperlipidemia 11/11/2005 MRSA (methicillin resistant staph aureus) culture positive 06/18/2010 Myalgia 10/13/2006 Obesity (BMI 35.0-39.9 without comorbidity) 07/25/2016 Orthostatic hypotension 06/21/2010 RADHA on CPAP 07/29/2010 Pneumonia due to COVID-19 virus 08/26/[address] Dr. Dc PVC's (premature ventricular contractions) Seeing Dr. Green Syncope 06/18/2010 Thrombocytopenia (HCC) 05/13/2012 Vagal autonomic bradycardia 08/07/2011 PAST SURGICAL HISTORY Procedure Laterality Date COLONOSCOPY FLX DX W/COLLJ SPEC WHEN PFRMD Colonoscopy COLONOSCOPY FLX DX W/COLLJ SPEC WHEN PFRMD 02/09/13 Colonoscopy FINE NEEDLE ASP DEEP 04/23/05 U/S FNA right lobe thyroid Current Outpatient Medications Medication Sig citalopram (CELEXA) 20 mg tablet Take 1 tablet by mouth once daily. empagliflozin (JARDIANCE) 10 mg tablet Take 1 tablet by mouth once daily. Take 1 tablet once daily in the morning amLODIPine (NORVASC) 5 mg tablet Take 1 tablet by mouth once daily. losartan (COZAAR) 25 mg tablet Take 1 tablet by mouth once daily. levothyroxine (SYNTHROID) 100 mcg tablet Take 1 tablet by mouth once daily. Take on empty stomach allopurinol (ZYLOPRIM) 300 mg tablet Take 1 tablet by mouth once daily. buPROPion XL (WELLBUTRIN XL) 150 mg 24 hr tablet Take 1 tablet by mouth once daily. allopurinol (ZYLOPRIM) 100 mg tablet Take 1 tablet by mouth once daily. In addition to 300 mg daily for gout. atorvastatin (LIPITOR) 20 mg tablet Take 1 tablet by mouth daily at bedtime. For cholesterol. Current Facility-Administered Medications Medication Dose Route Frequency lidocaine (PF) 10 mg/mL (1 %) 1-2 mg injection (XYLOCAINE) 0.1-0.2 mL INTRADERMAL PRN lactated ringers iv infusion 75 mL/hr INTRAVENOUS CONTINUOUS ALLERGIES: Patient has no active allergies. PERSONAL HISTORY: Social History Tobacco Use Smoking status: Never Smokeless tobacco: Never Vaping Use Vaping Use: Never used Substance Use Topics Alcohol use: Yes Alcohol/week: 35.0 standard drinks of alcohol Types: 14 Glasses of Wine (5oz) per week Drug use: No FAMILY HISTORY Problem Relation Age of Onset Cancer Father 50 non hodgkins Stroke Father Heart disease Father valvular heart disease. Osteoporosis Mother other (thyroid problems) Mother None Brother Cancer Maternal Grandmother Cancer Maternal Grandfather REVIEW OF SYSTEMS: Denies fevers Denies chest pain Denies shortness of breath PHYSICAL EXAMINATION: General: The patient is 67 year old male, well nourished, well hydrated in no acute distress. The patient is oriented to time, place, and person. VITALS: Blood pressure 153/82, pulse 66, temperature 36.6 C (97.8 F), temperature source Temporal, resp. rate 16, weight 112.5 kg (248 lb 0.3 oz), SpO2 98 %. Body mass index is 37.16 kg/m . Head - Normocephalic. EOM intact with sclera clear. Mouth with mucus membranes moist. Neck - supple with no jugular venous distention noted. Trachea is midline. Lungs - clear to auscultation. Normal breath sounds. No rales/rhonchi/wheezing noted. Heart - normal heart sounds. No rubs/clicks/murmurs noted. Regular rate. Abdomen - soft and benign. Extremities - no pitting edema noted. Skin - no rashes noted PLAN: I have discussed the above with the patient. I have offered colonoscopy possible biopsies I have explained the procedure to the patient. I have counseled the patient as to the risks of the procedure, including but not limited to: infection, bleeding, injury to any intrabdominal organs such as liver/spleen, perforation of the GI tract, inability to complete the procedure, complications of anesthesia, etc. - the patient understands. The patient wishes to proceed. I have answered all questions to the patient s satisfaction and the patient has no further questions. Criss Hoff MD HISTORY AND PHYSICAL Law Olivo 1955 REFERRING PHYSICIAN: Fatou Orozco APRN.ASSEMBLER [employer] CHIEF COMPLAINT: No chief complaint on file. HPI: The patient is a 67 year old male presents for screening for colon cancer via colonoscopy The patient denies blood in stools, denies abdominal pain, and denies changes in bowel habits. The patient notes no colon cancer in immediate family. The patient has had previous colonoscopy in 2012 PAST MEDICAL HISTORY Diagnosis Date Abnormal tilt table test 08/07/2011 Acute respiratory failure with hypoxia (HCC) 08/26/2020 Adjustment disorder with mixed anxiety and depressed mood 03/07/2013 Bradycardia Depression 07/29/2010 Diverticulosis of colon (without mention of hemorrhage) Dysmetabolic syndrome X 02/13/2007 Goiter 07/29/2010 Gout 11/13/2009 Hypertension Hypothyroid 07/29/2010 Impotence of organic origin 03/14/2005 Irritability and anger 07/05/2014 Mixed hyperlipidemia 11/11/2005 MRSA (methicillin resistant staph aureus) culture positive 06/18/2010 Myalgia 10/13/2006 Obesity (BMI 35.0-39.9 without comorbidity) 07/25/2016 Orthostatic hypotension 06/21/2010 RADHA on CPAP 07/29/2010 Pneumonia due to COVID-19 virus 08/26/[address] Dr[address] Dc PVC's (premature ventricular contractions) Seeing Dr. Green Syncope 06/18/2010 Thrombocytopenia (HCC) 05/13/2012 Vagal autonomic bradycardia 08/07/2011 PAST SURGICAL HISTORY Procedure Laterality Date COLONOSCOPY FLX DX W/COLLJ SPEC WHEN PFRMD Colonoscopy COLONOSCOPY FLX DX W/COLLJ SPEC WHEN PFRMD 02/09/13 Colonoscopy FINE NEEDLE ASP DEEP 04/23/05 U/S FNA right lobe thyroid Current Outpatient Medications Medication Sig citalopram (CELEXA) 20 mg tablet Take 1 tablet by mouth once daily. empagliflozin (JARDIANCE) 10 mg tablet Take 1 tablet by mouth once daily. Take 1 tablet once daily in the morning amLODIPine (NORVASC) 5 mg tablet Take 1 tablet by mouth once daily. losartan (COZAAR) 25 mg tablet Take 1 tablet by mouth once daily. levothyroxine (SYNTHROID) 100 mcg tablet Take 1 tablet by mouth once daily. Take on empty stomach allopurinol (ZYLOPRIM) 300 mg tablet Take 1 tablet by mouth once daily. buPROPion XL (WELLBUTRIN XL) 150 mg 24 hr tablet Take 1 tablet by mouth once daily. allopurinol (ZYLOPRIM) 100 mg tablet Take 1 tablet by mouth once daily. In addition to 300 mg daily for gout. atorvastatin (LIPITOR) 20 mg tablet Take 1 tablet by mouth daily at bedtime. For cholesterol. Current Facility-Administered Medications Medication Dose Route Frequency lidocaine (PF) 10 mg/mL (1 %) 1-2 mg injection (XYLOCAINE) 0.1-0.2 mL INTRADERMAL PRN lactated ringers iv infusion 75 mL/hr INTRAVENOUS CONTINUOUS ALLERGIES: Patient has no active allergies. PERSONAL HISTORY: Social History Tobacco Use Smoking status: Never Smokeless tobacco: Never Vaping Use Vaping Use: Never used Substance Use Topics Alcohol use: Yes Alcohol/week: 35.0 standard drinks of alcohol Types: 14 Glasses of Wine (5oz) per week Drug use: No FAMILY HISTORY Problem Relation Age of Onset Cancer Father 50 non hodgkins Stroke Father Heart disease Father valvular heart disease. Osteoporosis Mother other (thyroid problems) Mother None Brother Cancer Maternal Grandmother Cancer Maternal Grandfather REVIEW OF SYSTEMS: Denies fevers Denies chest pain Denies shortness of breath PHYSICAL EXAMINATION: General: The patient is 67 year old male, well nourished, well hydrated in no acute distress. The patient is oriented to time, place, and person. VITALS: Blood pressure 153/82, pulse 66, temperature 36.6 C (97.8 F), temperature source Temporal, resp. rate 16, weight 112.5 kg (248 lb 0.3 oz), SpO2 98 %. Body mass index is 37.16 kg/m . Head - Normocephalic. EOM intact with sclera clear. Mouth with mucus membranes moist. Neck - supple with no jugular venous distention noted. Trachea is midline. Lungs - clear to auscultation. Normal breath sounds. No rales/rhonchi/wheezing noted. Heart - normal heart sounds. No rubs/clicks/murmurs noted. Regular rate. Abdomen - soft and benign. Extremities - no pitting edema noted. Skin - no rashes noted PLAN: I have discussed the above with the patient. I have offered colonoscopy possible biopsies I have explained the procedure to the patient. I have counseled the patient as to the risks of the procedure, including but not limited to: infection, bleeding, injury to any intrabdominal organs such as liver/spleen, perforation of the GI tract, inability to complete the procedure, complications of anesthesia, etc. - the patient understands. The patient wishes to proceed. I have answered all questions to the patient s satisfaction and the patient has no further questions. Criss Hoff MD documented in this encounter [facility] 01-16-2023 Miscellaneous Notes Patient phones requesting refills as follows: Requested Prescriptions Pending Prescriptions Disp Refills citalopram (CELEXA) 20 mg tablet 90 tablet 3 Sig: Take 1 tablet by mouth once daily. AJAY-12/15/22 Labs-12/12/22 NOV-none Please review and advise. Marilee So LPN documented in this encounter [facility] 12-29-2022 Miscellaneous Notes AJAY: 12/15/2022 Last refill: 11/08/2021 QTY: 90 Refills: 3 documented in this encounter [facility] 12-15-2022 Instructions Fatou Orozco APRN.ASSEMBLER [employer] - 12/15/2022 8:36 AM EDT Images from the original note were not included. Miralax/Dulcolax Bowel Prep For this bowel preparation, you will need to purchase the following medications at any pharmacy: Over the counter Miralax (generic name is polyethylene glycol) 8.3 oz or 238 grams Four (4) Dulcolax (generic name is Bisacodyl) tablets 3 days prior to your procedure, you need to be on a low fiber diet (Such as popcorn, beans, seeds, nuts, salad and raw vegetables, corn, fresh and dried fruit and multi-grain bread) YOU MUST BE ON CLEAR LIQUIDS FOR 2 FULL DAYS PRIOR TO YOUR COLONOSCOPY Day one which would be two days before your colonoscopy, you will need to be on clear liquids all day. You may have coffee or tea-black only (no cream), clear broths (beef, chicken or vegetable), apple juice, white grape juice, pop, Gatorade, Powerade, lemonade, Jello, popsicles, Jr-aid, and water-But nothing red or dark purple in color and no dairy products, tomato or orange juices. Day two which would be the day before your colonoscopy continue clear liquids all day as above. And follow the instructions below: 8:00 AM - Mix the Miralax with 64 oz of Gatorade or another clear liquid of choice and place in refrigerator. Most people say the drink is better cold. 4:00 PM - Take 2 of the Dulcolax tablets with 8 oz of water. 6:00 PM - Start to drink the Miralax mixture. You must finish it by midnight. 8:00 PM - Take the other 2 Dulcolax tablets with 8 oz of water. You may continue to drink clear liquids while you are taking your prep and after you finish it as long as it is before midnight. Drink lots of fluids so you don t become dehydrated. Nothing to drink after midnight the night before the procedure unless you are instructed differently by the physician or nurses. Please remember to take your normal medications the morning of the procedure with a small sip of water especially your blood pressure medications. If you are diabetic, you need to contact your physician about how to take your diabetic medications and/or insulin during the prepping period and the day of your procedure. Any questions please call: Dr. Hoff or Dr. Mustafa [phone] Amanda Edwards [phone] Dr. Bauman [phone] [facility] nurses [phone] documented in this encounter [facility] 12-15-2022 History of Presen t illness Narrative CC: Patient presents with: F/U 6 months HPI Lwa Olivo is a 67 year old male who presents today for above. Denies any concerns or issues today. HTN-Medication changes:No Taking all medications as prescribed: Yes Side effects: No Home BP's: No Denies: headache, chest pain, palpitations, dyspnea, and peripheral edema. Last 3 Encounter BP Readings: Date: BP: 12/15/2022 124/72 11/05/2022 112/68 04/04/2022 118/78 Diabetes: Home blood sugar readings: does not check Hypoglycemia: No He is compliant with medication(s) and is tolerating med(s) without any side effects. Last Ophthalmology exam was within the past 3 months Patient's last HgA1C was Hemoglobin A1C (%) Date Value 12/12/2022 6.1 03/27/2022 6.3 05/03/2021 6.5 11/23/2020 5.9 RADHA: Is compliant with CPAP. No changes in settings. Denies issues with mask. Denies snoring, un-refreshed sleep, insomnia, excessive daytime drowsiness. Hypothyroidism. Taking levothyroxine daily on an empty stomach. TSH Date Value 12/12/2022 2.020 mIU/L 10/24/2021 1.660 mIU/L 06/18/2021 0.866 uU/mL 05/03/2021 0.226 uU/mL Gout: taking Allopurinol. Denies any recent flare ups REVIEW OF SYSTEMS See HPI PAST MEDICAL HISTORY Diagnosis Date Abnormal tilt table test 08/07/2011 Acute respiratory failure with hypoxia (HCC) 08/26/2020 Adjustment disorder with mixed anxiety and depressed mood 03/07/2013 Bradycardia Depression 07/29/2010 Diverticulosis of colon (without mention of hemorrhage) Dysmetabolic syndrome X 02/13/2007 Goiter 07/29/2010 Gout 11/13/2009 Hypothyroid 07/29/2010 Impotence of organic origin 03/14/2005 Irritability and anger 07/05/2014 Mixed hyperlipidemia 11/11/2005 MRSA (methicillin resistant staph aureus) culture positive 06/18/2010 Myalgia 10/13/2006 Obesity (BMI 35.0-39.9 without comorbidity) 07/25/2016 Orthostatic hypotension 06/21/2010 RADHA on CPAP 07/29/2010 Pneumonia due to COVID-19 virus 08/26/[address] Dr[address] Dc PVC's (premature ventricular contractions) Seeing Dr. Green Syncope 06/18/2010 Thrombocytopenia (HCC) 05/13/2012 Vagal autonomic bradycardia 08/07/2011 PAST SURGICAL HISTORY Procedure Laterality Date COLONOSCOPY FLX DX W/COLLJ SPEC WHEN PFRMD Colonoscopy COLONOSCOPY FLX DX W/COLLJ SPEC WHEN PFRMD 02/09/13 Colonoscopy FINE NEEDLE ASP DEEP 04/23/05 U/S FNA right lobe thyroid ALLERGIES Allopurinol MEDICATIONS amLODIPine (NORVASC) 5 mg tablet Take 1 tablet by mouth once daily. losartan (COZAAR) 25 mg tablet Take 1 tablet by mouth once daily. levothyroxine (SYNTHROID) 100 mcg tablet Take 1 tablet by mouth once daily. Take on empty stomach atorvastatin (LIPITOR) 20 mg tablet Take 1 tablet by mouth daily at bedtime. For cholesterol. empagliflozin (JARDIANCE) 10 mg tablet Take 1 tablet by mouth once daily. Take 1 tablet once daily in the morning allopurinol (ZYLOPRIM) 300 mg tablet Take 1 tablet by mouth once daily. citalopram (CELEXA) 20 mg tablet Take 1 tablet by mouth once daily. buPROPion XL (WELLBUTRIN XL) 150 mg 24 hr tablet Take 1 tablet by mouth once daily. allopurinol (ZYLOPRIM) 100 mg tablet Take 1 tablet by mouth once daily. In addition to 300 mg daily for gout. FAMILY HISTORY Problem Relation Age of Onset Cancer Father 50 non hodgkins Stroke Father Heart disease Father valvular heart disease. Osteoporosis Mother other (thyroid problems) Mother None Brother Cancer Maternal Grandmother Cancer Maternal Grandfather Social History Tobacco Use Smoking status: Never Smokeless tobacco: Never Vaping Use Vaping Use: Never used Substance Use Topics Alcohol use: Yes Alcohol/week: 35.0 standard drinks Types: 14 Glasses of Wine (5oz) per week Drug use: No PHYSICAL EXAM BP 124/72 Pulse 76 Resp 16 Wt 112.5 kg (248 lb) BMI 37.16 kg/m General Appearance: well appearing, in no acute distress, alert Pysch: mood and affect broad and appropriate Lungs: Lungs clear to auscultation. No wheezing, rhonchi, rales. Heart: RRR without murmur, gallop, or rubs. No ectopy Health maintenance reviewed with patient: DILATED RETINAL EXAM Never done PNEUMOCOCCAL: 65+(2 - PCV) due on 02/05/2021 ADVANCE DIRECTIVE DISCUSSION due on 06/15/2022 DEPRESSION ASSESSMENT due on 06/15/2022 COLORECTAL CANCER SCREENING due on 02/09/2023 INFLUENZA(1) due on 02/13/2023 URINE ALBUMIN:CREATININE RATIO due on 03/27/2023 DIABETIC FOOT EXAM due on 04/04/2023 ANNUAL PCP TEAM CHRONIC DISEASE VISIT due on 04/04/2023 HBA1C due on 06/13/2023 BP CONTROLLED (<130/80) due on 11/06/2023 LDL CHOLESTEROL due on 12/13/2023 PROSTATE CANCER SCREENING DISCUSSION due on 03/27/2027 DTAP,TDAP,TD(4 - Td or Tdap) due on 11/26/2030 HEPATITIS C SCREENING Completed SHINGRIX VACCINE Completed COVID-19 VACCINE Completed DATA REVIEWED: Most recent labs Component Latest Ref Rng & Units 12/12/2022 Protein, Total 6.3 - 8.0 g/dL 6.9 Albumin 3.9 - 4.9 g/dL 4.5 Calcium 8.5 - 10.2 mg/dL 9.0 Bilirubin, Total 0.2 - 1.3 mg/dL 0.6 Alkaline Phosphatase 38 - 113 U/L 74 AST 14 - 40 U/L 16 ALT 10 - 54 U/L 22 Glucose 74 - 99 mg/dL 135 (H) BUN 9 - 24 mg/dL 25 (H) Creatinine 0.73 - 1.22 mg/dL 1.22 Sodium 136 - 144 mmol/L 138 Potassium 3.7 - 5.1 mmol/L 4.1 Chloride 97 - 105 mmol/L 104 CO2 22 - 30 mmol/L 24 Anion Gap 9 - 18 mmol/L 10 eGFR >=60 mL/min/1.73m 65 Cholesterol, Total <200 mg/dL 169 Triglyceride <150 mg/dL 211 (H) HDL Cholesterol >39 mg/dL 43 Non HDL Cholesterol <130 mg/dL 126 Fasting Time hrs 10 VLDL Cholesterol <30 mg/dL 42 (H) TC:HDL Ratio <5.10 3.93 LDL Cholesterol <100 mg/dL 84 LDL:HDL Ratio <2.54 1.95 Hemoglobin A1C 4.3 - 5.6 % 6.1 (H) Estimated Average Glucose mg/dL 128 TSH 0.270 - 4.200 mIU/L 2.020 Uric Acid 4.0 - 8.1 mg/dL 6.6 ASSESSMENT/PLAN: 1. Essential hypertension - ICD9: 401.9, ICD10: I10 (primary diagnosis) - Controlled - Continue current medications - Recommend home blood pressure monitoring, to bring results to next visit - Encouraged sodium restriction, DASH or Mediterranean diet - Recommend regular aerobic exercise 2. Controlled type 2 diabetes mellitus without complication, without long-term current use of insulin (HCC) - ICD9: 250.00, ICD10: E11.9 - Controlled - Continue current medications 3. Hypothyroidism, unspecified type - ICD9: 244.9, ICD10: E03.9 - Instructed patient on importance of taking on an empty stomach either first thing in the morning or at bedtime. - continue current dose of Synthroid 4. Mixed hyperlipidemia - ICD9: 272.2, ICD10: E78.2 - Controlled - Continue current medications 5. Idiopathic chronic gout of multiple sites without tophus - ICD9: 274.02, ICD10: M1A.09X0 Stable 6. RADHA on CPAP - ICD9: 327.23, V46.8, ICD10: G47.33 Compliant with CPAP 7. Obesity (BMI 35.0-39.9 without comorbidity) - ICD9: 278.00, ICD10: E66.9 - Discussed need for and benefit of weight loss BMI Readings from Last 1 Encounters: 12/15/22 : 37.16 kg/m - Begin healthy diet consisting of fruits, vegetables and lean proteins. Reduce sugary drinks of artificial juices and sodas and replace with water and low calorie Crystal Light. Healthy Snack alternatives have been discussed - Begin exercise or meaningful activity for 20 minutes at lest 3 times a day 8. Special screening for malignant neoplasms, colon - ICD9: V76.51, ICD10: Z12.11 - COLONOSCOPY SCREENING Prescription instructions reviewed with patient as applicable. Potential red flag symptoms discussed with the patient. Reviewed appropriate action plan to take if red flag symptoms occur. Patient agreeable to treatment plan. Fatou Orozco, HUBERT.ASSEMBLER M[employer]ED [employer]AMES [facility] OPEN ACCESS QUESTIONNAIRE 1. Are you currently having any new or unusual stomach/gastrointestinal issues at this time such as constipation, diarrhea, abdominal pain, rectal bleeding etc?No 2. Do you have any difficulty swallowing? No 3. Do you have any implanted devices such as a defibrillator, pacemaker, cardiac stents or deep brain stimulator? No 4. Do you take any Blood thinners such as Coumadin, Plavix, Xarelto, Eliquis, Brilinta or any other blood thinner? No 5. Do you have any new or past cardiac (heart) or pulmonary (lung) issues? No 6. Do you currently use any oxygen? No 7. Have you been hospitalized in the past 6 weeks? No 8. Have you had difficulty with anesthesia previously re: Difficult intubation? No Other difficulty or allergic reaction to anesthesia other than post op N/V? No 9. Are you on dialysis? No 10. Do you have any bleeding disorders such as hemophilia or Factor 5? No 11. Are you an Insulin Dependent Diabetic? No IF ANY OF THE TOP ELEVEN QUESTIONS ARE ANSWERED YES PLEASE SCHEDULE THE PATIENT FOR A CONSULT. N/A 12. Is the patient's BMI 40 or greater? No:Body mass index is 37.16 kg/m .. 13. Do you take any narcotics or anti-Anxiety medications? No 14. Do you use any illegal or recreational drugs including marijuana? No 15. Any alcohol use: YES: What type of alcohol, how much and how often do you drink? : 4 drinks a week 16. Have you been diagnosed with chronic liver disease such as hepatitis or cirrhosis? No 17. Do you have a seizure disorder? No 18. Do you have ulcerative colitis or Crohn's disease? No 19. Are you or could you be ? NA 20. Any other important health information we should be made aware of prior to your colonoscopy? NA To be completed by LIP: Did patient have MAC anesthesia with a previous endoscopy procedure? No Patient appropriate for Open Access Colonoscopy: Yes: appropriate for Open Access Procedure Checklist: Prior to closing the encounter: Complete questionnaire: Yes Confirm Prep order has been Ordered/Pended: Yes. Patient's procedure could be delayed if not given the script for the prep. Please ensure the prep is escripted to pharmacy or printed. Instructions for the prep will print upon filing or pending this smartset. Please send all open access questionnaires to [facility] Pool #[id number] documented in this encounter [facility] 12-09-2022 Miscellaneous Notes Duplicate. Labs ordered. documented in this encounter [facility] 08-08-2022 Miscellaneous Notes AJAY: 04/04/2022 Last refill: 10/28/2021 QTY: 90 Refills: 1 documented in this encounter [facility] 07-23-2022 Miscellaneous Notes Form is at this desk. Message left to pts cell to either call back with response if he wants to pear picker or us to fax it to the number on the form. Diabetes form and hypothyroid letter completed/printed. documented in this encounter [facility] 06-30-2022 Miscellaneous Notes AJAY: 04/04/2022 Last refill: 12/20/2021 QTY: 90 Refills: 1 Patient's request for medication is as follows: Requested Prescriptions Pending Prescriptions Disp Refills levothyroxine (SYNTHROID) 100 mcg tablet 90 tablet 1 Sig: Take 1 tablet by mouth once daily. Take on empty stomach Please approve the above prescription(s) to electronically send to pharmacy. Aubrey Ledezma Ma documented in this encounter [facility] 05-01-2022 Note HNO ID: [id number] Author: MIKE Saleem Service: Nuclear Medicine Author Type: Technologist Type: Progress Notes Filed: 05/01/2022 10:23 AM Note Text: RADIOLOGY SERVICE PROGRESS NOTE SERVICE DATE: 05/01/2022 SERVICE TIME: 10:09 AM PATIENT IDENTITY VERIFICATION COMPLETED USING TWO (2) STANDARD IDENTIFIERS: Name and Date of confirmed by patient verbally and Name and Date of confirmed by identification band FALL SCREENING: Has the patient had 2 falls in the last year or 1 fall with injury or currently using an Ambulatory Assistive Device (Walker, Cane, Wheelchair, Crutches, etc.)? No PATIENT GENDER DATA: .male ALLERGIES: Reviewed and unchanged MEDICATIONS REVIEWED: Not applicable PATIENT RELEVANT IMPLANT DATA REVIEWED: Not Applicable CREATININE: Creatinine Date Value Ref Range Status 03/27/2022 1.08 0.73 - 1.22 mg/dL Final 10/24/2021 1.07 0.73 - 1.22 mg/dL Final 07/11/2021 1.12 0.73 - 1.22 mg/dL Final Estimated Glomerular Filtration Rate Date Value Ref Range Status 03/27/2022 75 >=60 mL/min/1.73m? Final Comment: Estimated Glomerular Filtration Rate (eGFR) is calculated using the 2020 CKD-EPI creatinine equation. This equation utilizes serum creatinine, sex, and age as parameters. The creatinine assay has traceable calibration to isotope dilution-mass spectrometry. Refer to KDIGO guidelines for clinical interpretation. In patients with unstable renal function, e.g. those with acute kidney injury, the eGFR may not accurately reflect actual GFR. eGFR- Date Value Ref Range Status 07/11/2021 >60 Final P.O.C.T. RESULTS: N/A May 01, [address] PERFORMED: No IV SITE: Ambulatory: A peripheral IV was started in the Right antecubital site with a Angio cath: 22 gauge. POST EXAM PIV STATUS: Discontinued PROCEDURE TYPE: NH Stress: 14.9 mCi [id number] was administered IV for Rest Imaging at 09:06 by . 50.5 mCi [id number] was administered IV for Stress Imaging at 09:55 by . PATIENT DISCHARGED TO: Ambulatory patient, left NH department area. A Diagnostic radioactive procedure has taken place, with no further precautions necessary other than routine body substance precautions. More information regarding radiation safety can be found using this link: [email or web address] [email or web address] SIGNATURE: MIKE Saleem PATIENT NAME: Law Olivo DATE: May 01, 2022 TIME: 10:09 AM PAGER/CONTACT #: [facility] 05-01-2022 History of Presen t illness Narrative RADIOLOGY SERVICE PROGRESS NOTE SERVICE DATE: 05/01/2022 SERVICE TIME: 10:09 AM PATIENT IDENTITY VERIFICATION COMPLETED USING TWO (2) STANDARD IDENTIFIERS: Name and Date of confirmed by patient verbally and Name and Date of confirmed by identification band FALL SCREENING: Has the patient had 2 falls in the last year or 1 fall with injury or currently using an Ambulatory Assistive Device (Walker, Cane, Wheelchair, Crutches, etc.)? No PATIENT GENDER DATA: .male ALLERGIES: Reviewed and unchanged MEDICATIONS REVIEWED: Not applicable PATIENT RELEVANT IMPLANT DATA REVIEWED: Not Applicable CREATININE: Creatinine Date Value Ref Range Status 03/27/2022 1.08 0.73 - 1.22 mg/dL Final 10/24/2021 1.07 0.73 - 1.22 mg/dL Final 07/11/2021 1.12 0.73 - 1.22 mg/dL Final Estimated Glomerular Filtration Rate Date Value Ref Range Status 03/27/2022 75 >=60 mL/min/1.73m Final Comment: Estimated Glomerular Filtration Rate (eGFR) is calculated using the 2020 CKD-EPI creatinine equation. This equation utilizes serum creatinine, sex, and age as parameters. The creatinine assay has traceable calibration to isotope dilution-mass spectrometry. Refer to KDIGO guidelines for clinical interpretation. In patients with unstable renal function, e.g. those with acute kidney injury, the eGFR may not accurately reflect actual GFR. eGFR- Date Value Ref Range Status 07/11/2021 >60 Final P.O.C.T. RESULTS: N/A May 01, [address] PERFORMED: No IV SITE: Ambulatory: A peripheral IV was started in the Right antecubital site with a Angio cath: 22 gauge. POST EXAM PIV STATUS: Discontinued PROCEDURE TYPE: NM Stress: 14.9 mCi [id number] was administered IV for Rest Imaging at 09:06 by . 50.5 mCi [id number] was administered IV for Stress Imaging at 09:55 by . PATIENT DISCHARGED TO: Ambulatory patient, left NH department area. A Diagnostic radioactive procedure has taken place, with no further precautions necessary other than routine body substance precautions. More information regarding radiation safety can be found using this link: [email or web address] [email or web address] df SIGNATURE: MIKE Saleem PATIENT NAME: Law Olivo DATE: May 01, 2022 TIME: 10:09 AM PAGER/CONTACT #: documented in this encounter [facility] 04-30-2022 Miscellaneous Notes Spoke with patient regarding reminder for stress test tomorrow and given instructions. documented in this encounter [facility] 12-20-2021 Miscellaneous Notes AJAY: 10/28/2021 Last refill: 06/24/2021 QTY: 90 Refills: 1 Patient's request for medication is as follows: Pending Prescriptions Disp Refills LEVOTHYROXINE 100 MCG TABLET 90 tablet 1 Sig: Take 1 tablet by mouth once daily. Take on empty stomach PRABHAKAR: No Please approve the above prescription(s) to electronically send to pharmacy. Aubrey Ledezma Ma documented in this encounter [facility] 12-06-2021 Miscellaneous Notes Chloé Orozco APRN.CRESCENCIO Manual Readin/78 Pulse: 69 Reason for blood pressure check - Last BP elevated and Medication adjustment Patient is: Taking medication as prescribed Yes Took medication today Yes If no, date medication last taken N/A Experiencing side effects No BP was elevated at last appt 10/28/21. Was started on Losartan 25mg daily. Tolerating medication well. Denies any chest pain, shortness of breath, dizziness, or headaches. Daily caffeine use; none today. No personal history of tobacco use; no current exposure. Alert and oriented. Pt has been identified by name and birthdate: Yes Allergies reviewed: Yes Latex allergy: no. Medication - prescribed and OTC reviewed and updated: Yes Do you need any prescription refills prior to your next visit: No Health Maintenance: Reviewed and not up to date and provider notified Patient advised to continue with current medications and would be contacted if any further instructions after review by PCP. Isabel Mcclendon LPN documented in this encounter [facility] 12-05-2021 History of Presen t illness Narrative Manual Readin/78 Pulse: 69 Reason for blood pressure check - Last BP elevated and Medication adjustment Patient is: Taking medication as prescribed Yes Took medication today Yes If no, date medication last taken N/A Experiencing side effects No BP was elevated at last appt 10/28/21. Was started on Losartan 25mg daily. Tolerating medication well. Denies any chest pain, shortness of breath, dizziness, or headaches. Daily caffeine use; none today. No personal history of tobacco use; no current exposure. Alert and oriented. Pt has been identified by name and birthdate: Yes Allergies reviewed: Yes Latex allergy: no. Medication - prescribed and OTC reviewed and updated: Yes Do you need any prescription refills prior to your next visit: No Health Maintenance: Reviewed and not up to date and provider notified Patient advised to continue with current medications and would be contacted if any further instructions after review by PCP. Isabel Mcclendon LPN documented in this encounter [facility] 11-08-2021 Miscellaneous Notes Patient has been identified by name and date of : Yes Patient phones for refill(s): Pending Prescriptions Disp Refills EMPAGLIFLOZIN 10 MG TABLET 30 tablet 2 Sig: Take 1 tablet by mouth once daily. Take 1 tablet once daily in the morning PRABHAKAR: No Date of last office visit in primary care: 10/28/21 next apt 04/04/22 Last 2 Encounter Wt Readings: Date: Wt: 10/28/2021 109.3 kg (241 lb) 05/08/2021 111.6 kg (246 lb) Previous labs/tests for medication: Diabetes: Hemoglobin A1C (%) Date Value 10/24/2021 6.2 05/03/2021 6.5 11/23/2020 5.9 Please advise. Thank you. Darshana Daly LPN documented in this encounter [facility] 10-28-2021 Instructions Frantz Mccauley MD - 10/28/2021 5:18 PM EDT FAST[facility]. documented in this encounter [facility] 10-28-2021 History of Presen t illness Narrative This note was created using [employer]Cast[employer]. Subjective Law Olivo is a 65 year old male. He was doing well. Other than his hypertension, his diabetes mellitus, lipids, gout, and thyroid were controlled. Review of Systems Constitutional: Negative. HENT: Negative. Respiratory: Negative. Cardiovascular: Negative. Gastrointestinal: Negative. Genitourinary: Negative. Neurological: Negative. ACTIVE PROBLEM LIST Impotence of Organic Origin Mixed Hyperlipidemia Dysmetabolic Syndrome X Controlled Type 2 Diabetes Mellitus Without Complication, Without Long-Term Current Use of Insulin (Hcc) Gout Hypothyroid Radha On Cpap Adjustment Disorder With Mixed Anxiety and Depressed Mood Psoriasis Obesity (Bmi 35.0-39.9 Without Comorbidity) Essential Hypertension Palpitations Current Outpatient Medications Medication Sig amLODIPine (NORVASC) 5 mg tablet Take 1 tablet by mouth once daily. empagliflozin (JARDIANCE) 10 mg tablet Take 1 tablet by mouth once daily. Take 1 tablet once daily in the morning levothyroxine (SYNTHROID) 100 mcg tablet Take 1 tablet by mouth once daily. Take on empty stomach allopurinol (ZYLOPRIM) 300 mg tablet Take 1 tablet by mouth once daily. atorvastatin (LIPITOR) 10 mg tablet Take 1 tablet by mouth once daily. citalopram (CELEXA) 20 mg tablet Take 1 tablet by mouth once daily. buPROPion XL (WELLBUTRIN XL) 150 mg 24 hr tablet Take 1 tablet by mouth once daily. allopurinol (ZYLOPRIM) 100 mg tablet Take 1 tablet by mouth once daily. In addition to 300 mg daily for gout. No current facility-administered medications for this visit. Objective BP 136/82 (BP Site: Left Arm, BP Position: Sitting, BP Cuff Size: Large Adult) Pulse 72 Temp 36.5 C (97.7 F) (Temporal Artery) Resp 16 Wt 109.3 kg (241 lb) BMI 36.11 kg/m Physical Exam Constitutional: Appearance: Normal appearance. Cardiovascular: Rate and Rhythm: Normal rate and regular rhythm. Heart sounds: No murmur heard. No gallop. Pulmonary: Effort: Pulmonary effort is normal. Breath sounds: Normal breath sounds. Musculoskeletal: Right lower leg: No edema. Left lower leg: No edema. Neurological: Mental Status: He is alert. Component Latest Ref Rng & Units 10/24/2021 Protein, Total 6.3 - 8.0 g/dL 7.1 Albumin 3.9 - 4.9 g/dL 4.3 Calcium 8.5 - 10.2 mg/dL 8.8 Bilirubin, Total 0.2 - 1.3 mg/dL 0.5 Alkaline Phosphatase 38 - 113 U/L 85 AST 14 - 40 U/L 23 ALT 10 - 54 U/L 29 Glucose 74 - 99 mg/dL 125 (H) BUN 9 - 24 mg/dL 18 Creatinine 0.73 - 1.22 mg/dL 1.07 Sodium 136 - 144 mmol/L 139 Potassium 3.7 - 5.1 mmol/L 4.2 Chloride 97 - 105 mmol/L 106 (H) CO2 22 - 30 mmol/L 25 Anion Gap 9 - 18 mmol/L 8 (L) eGFR >=60 mL/min/1.73m 77 WBC 3.70 - 11.00 k/uL 6.94 RBC 4.20 - 6.00 m/uL 4.32 Hemoglobin 13.0 - 17.0 g/dL 14.0 Hematocrit 39.0 - 51.0 % 40.9 MCV 80.0 - 100.0 fL 94.7 MCH 26.0 - 34.0 pg 32.4 MCHC 30.5 - 36.0 g/dL 34.2 RDW-CV 11.5 - 15.0 % 13.2 Platelet Count 150 - 400 k/uL 155 MPV 9.0 - 12.7 fL 11.0 Absolute nRBC <0.01 k/uL <0.01 Cholesterol, Total <200 mg/dL 143 Triglyceride <150 mg/dL 112 HDL Cholesterol >39 mg/dL 49 Non HDL Cholesterol <130 mg/dL 94 Fasting Time hrs 12 VLDL Cholesterol <30 mg/dL 22 TC:HDL Ratio <5.10 2.92 LDL Cholesterol <100 mg/dL 72 LDL:HDL Ratio <2.54 1.47 Hemoglobin A1C 4.3 - 5.6 % 6.2 (H) Estimated Average Glucose mg/dL 131 TSH 0.270 - 4.200 mIU/L 1.660 Uric Acid 4.0 - 8.1 mg/dL 5.4 Assessment and Plan 1. Essential hypertension - ICD9: 401.9, ICD10: I10 (primary diagnosis) - suboptimal control - Continue current medication(s) - Add losartan(Cozaar). Discussed medication dosage, usage, goals of therapy, and side effects. - Goal of BP <130/80 - LOSARTAN 25 MG TABLET - Goal is wean off AMLODIPINE and transition to LOSARTAN alone. BP true in 6 weeks. 2. Idiopathic chronic gout of multiple sites without tophus - ICD9: 274.02, ICD10: M1A.09X0 Controlled. - ALLOPURINOL 300 MG TABLET - ALLOPURINOL 100 MG TABLET 3. Mixed hyperlipidemia - ICD9: 272.2, ICD10: E78.2 - good control - Continue current medication. - ATORVASTATIN 10 MG TABLET - LIPID PANEL BASIC 4. Adjustment disorder with mixed anxiety and depressed mood - ICD9: 309.28, ICD10: F43.23 Controlled. - CITALOPRAM 20 MG TABLET - BUPROPION XL 150 MG TAB 5. Controlled type 2 diabetes mellitus without complication, without long-term current use of insulin (HCC) - ICD9: 250.00, ICD10: E11.9 Controlled. - Continue current medications - BASIC METABOLIC PNL - HGB A1C - ALBUMIN/CREAT RATIO RND UR - ARB, Losartan preferred. See Hypertension. 6. Screening for prostate cancer - ICD9: V76.44, ICD10: Z12.5 - Risks/benefits of prostate cancer screening discussed. screening PSA ordered - PSA/PROSTSPECAG SCRN 7. Need for COVID-19 vaccine - ICD9: V04.89, ICD10: Z23 - PFIZER-BIONTECH COVID-19 VACCINE, AGE 12+ YR (RUSSELL TOP) Frantz Mccauley MD documented in this encounter [facility] 10-22-2021 Miscellaneous Notes AJAY: 05/08/2021 Last refill: 05/09/2020 QTY: 90 Refills: 3. Patient's request for medication is as follows: Pending Prescriptions Disp Refills AMLODIPINE 5 MG TABLET 90 tablet 3 Sig: Take 1 tablet by mouth once daily. PRABHAKAR: No Please approve the above prescription(s) to electronically send to pharmacy. Aubrey Ledezma Ma documented in this encounter [facility] 08-26-2020 History of Past i llness Narrative Problem Noted Date Resolved Date Acute respiratory failure with hypoxia 1 11/26/2020 Marital conflict 03/07/2013 09/21/2017 Vagal autonomic bradycardia 08/07/2011 04/0 02/2018 Cough 07/29/2010 09/18/2014 Groin pain 07/29/2010 09/18/2014 Dizziness and giddiness 07/29/2010 09/19/19 15 Pre-diabetes 07/29/2010 02/02/2019 Impotence 07/29/2010 09/21/2017 Goiter 07/29/2010 09/22/2017 Gouty arthropathy 11/13/2009 09/21/2017 Knee pain 02/27/2009 09/18/2014 Pain in limb 10/26/2006 12/18/2006 Cellulitis and abscess of leg, except foot 10/2612/18/2006 HYPOTHYROIDISM NOS 02/11/2006 09/18/2014 Depressive disorder, not elsewhere classified 09/21/2017 Gouty arthropathy 11/11/2005 11/13/2009 documented as of this encounter (statuses as of 10/22/2021) [facility] History of Past illness Narrative* Problem Noted Date Resolved Date Acute respiratory failure with hypoxia 1 11/26/2020 Marital conflict 03/07/2013 09/21/2017 Vagal autonomic bradycardia 08/07/2011 04/0 02/2018 Cough 07/29/2010 09/18/2014 Groin pain 07/29/2010 09/18/2014 Dizziness and giddiness 07/29/2010 09/19/19 15 Pre-diabetes 07/29/2010 02/02/2019 Impotence 07/29/2010 09/21/2017 Goiter 07/29/2010 09/22/2017 Gouty arthropathy 11/13/2009 09/21/2017 Knee pain 02/27/2009 09/18/2014 Dysmetabolic syndrome X 02/13/2007 10/29/19 22 Pain in limb 10/26/2006 12/18/2006 Cellulitis and abscess of leg, except foot 10/2612/18/2006 HYPOTHYROIDISM NOS 02/11/2006 09/18/2014 Depressive disorder, not elsewhere classified 09/21/2017 Gouty arthropathy 11/11/2005 11/13/2009 documented as of this encounter (statuses as of 10/28/2021) [facility] History of Past illness Narrative* Problem Noted Date Resolved Date Acute respiratory failure with hypoxia 1 11/26/2020 Marital conflict 03/07/2013 09/21/2017 Vagal autonomic bradycardia 08/07/2011 04/0 02/2018 Cough 07/29/2010 09/18/2014 Groin pain 07/29/2010 09/18/2014 Dizziness and giddiness 07/29/2010 09/19/19 15 Pre-diabetes 07/29/2010 02/02/2019 Impotence 07/29/2010 09/21/2017 Goiter 07/29/2010 09/22/2017 Gouty arthropathy 11/13/2009 09/21/2017 Knee pain 02/27/2009 09/18/2014 Dysmetabolic syndrome X 02/13/2007 10/29/19 22 Pain in limb 10/26/2006 12/18/2006 Cellulitis and abscess of leg, except foot 10/2612/18/2006 HYPOTHYROIDISM NOS 02/11/2006 09/18/2014 Depressive disorder, not elsewhere classified 09/21/2017 Gouty arthropathy 11/11/2005 11/13/2009 documented as of this encounter (statuses as of 11/08/2021) [facility] History of Past illness Narrative* Problem Noted Date Resolved Date Acute respiratory failure with hypoxia 1 11/26/2020 Marital conflict 03/07/2013 09/21/2017 Vagal autonomic bradycardia 08/07/2011 04/0 02/2018 Cough 07/29/2010 09/18/2014 Groin pain 07/29/2010 09/18/2014 Dizziness and giddiness 07/29/2010 09/19/19 15 Pre-diabetes 07/29/2010 02/02/2019 Impotence 07/29/2010 09/21/2017 Goiter 07/29/2010 09/22/2017 Gouty arthropathy 11/13/2009 09/21/2017 Knee pain 02/27/2009 09/18/2014 Dysmetabolic syndrome X 02/13/2007 10/29/19 22 Pain in limb 10/26/2006 12/18/2006 Cellulitis and abscess of leg, except foot 10/2612/18/2006 HYPOTHYROIDISM NOS 02/11/2006 09/18/2014 Depressive disorder, not elsewhere classified 09/21/2017 Gouty arthropathy 11/11/2005 11/13/2009 documented as of this encounter (statuses as of 12/05/2021) [facility] History of Past illness Narrative* Problem Noted Date Resolved Date Acute respiratory failure with hypoxia 1 11/26/2020 Marital conflict 03/07/2013 09/21/2017 Vagal autonomic bradycardia 08/07/201102/2018 Cough 07/29/2010 09/18/2014 Groin pain 07/29/2010 09/18/2014 Dizziness and giddiness 07/29/2010 09/19/19 15 Pre-diabetes 07/29/2010 02/02/2019 Impotence 07/29/2010 09/21/2017 Goiter 07/29/2010 09/22/2017 Gouty arthropathy 11/13/2009 09/21/2017 Knee pain 02/27/2009 09/18/2014 Dysmetabolic syndrome X 02/13/2007 10/29/19 22 Pain in limb 10/26/2006 12/18/2006 Cellulitis and abscess of leg, except foot 10/2612/18/2006 HYPOTHYROIDISM NOS 02/11/2006 09/18/2014 Depressive disorder, not elsewhere classified 09/21/2017 Gouty arthropathy 11/11/2005 11/13/2009 documented as of this encounter (statuses as of 12/06/2021) [facility] History of Past illness Narrative* Problem Noted Date Resolved Date Acute respiratory failure with hypoxia 1 11/26/2020 Marital conflict 03/07/2013 09/21/2017 Vagal autonomic bradycardia 08/07/2011 04/0 02/2018 Cough 07/29/2010 09/18/2014 Groin pain 07/29/2010 09/18/2014 Dizziness and giddiness 07/29/2010 09/19/19 15 Pre-diabetes 07/29/2010 02/02/2019 Impotence 07/29/2010 09/21/2017 Goiter 07/29/2010 09/22/2017 Gouty arthropathy 11/13/2009 09/21/2017 Knee pain 02/27/2009 09/18/2014 Dysmetabolic syndrome X 02/13/2007 10/29/19 22 Pain in limb 10/26/2006 12/18/2006 Cellulitis and abscess of leg, except foot 10/2612/18/2006 HYPOTHYROIDISM NOS 02/11/2006 09/18/2014 Depressive disorder, not elsewhere classified 09/21/2017 Gouty arthropathy 11/11/2005 11/13/2009 documented as of this encounter (statuses as of 12/20/2021) [facility] History of Past illness Narrative* Problem Noted Date Resolved Date Acute respiratory failure with hypoxia 1 11/26/2020 Marital conflict 03/07/2013 09/21/2017 Vagal autonomic bradycardia 08/07/2011 04/02/2018 Cough 07/29/2010 09/18/2014 Groin pain 07/29/2010 09/18/2014 Dizziness and giddiness 07/29/2010 09/19/19 15 Pre-diabetes 07/29/2010 02/02/2019 Impotence 07/29/2010 09/21/2017 Goiter 07/29/2010 09/22/2017 Gouty arthropathy 11/13/2009 09/21/2017 Knee pain 02/27/2009 09/18/2014 Dysmetabolic syndrome X 02/13/2007 10/29/19 22 Pain in limb 10/26/2006 12/18/2006 Cellulitis and abscess of leg, except foot 10/2612/18/2006 HYPOTHYROIDISM NOS 02/11/2006 09/18/2014 Depressive disorder, not elsewhere classified 09/21/2017 Gouty arthropathy 11/11/2005 11/13/2009 Impotence of organic origin 03/14/200503/16 documented as of this encounter (statuses as of 04/30/2022) [facility] History of Past illness Narrative* Problem Noted Date Resolved Date Acute respiratory failure with hypoxia 1 11/26/2020 Marital conflict 03/07/2013 09/21/2017 Vagal autonomic bradycardia 08/07/2011 04/0 02/2018 Cough 07/29/2010 09/18/2014 Groin pain 07/29/2010 09/18/2014 Dizziness and giddiness 07/29/2010 09/19/19 15 Pre-diabetes 07/29/2010 02/02/2019 Impotence 07/29/2010 09/21/2017 Goiter 07/29/2010 09/22/2017 Gouty arthropathy 11/13/2009 09/21/2017 Knee pain 02/27/2009 09/18/2014 Dysmetabolic syndrome X 02/13/2007 10/29/19 22 Pain in limb 10/26/2006 12/18/2006 Cellulitis and abscess of leg, except foot 10/2612/18/2006 HYPOTHYROIDISM NOS 02/11/2006 09/18/2014 Depressive disorder, not elsewhere classified 09/21/2017 Gouty arthropathy 11/11/2005 11/13/2009 Impotence of organic origin 03/14/200503/16 documented as of this encounter (statuses as of 05/02/2022) [facility] History of Past illness Narrative* Problem Noted Date Resolved Date Acute respiratory failure with hypoxia 1 11/26/2020 Marital conflict 03/07/2013 09/21/2017 Vagal autonomic bradycardia 08/07/2011 04/0 02/2018 Cough 07/29/2010 09/18/2014 Groin pain 07/29/2010 09/18/2014 Dizziness and giddiness 07/29/2010 09/19/19 15 Pre-diabetes 07/29/2010 02/02/2019 Impotence 07/29/2010 09/21/2017 Goiter 07/29/2010 09/22/2017 Gouty arthropathy 11/13/2009 09/21/2017 Knee pain 02/27/2009 09/18/2014 Dysmetabolic syndrome X 02/13/2007 10/29/19 22 Pain in limb 10/26/2006 12/18/2006 Cellulitis and abscess of leg, except foot 10/2612/18/2006 HYPOTHYROIDISM NOS 02/11/2006 09/18/2014 Depressive disorder, not elsewhere classified 09/21/2017 Gouty arthropathy 11/11/2005 11/13/2009 Impotence of organic origin 03/14/200503/16 documented as of this encounter (statuses as of 05/02/2022) [facility] History of Past illness Narrative* Problem Noted Date Resolved Date Acute respiratory failure with hypoxia 1 11/26/2020 Marital conflict 03/07/2013 09/21/2017 Vagal autonomic bradycardia 08/07/2011 04/0 02/2018 Cough 07/29/2010 09/18/2014 Groin pain 07/29/2010 09/18/2014 Dizziness and giddiness 07/29/2010 09/19/19 15 Pre-diabetes 07/29/2010 02/02/2019 Impotence 07/29/2010 09/21/2017 Goiter 07/29/2010 09/22/2017 Gouty arthropathy 11/13/2009 09/21/2017 Knee pain 02/27/2009 09/18/2014 Dysmetabolic syndrome X 02/13/2007 10/29/19 22 Pain in limb 10/26/2006 12/18/2006 Cellulitis and abscess of leg, except foot 10/2612/18/2006 HYPOTHYROIDISM NOS 02/11/2006 09/18/2014 Depressive disorder, not elsewhere classified 09/21/2017 Gouty arthropathy 11/11/2005 11/13/2009 Impotence of organic origin 03/14/200503/16 documented as of this encounter (statuses as of 06/30/2022) [facility] History of Past illness Narrative* Problem Noted Date Resolved Date Acute respiratory failure with hypoxia 1 11/26/2020 Marital conflict 03/07/2013 09/21/2017 Vagal autonomic bradycardia 08/07/2011 04/0 02/2018 Cough 07/29/2010 09/18/2014 Groin pain 07/29/2010 09/18/2014 Dizziness and giddiness 07/29/2010 09/19/19 15 Pre-diabetes 07/29/2010 02/02/2019 Impotence 07/29/2010 09/21/2017 Goiter 07/29/2010 09/22/2017 Gouty arthropathy 11/13/2009 09/21/2017 Knee pain 02/27/2009 09/18/2014 Dysmetabolic syndrome X 02/13/2007 10/29/19 22 Pain in limb 10/26/2006 12/18/2006 Cellulitis and abscess of leg, except foot 10/2612/18/2006 HYPOTHYROIDISM NOS 02/11/2006 09/18/2014 Depressive disorder, not elsewhere classified 09/21/2017 Gouty arthropathy 11/11/2005 11/13/2009 Impotence of organic origin 03/14/200503/16 documented as of this encounter (statuses as of 07/23/2022) [facility] History of Past illness Narrative* Problem Noted Date Resolved Date Acute respiratory failure with hypoxia 1 11/26/2020 Marital conflict 03/07/2013 09/21/2017 Vagal autonomic bradycardia 08/07/2011 04/0 02/2018 Cough 07/29/2010 09/18/2014 Groin pain 07/29/2010 09/18/2014 Dizziness and giddiness 07/29/2010 09/19/19 15 Pre-diabetes 07/29/2010 02/02/2019 Impotence 07/29/2010 09/21/2017 Goiter 07/29/2010 09/22/2017 Gouty arthropathy 11/13/2009 09/21/2017 Knee pain 02/27/2009 09/18/2014 Dysmetabolic syndrome X 02/13/2007 10/29/19 22 Pain in limb 10/26/2006 12/18/2006 Cellulitis and abscess of leg, except foot 10/2612/18/2006 HYPOTHYROIDISM NOS 02/11/2006 09/18/2014 Depressive disorder, not elsewhere classified 09/21/2017 Gouty arthropathy 11/11/2005 11/13/2009 Impotence of organic origin 03/14/200503/16 documented as of this encounter (statuses as of 08/10/2022) [facility] of Past illness Narrative* Problem Noted Date Resolved Date Acute respiratory failure with hypoxia 1 11/26/2020 Marital conflict 03/07/2013 09/21/2017 Vagal autonomic bradycardia 08/07/2011 04/0 02/2018 Cough 07/29/2010 09/18/2014 Groin pain 07/29/2010 09/18/2014 Dizziness and giddiness 07/29/2010 09/19/19 15 Pre-diabetes 07/29/2010 02/02/2019 Impotence 07/29/2010 09/21/2017 Goiter 07/29/2010 09/22/2017 Gouty arthropathy 11/13/2009 09/21/2017 Knee pain 02/27/2009 09/18/2014 Dysmetabolic syndrome X 02/13/2007 10/29/19 22 Pain in limb 10/26/2006 12/18/2006 Cellulitis and abscess of leg, except foot 10/2612/18/2006 HYPOTHYROIDISM NOS 02/11/2006 09/18/2014 Depressive disorder, not elsewhere classified 09/21/2017 Gouty arthropathy 11/11/2005 11/13/2009 Impotence of organic origin 03/14/200503/16 documented as of this encounter (statuses as of 12/10/2022) [facility] History of Past illness Narrative* Problem Noted Date Resolved Date Acute respiratory failure with hypoxia 1 11/26/2020 Marital conflict 03/07/2013 09/21/2017 Vagal autonomic bradycardia 08/07/201102/2018 Cough 07/29/2010 09/18/2014 Groin pain 07/29/2010 09/18/2014 Dizziness and giddiness 07/29/2010 09/19/19 15 Pre-diabetes 07/29/2010 02/02/2019 Impotence 07/29/2010 09/21/2017 Goiter 07/29/2010 09/22/2017 Gouty arthropathy 11/13/2009 09/21/2017 Knee pain 02/27/2009 09/18/2014 Dysmetabolic syndrome X 02/13/2007 10/29/19 22 Pain in limb 10/26/2006 12/18/2006 Cellulitis and abscess of leg, except foot 10/2612/18/2006 HYPOTHYROIDISM NOS 02/11/2006 09/18/2014 Depressive disorder, not elsewhere classified 09/21/2017 Gouty arthropathy 11/11/2005 11/13/2009 Impotence of organic origin 03/14/200503/16 documented as of this encounter (statuses as of 12/15/2022) [facility] History of Past illness Narrative* Problem Noted Date Diagnosed Date Resolved Date Acute respiratory failure with hypoxia 08/26/2020 11/26/2020 Marital conflict 03/07/2013 09/21/2017 Vagal autonomic bradycardia 08/07/2011 09/21/2017 Cough 07/29/2010 09/18/2014 Groin pain 07/29/2010 09/18/2014 Dizziness and giddiness 07/29/20100 11/2014 Pre-diabetes 07/29/2010 02/02/2019 Impotence 07/29/2010 09/21/2017 Goiter 07/29/2010 09/22/2017 Gouty arthropathy 11/13/2009 09/21/2017 Knee pain 02/27/2009 09/18/2014 Dysmetabolic syndrome X 02/13/200710/13 Pain in limb 10/26/2006 12/18/2006 Cellulitis and abscess of leg, except foot 10/26/2006 12/18/2006 HYPOTHYROIDISM NOS 02/11/2006 5 Depressive disorder, not elsewhere classified 11/12/1909/21/2017 Gouty arthropathy 11/11/2005 11/13/2009 Impotence of organic origin 03/14/2005 04/04/2022 documented as of this encounter (statuses as of 12/30/2022) [facility] History of Past illness Narrative* Problem Noted Date Diagnosed Date Resolved Date Acute respiratory failure with hypoxia 08/26/2020 11/26/2020 Marital conflict 03/07/2013 09/21/2017 Vagal autonomic bradycardia 08/07/2011 09/21/2017 Cough 07/29/2010 09/18/2014 Groin pain 07/29/2010 09/18/2014 Dizziness and giddiness 07/29/201011/2014 Pre-diabetes 07/29/2010 02/02/2019 Impotence 07/29/2010 09/21/2017 Goiter 07/29/2010 09/22/2017 Gouty arthropathy 11/13/2009 09/21/2017 Knee pain 02/27/2009 09/18/2014 Dysmetabolic syndrome X 02/13/200710/13 Pain in limb 10/26/2006 12/18/2006 Cellulitis and abscess of leg, except foot 10/26/2006 12/18/2006 HYPOTHYROIDISM NOS 02/11/2006 5 Depressive disorder, not elsewhere classified 11/12/19 06 09/21/2017 Gouty arthropathy 11/11/2005 11/13/2009 Impotence of organic origin 03/14/2005 04/04/2022 documented as of this encounter (statuses as of 01/18/2023) [facility] History of Past illness Narrative* Problem Noted Date Diagnosed Date Resolved Date Acute respiratory failure with hypoxia 08/26/2020 11/26/2020 Marital conflict 03/07/2013 09/21/2017 Vagal autonomic bradycardia 08/07/2011 09/21/2017 Cough 07/29/2010 09/18/2014 Groin pain 07/29/2010 09/18/2014 Dizziness and giddiness 07/29/2010/11/2014 Pre-diabetes 07/29/2010 02/02/2019 Impotence 07/29/2010 09/21/2017 Goiter 07/29/2010 09/22/2017 Gouty arthropathy 11/13/2009 09/21/2017 Knee pain 02/27/2009 09/18/2014 Dysmetabolic syndrome X 02/13/200710/13 Pain in limb 10/26/2006 12/18/2006 Cellulitis and abscess of leg, except foot 10/26/2006 12/18/2006 HYPOTHYROIDISM NOS 02/11/2006 5 Depressive disorder, not elsewhere classified 11/12/19 06 09/21/2017 Gouty arthropathy 11/11/2005 11/13/2009 Impotence of organic origin 03/14/2005 04/04/2022 documented as of this encounter (statuses as of 04/03/2023) [facility] History of Past illness Narrative* Problem Noted Date Diagnosed Date Resolved Date Acute respiratory failure with hypoxia 08/26/2020 11/26/2020 Marital conflict 03/07/2013 09/21/2017 Vagal autonomic bradycardia 08/07/2011 09/21/2017 Cough 07/29/2010 09/18/2014 Groin pain 07/29/2010 09/18/2014 Dizziness and giddiness 07/29/2010 04/0 11/2014 Pre-diabetes 07/29/2010 02/02/2019 Impotence 07/29/2010 09/21/2017 Goiter 07/29/2010 09/22/2017 Gouty arthropathy 11/13/2009 09/21/2017 Knee pain 02/27/2009 09/18/2014 Dysmetabolic syndrome X 02/13/200710/13 Pain in limb 10/26/2006 12/18/2006 Cellulitis and abscess of leg, except foot 10/26/2006 12/18/2006 HYPOTHYROIDISM NOS 02/11/2006 5 Depressive disorder, not elsewhere classified 11/12/1909/21/2017 Gouty arthropathy 11/11/2005 11/13/2009 Impotence of organic origin 03/14/2005 04/04/2022 documented as of this encounter (statuses as of 04/19/2023) [facility] History of Past illness Narrative* Problem Noted Date Diagnosed Date Resolved Date Acute respiratory failure with hypoxia 08/26/2020 11/26/2020 Marital conflict 03/07/2013 09/21/2017 Vagal autonomic bradycardia 08/07/2011 09/21/2017 Cough 07/29/2010 09/18/2014 Groin pain 07/29/2010 09/18/2014 Dizziness and giddiness 07/29/2010 04/0 11/2014 Pre-diabetes 07/29/2010 02/02/2019 Impotence 07/29/2010 09/21/2017 Goiter 07/29/2010 09/22/2017 Gouty arthropathy 11/13/2009 09/21/2017 Knee pain 02/27/2009 09/18/2014 Dysmetabolic syndrome X 02/13/200710/13 Pain in limb 10/26/2006 12/18/2006 Cellulitis and abscess of leg, except foot 10/26/2006 12/18/2006 HYPOTHYROIDISM NOS 02/11/2006 5 Depressive disorder, not elsewhere classified 11/12/19 06 09/21/2017 Gouty arthropathy 11/11/2005 11/13/2009 Impotence of organic origin 03/14/2005 04/04/2022 documented as of this encounter (statuses as of 04/24/2023) [facility] History of Past illness Narrative* Problem Noted Date Diagnosed Date Resolved Date Acute respiratory failure with hypoxia 08/26/2020 11/26/2020 Marital conflict 03/07/2013 09/21/2017 Vagal autonomic bradycardia 08/07/2011 09/21/2017 Cough 07/29/2010 09/18/2014 Groin pain 07/29/2010 09/18/2014 Dizziness and giddiness 07/29/2010 04/0 11/2014 Pre-diabetes 07/29/2010 02/02/2019 Impotence 07/29/2010 09/21/2017 Goiter 07/29/2010 09/22/2017 Gouty arthropathy 11/13/2009 09/21/2017 Knee pain 02/27/2009 09/18/2014 Dysmetabolic syndrome X 02/13/200710/13 Pain in limb 10/26/2006 12/18/2006 Cellulitis and abscess of leg, except foot 10/26/2006 12/18/2006 HYPOTHYROIDISM NOS 02/11/2006 5 Depressive disorder, not elsewhere classified 11/12/1909/21/2017 Gouty arthropathy 11/11/2005 11/13/2009 Impotence of organic origin 03/14/2005 04/04/2022 documented as of this encounter (statuses as of 06/05/2023) [facility] History of Past illness Narrative* Problem Noted Date Diagnosed Date Resolved Date Acute respiratory failure with hypoxia 08/26/2020 11/26/2020 Marital conflict 03/07/2013 09/21/2017 Vagal autonomic bradycardia 08/07/2011 09/21/2017 Cough 07/29/2010 09/18/2014 Groin pain 07/29/2010 09/18/2014 Dizziness and giddiness 07/29/20100 11/2014 Pre-diabetes 07/29/2010 02/02/2019 Impotence 07/29/2010 09/21/2017 Goiter 07/29/2010 09/22/2017 Gouty arthropathy 11/13/2009 09/21/2017 Knee pain 02/27/2009 09/18/2014 Dysmetabolic syndrome X 02/13/200710/132 Pain in limb 10/26/2006 12/18/2006 Cellulitis and abscess of leg, except foot 10/26/2006 12/18/2006 HYPOTHYROIDISM NOS 02/11/2006 5 Depressive disorder, not elsewhere classified 11/12/19 06 09/21/2017 Gouty arthropathy 11/11/2005 11/13/2009 Impotence of organic origin 03/14/2005 04/04/2022 documented as of this encounter (statuses as of 08/26/2023) [facility] History of Past illness Narrative* Problem Noted Date Diagnosed Date Resolved Date Acute respiratory failure with hypoxia 08/26/2020 11/26/2020 Marital conflict 03/07/2013 09/21/2017 Vagal autonomic bradycardia 08/07/2011 09/21/2017 Cough 07/29/2010 09/18/2014 Groin pain 07/29/2010 09/18/2014 Dizziness and giddiness 07/29/2010 04/11/2014 Pre-diabetes 07/29/2010 02/02/2019 Impotence 07/29/2010 09/21/2017 Goiter 07/29/2010 09/22/2017 Gouty arthropathy 11/13/2009 09/21/2017 Knee pain 02/27/2009 09/18/2014 Dysmetabolic syndrome X 02/13/200710/13 Pain in limb 10/26/2006 12/18/2006 Cellulitis and abscess of leg, except foot 10/26/2006 12/18/2006 HYPOTHYROIDISM NOS 02/11/2006 5 Depressive disorder, not elsewhere classified 11/12/19 06 09/21/2017 Gouty arthropathy 11/11/2005 11/13/2009 Impotence of organic origin 03/14/2005 04/04/2022 documented as of this encounter (statuses as of 08/27/2023) [facility] Essential hypertension Unspecified essential hypertension [facility] Diagnosis Essential hypertension- Primary Unspecified essential hypertension 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 note* Diagnosis Essential hypertension- Primary Unspecified essential hypertension documented in this encounter [facility] note* Diagnosis Hypothyroidism, unspecified type documented in this encounter [facility] noteNo assessment information availableWWestern Reserve Hospital Work Phone: [facility]* Diagnosis Chest pain, unspecified type documented in this encounter [facility] note* Diagnosis Hypothyroidism, unspecified type documented in this encounter [facility] note* Diagnosis Essential hypertension Unspecified essential hypertension documented in this encounter 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 note* Diagnosis Controlled type 2 diabetes mellitus without complication, without long-term current use of insulin (HCC) [facility]* Diagnosis Adjustment disorder with mixed anxiety and depressed mood [facility]* Diagnosis Screening for colon cancer- Primary Special screening for malignant neoplasms, colon Special screening for malignant neoplasms, colon [facility] Diagnosis Acute cough- Primary Rhinosinusitis Unspecified sinusitis (chronic) [facility] Diagnosis Adjustment disorder with mixed anxiety and depressed mood- Primary Hypothyroidism, unspecified type Mixed hyperlipidemia Need for influenza vaccination Need for prophylactic vaccination and inoculation against influenza Controlled type 2 diabetes mellitus without complication, without long-term current use of insulin (HCC) Essential hypertension Unspecified essential hypertension RADHA on CPAP Obstructive sleep apnea (adult) (pediatric) documented in this encounter 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 mention of tophus (tophi) Adjustment disorder with mixed anxiety and depressed mood Need for vaccination Need for prophylactic vaccination and inoculation against unspecified single disease Thrombocytopenia (HCC) Thrombocytopenia, unspecified [facility] Diagnosis Obesity (BMI 35.0-39.9 without comorbidity)- Primary Obesity, unspecified Wart common Controlled type 2 diabetes mellitus without complication, without long-term current use of insulin (HCC) Bilateral lower abdominal discomfort Abdominal pain, right lower quadrant [facility] Diagnosis Controlled type 2 diabetes mellitus without complication, without long-term current use of insulin (HCC) [facility] Diagnosis URI, acute- Primary Acute upper respiratory infections of unspecified site [facility] Diagnosis Situational anxiety- Primary Other anxiety states Adjustment disorder with mixed anxiety and depressed mood Screening for depression Encounter for screening examination for other mental health and behavioral disorders [facility]* Diagnosis Neck pain Cervicalgia [facility]* Diagnosis Acute cough [facility]* Diagnosis Thrombocytopenia (HCC)- Primary Thrombocytopenia, unspecified Controlled type 2 diabetes mellitus without complication, without long-term current use of insulin (HCC) Atherosclerosis [place] coronary artery of [place] heart without angina pectoris [facility] Diagnosis Atherosclerosis [place] coronary artery of [place] heart without angina pectoris- Primary Adjustment disorder with mixed anxiety and depressed mood Controlled type 2 diabetes mellitus without complication, without long-term current use of insulin (HCC) Mixed hyperlipidemia Need for influenza vaccination Need for prophylactic vaccination and inoculation against influenza Essential hypertension Unspecified essential hypertension Hypothyroidism, unspecified type Thrombocytopenia (HCC) Thrombocytopenia, unspecified [facility] Diagnosis Essential hypertension Unspecified essential hypertension [facility]* Diagnosis Controlled type 2 diabetes mellitus without complication, without long-term current use of insulin (HCC) Atherosclerosis [place] coronary artery of [place] heart without angina pectoris [facility] Diagnosis Hypothyroidism, unspecified type- Primary Controlled type 2 diabetes mellitus without complication, without long-term current use of insulin (HCC) Atherosclerosis [place] coronary artery of [place] heart without angina pectoris Mixed hyperlipidemia [facility]* Diagnosis Dizziness- Primary Dizziness and giddiness Hypothyroidism, unspecified type Idiopathic chronic gout of multiple sites without tophus Chronic 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 mention of tophus (tophi) Thrombocytopenia (HCC) Thrombocytopenia, unspecified Controlled type 2 diabetes mellitus without complication, without long-term current use of insulin (HCC) Essential hypertension Unspecified essential hypertension [facility]* Diagnosis Routine medical exam- Primary Routine general medical examination at a health care facility Dizziness Dizziness and giddiness Controlled type 2 diabetes mellitus without complication, without long-term current use of insulin (HCC) Mixed hyperlipidemia Hypothyroidism, unspecified type Essential hypertension Unspecified essential hypertension Adjustment disorder with mixed anxiety and depressed mood RADHA on CPAP Obstructive sleep apnea (adult) (pediatric) Skin tag, acquired [facility]* Diagnosis Dizziness- Primary Dizziness and giddiness [facility]* Diagnosis Controlled type 2 diabetes mellitus without complication, without long-term current use of insulin (HCC)- Primary Hypothyroidism, unspecified type Obesity (BMI 35.0-39.9 without comorbidity) Obesity, unspecified [facility] Diagnosis Controlled type 2 diabetes mellitus without complication, without long-term current use of insulin (HCC) Atherosclerosis [place] coronary artery of [place] heart without angina pectoris [facility] Additional Instructions Today your blood work all look normal with no signs of heart attack or blood clots. Follow-up with your doctor as scheduled for your physical and I recommend you get an outpatient stress test done. If you have chest pain or pressure recur before then come back to the ER.[facility] Work Phone: Reason for referral (narrative)* Diagnostic Procedure Only (Routine) - Closed Specialty Diagnoses / Procedures Referred By Rom doan Referred To Contact MOLECULAR & FUNCTIONAL IMAGING Diagnoses Chest pain, unspecified type Procedures NM CARDIAC PERF STRESS/EXERCISE MYOCARDIAL SPECT MULTIPLE STUDIES Frantz Mccauley MD [address] [place] [address] Molecular & Functional Imaging [address] [place] [address] Referral ID Status Reason Start Date Expiration Date V isits Requested Visits Authorized [id number] Closed Auto-Generate d Referral 04/01/2022 05/06/2022 1 1 [facility] for referral (narrative)* Outpatient Procedure (Routine) - Authorized Specialty Diagnoses / Procedures Referred By Rom t Referred To Contact [facility] Diagnoses Special screening for malignant neoplasms, colon Procedures COLONOSCOPY SCREENING COLONOSCOPY FLX DX W/COLLJ SPEC WHEN PFRMD Fatou Orozco APRN.ASSEMBLER [employer] [address] [place] [address] [facility] [place] [address] Referral ID Status Reason Start Date Expiration Date Visits Requested Visits Authorized [id number] Authorized Auto-Generat ed Referral 12/15/2022 12/16/2023 [address] [facility] for referral (narrative)* Outpatient Procedure (Routine) - Closed Specialty Diagnoses / Procedures Referred By Rom t Referred To Contact [facility] Diagnoses Special screening for malignant neoplasms, colon Procedures COLONOSCOPY SCREENING COLONOSCOPY FLX DX W/COLLJ SPEC WHEN PFRMD Fatou Oroczo APRN.CNP [address] [place] [address] [facility] [address] [address] Referral ID Status Reason Start Date Expiration Date V isits Requested Visits Authorized [id number] Closed Auto-Generate d Referral 12/15/2022 12/16/2023 [address] [facility] for referral (narrative)* Diagnostic Procedure Only (Urgent) - Closed Specialty Diagnoses / Procedures Referred By Contac t Referred To Contact XR IMAGING Diagnoses Neck pain Procedures XR CERV INJURY 3V AP/LAT/ODON RADEX SPINE CERVICAL 2 OR 3 VIEWS Hermann Oconnor MD [address] [place] [address] [place] [address] Referral ID Status Reason Start Date Expiration Date V isits Requested Visits Authorized [id number] Closed Auto-Generate d Referral 06/25/2023 07/24/2024 [address] [facility] for visit Narrative* Diagnostic Procedure Only (Routine) - Closed Specialty Diagnoses / Procedures Referred By Contac t Referred To Contact MOLECULAR & FUNCTIONAL IMAGING Diagnoses Chest pain, unspecified type Procedures NM CARDIAC PERF STRESS/EXERCISE MYOCARDIAL SPECT MULTIPLE STUDIES Frantz Mccauley MD [address] [place], [place] [id number] Molecular & Functional Imaging [address] [place] [address] Referral ID Status Reason Start Date Expiration Date V isits Requested Visits Authorized [id number] Closed Auto-Generate d Referral 04/01/2022 05/06/2022 [address] [facility] for visit Narrative* Outpatient Procedure (Routine) - Closed Specialty Diagnoses / Procedures Referred By Contac t Referred To Contact [facility] Diagnoses Special screening for malignant neoplasms, colon Procedures COLONOSCOPY SCREENING COLONOSCOPY FLX DX W/COLLJ SPEC WHEN PFRMD Older, Fatou, REFRACTORY SPECIALIST.ASSEMBLER [employer] [address] [place] [id number] [facility] [address] [place] [address] Referral ID Status Reason Start Date Expiration Date V isits Requested Visits Authorized [id number] Closed Auto-Generate d Referral 12/15/2022 12/16/2023 [address] [facility] for visit Narrative* Diagnostic Procedure Only (Urgent) - Closed Specialty Diagnoses / Procedures Referred By Contac t Referred To Contact XR IMAGING Diagnoses Neck pain Procedures XR CERV INJURY 3V AP/LAT/ODON RADEX SPINE CERVICAL 2 OR 3 VIEWS Hermann Oconnor MD [address] [facility] [place] [address] [place] [address] Referral ID Status Reason Start Date Expiration Date V isits Requested Visits Authorized [id number] Closed Auto-Generate d Referral 06/25/2023 07/24/2024 1 1 [facility] Summary Purpose Family History No Family History Records Found Relationship Condition Age at Onset Recorded Date/T lu Unknown Family History?No pertinent history Unkno wn August 26, 2020 1:27pm Advance Directives No Advanced Directives Records Found Advance Directive Response Recorded Date/ Time Living Will No March 28 3:38pm Power of Superintendent Measurement No March 28, 2022 3:38pm Chief Complaint and Reason for Visit Chief Complaint CP Medications Administered Section Inactive Administered Medications - up to 3 most recent administrations Medication Order MAR Action Action Date Dose Rate Site diphenhydrAMINE 12.5-50 mg injection (BENADRYL) 12.5-50 mg, INTRAVENOUS, DIRECTED, Starting on Thu02/11/23 at 0800, Until Thu02/11/23 at 1159, DOSING DIRECTED BY PHYSICIAN FOR PROCEDURAL SEDATION ONLY, Intraprocedure Given 02/11/2023 7:40 AM EDT 50 mg fentaNYL 50 mcg/mL 25-100 mcg injection (SUBLIMAZE) 25-100 mcg, INTRAVENOUS, DIRECTED, Starting on Thu02/11/23 at 0800, Until Thu02/11/23 at 1159, DOSING DIRECTED BY PHYSICIAN FOR PROCEDURAL SEDATION ONLY, Intraprocedure Given 02/11/2023 7:38 AM EDT 50 mcg lactated ringers iv infusion 75 mL/hr, INTRAVENOUS, CONTINUOUS, Starting on Thu02/11/23 at 0700, Until Thu02/11/23 at 0813, Preprocedure New Bag/Syringe/Ahmet le 02/11/2023 7:10 AM EDT 75 mL/hr 75 mL/hr Arm, Right midazolam 1-5 mg injection (VERSED) 1-5 mg, INTRAVENOUS, DIRECTED, Starting on Thu02/11/23 at 0800, Until Thu02/11/23 at 1159, DOSING DIRECTED BY PHYSICIAN FOR PROCEDURAL SEDATION ONLY, Intraprocedure Given 02/11/2023 7:48 AM EDT 2 mg Given 02/11/2023 7:43 AM EDT 2 mg Given 02/11/2023 7:38 AM EDT 3 mg simethicone 20-40 mg oral liquid (MYLICON) 20-40 mg, OTHER, DIRECTED, Starting on Thu02/11/23 at 0900, Until Thu02/11/23 at 1259, DOSING DIRECTED BY PHYSICIAN FOR PROCEDURAL SEDATION ONLY Shake Well, Intraprocedure Given 02/11/2023 7:50 AM EDT 40 mg Reason for Referral Specialty Diagnoses / Procedures Referred By Contac t Referred To Contact Diagnoses Controlled type 2 diabetes mellitus without complication, without long-term current use of insulin (HCC) Fatou Deluca, REFRACTORY SPECIALIST.ASSEMBLER [employer] [address] [place] [address] Referral ID Status Reason Start Date Expiration Date V isits Requested Visits Authorized [id number] Pending Review 1 1 Specialty Diagnoses / Procedures Referred By Contac t Referred To Contact Diagnoses Controlled type 2 diabetes mellitus without complication, without long-term current use of insulin (HCC) Atherosclerosis [place] coronary artery of [place] heart without angina pectoris Frantz Mccauley MD [address] [place] [address] Referral ID Status Reason Start Date Expiration Date V isits Requested Visits Authorized [id number] Pending Review 03/23/2024 05/22/2024 1 1 Additional Source Comments (unrecognized sect ion and content) No Status Records FoundNo Status Records FoundNo Status Records FoundNo Status Records FoundNo Status Records FoundNo Status Records FoundNo Status Records Found INFORMATION SOURCE (unrecogn ized section and content) DATE CREATED AUTHOR 12/04/2017 [facility] DATE CREATED AUTHOR AUTHOR'S ORGANIZ ATION 12/04/2017 [facility] DATE CREATED AUTHOR AUTHOR'S ORGANIZ ATION 05/14/2022 [facility] DATE CREATED AUTHOR AUTHOR'S ORGANIZ ATION 08/06/2022 [facility] DATE CREATED AUTHOR AUTHOR'S ORGANIZ ATION 10/07/2024 [facility] DATE CREATED AUTHOR AUTHOR'S ORGANIZ ATION 10/18/2024 [facility] DATE CREATED AUTHOR AUTHOR'S ORGANTHOMAS ATION 03/01/2025 [facility] Source Comments (unrecognize d section and content) In the event this informatio n is protected by the Federal Confidentiality of Alcohol and Drug Abuse Patient Records regulations: The Federal rules restrict any use of the information to criminally investigate or prosecute any alcohol or drug abuse patient.[facility] the event this information is protected by the Federal Confidentiality of Alcohol and Drug Abuse Patient Records regulations: The Federal rules restrict any use of the information to criminally investigate or prosecute any alcohol or drug abuse patient.[facility] the event this information is protected by the Federal Confidentiality of Alcohol and Drug Abuse Patient Records regulations: The Federal rules restrict any use of the information to criminally investigate or prosecute any alcohol or drug abuse patient.[facility] the event this information is protected by the Federal Confidentiality of Alcohol and Drug Abuse Patient Records regulations: The Federal rules restrict any use of the information to criminally investigate or prosecute any alcohol or drug abuse patient.[facility] the event this information is protected by the Federal Confidentiality of Alcohol and Drug Abuse Patient Records regulations: The Federal rules restrict any use of the information to criminally investigate or prosecute any alcohol or drug abuse patient.[facility] the event this information is protected by the Federal Confidentiality of Alcohol and Drug Abuse Patient Records regulations: The Federal rules restrict any use of the information to criminally investigate or prosecute any alcohol or drug abuse patient.[facility] the event this information is protected by the Federal Confidentiality of Alcohol and Drug Abuse Patient Records regulations: The Federal rules restrict any use of the information to criminally investigate or prosecute any alcohol or drug abuse patient.[facility] [facility] HospitalIn the event this information is protected by the Federal Confidentiality of Alcohol and Drug Abuse Patient Records regulations: The Federal rules restrict any use of the information to criminally investigate or prosecute any alcohol or drug abuse patient.[facility] HospitalIn the event this information is protected by the Federal Confidentiality of Alcohol and Drug Abuse Patient Records regulations: The Federal rules restrict any use of the information to criminally investigate or prosecute any alcohol or drug abuse patient.[facility] HospitalIn the event this information is protected by the Federal Confidentiality of Alcohol and Drug Abuse Patient Records regulations: The Federal rules restrict any use of the information to criminally investigate or prosecute any alcohol or drug abuse patient.[facility] HospitalIn the event this information is protected by the Federal Confidentiality of Alcohol and Drug Abuse Patient Records regulations: The Federal rules restrict any use of the information to criminally investigate or prosecute any alcohol or drug abuse patient.[facility] HospitalIn the event this information is protected by the Federal Confidentiality of Alcohol and Drug Abuse Patient Records regulations: The Federal rules restrict any use of the information to criminally investigate or prosecute any alcohol or drug abuse patient.[facility] HospitalIn the event this information is protected by the Federal Confidentiality of Alcohol and Drug Abuse Patient Records regulations: The Federal rules restrict any use of the information to criminally investigate or prosecute any alcohol or drug abuse patient.[facility] HospitalIn the event this information is protected by the Federal Confidentiality of Alcohol and Drug Abuse Patient Records regulations: The Federal rules restrict any use of the information to criminally investigate or prosecute any alcohol or drug abuse patient.[facility] HospitalIn the event this information is protected by the Federal Confidentiality of Alcohol and Drug Abuse Patient Records regulations: The Federal rules restrict any use of the information to criminally investigate or prosecute any alcohol or drug abuse patient.[facility] HospitalIn the event this information is protected by the Federal Confidentiality of Alcohol and Drug Abuse Patient Records regulations: The Federal rules restrict any use of the information to criminally investigate or prosecute any alcohol or drug abuse patient.[facility] HospitalIn the event this information is protected by the Federal Confidentiality of Alcohol and Drug Abuse Patient Records regulations: The Federal rules restrict any use of the information to criminally investigate or prosecute any alcohol or drug abuse patient.[facility] HospitalIn the event this information is protected by the Federal Confidentiality of Alcohol and Drug Abuse Patient Records regulations: The Federal rules restrict any use of the information to criminally investigate or prosecute any alcohol or drug abuse patient.[facility] HospitalIn the event this information is protected by the Federal Confidentiality of Alcohol and Drug Abuse Patient Records regulations: The Federal rules restrict any use of the information to criminally investigate or prosecute any alcohol or drug abuse patient.[facility] HospitalIn the event this information is protected by the Federal Confidentiality of Alcohol and Drug Abuse Patient Records regulations: The Federal rules restrict any use of the information to criminally investigate or prosecute any alcohol or drug abuse patient.[facility] HospitalIn the event this information is protected by the Federal Confidentiality of Alcohol and Drug Abuse Patient Records regulations: The Federal rules restrict any use of the information to criminally investigate or prosecute any alcohol or drug abuse patient.[facility] HospitalIn the event this information is protected by the Federal Confidentiality of Alcohol and Drug Abuse Patient Records regulations: The Federal rules restrict any use of the information to criminally investigate or prosecute any alcohol or drug abuse patient.[facility] HospitalIn the event this information is protected by the Federal Confidentiality of Alcohol and Drug Abuse Patient Records regulations: The Federal rules restrict any use of the information to criminally investigate or prosecute any alcohol or drug abuse patient.[facility] HospitalIn the event this information is protected by the Federal Confidentiality of Alcohol and Drug Abuse Patient Records regulations: The Federal rules restrict any use of the information to criminally investigate or prosecute any alcohol or drug abuse patient.[facility] HospitalIn the event this information is protected by the Federal Confidentiality of Alcohol and Drug Abuse Patient Records regulations: The Federal rules restrict any use of the information to criminally investigate or prosecute any alcohol or drug abuse patient.[facility] HospitalIn the event this information is protected by the Federal Confidentiality of Alcohol and Drug Abuse Patient Records regulations: The Federal rules restrict any use of the information to criminally investigate or prosecute any alcohol or drug abuse patient.[facility] HospitalIn the event this information is protected by the Federal Confidentiality of Alcohol and Drug Abuse Patient Records regulations: The Federal rules restrict any use of the information to criminally investigate or prosecute any alcohol or drug abuse patient.[facility] HospitalIn the event this information is protected by the Federal Confidentiality of Alcohol and Drug Abuse Patient Records regulations: The Federal rules restrict any use of the information to criminally investigate or prosecute any alcohol or drug abuse patient.[facility] HospitalIn the event this information is protected by the Federal Confidentiality of Alcohol and Drug Abuse Patient Records regulations: The Federal rules restrict any use of the information to criminally investigate or prosecute any alcohol or drug abuse patient.[facility] HospitalIn the event this information is protected by the Federal Confidentiality of Alcohol and Drug Abuse Patient Records regulations: The Federal rules restrict any use of the information to criminally investigate or prosecute any alcohol or drug abuse patient.[facility] HospitalIn the event this information is protected by the Federal Confidentiality of Alcohol and Drug Abuse Patient Records regulations: The Federal rules restrict any use of the information to criminally investigate or prosecute any alcohol or drug abuse patient.[facility] HospitalIn the event this information is protected by the Federal Confidentiality of Alcohol and Drug Abuse Patient Records regulations: The Federal rules restrict any use of the information to criminally investigate or prosecute any alcohol or drug abuse patient.[facility] HospitalIn the event this information is protected by the Federal Confidentiality of Alcohol and Drug Abuse Patient Records regulations: The Federal rules restrict any use of the information to criminally investigate or prosecute any alcohol or drug abuse patient.[facility] HospitalIn the event this information is protected by the Federal Confidentiality of Alcohol and Drug Abuse Patient Records regulations: The Federal rules restrict any use of the information to criminally investigate or prosecute any alcohol or drug abuse patient.[facility] HospitalIn the event this information is protected by the Federal Confidentiality of Alcohol and Drug Abuse Patient Records regulations: The Federal rules restrict any use of the information to criminally investigate or prosecute any alcohol or drug abuse patient.[facility] HospitalIn the event this information is protected by the Federal Confidentiality of Alcohol and Drug Abuse Patient Records regulations: The Federal rules restrict any use of the information to criminally investigate or prosecute any alcohol or drug abuse patient.[facility] HospitalIn the event this information is protected by the Federal Confidentiality of Alcohol and Drug Abuse Patient Records regulations: The Federal rules restrict any use of the information to criminally investigate or prosecute any alcohol or drug abuse patient.[facility] HospitalIn the event this information is protected by the Federal Confidentiality of Alcohol and Drug Abuse Patient Records regulations: The Federal rules restrict any use of the information to criminally investigate or prosecute any alcohol or drug abuse patient.[facility] HospitalIn the event this information is protected by the Federal Confidentiality of Alcohol and Drug Abuse Patient Records regulations: The Federal rules restrict any use of the information to criminally investigate or prosecute any alcohol or drug abuse patient.[facility] HospitalIn the event this information is protected by the Federal Confidentiality of Alcohol and Drug Abuse Patient Records regulations: The Federal rules restrict any use of the information to criminally investigate or prosecute any alcohol or drug abuse patient.[facility] HospitalIn the event this information is protected by the Federal Confidentiality of Alcohol and Drug Abuse Patient Records regulations: The Federal rules restrict any use of the information to criminally investigate or prosecute any alcohol or drug abuse patient.[facility] HospitalIn the event this information is protected by the Federal Confidentiality of Alcohol and Drug Abuse Patient Records regulations: The Federal rules restrict any use of the information to criminally investigate or prosecute any alcohol or drug abuse patient.[facility] HospitalIn the event this information is protected by the Federal Confidentiality of Alcohol and Drug Abuse Patient Records regulations: The Federal rules restrict any use of the information to criminally investigate or prosecute any alcohol or drug abuse patient.[facility] HospitalIn the event this information is protected by the Federal Confidentiality of Alcohol and Drug Abuse Patient Records regulations: The Federal rules restrict any use of the information to criminally investigate or prosecute any alcohol or drug abuse patient.[facility] HospitalIn the event this information is protected by the Federal Confidentiality of Alcohol and Drug Abuse Patient Records regulations: The Federal rules restrict any use of the information to criminally investigate or prosecute any alcohol or drug abuse patient.[facility] Reason for Visit (unrecogniz ed section and content) Reason Onset Date Comments Refill Request 10/22/2021 Reason Comments F/U 6 months Reason Onset Date Comments Refill Request 11/08/2021 Reason Comments Blood Pressure Check Reason Onset Date Comments Refill Request 12/20/2021 Reason Comments Reminder Call Reason Onset Date Comments Refill Request 06/29/2022 Reason Onset Date Comments Refill Request 08/07/2022 Reason Comments F/U 6 months Reason Onset Date Comments Refill Request 12/28/2022 Reason Onset Date Comments Refill Request 01/16/2023 Reason Comments Cough Congestion 2 weeks Reason Onset Date Comments Medication review Immunizations 06/04/2023 Flu vaccination Reason Comments Intake Reason Comments Physical F/U 3 Month Reason Comments F/U 3 Month Reason Comments Insurance Authorization Reason Onset Date Comments Refill Request 01/08/2024 Reason Comments Cough nasal congestion and drainage x 2 days Reason Comments Follow Up Discuss medication f or upcoming flight Reason Comments Orders Reason Onset Date Comments F/U 3 Month Immunizations 03/23/2024 Flu vaccination Reason Onset Date Comments Refill Request 04/25/2024 Reason Onset Date Comments Refill Request 05/11/2024 Reason Comments Recheck Lab work questions Reason Comments ER F/U Reason Comments Yearly Exam 5 month follow-up Reason Comments Follow Up Reason Onset Date Comments Refill Request 12/14/2024 Care Teams (unrecognized sec tion and content) Customs Import Specialist Relationship Specialty Start Date End Date Frantz Mccauley MD [address] [place] [address] PCP - General Internal Medicine 09/21/17 Customs Import Specialist Relationship Specialty Start Date End Date Frantz Mccauley MD [address] [place] [address] PCP - General Internal Medicine 09/21/17 Customs Import Specialist Relationship Specialty Start Date End Date Frantz Mccauley MD [address] [place] [address] PCP - General Internal Medicine 09/21/17 Customs Import Specialist Relationship Specialty Start Date End Date Frantz Mccauley MD [address] [facility] [place] [address] PCP - General Internal Medicine 09/21/17 Customs Import Specialist Relationship Specialty Start Date End Date Frantz Mccauley MD [address] [place] [address] PCP - General Internal Medicine 09/21/17 Customs Import Specialist Relationship Specialty Start Date End Date Frantz Mccauley MD [address] [facility] [place] [address] PCP - General Internal Medicine 09/21/17 Customs Import Specialist Relationship Specialty Start Date End Date Frantz Mccauley MD [address] [place] [address] PCP - General Internal Medicine 09/21/17 Customs Import Specialist Relationship Specialty Start Date End Date Frantz Mccauley MD [address] [place] [address] PCP - General Internal Medicine 09/21/17 Customs Import Specialist Relationship Specialty Start Date End Date Frantz Mccauley MD [address] [place] [address] PCP - General Internal Medicine 09/21/17 Customs Import Specialist Relationship Specialty Start Date End Date Frantz Mccauley MD [address] [place] [address] PCP - General Internal Medicine 09/21/17 Customs Import Specialist Relationship Specialty Start Date End Date Frantz Mccauley MD [address] [place] [address] PCP - General Internal Medicine 09/21/17 Customs Import Specialist Relationship Specialty Start Date End Date Frantz Mccauley MD [address] [place] [address] PCP - General Internal Medicine 09/21/17 Customs Import Specialist Relationship Specialty Start Date End Date Frantz Mccauley MD [address] [place] [address] PCP - General Internal Medicine 09/21/17 Customs Import Specialist Relationship Specialty Start Date End Date Frantz Mccauley MD [address] [place] [address] PCP - General Internal Medicine 09/21/17 Customs Import Specialist Relationship Specialty Start Date End Date Frantz Mccauley MD [address] [facility] [place] [address] PCP - General Internal Medicine 09/21/17 Customs Import Specialist Relationship Specialty Start Date End Date Frantz Mccauley MD [address] [place] [address] PCP - General Internal Medicine 09/21/17 Customs Import Specialist Relationship Specialty Start Date End Date Frantz Mccauley MD [address] [place] [address] PCP - General Internal Medicine 09/21/17 Customs Import Specialist Relationship Specialty Start Date End Date Frantz Mccauley MD [address] [place] [address] PCP - General Internal Medicine 09/21/17 Customs Import Specialist Relationship Specialty Start Date End Date Frantz Mccauley MD [address] [place] [address] PCP - General Internal Medicine 09/21/17 Customs Import Specialist Relationship Specialty Start Date End Date Frantz Mccauley MD [address] [place] [address] PCP - General Internal Medicine 09/21/17 Customs Import Specialist Relationship Specialty Start Date End Date Frantz Mccauley MD [address] [place] [address] PCP - General Internal Medicine 09/21/17 Customs Import Specialist Relationship Specialty Start Date End Date Frantz Mccauley MD [address] [place] [address] PCP - General Internal Medicine 09/21/17 Customs Import Specialist Relationship Specialty Start Date End Date Frantz Mccauley MD [address] [place] [address] PCP - General Internal Medicine 09/21/17 Customs Import Specialist Relationship Specialty Start Date End Date Frantz Mccauley MD [address] [place] [address] PCP - General Internal Medicine 09/21/17 Customs Import Specialist Relationship Specialty Start Date End Date Frantz Mccauley MD [address] [place] [address] PCP - General Internal Medicine 09/21/17 Fatou Deluca, REFRACTORY SPECIALIST.ASSEMBLER [employer] [address] [place] [address] Form Coverer Internal Medicine 05/23/24 Customs Import Specialist Relationship Specialty Start Date End Date Frantz Mccauley MD [address] [place] [address] PCP - General Internal Medicine 09/21/17 Fatou Deluca, REFRACTORY SPECIALIST.ASSEM[employer] [address] [place] [address] Form Coverer Internal Medicine 05/23/24 Customs Import Specialist Relationship Specialty Start Date End Date Frantz Mccauley MD [address] [place] [address] PCP - General Internal Medicine 09/21/17 Fatou Deluca, REFRACTORY SPECIALIST.ASSEM[employer]ER [employer] [address] [place] [address] Form Coverer Internal Medicine 05/23/24 Customs Import Specialist Relationship Specialty Start Date End Date Frantz Mccauley MD [address] [place] [address] PCP - General Internal Medicine 09/21/17 Fatou Deluca, REFRACTORY SPECIALIST.ASSEM[employer] [address] [place] [address] Form Coverer Internal Medicine 05/23/24 Customs Import Specialist Relationship Specialty Start Date End Date Frantz Mccauley MD [address] [place] [address] PCP - General Internal Medicine 09/21/17 Fatou Deluca, REFRACTORY SPECIALIST.ASSEMBLER [employer] [address] [place] [address] [facility] Internal Medicine 05/23/24 Customs Import Specialist Relationship Specialty Start Date End Date Frantz Mccauley MD [address] [place] [address] PCP - General Internal Medicine 09/21/17 Fatou Deluca, REFRACTORY SPECIALIST.ASSEM[employer] [address] [place] [address] [facility] Internal Medicine 05/23/24 Customs Import Specialist Relationship Specialty Start Date End Date Frantz Mccauley MD [address] [place] [address] PCP - General Internal Medicine 09/21/17 Fatou Deluca, REFRACTORY SPECIALIST.ASSEM[employer] [address] [place] [address] [facility]rer Internal Medicine 05/23/24 Customs Import Specialist Relationship Specialty Start Date End Date Frantz Mccauley MD [address] [place] [address] PCP - General Internal Medicine 09/21/17 Fatou Deluca, REFRACTORY SPECIALIST.ASSEM[employer] [address] [place] [address] [facility] Internal Medicine 05/23/24 Customs Import Specialist Relationship Specialty Start Date End Date Frantz Mccauley MD [address] [place] [address] PCP - General Internal Medicine 09/21/17 Fatou Deluca, REFRACTORY SPECIALIST.[employer]SEM[employer] [address] [place] [address] [facility] Internal Medicine 05/23/24 Customs Import Specialist Relationship Specialty Start Date End Date Frantz Mccauley MD [address] [place] [address] PCP - General Internal Medicine 09/21/17 Fatou Deluca, REFRACTORY SPECIALIST.[employer] [address] [place] [address] [facility] Internal Medicine 05/23/24 Goals (unrecognized section and content) Goals may be documented in a n alternate section FOR RECORDS PERTAINING TO PATIENTS WHO ARE OR HAVE BEEN ENROLLED IN A CHEMICAL DEPENDENCY/SUBSTANCEABUSE PROGRAM, SOME INFORMATION MAY BE OMITTED. This clinical summary was aggregated from multiple sources. Caution should be exercised in using it in the provision of clinical care. This summary normalizes information from multiple sources, and as a consequence, information in this document may materially change the coding, format and clinical context of patient data. In addition, data may be omitted in some cases. CLINICAL DECISIONS SHOULD BE BASED ON THE PRIMARY CLINICAL RECORDS. [facility]. provides no warranty or guarantee of the accuracy or completeness of information in this document.
--- NOTE | 2025-03-02 13:28 | STRESSREP ---
Stress Test Report Exercise myocardial perfusion stress test. 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 Stress protocol: Resting EKG demonstrates normal sinus rhythm with a rate of 64 bpm resting blood pressure is 134/86 mmHg. The patient exercised according to the regular Akira protocol for a total duration of 9 minutes attaining a maximum heart rate of 150 bpm which was 100% of maximum predicted heart rate; the maximum workload was 10.1 metabolic equivalents. At rest there were no ST or T wave changes noted to suggest ischemia and at peak exercise upsloping ST changes only were noted which did not meet the criteria for ischemia. No clinical angina was noted the test was terminated due to the target heart rate being achieved/fatigue. The peak blood pressure was 184/84 mmHg. Rate-pressure product was 27,600. Myocardial perfusion protocol. 15 mCi of technetium 99m sestamibi was injected at rest. The patient exercised according to regular Akira protocol for total duration of 9 minutes and at peak exercise 44 mCi of technetium 99m sestamibi was injected stress images were obtained stress and rest images were reconstructed in comparing the short axis vertical long and horizontal long axis. Gated images were also obtained. Perfusion SPECT analysis: Review of the stress images demonstrate normal uptake of tracer noted in all areas of the myocardium. The resting images similarly demonstrate normal uptake of tracer noted in all areas of the myocardium. No areas of reversibility are noted to suggest ischemia no previous infarct was noted. Gated SPECT analysis: The gated ejection fraction is 66%. Conclusion: Normal exercise myocardial perfusion stress test at a high workload. Good functional aerobic capacity. No arrhythmias noted.
== END | disposition home or self-care (01) ==
LOC: CVS 06:48
PROVIDERS: PCP Internal Medicine; Referring Provider Nurse Practitioner Family; Visit Provider Nurse Practitioner Family
DX: I25.10 Atherosclerotic heart disease of native coronary artery without angina pectoris (principal); I49.3 Ventricular premature depolarization; I10 Essential (primary) hypertension; E78.2 Mixed hyperlipidemia
CPT/HCPCS: 78452; 93017; A9500; A4216